=== PATIENT | male | born 1960 | race Caucasian/White ===

== ENCOUNTER → 2020-06-11 09:20 | Outpatient (CLI) | payer OTHER, SELFPAY ==
--- NOTE | ~2020-06-11 | XR_ITS ---
XR lumbar spine 2-3V DATE: 06/11/2020 09:38 INDICATION: Low back pain TECHNIQUE: AP, lateral, coned lateral lumbosacral views COMPARISON: None FINDINGS: There is approximately 50% posterior displacement of the second coccygeal segment compared to the first. There is normal alignment of the lumbar spine. No fracture or bone destruction is evident. The includ ed lower thoracic and lumbar pedicles are intact. There is mild to moderate degenerative disc disease and degenerative spurring of the lumbar vertebrae . There is extensive calcification of the abdominal aorta and common iliac arteries, without evidence o f aneurysm. IMPRESSION: Moderate degenerative changes of the lumbar spine Reviewed, dictated and finalized at location B.
== END ==
PROVIDERS: PCP Family Medicine; Visit Provider Physician Assistant Medical
DX: M54.5 Low back pain (principal)
CPT/HCPCS: 72100

== ENCOUNTER → 2021-01-22 16:52 | Outpatient (CLI) | payer OTHER, SELFPAY ==
--- NOTE | ~2021-01-22 | MR_ITS ---
EXAMINATION: MR lumbar spine wo con DATE: 01/22/2021 17:47 INDICATION: Lumbosacral radiculopathy. TECHNIQUE: Magnetic resonance imaging (MRI) of the lumbar spine was performed without intravenous con trast. Sequences included sagittal T2-weighted FSE, sagittal T2-weighted FS FSE, sagittal T1-weighted FSE, and axial T2-weighted FSE. COMPARISON: Lumbar spine radiographs 06/11/2020 FINDINGS: There is 3 mm retrolisthesis of L5 on S1. There are Schmorl's nodes at all levels. There is mild chronic anterior wedging of T12 and L1 vertebral bodies. There is mildly decreased disc height at T12-L1, L1-L2, L2-L3, and L5-S1. The distal spinal cord signal intensity is normal. The conus medu llaris is at T12-L1. Epidural lipomatosis is noted. The following disc levels are specifically discus sed: L1-L2: There is a right central protrusion with annular fissure. There is mild bilateral facet joint osteoarthritis. There is mild left neural foraminal stenosis. There is mild central canal stenosis. L2-L3: The disc is bulging. There is moderate right and severe left facet joint osteoarthritis. There is mild bilateral neural foraminal stenosis. There is mild central canal stenosis. L3-L4: The disc is bulging. There is moderate right and severe left facet joint osteoarthritis. There is mild bilateral neural foraminal stenosis. There is mild central canal stenosis. L4-L5: The disc is bulging. There is severe bilateral facet joint osteoarthritis. There is mild bilat eral neural foraminal stenosis. There is mild central canal stenosis. L5-S1: There is a broad-based protrusion from the left central zone to the right extraforaminal zone. The disc abuts the bilateral S1 nerve roots There is mild bilateral facet joint osteoarthritis. Ther e is moderate right and mild left neural foraminal stenosis. There is moderate central canal stenosis . IMPRESSION: 1. Moderate lumbar spondylosis. Reviewed, dictated and finalized at location B.
== END ==
PROVIDERS: PCP Family Medicine; Visit Provider Nurse Practitioner Family
DX: M47.27 Other spondylosis with radiculopathy, lumbosacral region (principal)
CPT/HCPCS: 72148

== ENCOUNTER → 2021-05-26 16:47 | Outpatient (CLI) | payer OTHER, SELFPAY ==
--- NOTE | ~2021-05-26 | XR_ITS ---
XR lumbar spine 2-3V DATE: 05/26/2021 19:09 INDICATION: Low back pain TECHNIQUE: Standing AP, lateral and coned lateral lumbosacral views COMPARISON: 01/22/2021 MRI lumbar spine 06/11/2020 lumbar spine FINDINGS: Status post posterior and interbody spinal fusion at L5-S1 since 06/11/2020. Degenerative spurring of the included lower thoracic and lumbar spine. There is multilevel moderate d egenerative disc disease of the lumbar spine. No fracture or bone destruction is detected; included lower thoracic and lumbar pedicles are intact. There is extensive calcification of the abdominal aorta and iliac arteries. IMPRESSION: Interval posterior and interbody spinal fusion at L5-S1 Reviewed, dictated and finalized at location A.
== END ==
PROVIDERS: PCP Family Medicine; Visit Provider Neurological Surgery
DX: M43.27 Fusion of spine, lumbosacral region (principal)
CPT/HCPCS: 72100

== ENCOUNTER → 2021-06-25 14:17 | Outpatient (CLI) | payer OTHER, SELFPAY ==
--- NOTE | ~2021-06-25 | XR_ITS ---
XR lumbar spine 2-3V DATE: 06/25/2021 14:31 INDICATION: Low back pain TECHNIQUE: AP, lateral, coned lateral lumbosacral views COMPARISON: 05/26/2021 lumbar spine FINDINGS: Status post posterior and interbody spinal fusion at L5-S1. The hardware appears intact wit hout interval fracture or displacement. Moderate degenerative disc disease and mild retrolisthesis at L1-2 and L2-3. Mild degenerative disc d isease at L3-4 and L4-5. No fracture or bone destruction is evident. The included lower thoracic and lumbar pedicles are intac t. The sacroiliac joints appear normal. There is extensive calcification of the abdominal aorta, without evidence of aneurysm. Calcification of the common iliac arteries. IMPRESSION: Status post posterior and interbody spinal fusion at L5-S1 Mild to moderate degenerative disc disease of the lumbar spine Reviewed, dictated and finalized at location B.
== END ==
PROVIDERS: Visit Provider Neurological Surgery
DX: M54.50 Low back pain, unspecified (principal); Z98.1 Arthrodesis status; M51.36 Other intervertebral disc degeneration, lumbar region
CPT/HCPCS: 72100

== ENCOUNTER → 2021-08-12 09:13 | Outpatient (CLI) | payer OTHER, SELFPAY ==
--- NOTE | ~2021-08-12 | XR_ITS ---
EXAMINATION: XR lumbar spine 2-3V EXAM DATE: 08/12/2021 10:15 INDICATION: Low back pain, unspecified, Arthrodesis status . Right-sided low back pain rating down ri ght leg. TECHNIQUE: Lumber spine frontal, lateral, lateral L5-S1 projections for interpretation. Comparison is made to prior examination from 06/25/2021. FINDINGS: Posterior and interbody fusion at L5-S1. Hardware is in expected position, unchanged. Mild to moderate diffuse lumbar disc disease. Moderate facet arthropathy. Moderate abdominal aortic arter iosclerosis. There are no acute fractures identified. Sacrum, sacroiliac joints, sacral arcuate lines are intact. IMPRESSION: 1. Intact L5-S1 fusion. 2. Moderate arthropathy, mild to moderate disc disease. 3. No interval change. Reviewed, dictated and finalized at location A. 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
== END ==
PROVIDERS: Visit Provider Neurological Surgery
DX: M54.50 Low back pain, unspecified (principal); Z98.1 Arthrodesis status
CPT/HCPCS: 72100

== ENCOUNTER → 2021-09-23 13:44 | Outpatient (CLI) | payer OTHER, SELFPAY ==
--- NOTE | ~2021-09-23 | XR_ITS ---
EXAMINATION: XR lumbar spine 2-3V DATE: 09/23/2021 14:14 INDICATION: Low back pain TECHNIQUE: Anteroposterior and lateral views of the lumbar spine, and cone-down lateral view of the l umbosacral junction were obtained. COMPARISON: 08/12/2021 FINDINGS: Again noted are changes of posterior and interbody fusion at L5-S1. There is no evidence of hardware failure or loosening. The vertebral body heights and alignment are normal. There is no frac ture. Small degenerative osteophytes project from the anterior endplates of multiple vertebral bodies . There is mild loss of intervertebral disc space height at L1-2. Calcified atherosclerosis is noted. Moderate facet osteoarthritis is noted. IMPRESSION: 1. Mild lumbar spondylosis without acute findings or significant interval change. 2. Stable changes of posterior and interbody fusion at L5-S1. 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 Mild lumbar spondylosis without acute findings or significant interval vargas e. 2. Stable changes of posterior and interbody fusion at L5-S1.
== END ==
PROVIDERS: Visit Provider Neurological Surgery
DX: M47.896 Other spondylosis, lumbar region (principal); Z98.1 Arthrodesis status
CPT/HCPCS: 72100

== ENCOUNTER → 2021-11-05 08:25 | Outpatient (CLI) | payer OTHER, SELFPAY ==
--- NOTE | ~2021-11-05 | MR_ITS ---
EXAMINATION: MR lumbar spine wo/w con EXAM DATE: 11/05/2021 09:18 INDICATION: Bilateral low back pain, postlaminectomy syndrome . TECHNIQUE: Multi-sequential, multiplanar MR images of the lumbar spine were obtained without contrast . Sagittal T1, T2, T2 fat saturation images. Axial T2 weighted images. Axial T1 weighted sequence. Patient was then injected with 20 mL Multihance intravenous contrast and reimaged. Postcontrast axi al and sagittal T1-weighted fat saturation sequences were obtained. Comparison is made to prior exa mination from 01/22/2021. FINDINGS: Interbody and posterior fusion L5-S1. L5 laminectomies, probable L4 laminotomies. Mild to m oderate disc disease from T11-L3, mild at L3-4 and L4-L5. The vertebral bodies are aligned in the AP dimension. There are no suspicious marrow signal abnormalities. Paraspinal soft tissue is unremarkabl e. Level by level evaluation: T12-L1: Disc does not extend beyond the endplate margin. Facet arthropathy: Mild. Neural foraminal stenosis: No stenosis. Central canal stenosis: No stenosis. L1-L2: There is a mild diffuse disc bulge. Facet arthropathy: Mild. Neural foraminal stenosis: No stenosis. Central canal stenosis: No stenosis. L2-L3: There is a mild to moderate diffuse disc bulge. Facet arthropathy: Moderate. Neural foraminal stenosis: Mild bilateral. Central canal stenosis: Mild. L3-L4: There is a mild to moderate diffuse disc bulge. Facet arthropathy: Moderate. Neural foraminal stenosis: Mild to moderate left, mild right. Central canal stenosis: Mild. L4-L5: There is a mild diffuse disc bulge. Facet arthropathy: Moderate. Neural foraminal stenosis: Moderate left, mild to moderate right. Central canal stenosis: Mild to moderate. L5-S1: This level is fused. Facet arthropathy: Mild to moderate. Neural foraminal stenosis: Mild to moderate bilateral. Central canal stenosis: Posterior decompression. IMPRESSION: 1. Interval surgical changes. 2. Mild to moderate lumbar spondylosis. Reviewed, dictated and finalized at location G. UIT RECORDER
[2021-11-05 08:50] LABS: Estimated Glomerular Filt Rate > 60
== END ==
PROVIDERS: Visit Provider Anesthesiology Pain Medicine
DX: M96.1 Postlaminectomy syndrome, not elsewhere classified (principal); M47.896 Other spondylosis, lumbar region
CPT/HCPCS: 72158; A9577

== ENCOUNTER 2021-12-30 15:19 | Outpatient (CLI) | payer OTHER, SELFPAY ==
--- NOTE | ~2021-12-30 | US_ITS ---
EXAMINATION: US art doppler w press LE BI DATE: 12/30/2021 16:59 INDICATION: Disorder of pigmentation. TECHNIQUE: Segmental pressures and plethysmographic and Doppler waveforms of the brachial and lower e xtremity arteries were obtained. COMPARISON: None. FINDINGS: Right and left brachial artery pressures of 126 mm Hg and 141 mm Hg, respectively, are concordant (no rmal difference <= 30 mmHg). The right and left high-thigh pressure indices are unable to be obtained due to inability to occlude the vessels at either thigh (normal > 1.2). The right ankle-brachial index (ANGELA) is 0.55 (normal >= 0.9-1). The right great toe-brachial index (T BI) is 0.06 (normal >= 0.6-0.8). The right lower extremity segmental pressure gradients are increased at each of the arteries from the right [id number] popliteal artery through the arteries at the a nkle relative to the arteries at the same level of the contralateral left lower limb (normal gradient s <= 20-30 mmHg between adjacent levels on the same leg or the same levels on the two legs). Arterial waveforms are biphasic with brisk systolic upstrokes at the right common femoral, superficial femora l artery, borderline upstrokes at the right popliteal artery and with mildly delayed upstrokes at the right posterior tibial artery. Waveform tracings the right dorsalis pedis artery are too attenuated for diagnostic assessment . The left ANGELA is 1.29. The left TBI is 0.42. The left lower extremity segmental pressure gradients are normal. Arterial waveforms are biphasic with brisk systolic upstrokes throughout the left lower limb . IMPRESSION: 1. Arterial occlusive disease to the bilateral lower limbs, more severely on the right with moderatel y decreased right ANGELA and severely decreased right TBI and to lesser degree in the left with normal l eft ANGELA but mildly decreased left TBI. Reviewed, dictated and finalized at location A. IMPRESSION: 1. Arterial occlusive disease to the bilateral lower limbs, more severely on th e right with moderately decreased right ANGELA and severely decreased right TBI an d to lesser degree in the left with normal left ANGELA but mildly decreased left T BI.
== END 2021-12-30 15:20 | disposition home or self-care (01) ==
LOC: ANHIMG 15:20
PROVIDERS: PCP Family Medicine; Visit Provider Nurse Practitioner Family
DX: L81.9 Disorder of pigmentation, unspecified (principal); M79.674 Pain in right toe(s); I73.9 Peripheral vascular disease, unspecified
CPT/HCPCS: 93923

== ENCOUNTER → 2022-11-27 10:48 | Outpatient (CLI) | payer OTHER, SELFPAY ==
--- NOTE | ~2022-11-27 | XR_ITS ---
Clinical Indication: Shortness of breath PA and lateral views of the chest: Comparison: 09/04/2013 Findings: There is probable mild bibasilar pulmonary edema. Minimal right pleural effusion noted. Ca rdiomediastinal silhouette is within normal limits. Bones and soft tissues are unremarkable. Impression: Mild bibasilar pulmonary edema with minimal right pleural effusion. Reviewed, dictated and finalized at location . Impression: Mild bibasilar pulmonary edema with minimal right pleural effusion.
== END ==
PROVIDERS: PCP Family Medicine; Visit Provider Nurse Practitioner Family
DX: R06.02 Shortness of breath (principal); R05.9 Cough, unspecified; I10 Essential (primary) hypertension; E11.9 Type 2 diabetes mellitus without complications
CPT/HCPCS: 71046

== ENCOUNTER 2023-01-25 19:38 | Inpatient (IN) | payer OTHER, SELFPAY ==
--- NOTE | ~2023-01-25 | XR_ITS ---
EXAMINATION: XR chest 2V DATE: 01/25/2023 20:10 INDICATION: Chest pain and shortness of breath TECHNIQUE: PA and lateral views of the chest were obtained. COMPARISON: Chest radiograph date FINDINGS: Diffuse mild increased interstitial pattern at the dependent lung bases suggesting minimal pulmonary edema. Small right pleural effusion. No pneumothorax or left-sided pleural effusion. Heart size is no rmal. Mild to moderate thoracic spondylosis. IMPRESSION: 1. Minimal pulmonary edema versus less likely pneumonia at the dependent lung bases. 2. Small right pleural effusion. Reviewed, dictated and finalized at location A. IMPRESSION: 1. Minimal pulmonary edema versus less likely pneumonia at the dependent lung b ases. 2. Small right pleural effusion.
--- NOTE | ~2023-01-25 | XR_ITS ---
EXAMINATION: XR chest 1V portable DATE: 01/27/2023 17:18 INDICATION: Shortness of breath postcardiac catheterization TECHNIQUE: frontal view of the chest was obtained. COMPARISON: Chest radiograph dated 01/25/2023 FINDINGS: Slight increase in perihilar and lower lung increased interstitial pattern consistent with worsening still mild pulmonary edema. No pleural effusion or pneumothorax. Heart size is normal. IMPRESSION: 1. Interval worsening in still mild perihilar edema. Reviewed, dictated and finalized at location A.
--- NOTE | 2023-01-25 19:43 | ECG_ITS ---
Measurements Intervals [place] Rate: 98 P: 51 SD: 164 QRS: 89 QRSD: 118 T: 20 QT: 364 QTc: 467 Interpretive Statements SINUS RHYTHM VENTRICULAR COUPLETS AND VENTRICULAR PREMATURE COMPLEX INTRAVENTRICULAR CONDUCTION DELAY DELAYED PRECORDIAL R/S TRANSITION NONSPECIFIC ST & T-WAVE ABNORMALITY- INF/LAT LEADS ABNORMAL ECG NO PREVIOUS ECG AVAILABLE FOR COMPARISON Electronically Signed On 01-25-2023 20:32:32 CDT by Cordell Rojas D.O.
[2023-01-25 19:49] VITALS: BP 119/65; PULSE 99; RESP 22; TEMP 37.1; O2SAT 97
[2023-01-25 20:06] LABS: Basophils Absolute Auto 0.1 K/mm3 (0.0-0.1); Eosinophils Absolute Auto 0.2 K/mm3 (0-0.3); Eosinophils Percent Auto 2.8 % (0-4.4); Hematocrit 29.5 % (42.0-52.0); Hemoglobin 8.3 g/dL (14.0-18.0); Immature Granulocyte Absolute 0.08 K/mm3 (0.00-0.031); Immature Granulocyte Percent A 0.9 % (0-0.5); Lymphocytes Absolute Auto 2.15 K/mm3 (0.9-3.2); Lymphocytes Percent Auto 24.9 % (18.3-44.2); Mean Corpuscular HGB Conc 28.1 g/dl (32-36); Mean Corpuscular Volume 70.9 fl (80-100); Mean Platelet Volume 9.2 fl (7.4-10.4); Monocytes Absolute Auto 0.7 K/mm3 (0.1-0.6); Monocytes Percent Auto 8.2 % (2.6-8.5); Neutrophils Absolute Auto 5.4 K/mm3 (1.3-6.7); Neutrophils Percent Auto 62.2 % (45.5-73.1); Platelet Count Result 273 k/mm3 (150-375); Red Blood Count 4.16 M/mm3 (4.6-6.20); Red Cell Distribution Width 18.1 % (11.5-14.5); White Blood Count 8.7 K/mm3 (4.5-10.0)
[2023-01-25 20:15] LABS: Alanine Aminotransferase 20 U/L (6-50); Albumin Level 4.4 g/dL (3.5-5.1); Alkaline Phosphatase 71 U/L (38-126); Anion Gap 13 mmol/L (8-16); Aspartate Amino Transferase 27 U/L (17-59); Bilirubin,Total 0.6 mg/dL (0.2-1.3); Blood Urea Nitrogen 11 mg/dL (9-20); Carbon Dioxide 20 mmol/L (22-30); Chloride 98 mmol/L (98-107); Estimated CRCL calculation 91 ml/min; Estimated Glomerular Filt Rate > 60; Glucose 164 mg/dL (65-110); Lipase 163 U/L (23-300); Potassium 3.5 mmol/L (3.4-5.0); Sodium 131 mmol/L (137-145)
[2023-01-25 20:16] LABS: INR 1.1; Prothrombin Time 14.6 Seconds (11.1-14.7)
[2023-01-25 20:17] LABS: Partial Thromboplastin Time 34.9 SECONDS (22.3-36.8)
[2023-01-25 20:30] LABS: Troponin I 0.242 ng/mL (0.000-0.034)
[2023-01-25 20:36] LABS: Platelet Estimate Adequate (Adequate); Schistocytes None Seen (NORMAL)
[2023-01-25 20:37] LABS: Anisocytosis 3+ (NORMAL); Hypochromasia 1+ (NORMAL)
[2023-01-25 20:45] VITALS: PULSE 100
[2023-01-25 20:48] VITALS: BP 126/99; PULSE 100; RESP 19; O2SAT 96
[2023-01-25 22:31] VITALS: PULSE 99; RESP 15; O2SAT 98
[2023-01-25 23:05] VITALS: BP 130/53; PULSE 98; RESP 17; O2SAT 97
[2023-01-25 23:32] LABS: Troponin I 0.247 ng/mL (0.000-0.034)
--- NOTE | 2023-01-25 23:41 | ED.GENADULT ---
HPI - General Adult General Chief complaint: Chest Pain Stated complaint: CP/SOB Time Seen by Provider: 01/25/23 19:47 History of Present Illness HPI narrative: This a 62-year-old male presenting ED with a chief complaint of chest pain. Patient says that he started have left-sided chest pain no around 5:00 today. is nonradiating, 8/10 10 intensity and constant. he has had pain like this in the past. It improved with nitro. There are no exacerbating factors. Was associated with diaphoresis and exertion. No nausea vomiting fever chills or productive cough. Patient was recently diagnosed with CHF an outside hospital and started on Lasix. 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 Barrera Related Data Home Medications Medication Instructions Recorded Confirmed spironolactone 25 mg tablet 25 mg PO DAILY 12/25/22 01/18/23 Allergies Allergy/AdvReac Type Severity Reaction Status Date / Time No Known Allergies Allergy Verified 01/25/23 19:59 [facility] Past Medical History Medical History Abnormal MRI, lumbar spine Blood clot associated with vein wall inflammation BMI 36.0-36.9,adult BMI 37.0-37.9, adult Peripheral artery disease Family History Family History Grandparent Diabetes mellitus Father Acute myocardial infarction Mother No problems noted. Sibling Diabetes mellitus Other Family history of cardiovascular disease Hypertension Social History Social History Smoking packs per day: 1 Smoking cigarettes per day: 20.0 Years smoked: 50 Smoking pack-years: 50.00 Smoking status: Current some day smoker Tobacco type: cigarettes Second hand tobacco smoke exposure: No Alcohol intake: current Substance use: never Substance use type: does not use Lack of Transportation: No Lack of Food: Never True Current Housing: I Have Housing Concerned About Future Housing: No Difficulty Paying Gas/Electric Bills: No Difficulty Paying for Meds: No Currently Unemployed: No Education: High School Diploma/GED Difficulty w/ Childcare or Family Care: No Living arrangements: alone Occupation/Education: retired 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 Gender identity (if verbalized by the patient): Male Exam Narrative: APPEARANCE: patient appears uncomfortable Head: atraumatic. EYES: EOMI, NOSE: Atraumatic NECK: Trachea midline RESPIRATORY: No increased rate of breathing, clear to auscultation CARDIOVASCULAR: RRR, no peripheral edema ABDOMINAL: distended but soft no guarding or rebound MUSCULOSKELETAl: No obvious deformities NEURO: Alert. Moving 4/4 extremities SKIN:: Warm, dry. Normal color PSYCHIATRIC: Normal affect Course Vital Signs Vital signs: Vital Signs Temperature 98.8 F 01/25/23 19:49 Pulse Rate 99 01/25/23 19:49 Respiratory Rate 22 H 01/25/23 19:49 Blood Pressure 119/65 01/25/23 19:49 Pulse Oximetry 97 01/25/23 19:49 Oxygen Delivery Room Air 01/25/23 19:49 Temperature 98.8 F 01/25/23 19:49 Pulse Rate 96 01/26/23 00:09 Respiratory Rate 21 H 01/26/23 00:09 Blood Pressure 120/68 01/26/23 00:09 Pulse Oximetry 95 01/26/23 00:09 Oxygen Delivery Room Air 01/25/23 19:49 Medical Decision Making [facility] Narrative Medical decision making narrative: -Presentation: 62-year-old male presenting with chest pain and difficulty breathing. 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
[2023-01-25] MEDS: FUROSEMIDE INJ 40 MG/4 ML VIAL IV PUSH (23:55)
[2023-01-26] VITALS (16 sets, daily range): BP systolic 102–130; BP diastolic 49–72; PULSE 80–116; RESP 16–25; TEMP 36.1–36.6; O2SAT 92–100; BMI 37.2; BMI 35.0
[2023-01-26 02:21] LABS: Troponin I 0.257 ng/mL (0.000-0.034)
--- NOTE | 2023-01-26 03:30 | ADMGEN ---
This patient, Bravo Perez, was admitted to IMU Room 212-01 at 0325. Patient/family oriented to hospital policies and general routines including ID bracelet, bed and alarms, visiting hours, pain management, procedures, bathroom and other care routines, personal items, smoking policy, room service/diet, and visiting hours. Information on how to activate the Rapid Response Team has been discussed. Patient/Family are encouraged to report perceived risks to care and to ask questions if they do not understand what they are told or what they should do.
[2023-01-26] MEDS: FUROSEMIDE INJ 40 MG/4 ML VIAL IV PUSH (09:35)
[2023-01-26] MEDS: CHOLECALCIFEROL 1,000 UNITS TABLET 5000 UNITS PO (14:06)
[2023-01-26] MEDS: PANTOPRAZOLE 40 MG TABLET PO (14:07)
[2023-01-26] MEDS: buPROPion HCL XL (24 HR) 150 MG TABCR PO (14:07)
[2023-01-26] MEDS: LOSARTAN POTASSIUM 50 MG TABLET PO (14:08)
[2023-01-26] MEDS: SPIRONOLACTONE 25 MG TABLET PO (14:08)
[2023-01-26] MEDS: ATORVASTATIN 40 MG TABLET 80 MG PO (14:08)
[2023-01-26] MEDS: amLODIPine BESYLATE 5 MG TABLET 10 MG PO (14:08)
--- NOTE | 2023-01-26 16:13 | PM.CNCAR ---
Assessment and Plan Assessment and plan (1) Elevated troponin: Code(s): R77.8 - Other specified abnormalities of plasma proteins Status: Acute (2) Shortness of Breath: Code(s): R06.02 - Shortness of breath Status: Acute Plan Patient scheduled for outpatient LHC/RHC on 02/01, however, since patient is admitted will perform 01/27, however, will be in the afternoon. Patient to be NPO starting at 8AM on 01/27 and can eat a light breakfast before 8AM. Will start ASA. Hold Xarelto (last dose was Thursday 01/25 around 9AM). History of Present Illness History of Present Illness Consult date/time: 01/26/23 16:13 Requesting physician: Stephen Garrison MD Consult reason: Other (CAD/CHF) Reason For Visit: Chest Pain/CHF Narrative: We are consulted for shortness of breath, chest pain, elevated troponins. This is a 62-year-old male with peripheral arterial disease s/p right common femoral, profunda femoris, and proximal superficial femoral endarterectomy in July 2022. Patient follows with Dr. Barrera in the clinic. Last saw him 5 days ago. Patient also has a history of diabetes and tobacco use. He was admitted to [facility] about a month ago per the patient and was treated with Lasix and started on low-dose Xarelto. He had an echocardiogram done in the end of November 2022 in [place] which reported significant LV enlargement with LV end-diastolic diameter of 6.9cm. His EF was 50%. He was also found to have aortic stenosis with peak gradient of 35mmHg and calculated valve area of 1.1cm2. Was also placed on Aldactone. At his clinic visit with Dr. Barrera, he had reported exertional shortness of breath at that time. Patient states he has had exertional shortness of breath and occasional exertional chest tightness that has been ongoing for a month or so now. Dr. Barrera recommended LHC and RHC at clinic visit, which patient was agreeable to, and was scheduled for outpatient LHC/RHC with Dr. Barrera on 02/01/2023. Patient states he came to [facility] because he felt like his symptoms felt a little worse starting on Wednesday. His troponins were mildly elevated on admission at 0.242 --> 0.247 --> 0.257. EKG with sinus rhythm, PVCs, IVCD, nonspecific STTW abnormality. Review of Systems Review of Systems: All systems reviewed & are unremarkable except as noted in HPI and below (HPI) [facility] Past Medical History Medical History Abnormal MRI, lumbar spine Blood clot associated with vein wall inflammation BMI 36.0-36.9,adult BMI 37.0-37.9, adult Peripheral artery disease Family History Family History Grandparent Diabetes mellitus Father Acute myocardial infarction Mother No problems noted. Sibling Diabetes mellitus Other Family history of cardiovascular disease Hypertension Social History Social History Smoking packs per day: 1 Smoking cigarettes per day: 20.0 Years smoked: 45 Smoking pack-years: 45.00 Smoking status: Current every day smoker Tobacco type: cigarettes Second hand tobacco smoke exposure: No Alcohol intake: current Drinks per week: 18 Substance use: never Substance use type: other Other substance usage details: nyquil Lack of Transportation: No Lack of Food: Never True Current Housing: I Have Housing Concerned About Future Housing: No Difficulty Paying Gas/Electric Bills: No Difficulty Paying for Meds: No Currently Unemployed: No Education: High School Diploma/GED Difficulty w/ Childcare or Family Care: No Living arrangements: alone Occupation/Education: retired 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 Gender identity (if verbalized by the patient): Male Spiritual care concerns: No Meds Home Medications and Allergies Home Medications Med
--- NOTE | 2023-01-26 16:45 | PM.IMHP ---
H&P: HPI History of Present Illness Date/Time: 01/26/23 16:45 Chief Complaint: chest pain and sob Narrative: 62 year old male admitted with chest pain pt sees DR Barrera in [facility]. Pt had echo pt due to have elective heart cath. Pt admitted here with chest pain and elevated troponin will have heart cath on 01/27/2023 Pt has history of DM, tobacco abuse and PAD, systolic CHF. Recent echo shows - November 2022 in [place] which reported significant LV enlargement with LV end-diastolic diameter of 6.9cm. His EF was 50%. He was also found to have aortic stenosis with peak gradient of 35mmHg and calculated valve area of 1.1cm2. Was also placed on Aldactone Review of Systems Review of Systems: chest pain / sob All systems reviewed & are unremarkable except as noted in HPI and below Constitutional: Constitutional: Denies excessive sweating, Denies fatigue, Denies frequent falls and Denies headache(s) ENT: Denies headache(s) Cardiovascular: Cardiovascular: Reports chest pain, Denies irregular heart rhythm, Reports dyspnea and Reports dyspnea on exertion Respiratory: Respiratory: Denies cough, Denies hemoptysis, Denies dyspnea, Denies dyspnea on exertion and Denies wheezing Gastrointestinal: Gastrointestinal: Denies abdominal pain and Denies change in bowel habits Musculoskeletal: Musculoskeletal: Denies no additional musculoskeletal complaints, Denies limited range of motion and Denies numbness Neurologic: Denies frequent falls, Denies headache(s), Denies numbness and Denies convulsions Psychiatric: Psychiatric: Denies hallucinations and Denies tactile hallucinations Endocrine: Endocrine: Denies excessive sweating, Denies fatigue and Denies flushing Allergic/Immunologic: Allergic/Immunologic: Denies wheezing PMFSH Past Medical History Medical History Abnormal MRI, lumbar spine Blood clot associated with vein wall inflammation BMI 36.0-36.9,adult BMI 37.0-37.9, adult Peripheral artery disease Family History Family History Grandparent Diabetes mellitus Father Acute myocardial infarction Mother No problems noted. Sibling Diabetes mellitus Other Family history of cardiovascular disease Hypertension Social History Social History Smoking packs per day: 1 Smoking cigarettes per day: 20.0 Years smoked: 45 Smoking pack-years: 45.00 Smoking status: Current every day smoker Tobacco type: cigarettes Second hand tobacco smoke exposure: No Alcohol intake: current Drinks per week: 18 Substance use: never Substance use type: other Other substance usage details: nyquil Lack of Transportation: No Lack of Food: Never True Current Housing: I Have Housing Concerned About Future Housing: No Difficulty Paying Gas/Electric Bills: No Difficulty Paying for Meds: No Currently Unemployed: No Education: High School Diploma/GED Difficulty w/ Childcare or Family Care: No Living arrangements: alone Occupation/Education: retired 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 Gender identity (if verbalized by the patient): Male Spiritual care concerns: No Meds Home Medications and Allergies Home Medications Medication Instructions Recorded Confirmed Type dulaglutide 4.5 mg/0.5 mL 4.5 mg (0.5 mL) subcut WEEKLY #2 mL 12/25/22 01/26/23 Rx subcutaneous pen injector (Trulicity) spironolactone 25 mg tablet 25 mg PO DAILY 12/25/22 01/26/23 History albuterol sulfate 90 mcg/actuation 1 inh inhalation Q4H PRN shortness 01/12/23 01/26/23 Rx aerosol inhaler of breath or wheezing #8.5 grams gabapentin 100 mg capsule 100 mg PO QHS #90 caps 01/12/23 01/26/23 Rx amlodipine 10 mg tablet 10 mg PO DAILY 01/26/23 01/26/23 History atorvastatin 80 mg tablet 80 mg P
[2023-01-26 16:57] LABS: Glucose Point of Care 192 mg/dl (65-105)
[2023-01-26] MEDS: GABAPENTIN 100 MG CAPSULE PO (20:36)
[2023-01-26 20:54] LABS: Hemoglobin A1C 6.3 % (<5.7)
[2023-01-26 20:56] LABS: Glucose Point of Care 139 mg/dl (65-105)
[2023-01-26] MEDS: diphenhydrAMINE HCl CAP 25 MG CAPSULE PO (22:26)
[2023-01-27] VITALS (30 sets, daily range): BP systolic 97–143; BP diastolic 55–82; PULSE 78–600; RESP 13–29; TEMP 36.1–36.7; O2SAT 90–100
--- NOTE | 2023-01-27 | ECHO_ITS ---
Patient Info Name: Bravo Perez Age: 62 years : 1960 Gender: Male Ht: 72 in Wt: 273 lbs BSA: 2.55 m2 HR: 90 bpm BP: 123 / 58 mmHg Heart Rhythm: Sinus Rhythm Technical Quality: Fair Exam Date: 01/27/2023 4:00 PM Exam Location: [facility] Patient Status: Inpatient Admit Date: 01/26/2023 Staff Ordering Physician: Eduardo Moran MD (silvana/caren) Supervisor [employer] Room: Tatiana Heath RDCS Attending Provider: Rosangela Huerta DO Referring Physician: Dean OLIVA; Exam Type: CA echo dop color flow w con Study Info Indications - eval LVEF, , Complete two-dimensional, color flow and Doppler transthoracic echocardiogram is performed with contrast to opacify the left ventricle and to improve the deliniation of the left ventricle endocardial borders. Contrast/Agitated Saline Contrast/Ag. Saline: Definity Amount: 3.00 ml Administered By: Tatiana Heath RDCS Existing IV Access: Yes IV Access Condition: patent with no signs of infiltration Summary 1. Left ventricular chamber dimension is mildly enlarged. 2. Left ventricular systolic function is moderately reduced, estimated at 35-40%. 3. There is mildly increased left ventricular wall thickness. 4. The left ventricular diastolic function is grade II diastolic dysfunction. 5. Left atrial chamber dimension is mildly enlarged. 6. The aortic valve is probable trileaflet. 7. There is moderate aortic valve stenosis with a peak velocity of 283.41 cm/s, mean gradient of 19 mmHg, and aortic valve area of 1.28 cm2. 8. There is trace aortic valve regurgitation. 9. There is severe aortic valve calcification. 10. The mitral valve has thickened leaflets and calcified annulus. 11. There is mild mitral valve stenosis. 12. There is mild to moderate mitral valve regurgitation. 13. There is mild tricuspid valve regurgitation. Left Ventricle Left ventricular chamber dimension is mildly enlarged. Left ventricular systolic function is moderately reduced, estimated at 35-40%. There is mildly increased left ventricular wall thickness. The left ventricular diastolic function is grade II diastolic dysfunction. Right Ventricle Right ventricular chamber dimension is normal. Right ventricular systolic function is normal. Left Atria Left atrial chamber dimension is mildly enlarged. Right Atria Right atrial chamber dimension is normal. Atrial Septum Intact interatrial septum visualized by color flow imaging. Aortic Valve The aortic valve is probable trileaflet. There is moderate aortic valve stenosis with a peak velocity of 283.41 cm/s, mean gradient of 19 mmHg, and aortic valve area of 1.28 cm2. There is trace aortic valve regurgitation. There is severe aortic valve calcification. Pulmonic Valve The pulmonic valve is not well visualized. There is no pulmonic valve stenosis. There is trace pulmonic regurgitation. Mitral Valve The mitral valve has thickened leaflets and calcified annulus. There is mild mitral valve stenosis. There is mild to moderate mitral valve regurgitation. Tricuspid Valve The tricuspid valve leaflets are normal. There is no significant tricuspid valve stenosis. There is mild tricuspid valve regurgitation. No pulmonary hypertension, estimated pulmonary arterial systolic pressure is 28 mmHg. Pericardium/Pleural The pericardium appears normal. There is no pericardial effusion. Inferior Vena Cava Normal inferior vena cava with >50% collapse upon inspiration consistent with normal right atrial pressure, 10 mmHg. Aorta
[2023-01-27 04:54] LABS: Hematocrit 28.8 % (42.0-52.0); Hemoglobin 7.8 g/dL (14.0-18.0); Mean Corpuscular HGB Conc 27.1 g/dl (32-36); Mean Corpuscular Hemoglobin 19.4 pg (26-34); Mean Corpuscular Volume 71.5 fl (80-100); Mean Platelet Volume 9.3 fl (7.4-10.4); Platelet Count Result 241 k/mm3 (150-375); Red Blood Count 4.03 M/mm3 (4.6-6.20); White Blood Count 7.3 K/mm3 (4.5-10.0)
[2023-01-27 05:04] LABS: Anion Gap 10 mmol/L (8-16); Blood Urea Nitrogen 14 mg/dL (9-20); Calcium 8.4 mg/dL (8.4-10.2); Carbon Dioxide 22 mmol/L (22-30); Chloride 97 mmol/L (98-107); Estimated CRCL calculation 91 ml/min; Estimated Glomerular Filt Rate > 60; Glucose 121 mg/dL (65-110); Potassium 3.8 mmol/L (3.4-5.0); Sodium 129 mmol/L (137-145)
[2023-01-27 07:42] LABS: Glucose Point of Care 151 mg/dl (65-105)
[2023-01-27 11:58] LABS: Glucose Point of Care 129 mg/dl (65-105)
[2023-01-27] MEDS: ATORVASTATIN 40 MG TABLET 80 MG PO (12:16)
[2023-01-27] MEDS: PANTOPRAZOLE 40 MG TABLET PO (12:16)
[2023-01-27] MEDS: ASPIRIN 81 MG ENTERIC TABLET PO (12:16)
[2023-01-27] MEDS: buPROPion HCL XL (24 HR) 150 MG TABCR PO (12:17)
--- NOTE | 2023-01-27 13:23 | PCCCNOTE ---
On 01/27/23, the student, [Jeanette Garnett], provided care and completed [facility] documentation on this patient. I have reviewed the student's documentation and agree with the findings.
--- NOTE | 2023-01-27 13:28 | PM.PNCARD ---
Progress Note: A&P Assessment and Plan (1) Shortness of Breath: Code(s): R06.02 - Shortness of breath Status: Acute (2) Elevated troponin: Code(s): R77.8 - Other specified abnormalities of plasma proteins Status: Acute Plan Proceed with LHC, RHC today. Subjective Date/time seen: 01/27/23 13:28 Interval history: Reason for visit: Shortness of breath, chest pain, elevated troponin HPI: This is a 62-year-old male with peripheral arterial disease s/p right common femoral, profunda femoris, and proximal superficial femoral endarterectomy in July 2022. Patient follows with Dr. Barrera in the clinic. Last saw him 5 days ago. Patient also has a history of diabetes and tobacco use. He was admitted to [facility] about a month ago per the patient and was treated with Lasix and started on low-dose Xarelto. He had an echocardiogram done in the end of November 2022 in [place] which reported significant LV enlargement with LV end-diastolic diameter of 6.9cm. His EF was 50%. He was also found to have aortic stenosis with peak gradient of 35mmHg and calculated valve area of 1.1cm2. Was also placed on Aldactone. At his clinic visit with Dr. Barrera, he had reported exertional shortness of breath at that time. Patient states he has had exertional shortness of breath and occasional exertional chest tightness that has been ongoing for a month or so now. Dr. Barrera recommended LHC and RHC at clinic visit, which patient was agreeable to, and was scheduled for outpatient LHC/RHC with Dr. Barrera on 02/01/2023. Patient states he came to [facility] because he felt like his symptoms felt a little worse starting on Wednesday. His troponins were mildly elevated on admission at 0.242 --> 0.247 --> 0.257. EKG with sinus rhythm, PVCs, IVCD, nonspecific STTW abnormality. Date of service 01/27: No acute events overnight. Cardiac cath planned for today. Review of Systems Review of Systems: All systems reviewed & are unremarkable except as noted in HPI and below (HPI) Exam Const: General: comfortable and no acute distress Other: Obese male HENMT: Mouth: Yes moist mucous membranes Eyes: General: appearance normal, both eyes and all related structures Sclera: sclerae normal Neck: Neck: supple Resp: Effort & Inspection: normal respiratory effort Auscultation: diminished lung sounds Cardio: Rate: regular rate Rhythm: regular rhythm Heart sounds: Murmur heart sound present systolic Skin: General skin exam: normal color Neuro: Speech: normal speech Psych: Mental Status: mental status grossly normal Affect: normal affect Objective Data Vital Signs Vital Signs: Vital Signs - 24 hr 01/26/23 16:00 01/26/23 14:00 01/26/23 16:00 Temperature 36.3 C L Pulse Rate 90 94 96 Respiratory Rate 20 Blood Pressure 106/49 L Pulse Oximetry 100 Oxygen Delivery Fraction of Inspired Oxygen 01/26/23 18:00 01/26/23 16:00 01/26/23 20:00 Temperature 36.1 C L Pulse Rate 108 H 92 Respiratory Rate 22 H Blood Pressure 112/53 L Pulse Oximetry 98 Oxygen Delivery Room Air Fraction of Inspired Oxygen 01/26/23 20:00 01/26/23 20:00 01/26/23 22:00 Temperature Pulse Rate 90 90 80 Respiratory Rate 22 H Blood Pressure Pulse Oximetry 98 Oxygen Delivery Room Air Fraction of Inspired Oxygen 01/26/23 23:44 01/27/23 00:00 01/27/23 00:00 Temperature 36.6 C Pulse Rate 90 98 98 Respiratory Rate 20 20 Blood Pressure 102/71 Pulse Oximetry 100 100 Oxygen Delivery Room Air Fraction of Inspired Oxygen 01/27/23 02:00 01/26/23 21:27 01/26/23 21:27 Temperature Pulse Rate 78 96 Respiratory Rate 25 H Blood Pressure Pulse Oximetry 100 100 Oxygen Delivery CPAP CPAP Fraction of Inspired Oxygen 21 01/27/23 04:00 01/27/23 01:54 01/27/23 04:00 Temperature 36.7 C Pulse Rate 86 81 78 Respiratory Rate 20 20 Blood Pressure 100/79 Pulse Oximetr
--- NOTE | 2023-01-27 13:30 | WPDMODSED ---
Moderate Sedation Note-Pt Data Patient Data Diagnosis: Shortness of breath, chest pain, elevated troponins Present Complaint: Shortness of breath, chest pain, elevated troponins Procedure to be performed/Plan: Coronary angiography, left heart cath, right heart cath, +/- PCI Allergies Allergy/AdvReac Type Severity Reaction Status Date / Time No Known Allergies Allergy Verified 01/25/23 19:59 Home Medications Medication Instructions Recorded Confirmed Type dulaglutide 4.5 mg/0.5 mL 4.5 mg (0.5 mL) subcut WEEKLY #2 mL 12/25/22 01/26/23 Rx subcutaneous pen injector (Trulicity) spironolactone 25 mg tablet 25 mg PO DAILY 12/25/22 01/26/23 History albuterol sulfate 90 mcg/actuation 1 inh inhalation Q4H PRN shortness 01/12/23 01/26/23 Rx aerosol inhaler of breath or wheezing #8.5 grams gabapentin 100 mg capsule 100 mg PO QHS #90 caps 01/12/23 01/26/23 Rx amlodipine 10 mg tablet 10 mg PO DAILY 01/26/23 01/26/23 History atorvastatin 80 mg tablet 80 mg PO DAILY 01/26/23 01/26/23 History bupropion HCl 150 mg 24 hr tablet, 150 mg PO DAILY 01/26/23 01/26/23 History extended release cholecalciferol (vitamin D3) 125 125 mcg PO DAILY 01/26/23 01/26/23 History mcg (5,000 unit) capsule empagliflozin 12.5 mg-metformin 1 tablet PO BID 01/26/23 01/26/23 History 1,000 mg tablet (Synjardy) furosemide 20 mg tablet (Lasix) 20 mg PO DAILY 01/26/23 01/26/23 History losartan 50 mg tablet 50 mg PO DAILY 01/26/23 01/26/23 History omeprazole 40 mg capsule,delayed 40 mg PO DAILY 01/26/23 01/26/23 History release rivaroxaban 2.5 mg tablet (Xarelto) 2.5 mg PO BID 01/26/23 01/26/23 History Current Medications: Active Medications Albuterol (Albuterol Sulfate (*Sp) Aerosol 1 Puff) 1 puff INHALATION Q4H PRN PRN Reason: shortness of breath or wheezing Amlodipine Besylate (Amlodipine Besylate 5 Mg Tablet) 10 mg PO DAILY [facility] Last Admin: 01/27/23 11:01 Dose: Not Given Aspirin (Aspirin 81 Mg Enteric Tablet) 81 mg PO QAM [facility] Last Admin: 01/27/23 12:16 Dose: 81 mg Atorvastatin Calcium (Atorvastatin 40 Mg Tablet) 80 mg PO DAILY [facility] Last Admin: 01/27/23 12:16 Dose: 80 mg Bupropion HCl (Bupropion Hcl Xl (24 Hr) 150 Mg Tabcr) 150 mg PO DAILY [facility] Last Admin: 01/27/23 12:17 Dose: 150 mg Dextrose (Dextrose 50% 25 Gm/50 Ml Syringe) 12.5 gm IV PUSH PRN PRN; Protocol PRN Reason: Hypoglycemia Diphenhydramine HCl (Diphenhydramine Hcl Cap 25 Mg Capsule) 25 mg PO QHS PRN PRN Reason: Sleep Last Admin: 01/26/23 22:26 Dose: 25 mg Furosemide (Furosemide 20 Mg Tablet) 20 mg PO DAILY [facility] Last Admin: 01/27/23 12:07 Dose: Not Given Gabapentin (Gabapentin 100 Mg Capsule) 100 mg PO QHS [facility] Last Admin: 01/26/23 20:36 Dose: 100 mg Glucagon (Glucagon For Inj 1 Mg Vial) 1 mg IM PRN PRN; Protocol PRN Reason: Hypoglycemia Glucose (Glucose Oral Gel 15 Gm Of Glucse In 37.5 Gm Tube) 15 gm PO PRN PRN; Protocol PRN Reason: Hypoglycemia Dextrose (Dextrose 5% 1,000 Ml) 1,000 mls @ 100 mls/hr IVPB PRN PRN; Protocol PRN Reason: Hypoglycemia Losartan Potassium (Losartan Potassium 50 Mg Tablet) 50 mg PO DAILY [facility] Last Admin: 01/27/23 11:01 Dose: Not Given Pantoprazole Sodium (Pantoprazole 40 Mg Tablet) 40 mg PO DAILY [facility] Stop: 02/26/23 08:59 Last Admin: 01/27/23 12:16 Dose: 40 mg Spironolactone (Spironolactone 25 Mg Tablet) 25 mg PO DAILY [facility] Last Admin: 01/27/23 12:07 Dose: Not Given Vitamin D (Cholecalciferol 1,000 Units Tablet) 5,000 units PO DAILY [facility] Last Admin: 01/27/23 12:07 Dose: Not Given Sedation/Anesthesia: No previous sedation/anesthesia problems (including family history). [facility] Past Medical History Medical History Abnormal MRI, lumbar spine Blood clot associated with vein wall inflammation BMI 36.0-36.9,adult BMI 37.0-37.9, adult Peripheral artery disease Family History Family History (Reviewed 01/27/23 @ 13:30 by Eduardo Moran,
--- NOTE | 2023-01-27 13:31 | WPDCARDPROC ---
Cardiac Cath Procedure Note Date of procedure:: 01/27/23 Performing physician:: CATHETERIZATION LABORATORY REPORT Procedure Date: 01/27/2023 Caustic Strength Inspector: Eduardo Moran M.D., [facility]? Referring Physician: Eduardo Moran M.D. ? Anesthesia: Versed and Fentanyl were ordered and given in my presence at 14:07, procedure ended at 15:07. Supervision of nurse monitored moderate sedation with Versed and Fentanyl was provided for 60 minutes. Total of Versed 1mg and Fentanyl 25mcg were administered by the Qual Field Manager RN Jennifer Byrnes. Pre-op Diagnosis: Coronary artery disease, congestive heart failure Post-op Diagnosis: 1. One vessel coronary artery disease with significant distal RCA disease 2. Elevated right heart filling pressures 3. Elevated left heart filling pressures with LVEDP of 39mmHg 4. 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 Carmen cardiac output of 5.9 6. Carmen cardiac index of 2.4 Procedure(s): 1. Moderate sedation 2. Ultrasound-guided access of right femoral vein and right radial artery 3. Right heart cath 4. Coronary angiography 5. Left heart cath Access Site: Right femoral vein Right radial artery Brief History and Clinical Indications: Patient is a 62-year-old male who is referred for C/RHC for shortness of breath, chest pain, elevated troponin All risks, benefits and alternatives to left heart catheterization with or without percutaneous coronary intervention and right heart cath was discussed at length with the patient. Risk of complications including but not limited to bleeding, infection, arrhythmia, stroke, worsening kidney function, blood loss, groin hematoma, limb loss, emergency coronary artery bypass grafting, and even were discussed with the patient and all questions were answered. The patient understood and wished to proceed. Time out called, patient name, date of , medical record number, allergies, procedure performed, identify Caustic Strength Inspector, patient and staff member concurred with accurate data, procedure carried on. Findings: LEFT HEART CATHETERIZATION FINDINGS: 1. Left main: Large caliber vessel. The left main coronary artery is widely patent without any significant obstructive disease. 2. Left anterior descending: Large caliber vessel. Calcific. The LAD has mild diffuse disease without any significant obstructive angiographic disease. The first diagonal branch is a small caliber vessel with diffuse disease. The remainder of the diagonal branches are very small caliber and diffusely diseased. 3. Left circumflex: Large caliber vessel. Calcific. The left circumflex artery and the main marginal branches have mild diffuse disease without any significant obstructive angiographic disease. 4. Right coronary artery: The RCA is the dominant vessel and is a large caliber vessel. The RCA has diffuse heavy calcifications. The proximal and mid portion has mild diffuse disease. The distal portion of the RCA has a very hazy, calcific stenosis of 80%. The RPLV is a small caliber vessel with an ostial stenosis of 70%. The RDPA is a small caliber vessel with ostial 70% stenosis. 5. Left ventricle: A. End-diastolic pressure 39mmHg. B. LV gram deferred. C. Gradient across aortic valve on catheter pullback: 20mmHg RIGHT HEART CATHETERIZATION FINDINGS: Pressures (mmHg): RA: 13 mmHg RV: 58/17 mmHg PA: 57/22 mmHg with mean of 39 mmHg PCWP: 33 mmHg Saturations (%): PA: 45.4% (multiple PA saturations were obtained and were within similar value) Arterial: 94.1% CO/CI: Carmen CO: 5.9 Carmen CI: 2.4 PVR (DAN): 1 SVR (DAN): 13.1 SVR (Dynes): 1047.7 Description of Procedure: Informed consent signed and placed in the chart. Patient transferred to veterinary laboratory diagnostician room. Prepped and draped in usual sterile fashion. 2% lidocaine injected subcutaneously in right groin area. Right femoral vein was accessed using micropuncture technique. Unable to advance the micropuncture cannula in right
[2023-01-27 14:50] LABS: Alveolar/Arterial O2 Gradient 81.1 mmHg; Fractional Inspired Oxygen 21 %; HCO3 ABG 24.1 mEq/l (22.0-26.0); Oxygen Content ABG 4.6 %vol (16.0-22.0); PCO2 ABG 37.1 mmHg (35.0-45.0); PO2 FiO2 Ratio Arterial Blood 1.15 %; Total Hemoglobin 8.8 g/dL (12.0-18.0); pH ABG 7.431 (7.350-7.450)
[2023-01-27 14:52] LABS: Oxygen Saturation ABG 45.4 % (95.0-100.0); PO2 ABG < 27.0 mmHg (80.0-100.0)
[2023-01-27 14:53] LABS: Oxyhemoglobin 37.1 % THb (90.0-100.0)
[2023-01-27 14:54] LABS: Device ROOM AIR
--- NOTE | 2023-01-27 15:08 | PM.IMPN ---
Progress Note: A&P Assessment and Plan (1) CHF (congestive heart failure): Code(s): I50.9 - Heart failure, unspecified Status: Acute Assessment and Plan: Recent Echo shows EF of 50% Chest x-ray with pulmonary edema. Acute on chronic systolic heart failure continue home medications On IV diuresis (2) Elevated troponin: Code(s): R77.8 - Other specified abnormalities of plasma proteins Status: Acute Assessment and Plan: Mildly elevated troponin 0.245 Pt seen by cardiology Plan for heart catheterization today (3) Benign essential HTN: Code(s): I10 - Essential (primary) hypertension Status: Acute Assessment and Plan: Continue BP medications in hospital (4) Diabetes: Code(s): E11.9 - Type 2 diabetes mellitus without complications Status: Acute Assessment and Plan: ACcuchecks SSI A1c is 6.3 (5) Peripheral artery disease: Code(s): I73.9 - Peripheral vascular disease, unspecified Status: Acute Assessment and Plan: History of PAD status post right common femoral, profundus femoris and proximal superficial femoral endarterectomy July 2022 Plan Hyponatremia continue to watch sodium levels Anemia watch hb if hb drops below 7 transfuse with blood. Unclear etiology no overt signs of bleeding. It globin 8 on admission. Continue to monitor. Hemoglobin July was 12.6. Will order anemia workup Hypertriglycemic on atorvastatin Aortic stenosis with peak gradient of 35 mm Hg aortic valve area 1.1 cm but. DVT prop: scd hold xarelto. On anticoagulation ? for peripheral artery disease potentially Subjective Date/time seen: 01/27/23 15:08 Interval history: Patient presented with chest pain and elevated troponin. Underlying history of diabetes tobacco abuse and peripheral artery disease and systolic heart failure. Review of Systems Review of Systems: All systems reviewed & are unremarkable except as noted in HPI and below Exam Narrative: ?APPEARANCE: patient comfortable not in acute distress Head: atraumatic. Normocephalic EYES:? EOMI, NECK: Trachea midline RESPIRATORY: No increased rate of breathing, clear to auscultation CARDIOVASCULAR: RRR, no peripheral edema ABDOMINAL:? distended but soft no guarding or rebound MUSCULOSKELETAl: No obvious deformities NEURO: Alert. Moving 4/4 extremities SKIN:: Warm, dry. Normal color PSYCHIATRIC: Normal affect Objective Data Vital Signs Vital Signs: Vital Signs - 24 hr 01/26/23 16:00 01/26/23 16:00 01/26/23 18:00 Temperature 97.4 F L Pulse Rate 90 96 108 H Respiratory Rate 20 Blood Pressure 106/49 L Pulse Oximetry 100 Oxygen Delivery Fraction of Inspired Oxygen 01/26/23 16:00 01/26/23 20:00 01/26/23 20:00 Temperature 97.0 F L Pulse Rate 92 90 Respiratory Rate 22 H Blood Pressure 112/53 L Pulse Oximetry 98 Oxygen Delivery Room Air Fraction of Inspired Oxygen 01/26/23 20:00 01/26/23 22:00 01/26/23 23:44 Temperature 97.9 F Pulse Rate 90 80 90 Respiratory Rate 22 H 20 Blood Pressure 102/71 Pulse Oximetry 98 100 Oxygen Delivery Room Air Fraction of Inspired Oxygen 01/27/23 00:00 01/27/23 00:00 01/27/23 02:00 Temperature Pulse Rate 98 98 78 Respiratory Rate 20 Blood Pressure Pulse Oximetry 100 Oxygen Delivery Room Air Fraction of Inspired Oxygen 01/26/23 21:27 01/26/23 21:27 01/27/23 04:00 Temperature 98.1 F Pulse Rate 96 86 Respiratory Rate 25 H 20 Blood Pressure 100/79 Pulse Oximetry 100 100 98 Oxygen Delivery CPAP CPAP Fraction of Inspired Oxygen 21 01/27/23 01:54 01/27/23 04:00 01/27/23 04:00 Temperature Pulse Rate 81 78 78 Respiratory Rate 20 20 Blood Pressure Pulse Oximetry 100 98 Oxygen Delivery CPAP CPAP Fraction of Inspired Oxygen 21 01/27/23 06:00 01/27/23 07:44 01/27/23 08:28 Temperature 97 F L Pulse Rate 80 87 Respirator
[2023-01-27 15:35] LABS: Alveolar/Arterial O2 Gradient 30.4 mmHg; Base Excess ABG -2.4 mEq/l (+/-2.0); Fractional Inspired Oxygen 21 %; HCO3 ABG 20.9 mEq/l (22.0-26.0); Oxygen Content ABG 9.1 %vol (16.0-22.0); Oxyhemoglobin 94.5 % THb (90.0-100.0); PCO2 ABG 29.5 mmHg (35.0-45.0); pH ABG 7.469 (7.350-7.450)
[2023-01-27 15:38] LABS: Device ROOM AIR; Total Hemoglobin 6.7 g/dL (12.0-18.0)
[2023-01-27 16:05] LABS: Immature Reticulocyte Fraction 35.5 % (3.0-15.9); Reticulocyte Hemoglobin Conten 20.4 pg (28.2-35.7); Reticulocyte Percent 3.32 % (0.7-4.3); Reticulocytes Absolute 0.13 M/mm3 (0.02-0.1)
[2023-01-27 16:14] LABS: Iron 20 ug/dL (49-181)
[2023-01-27 16:23] LABS: Percent Iron Saturation 4 % (20-50)
[2023-01-27] MEDS: PERFLUTREN LIPID MICROSPHERES 1.5 ML VIAL DILUTED TO 10 ML TOTAL VOLUME IV PUSH (16:45)
[2023-01-27] MEDS: FUROSEMIDE INJ 40 MG/4 ML VIAL IV PUSH (17:13)
[2023-01-27 17:14] LABS: Folic Acid 10.9 ng/mL (2.76->20)
[2023-01-27 17:56] LABS: Glucose Point of Care 134 mg/dl (65-105)
[2023-01-27 19:59] LABS: Glucose Point of Care 177 mg/dl (65-105)
[2023-01-27] MEDS: GABAPENTIN 100 MG CAPSULE PO (20:22)
--- NOTE | 2023-01-27 21:27 | ECG_ITS ---
Measurements Intervals [place] Rate: 160 P: DE: 0 QRS: 105 QRSD: 126 T: -74 QT: 299 QTc: 488 Interpretive Statements ATRIAL FLUTTER/TACHYCARDIA WITH RAPID VENTRICULAR RESPONSE VENTRICULAR PREMATURE COMPLEXES RIGHT AXIS DEVIATION INTRAVENTRICULAR CONDUCTION DELAY ST-T WAVE ABNORMALITY IN INFERIOR LEADS- CONSIDER ISCHEMIA ABNORMAL ECG COMPARED TO ECG 01/25/2023 19:47:53 A[address] NOW PRESENT ST-T WAVE ABNORMALITY NOW PRESENT Electronically Signed On 01-28-2023 7:43:13 CDT by Cordell Rojas D.O.
[2023-01-27] MEDS: AMIODARONE 150 MG/D5W 100 ML 150 MG/100 ML BAG 600 MG IV CONT (22:23)
[2023-01-27] MEDS: AMIODARONE 360 MG/D5W 200 ML 360 MG/200 ML BAG 33.33 MG IV CONT (22:30)
[2023-01-27 22:46] LABS: Troponin I 0.248 ng/mL (0.000-0.034)
[2023-01-28] VITALS (17 sets, daily range): BP systolic 101–128; BP diastolic 47–76; PULSE 77–148; RESP 16–22; TEMP 36.2–36.8; O2SAT 92–100
[2023-01-28] MEDS: diphenhydrAMINE HCl CAP 25 MG CAPSULE PO ×2 (00:21→23:52)
[2023-01-28] MEDS: AMIODARONE 360 MG/D5W 200 ML 360 MG/200 ML BAG 16.67 MG IV CONT ×2 (04:38→16:49)
[2023-01-28 05:01] LABS: Basophils Absolute Auto 0.1 K/mm3 (0.0-0.1); Basophils Percent Auto 1.1 % (0.2-1.2); Eosinophils Absolute Auto 0.2 K/mm3 (0-0.3); Eosinophils Percent Auto 2.8 % (0-4.4); Hematocrit 29.8 % (42.0-52.0); Hemoglobin 8.4 g/dL (14.0-18.0); Immature Granulocyte Absolute 0.05 K/mm3 (0.00-0.031); Immature Granulocyte Percent A 0.7 % (0-0.5); Lymphocytes Absolute Auto 2.11 K/mm3 (0.9-3.2); Lymphocytes Percent Auto 29.6 % (18.3-44.2); Mean Corpuscular HGB Conc 28.2 g/dl (32-36); Mean Corpuscular Hemoglobin 19.7 pg (26-34); Monocytes Absolute Auto 0.6 K/mm3 (0.1-0.6); Monocytes Percent Auto 8.8 % (2.6-8.5); Neutrophils Absolute Auto 4.1 K/mm3 (1.3-6.7); Platelet Count Result 265 k/mm3 (150-375); Red Blood Count 4.26 M/mm3 (4.6-6.20); Red Cell Distribution Width 18.6 % (11.5-14.5); White Blood Count 7.1 K/mm3 (4.5-10.0)
[2023-01-28 05:26] LABS: Alanine Aminotransferase 22 U/L (6-50); Albumin Level 4.6 g/dL (3.5-5.1); Alkaline Phosphatase 63 U/L (38-126); Anion Gap 14 mmol/L (8-16); Aspartate Amino Transferase 28 U/L (17-59); Bilirubin,Total 0.9 mg/dL (0.2-1.3); Blood Urea Nitrogen 15 mg/dL (9-20); Calcium 8.5 mg/dL (8.4-10.2); Carbon Dioxide 23 mmol/L (22-30); Chloride 94 mmol/L (98-107); Estimated CRCL calculation 81 ml/min; Estimated Glomerular Filt Rate > 60; Glucose 132 mg/dL (65-110); Potassium 3.6 mmol/L (3.4-5.0); Sodium 131 mmol/L (137-145)
[2023-01-28 07:32] LABS: Hypochromasia 1+ (NORMAL); Platelet Estimate Adequate (Adequate)
[2023-01-28 07:33] LABS: Anisocytosis 2+ (NORMAL)
[2023-01-28 07:34] LABS: Schistocytes None Seen (NORMAL)
[2023-01-28 07:54] LABS: Glucose Point of Care 163 mg/dl (65-105)
--- NOTE | 2023-01-28 10:06 | PM.PNCARD ---
Progress Note: A&P Assessment and Plan (1) Acute decompensated heart failure: Code(s): I50.9 - Heart failure, unspecified Status: Acute Assessment and Plan: Cardiac Cath 01/27 showed: 1. One vessel coronary artery disease with significant distal RCA disease 2. Elevated right heart filling pressures 3. Elevated left heart filling pressures with LVEDP of 39mmHg 4. 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 Carmen cardiac output of 5.9 6. [place] cardiac index of 2.4 Needs diuresis. Continue with intermittent IV Lasix for now. Please monitor strict I/Os and renal function closely. Will give a one time dose of Metolazone today. Echo ordered and pending. (2) Atrial flutter with rapid ventricular response: Code(s): I48.92 - Unspecified atrial flutter Status: Acute Assessment and Plan: Went into atrial flutter with RVR 01/27. Started on Amiodarone drip. Telemetry shows intermittent sinus rhythm with paroxysmal episodes of atrial flutter with RVR. Will continue Amiodarone drip for now as patient is currently in RVR. [id number] is 2 for congestive heart failure and vascular disease. Was on peripheral dose of Xarelto at home. Will increase Xarelto dose to the stroke prophylaxis dose. Will check TSH level. (3) Aortic stenosis: Code(s): I35.0 - Nonrheumatic aortic (valve) stenosis Status: Acute Assessment and Plan: [facility] workup showed moderate . Aortic valve gradient on cardiac cath was 20mmHg. Echo ordered and pending. (4) Coronary artery disease: Code(s): I25.10 - Atherosclerotic heart disease of [place] coronary artery without angina pectoris Status: Acute Assessment and Plan: Cardiac Cath 01/27 showed: 1. One vessel coronary artery disease with significant distal RCA disease Does not have anginal symptoms at this time. His symptoms are from decompensated heart failure. Will do medical management for his CAD for now while we optimize his heart failure. Can consider outpatient PCI if he develops anginal symptoms in the future. Continue ASA 81mg QD and high intensity statin. Subjective Date/time seen: 01/28/23 10:06 Interval history: Reason for visit: Shortness of breath, chest pain, elevated troponin HPI: This is a 62-year-old male with peripheral arterial disease s/p right common femoral, profunda femoris, and proximal superficial femoral endarterectomy in July 2022. Patient follows with Dr. Barrera in the clinic. Last saw him 5 days ago. Patient also has a history of diabetes and tobacco use. He was admitted to [facility] about a month ago per the patient and was treated with Lasix and started on low-dose Xarelto. He had an echocardiogram done in the end of November 2022 in [place] which reported significant LV enlargement with LV end-diastolic diameter of 6.9cm. His EF was 50%. He was also found to have aortic stenosis with peak gradient of 35mmHg and calculated valve area of 1.1cm2. Was also placed on Aldactone. At his clinic visit with Dr. Barrera, he had reported exertional shortness of breath at that time. Patient states he has had exertional shortness of breath and occasional exertional chest tightness that has been ongoing for a month or so now. Dr. Barrera recommended LHC and RHC at clinic visit, which patient was agreeable to, and was scheduled for outpatient LHC/RHC with Dr. Barrera on 02/01/2023. Patient states he came to [facility] because he felt like his symptoms felt a little worse starting on Wednesday. His troponins were mildly elevated on admission at 0.242 --> 0.247 --> 0.257. EKG with sinus rhythm, PVCs, IVCD, nonspecific STTW abnormality. Date of service 01/27: No acute events overnight. Cardiac cath planned for today. Date of service 01/28: Patient went into atrial flutter with RVR last night. Started on Amiodarone drip. Telemetry shows paroxysmal atrial flutter with RVR with intermittent sinus rhythm.
[2023-01-28] MEDS: amLODIPine BESYLATE 5 MG TABLET 10 MG PO (10:18)
[2023-01-28] MEDS: ASPIRIN 81 MG ENTERIC TABLET PO (10:18)
[2023-01-28] MEDS: ATORVASTATIN 40 MG TABLET 80 MG PO (10:19)
[2023-01-28] MEDS: CHOLECALCIFEROL 1,000 UNITS TABLET 5000 UNITS PO (10:19)
[2023-01-28] MEDS: buPROPion HCL XL (24 HR) 150 MG TABCR PO (10:19)
[2023-01-28] MEDS: FUROSEMIDE INJ 40 MG/4 ML VIAL IV PUSH ×3 (10:20→16:44)
[2023-01-28] MEDS: SPIRONOLACTONE 25 MG TABLET PO (10:21)
[2023-01-28] MEDS: PANTOPRAZOLE 40 MG TABLET PO (10:21)
[2023-01-28] MEDS: LOSARTAN POTASSIUM 50 MG TABLET PO (10:21)
[2023-01-28] MEDS: metOLazone 5 MG TABLET PO (10:25)
[2023-01-28 12:03] LABS: Glucose Point of Care 182 mg/dl (65-105)
--- NOTE | 2023-01-28 15:46 | PM.IMPN ---
Progress Note: A&P Assessment and Plan (1) CHF (congestive heart failure): Code(s): I50.9 - Heart failure, unspecified Status: Acute Assessment and Plan: Recent Echo shows EF of 50% Chest x-ray with pulmonary edema. Acute on chronic systolic heart failure continue home medications On IV diuresis (2) Elevated troponin: Code(s): R77.8 - Other specified abnormalities of plasma proteins Status: Acute Assessment and Plan: Mildly elevated troponin 0.245 Pt seen by cardiology status post left heart catheterization showing one-vessel coronary artery disease with significant distal RCA disease. on aspirin and atorvastatin also on rivaroxaban (3) Benign essential HTN: Code(s): I10 - Essential (primary) hypertension Status: Acute Assessment and Plan: Continue BP medications in hospital (4) Diabetes: Code(s): E11.9 - Type 2 diabetes mellitus without complications Status: Acute Assessment and Plan: ACcuchecks SSI A1c is 6.3 (5) Peripheral artery disease: Code(s): I73.9 - Peripheral vascular disease, unspecified Status: Acute Assessment and Plan: History of PAD status post right common femoral, profundus femoris and proximal superficial femoral endarterectomy July 2022 on rivaroxaban Plan Hyponatremia continue to watch sodium levels Anemia watch hb if hb drops below 7 transfuse with blood. Unclear etiology no overt signs of bleeding. hemoglobin 8 on admission. Continue to monitor. Hemoglobin July was 12.6. anemia workup with TIBC high and low ferritinn suggestive of iron deficiency. Occult blood pending. No overt signs of bleeding Hypertriglycemic on atorvastatin Aortic stenosis with peak gradient of 35 mm Hg aortic valve area 1.1 cm2 AFib with RVR last night. On amiodarone drip per Cardiology. On Xarelto due to has been increased DVT prop: scd hold xarelto. On anticoagulation ? for peripheral artery disease potentially Subjective Date/time seen: 01/28/23 15:46 Interval history: patient went into AFib with RVR last night and was started on amiodarone drip. Remains on amiodarone intermittently going AFib with RVR. Shortness of breath is slightly better today. Denies any chest pain. Review of Systems Review of Systems: All systems reviewed & are unremarkable except as noted in HPI and below Exam Narrative: ?APPEARANCE: patient comfortable not in acute distress Head: atraumatic. Normocephalic EYES:? EOMI, NECK: Trachea midline RESPIRATORY: No increased rate of breathing, clear to auscultation CARDIOVASCULAR: AFib with RVR on telemetry, no peripheral edema ABDOMINAL:? distended but soft no guarding or rebound MUSCULOSKELETAl: No obvious deformities NEURO: Alert. Moving 4/4 extremities SKIN:: Warm, dry. Normal color PSYCHIATRIC: Normal affect Objective Data Vital Signs Vital Signs: Vital Signs - 24 hr 01/27/23 16:35 01/27/23 16:40 01/27/23 17:30 Temperature Pulse Rate 95 96 103 H Respiratory Rate 23 H 25 H 24 H Blood Pressure 115/70 97/79 L 143/69 H Pulse Oximetry 90 90 97 Oxygen Delivery Nasal Cannula Nasal Cannula Nasal Cannula Oxygen Flow Rate 6 6 6 Fraction of Inspired Oxygen 01/27/23 16:00 01/27/23 16:15 01/27/23 16:30 Temperature Pulse Rate 94 94 95 Respiratory Rate 25 H 29 H 23 H Blood Pressure 126/66 140/74 117/68 Pulse Oximetry 93 92 90 Oxygen Delivery Nasal Cannula Nasal Cannula Nasal Cannula Oxygen Flow Rate 6 6 6 Fraction of Inspired Oxygen 01/27/23 16:45 01/27/23 17:00 01/27/23 17:15 Temperature Pulse Rate 105 H 103 H 102 H Respiratory Rate 25 H 24 H 25 H Blood Pressure 117/73 136/77 141/67 H Pulse Oximetry 90 95 91 Oxygen Delivery Nasal Cannula Nasal Cannula Nasal Cannula Oxygen Flow Rate 6 6 6 Fraction of Inspired Oxygen 01/27/23 18:00 01/27/23 18:00 01/27/23 18:00 Temperature 97.7 F Pulse Rate 101 H 99 Respiratory Rate
[2023-01-28] MEDS: RIVAROXABAN 20 MG TABLET PO (16:44)
[2023-01-28 16:53] LABS: Glucose Point of Care 172 mg/dl (65-105)
[2023-01-28] MEDS: GABAPENTIN 100 MG CAPSULE PO (20:24)
[2023-01-28 20:54] LABS: Glucose Point of Care 165 mg/dl (65-105)
[2023-01-28 21:25] LABS: Anion Gap 13 mmol/L (8-16); Blood Urea Nitrogen 21 mg/dL (9-20); Calcium 8.6 mg/dL (8.4-10.2); Carbon Dioxide 24 mmol/L (22-30); Chloride 93 mmol/L (98-107); Estimated CRCL calculation 48 ml/min; Estimated Glomerular Filt Rate 36; Glucose 141 mg/dL (65-110); Potassium 3.8 mmol/L (3.4-5.0); Sodium 130 mmol/L (137-145)
[2023-01-29] VITALS (17 sets, daily range): BP systolic 93–113; BP diastolic 47–64; PULSE 72–97; RESP 16–24; TEMP 35.7–36.7; O2SAT 92–100
[2023-01-29] MEDS: AMIODARONE 360 MG/D5W 200 ML 360 MG/200 ML BAG 16.67 MG IV CONT (03:48)
[2023-01-29 04:02] LABS: Basophils Absolute Auto 0.1 K/mm3 (0.0-0.1); Basophils Percent Auto 0.8 % (0.2-1.2); Eosinophils Absolute Auto 0.2 K/mm3 (0-0.3); Eosinophils Percent Auto 2.6 % (0-4.4); Hematocrit 26.9 % (42.0-52.0); Hemoglobin 7.6 g/dL (14.0-18.0); Immature Granulocyte Absolute 0.07 K/mm3 (0.00-0.031); Immature Granulocyte Percent A 0.9 % (0-0.5); Lymphocytes Absolute Auto 2.09 K/mm3 (0.9-3.2); Lymphocytes Percent Auto 27.6 % (18.3-44.2); Mean Corpuscular HGB Conc 28.3 g/dl (32-36); Mean Corpuscular Hemoglobin 19.5 pg (26-34); Monocytes Absolute Auto 0.9 K/mm3 (0.1-0.6); Monocytes Percent Auto 11.7 % (2.6-8.5); Neutrophils Absolute Auto 4.3 K/mm3 (1.3-6.7); Neutrophils Percent Auto 56.4 % (45.5-73.1); Platelet Count Result 237 k/mm3 (150-375); Red Cell Distribution Width 18.5 % (11.5-14.5); White Blood Count 7.6 K/mm3 (4.5-10.0)
[2023-01-29 04:14] LABS: Alanine Aminotransferase 18 U/L (6-50); Albumin Level 4.2 g/dL (3.5-5.1); Alkaline Phosphatase 55 U/L (38-126); Anion Gap 11 mmol/L (8-16); Aspartate Amino Transferase 23 U/L (17-59); Bilirubin,Total 0.8 mg/dL (0.2-1.3); Blood Urea Nitrogen 21 mg/dL (9-20); Calcium 8.4 mg/dL (8.4-10.2); Carbon Dioxide 25 mmol/L (22-30); Chloride 92 mmol/L (98-107); Estimated CRCL calculation 54 ml/min; Estimated Glomerular Filt Rate 41; Glucose 138 mg/dL (65-110); Magnesium 1.9 mg/dL (1.6-2.3); Potassium 3.7 mmol/L (3.4-5.0); Sodium 128 mmol/L (137-145)
[2023-01-29 04:33] LABS: Anisocytosis 1+ (NORMAL); Platelet Estimate Adequate (Adequate)
[2023-01-29 04:35] LABS: Schistocytes None Seen (NORMAL)
[2023-01-29 04:37] LABS: Ovalocytes 1+ (NORMAL)
[2023-01-29] MEDS: ATORVASTATIN 40 MG TABLET 80 MG PO (08:32)
[2023-01-29] MEDS: CHOLECALCIFEROL 1,000 UNITS TABLET 5000 UNITS PO (08:32)
[2023-01-29] MEDS: buPROPion HCL XL (24 HR) 150 MG TABCR PO (08:32)
[2023-01-29] MEDS: ASPIRIN 81 MG ENTERIC TABLET PO (08:33)
[2023-01-29] MEDS: SPIRONOLACTONE 25 MG TABLET PO (08:33)
[2023-01-29] MEDS: FUROSEMIDE INJ 40 MG/4 ML VIAL IV PUSH (08:33)
[2023-01-29] MEDS: PANTOPRAZOLE 40 MG TABLET PO (08:33)
[2023-01-29] MEDS: METOPROLOL SUCCINATE EXT REL 25 MG TABCR PO (08:34)
[2023-01-29] MEDS: SACUBITRIL/VALSARTAN 24-26 MG TABLET 1 TAB PO ×2 (08:34→20:15)
--- NOTE | 2023-01-29 11:52 | PM.PNCARD ---
Progress Note: A&P Assessment and Plan (1) Coronary artery disease: Code(s): I25.10 - Atherosclerotic heart disease of [place] coronary artery without angina pectoris Status: Acute (2) Aortic stenosis: Code(s): I35.0 - Nonrheumatic aortic (valve) stenosis Status: Acute (3) Atrial flutter with rapid ventricular response: Code(s): I48.92 - Unspecified atrial flutter Status: Acute (4) CHF (congestive heart failure): Code(s): I50.9 - Heart failure, unspecified Status: Acute Plan 62-year-old man with principal complaint of exertional shortness of breath. Cardiac issues are coronary artery disease with distal RCA stenosis, LV dysfunction, [id number] aortic valve stenosis and CHF. He is now on guideline directed medical therapy for this and appears to be euvolemic by exam. I will transition him today to oral amiodarone and oral furosemide. It is obvious as well that his anemia is significant and undoubtedly contributing to his symptoms of dyspnea. He appears to have significant iron deficiency anemia and describes having had upper endoscopy elsewhere recently he does probably merit colonoscopy and I would recommend arranging for this either in the hospital or shortly after discharge. The patient will not become asymptomatic of his chief complaint of dyspnea while he is significantly anemic like this as well as with underlying coronary and valvular heart disease as described above and detailed in the cardiac catheterization note earlier this week. Bravo Barrera MD [facility] Subjective Date/time seen: Date of service: 01/29/23 11:52 Interval history: Follow-up visit in this 62-year-old man with: Coronary artery disease, moderate aortic valve stenosis and congestive heart failure with elevated LV filling pressures. Patient has a significant distal RCA lesion but is not reporting anginal type chest pain. Receiving medical therapy for CHF and also now receiving amiodarone for atrial flutter with RVR that occurred yesterday. Also of significant concern is significant iron deficiency microcytic anemia with current hemoglobin of 7.6. Long discussion with the patient in the room today about his cardiac issues as well as his anemia which does require further evaluation in my opinion Exam Const: General: comfortable and no acute distress Other: Well-developed well-nourished white male reporting shortness of breath with modest activity appears to be comfortable at rest HENMT: Mouth: Yes moist mucous membranes Eyes: Sclera: sclerae normal Neck: Neck: supple and no JVD Resp: Effort & Inspection: normal respiratory effort Auscultation: clear to auscultation bilaterally Other: Currently no audible rales or wheezing Cardio: Rate: regular rate Rhythm: regular rhythm Other: Grade 2/6 crescendo decrescendo murmur audible at the base no diastolic murmur. GI: GI Palp: Yes Soft to palpation Auscultation: normal bowel sounds Skin: General skin exam: normal color Neuro: Other: Alert and oriented x3 Extrem: Other: Minimal edema Objective Data Vital Signs Vital Signs: Vital Signs - 24 hr 01/28/23 12:00 01/28/23 12:00 01/28/23 16:38 Temperature 36.7 C Pulse Rate 144 H 91 Respiratory Rate 20 Blood Pressure 108/65 Pulse Oximetry 97 97 Oxygen Delivery Nasal Cannula Oxygen Flow Rate 3 Fraction of Inspired Oxygen 01/28/23 16:49 01/28/23 16:00 01/28/23 16:00 Temperature 36.5 C Pulse Rate 93 89 Respiratory Rate 16 Blood Pressure 110/56 L Pulse Oximetry 92 97 Oxygen Delivery Nasal Cannula Oxygen Flow Rate 3 Fraction of Inspired Oxygen 01/28/23 12:00 01/28/23 14:00 01/28/23 16:00 Temperature Pulse Rate 148 H 91 97 Respiratory Rate Blood Pressure Pulse Oximetry Oxygen Delivery Oxygen Flow Rate Fraction of Inspired Oxygen 01/28/23 18:00 01/28/23 20:00 01/28/23 22:29 Te
--- NOTE | 2023-01-29 11:55 | PM.IMPN ---
Progress Note: A&P Assessment and Plan (1) CHF (congestive heart failure): Code(s): I50.9 - Heart failure, unspecified Status: Acute Assessment and Plan: Recent Echo shows EF of 50% Chest x-ray with pulmonary edema. Acute on chronic systolic heart failure continue home medications On IV diuresis (2) Elevated troponin: Code(s): R77.8 - Other specified abnormalities of plasma proteins Status: Acute Assessment and Plan: Mildly elevated troponin 0.245 Pt seen by cardiology status post left heart catheterization showing one-vessel coronary artery disease with significant distal RCA disease. on aspirin and atorvastatin also on rivaroxaban (3) Benign essential HTN: Code(s): I10 - Essential (primary) hypertension Status: Acute Assessment and Plan: Continue BP medications in hospital (4) Diabetes: Code(s): E11.9 - Type 2 diabetes mellitus without complications Status: Acute Assessment and Plan: ACcuchecks SSI A1c is 6.3 (5) Peripheral artery disease: Code(s): I73.9 - Peripheral vascular disease, unspecified Status: Acute Assessment and Plan: History of PAD status post right common femoral, profundus femoris and proximal superficial femoral endarterectomy July 2022 on rivaroxaban (6) Atrial flutter with rapid ventricular response: Code(s): I48.92 - Unspecified atrial flutter Status: Acute Assessment and Plan: heart rate better controlled on amiodarone drip. Appreciate Cardiology input. (7) Hyponatremia: Code(s): E87.1 - Hypo-osmolality and hyponatremia Status: Acute Assessment and Plan: asymptomatic. Monitor sodium. (8) Anemia: Code(s): D64.9 - Anemia, unspecified Status: Acute Assessment and Plan: Transfuse if less than 7. Subjective Date/time seen: 01/29/23 11:55 Interval history: no complaints Exam Narrative: ?APPEARANCE: patient comfortable not in acute distress Head: atraumatic. Normocephalic EYES:? EOMI, NECK: Trachea midline RESPIRATORY: No increased rate of breathing, clear to auscultation CARDIOVASCULAR: AFib with RVR on telemetry, no peripheral edema ABDOMINAL:? distended but soft no guarding or rebound MUSCULOSKELETAl: No obvious deformities NEURO: Alert. Moving 4/4 extremities SKIN:: Warm, dry. Normal color PSYCHIATRIC: Normal affect Objective Data Vital Signs Vital Signs: Vital Signs - 24 hr 01/28/23 12:00 01/28/23 12:00 01/28/23 16:38 Temperature 98.1 F Pulse Rate 144 H 91 Respiratory Rate 20 Blood Pressure 108/65 Pulse Oximetry 97 97 Oxygen Delivery Nasal Cannula Oxygen Flow Rate 3 Fraction of Inspired Oxygen 01/28/23 16:49 01/28/23 16:00 01/28/23 16:00 Temperature 97.7 F Pulse Rate 93 89 Respiratory Rate 16 Blood Pressure 110/56 L Pulse Oximetry 92 97 Oxygen Delivery Nasal Cannula Oxygen Flow Rate 3 Fraction of Inspired Oxygen 01/28/23 12:00 01/28/23 14:00 01/28/23 16:00 Temperature Pulse Rate 148 H 91 97 Respiratory Rate Blood Pressure Pulse Oximetry Oxygen Delivery Oxygen Flow Rate Fraction of Inspired Oxygen 01/28/23 18:00 01/28/23 20:00 01/28/23 22:29 Temperature 97.7 F Pulse Rate 77 93 Respiratory Rate 20 18 Blood Pressure 104/47 L Pulse Oximetry 100 93 Oxygen Delivery CPAP Oxygen Flow Rate Fraction of Inspired Oxygen 01/28/23 22:29 01/28/23 20:00 01/28/23 20:00 Temperature Pulse Rate 93 93 Respiratory Rate 18 Blood Pressure Pulse Oximetry 93 93 Oxygen Delivery CPAP Room Air Oxygen Flow Rate Fraction of Inspired Oxygen 21 21 01/28/23 22:00 01/29/23 00:00 01/29/23 00:00 Temperature 97.1 F L Pulse Rate 94 83 79 Respiratory Rate 18 Blood Pressure 98/53 L Pulse Oximetry 99 Oxygen Delivery Oxygen Flow Rate Fraction of Inspired Oxygen 01/29/23 00:00
[2023-01-29 11:58] LABS: Glucose Point of Care 141 mg/dl (65-105)
[2023-01-29 13:40] LABS: IFOB Positive Control Positive; Immunochemical Fecal Occult Bl Negative (N)
[2023-01-29] MEDS: polyethylene glycoL 3350 17 GM POWD.PACK PO (14:49)
[2023-01-29 16:49] LABS: Glucose Point of Care 158 mg/dl (65-105)
[2023-01-29] MEDS: GABAPENTIN 100 MG CAPSULE PO (20:15)
[2023-01-29] MEDS: SENNA/DOCUSATE SODIUM TABLET 1 TAB PO (20:15)
[2023-01-29 21:05] LABS: Glucose Point of Care 156 mg/dl (65-105)
[2023-01-29] MEDS: diphenhydrAMINE HCl CAP 25 MG CAPSULE PO (23:01)
[2023-01-30] VITALS (10 sets, daily range): BP systolic 95–124; BP diastolic 47–66; PULSE 70–87; RESP 16–24; TEMP 36.3–36.9; O2SAT 92–100
[2023-01-30 04:25] LABS: Basophils Absolute Auto 0.1 K/mm3 (0.0-0.1); Eosinophils Absolute Auto 0.2 K/mm3 (0-0.3); Hematocrit 26.6 % (42.0-52.0); Hemoglobin 7.6 g/dL (14.0-18.0); Immature Granulocyte Absolute 0.03 K/mm3 (0.00-0.031); Immature Granulocyte Percent A 0.4 % (0-0.5); Lymphocytes Absolute Auto 2.18 K/mm3 (0.9-3.2); Lymphocytes Percent Auto 29.8 % (18.3-44.2); Mean Corpuscular HGB Conc 28.6 g/dl (32-36); Mean Corpuscular Hemoglobin 19.5 pg (26-34); Mean Corpuscular Volume 68.4 fl (80-100); Mean Platelet Volume 9.8 fl (7.4-10.4); Monocytes Absolute Auto 0.8 K/mm3 (0.1-0.6); Monocytes Percent Auto 10.4 % (2.6-8.5); Neutrophils Absolute Auto 4.1 K/mm3 (1.3-6.7); Neutrophils Percent Auto 55.4 % (45.5-73.1); Platelet Count Result 255 k/mm3 (150-375); Red Blood Count 3.89 M/mm3 (4.6-6.20); Red Cell Distribution Width 18.2 % (11.5-14.5); White Blood Count 7.3 K/mm3 (4.5-10.0)
[2023-01-30 04:38] LABS: Anion Gap 11 mmol/L (8-16); Blood Urea Nitrogen 26 mg/dL (9-20); Calcium 8.5 mg/dL (8.4-10.2); Carbon Dioxide 24 mmol/L (22-30); Chloride 89 mmol/L (98-107); Estimated CRCL calculation 57 ml/min; Estimated Glomerular Filt Rate 44; Glucose 116 mg/dL (65-110); Potassium 3.8 mmol/L (3.4-5.0); Sodium 124 mmol/L (137-145)
[2023-01-30 04:51] LABS: Iron 36 ug/dL (49-181)
[2023-01-30 04:52] LABS: Anisocytosis 2+ (NORMAL); Platelet Estimate Adequate (Adequate)
[2023-01-30 04:53] LABS: Poikilocytosis 1+ (NORMAL); Schistocytes None Seen (NORMAL)
[2023-01-30 05:16] LABS: Percent Iron Saturation 7 % (20-50)
[2023-01-30 06:20] LABS: Folic Acid 9.2 ng/mL (2.76->20)
[2023-01-30] MEDS: CHOLECALCIFEROL 1,000 UNITS TABLET 5000 UNITS PO (08:58)
[2023-01-30] MEDS: polyethylene glycoL 3350 17 GM POWD.PACK PO (08:58)
[2023-01-30] MEDS: POLYSACCHARIDE IRON COMPLEX 150 MG CAPSULE PO (08:59)
[2023-01-30] MEDS: METOPROLOL SUCCINATE EXT REL 25 MG TABCR PO (08:59)
[2023-01-30] MEDS: ASPIRIN 81 MG ENTERIC TABLET PO (08:59)
[2023-01-30] MEDS: PANTOPRAZOLE 40 MG TABLET PO (08:59)
[2023-01-30] MEDS: buPROPion HCL XL (24 HR) 150 MG TABCR PO (08:59)
[2023-01-30] MEDS: ATORVASTATIN 40 MG TABLET 80 MG PO (08:59)
[2023-01-30] MEDS: FUROSEMIDE 40 MG TABLET PO (08:59)
[2023-01-30] MEDS: SACUBITRIL/VALSARTAN 24-26 MG TABLET 1 TAB PO ×2 (08:59→20:19)
[2023-01-30] MEDS: AMIODARONE HCL 200 MG TABLET 400 MG PO (08:59)
[2023-01-30] MEDS: SPIRONOLACTONE 25 MG TABLET PO (08:59)
--- NOTE | 2023-01-30 09:29 | PM.PNCARD ---
Progress Note: A&P Assessment and Plan (1) Coronary artery disease: Code(s): I25.10 - Atherosclerotic heart disease of [place] coronary artery without angina pectoris Status: Acute Assessment and Plan: Continue aspirin, atorvastatin, metoprolol (2) Aortic stenosis: Code(s): I35.0 - Nonrheumatic aortic (valve) stenosis Status: Acute Assessment and Plan: Moderate (3) Atrial flutter with rapid ventricular response: Code(s): I48.92 - Unspecified atrial flutter Status: Acute Assessment and Plan: On amiodarone and back in sinus rhythm. Rivaroxaban on hold because of significant anemia (4) CHF (congestive heart failure): Code(s): I50.9 - Heart failure, unspecified Status: Acute Assessment and Plan: Still short of breath. Will give an additional dose of furosemide 40 mg IV x1. Plan He needs an anemia workup also Subjective Date/time seen: 01/30/23 09:29 Interval history: Follow-up visit in this 62-year-old man with: Coronary artery disease, moderate aortic valve stenosis and congestive heart failure with elevated LV filling pressures. Patient has a significant distal RCA lesion but is not reporting anginal type chest pain. Date of service 01/30/2023: Reverted back to sinus rhythm. Still short of breath. No chest pain Review of Systems Review of Systems: All systems reviewed & are unremarkable except as noted in HPI and below (HPI) Cardiovascular: Comments: No chest pain Respiratory: Comments: Positive short of breath Exam Const: General: comfortable and no acute distress Other: Well-developed well-nourished white male reporting shortness of breath with modest activity appears to be comfortable at rest HENMT: Mouth: Yes moist mucous membranes Eyes: General: appearance normal, both eyes and all related structures Sclera: sclerae normal Neck: Neck: supple and no JVD Resp: Effort & Inspection: normal respiratory effort Auscultation: clear to auscultation bilaterally and diminished lung sounds Other: Currently no audible rales or wheezing Cardio: Rate: regular rate and tachycardic Rhythm: regular rhythm Heart sounds: Murmur heart sound present systolic Other: Grade 2/6 crescendo decrescendo murmur audible at the base no diastolic murmur. GI: Auscultation: normal bowel sounds Skin: General skin exam: normal color Neuro: Speech: normal speech Other: Alert and oriented x3 Extrem: Other: Minimal edema Psych: Mental Status: mental status grossly normal Affect: normal affect Objective Data Vital Signs Vital Signs: Vital Signs - 24 hr 01/29/23 10:00 01/29/23 12:00 01/29/23 12:00 Temperature 35.7 C L Pulse Rate 92 88 90 Respiratory Rate 16 Blood Pressure 93/50 L Pulse Oximetry 97 Oxygen Delivery Fraction of Inspired Oxygen 01/29/23 14:00 01/29/23 12:00 01/29/23 16:00 Temperature Pulse Rate 79 Respiratory Rate Blood Pressure Pulse Oximetry Oxygen Delivery Room Air Room Air Fraction of Inspired Oxygen 01/29/23 16:00 01/29/23 16:00 01/29/23 18:00 Temperature 36.7 C Pulse Rate 79 78 81 Respiratory Rate 20 Blood Pressure 93/53 L Pulse Oximetry 98 Oxygen Delivery Fraction of Inspired Oxygen 01/29/23 20:00 01/29/23 20:00 01/29/23 20:00 Temperature 36.1 C L Pulse Rate 82 82 84 Respiratory Rate 20 20 Blood Pressure 101/57 L Pulse Oximetry 98 100 Oxygen Delivery Room Air Fraction of Inspired Oxygen 21 01/29/23 21:07 01/29/23 22:00 01/29/23 23:15 Temperature Pulse Rate 72 82 Respiratory Rate 22 H Blood Pressure Pulse Oximetry 92 Oxygen Delivery CPAP Fraction of Inspired Oxygen 01/29/23 23:15 01/29/23 23:20 01/30/23 02:00 Temperature 36.5 C Pulse Rate 72 80 70 Respiratory Rate 22 H 20 Blood Pressure 113/64 Pulse Oximetry 92 99 Oxygen Delivery CPAP Fraction
[2023-01-30] MEDS: FUROSEMIDE INJ 40 MG/4 ML VIAL IV PUSH (10:03)
[2023-01-30] MEDS: ALBUTEROL SULFATE (*SP) AEROSOL 1 PUFF INHALATION ×2 (10:08→20:35)
--- NOTE | 2023-01-30 10:36 | PM.IMPN ---
Progress Note: A&P Assessment and Plan (1) CHF (congestive heart failure): Code(s): I50.9 - Heart failure, unspecified Status: Acute Assessment and Plan: Recent Echo shows EF of 50% Chest x-ray with pulmonary edema. Acute on chronic systolic heart failure continue home medications On IV diuresis (2) Elevated troponin: Code(s): R77.8 - Other specified abnormalities of plasma proteins Status: Acute Assessment and Plan: Mildly elevated troponin 0.245 Pt seen by cardiology status post left heart catheterization showing one-vessel coronary artery disease with significant distal RCA disease. on aspirin and atorvastatin also on rivaroxaban (3) Benign essential HTN: Code(s): I10 - Essential (primary) hypertension Status: Acute Assessment and Plan: Continue BP medications in hospital (4) Diabetes: Code(s): E11.9 - Type 2 diabetes mellitus without complications Status: Acute Assessment and Plan: ACcuchecks SSI A1c is 6.3 (5) Peripheral artery disease: Code(s): I73.9 - Peripheral vascular disease, unspecified Status: Acute Assessment and Plan: History of PAD status post right common femoral, profundus femoris and proximal superficial femoral endarterectomy July 2022 on rivaroxaban (6) Atrial flutter with rapid ventricular response: Code(s): I48.92 - Unspecified atrial flutter Status: Acute Assessment and Plan: heart rate better controlled on amiodarone drip. Appreciate Cardiology input. (7) Hyponatremia: Code(s): E87.1 - Hypo-osmolality and hyponatremia Status: Acute Assessment and Plan: asymptomatic. Monitor sodium. (8) Anemia: Code(s): D64.9 - Anemia, unspecified Status: Acute Assessment and Plan: Transfuse if less than 7. replace iron Subjective Date/time seen: 01/30/23 10:36 Interval history: no complaints Exam Narrative: ?APPEARANCE: patient comfortable not in acute distress Head: atraumatic. Normocephalic EYES:? EOMI, NECK: Trachea midline RESPIRATORY: No increased rate of breathing, clear to auscultation CARDIOVASCULAR: AFib with RVR on telemetry, no peripheral edema ABDOMINAL:? distended but soft no guarding or rebound MUSCULOSKELETAl: No obvious deformities NEURO: Alert. Moving 4/4 extremities SKIN:: Warm, dry. Normal color PSYCHIATRIC: Normal affect Objective Data Vital Signs Vital Signs: Vital Signs - 24 hr 01/29/23 12:00 01/29/23 12:00 01/29/23 14:00 Temperature 96.2 F L Pulse Rate 88 90 79 Respiratory Rate 16 Blood Pressure 93/50 L Pulse Oximetry 97 Oxygen Delivery Fraction of Inspired Oxygen 01/29/23 12:00 01/29/23 16:00 01/29/23 16:00 Temperature Pulse Rate 79 Respiratory Rate Blood Pressure Pulse Oximetry Oxygen Delivery Room Air Room Air Fraction of Inspired Oxygen 01/29/23 16:00 01/29/23 18:00 01/29/23 20:00 Temperature 98.1 F Pulse Rate 78 81 82 Respiratory Rate 20 Blood Pressure 93/53 L Pulse Oximetry 98 Oxygen Delivery Fraction of Inspired Oxygen 01/29/23 20:00 01/29/23 20:00 01/29/23 21:07 Temperature 97 F L Pulse Rate 82 84 Respiratory Rate 20 20 22 H Blood Pressure 101/57 L Pulse Oximetry 98 100 92 Oxygen Delivery Room Air CPAP Fraction of Inspired Oxygen 21 01/29/23 22:00 01/29/23 23:15 01/29/23 23:15 Temperature Pulse Rate 72 82 72 Respiratory Rate 22 H Blood Pressure Pulse Oximetry 92 Oxygen Delivery CPAP Fraction of Inspired Oxygen 21 01/29/23 23:20 01/30/23 02:00 01/30/23 04:00 Temperature 97.7 F 97.7 F Pulse Rate 80 70 74 Respiratory Rate 20 20 Blood Pressure 113/64 124/58 L Pulse Oximetry 99 100 Oxygen Delivery Fraction of Inspired Oxygen 01/30/23 04:00 01/30/23 04:00 01/30/23 06:00 Temperature Pulse Rate 83 83 79 Respiratory Rate 20 Blood Pressure
[2023-01-30 10:41] LABS: Glucose Point of Care 135 mg/dl (65-105)
[2023-01-30 13:13] LABS: Glucose Point of Care 141 mg/dl (65-105)
[2023-01-30 17:15] LABS: Glucose Point of Care 156 mg/dl (65-105)
[2023-01-30] MEDS: SENNA/DOCUSATE SODIUM TABLET 1 TAB PO (20:19)
[2023-01-30] MEDS: GABAPENTIN 100 MG CAPSULE PO (20:19)
[2023-01-30] MEDS: diphenhydrAMINE HCl CAP 25 MG CAPSULE PO (20:27)
[2023-01-30 20:43] LABS: Glucose Point of Care 128 mg/dl (65-105)
[2023-01-30] MEDS: guaiFENesin/DEXTROMETHORPHAN 10 ML UDC PO (22:31)
[2023-01-31] VITALS (9 sets, daily range): BP systolic 84–116; BP diastolic 44–62; PULSE 66–83; RESP 16–22; TEMP 35.7–36.6; O2SAT 93–100
[2023-01-31 07:48] LABS: Glucose Point of Care 122 mg/dl (65-105)
[2023-01-31] MEDS: CHOLECALCIFEROL 1,000 UNITS TABLET 5000 UNITS PO (09:46)
[2023-01-31] MEDS: PANTOPRAZOLE 40 MG TABLET PO (09:47)
[2023-01-31] MEDS: ATORVASTATIN 40 MG TABLET 80 MG PO (09:47)
[2023-01-31] MEDS: METOPROLOL SUCCINATE EXT REL 25 MG TABCR PO (09:47)
[2023-01-31] MEDS: POLYSACCHARIDE IRON COMPLEX 150 MG CAPSULE PO (09:47)
[2023-01-31] MEDS: ASPIRIN 81 MG ENTERIC TABLET PO (09:47)
[2023-01-31] MEDS: SACUBITRIL/VALSARTAN 24-26 MG TABLET 1 TAB PO ×2 (09:47→20:25)
[2023-01-31] MEDS: AMIODARONE HCL 200 MG TABLET 400 MG PO (09:47)
[2023-01-31] MEDS: polyethylene glycoL 3350 17 GM POWD.PACK PO (09:47)
[2023-01-31] MEDS: FUROSEMIDE 40 MG TABLET PO (09:47)
[2023-01-31] MEDS: SPIRONOLACTONE 25 MG TABLET PO (09:48)
[2023-01-31] MEDS: buPROPion HCL XL (24 HR) 150 MG TABCR PO (09:48)
--- NOTE | 2023-01-31 11:00 | PM.PNCARD ---
Progress Note: A&P Assessment and Plan (1) Coronary artery disease: Code(s): I25.10 - Atherosclerotic heart disease of [place] coronary artery without angina pectoris Status: Acute Assessment and Plan: Continue aspirin, atorvastatin, metoprolol (2) Aortic stenosis: Code(s): I35.0 - Nonrheumatic aortic (valve) stenosis Status: Acute Assessment and Plan: Moderate (3) Atrial flutter with rapid ventricular response: Code(s): I48.92 - Unspecified atrial flutter Status: Acute Assessment and Plan: On amiodarone and back in sinus rhythm. Rivaroxaban on hold because of significant anemia. Plan for colonoscopy tomorrow and if no contraindication to restarting anticoagulation, would recommend resuming Xarelto 20 mg daily (4) CHF (congestive heart failure): Code(s): I50.9 - Heart failure, unspecified Status: Acute Assessment and Plan: Much improved. Continue current regimen Plan He needs an anemia workup also Subjective Date/time seen: 01/31/23 11:00 Interval history: Follow-up visit in this 62-year-old man with: Coronary artery disease, moderate aortic valve stenosis and congestive heart failure with elevated LV filling pressures. Patient has a significant distal RCA lesion but is not reporting anginal type chest pain. Date of service 01/30/2023: Reverted back to sinus rhythm. Still short of breath. No chest pain Date of service 01/31/2023: Feels better today. Less short of breath. No chest pain. Looks significantly improved from yesterday Review of Systems Review of Systems: All systems reviewed & are unremarkable except as noted in HPI and below (HPI) Exam Const: General: comfortable and no acute distress Other: Well-developed well-nourished white male reporting shortness of breath with modest activity appears to be comfortable at rest HENMT: Mouth: Yes moist mucous membranes Eyes: General: appearance normal, both eyes and all related structures Sclera: sclerae normal Neck: Neck: supple and no JVD Resp: Effort & Inspection: normal respiratory effort Auscultation: clear to auscultation bilaterally Other: Currently no audible rales or wheezing Cardio: Rate: regular rate Rhythm: regular rhythm Heart sounds: Murmur heart sound present systolic Other: Grade 2/6 crescendo decrescendo murmur audible at the base no diastolic murmur. GI: Auscultation: normal bowel sounds Skin: General skin exam: normal color Neuro: Speech: normal speech Other: Alert and oriented x3 Extrem: Other: Minimal edema Psych: Mental Status: mental status grossly normal Affect: normal affect Objective Data Vital Signs Vital Signs: Vital Signs - 24 hr 01/30/23 12:00 01/30/23 12:00 01/30/23 16:00 Temperature 36.7 C Pulse Rate 80 81 74 Respiratory Rate 24 H Blood Pressure 97/53 L Pulse Oximetry 99 Oxygen Delivery 01/30/23 16:00 01/30/23 20:00 01/30/23 20:00 Temperature 36.6 C 36.9 C Pulse Rate 77 81 75 Respiratory Rate 20 22 H Blood Pressure 99/53 L 98/47 L Pulse Oximetry 92 97 Oxygen Delivery 01/30/23 20:00 01/30/23 23:31 01/31/23 00:00 Temperature 36.3 C L Pulse Rate 77 68 Respiratory Rate 22 H Blood Pressure 98/52 L Pulse Oximetry 97 100 Oxygen Delivery Room Air 01/31/23 04:00 01/31/23 04:00 01/31/23 06:59 Temperature 36.6 C 36.2 C L Pulse Rate 77 70 71 Respiratory Rate 22 H 20 Blood Pressure 102/56 L 116/62 Pulse Oximetry 99 99 Oxygen Delivery 01/31/23 08:00 01/31/23 09:47 01/31/23 09:47 Temperature Pulse Rate 73 73 73 Respiratory Rate Blood Pressure Pulse Oximetry Oxygen Delivery Intake/Output Intake/Output: Intake & Output 01/28/23 01/29/23 01/30/23 01/31/23 23:59 23:59 23:59 23:59 Intake Total 1520 2870 1675 60 Output Total 1000 2550 1200 Balance 520 320 475 60 Meds/Results Medications: Active Med
--- NOTE | 2023-01-31 11:29 | PM.IMPN ---
Progress Note: A&P Assessment and Plan (1) CHF (congestive heart failure): Code(s): I50.9 - Heart failure, unspecified Status: Acute Assessment and Plan: Recent Echo shows EF of 50% Chest x-ray with pulmonary edema. Acute on chronic systolic heart failure continue home medications On IV diuresis (2) Elevated troponin: Code(s): R77.8 - Other specified abnormalities of plasma proteins Status: Acute Assessment and Plan: Mildly elevated troponin 0.245 Pt seen by cardiology status post left heart catheterization showing one-vessel coronary artery disease with significant distal RCA disease. on aspirin and atorvastatin also on rivaroxaban (3) Benign essential HTN: Code(s): I10 - Essential (primary) hypertension Status: Acute Assessment and Plan: Continue BP medications in hospital (4) Diabetes: Code(s): E11.9 - Type 2 diabetes mellitus without complications Status: Acute Assessment and Plan: ACcuchecks SSI A1c is 6.3 (5) Peripheral artery disease: Code(s): I73.9 - Peripheral vascular disease, unspecified Status: Acute Assessment and Plan: History of PAD status post right common femoral, profundus femoris and proximal superficial femoral endarterectomy July 2022 on rivaroxaban (6) Atrial flutter with rapid ventricular response: Code(s): I48.92 - Unspecified atrial flutter Status: Acute Assessment and Plan: heart rate better controlled on amiodarone drip. Appreciate Cardiology input. (7) Hyponatremia: Code(s): E87.1 - Hypo-osmolality and hyponatremia Status: Acute Assessment and Plan: asymptomatic. Monitor sodium. (8) Anemia: Code(s): D64.9 - Anemia, unspecified Status: Acute Assessment and Plan: Transfuse if less than 7. replace iron GI consult Subjective Date/time seen: 01/31/23 11:29 Interval history: Little bit of blood per rectum yesterday. This has resolved. Exam Narrative: ?APPEARANCE: patient comfortable not in acute distress Head: atraumatic. Normocephalic EYES:? EOMI, NECK: Trachea midline RESPIRATORY: No increased rate of breathing, clear to auscultation CARDIOVASCULAR: AFib with RVR on telemetry, no peripheral edema ABDOMINAL:? distended but soft no guarding or rebound MUSCULOSKELETAl: No obvious deformities NEURO: Alert. Moving 4/4 extremities SKIN:: Warm, dry. Normal color PSYCHIATRIC: Normal affect Objective Data Vital Signs Vital Signs: Vital Signs - 24 hr 01/30/23 12:00 01/30/23 12:00 01/30/23 16:00 Temperature 98.0 F Pulse Rate 80 81 74 Respiratory Rate 24 H Blood Pressure 97/53 L Pulse Oximetry 99 Oxygen Delivery 01/30/23 16:00 01/30/23 20:00 01/30/23 20:00 Temperature 97.9 F 98.5 F Pulse Rate 77 81 75 Respiratory Rate 20 22 H Blood Pressure 99/53 L 98/47 L Pulse Oximetry 92 97 Oxygen Delivery 01/30/23 20:00 01/30/23 23:31 01/31/23 00:00 Temperature 97.3 F L Pulse Rate 77 68 Respiratory Rate 22 H Blood Pressure 98/52 L Pulse Oximetry 97 100 Oxygen Delivery Room Air 01/31/23 04:00 01/31/23 04:00 01/31/23 06:59 Temperature 97.9 F 97.2 F L Pulse Rate 77 70 71 Respiratory Rate 22 H 20 Blood Pressure 102/56 L 116/62 Pulse Oximetry 99 99 Oxygen Delivery 01/31/23 08:00 01/31/23 09:47 01/31/23 09:47 Temperature Pulse Rate 73 73 73 Respiratory Rate Blood Pressure Pulse Oximetry Oxygen Delivery Intake/Output Intake/Output: Intake & Output 01/28/23 01/29/23 01/30/23 01/31/23 23:59 23:59 23:59 23:59 Intake Total 1520 2870 1675 60 Output Total 1000 2550 1200 Balance 520 320 475 60 Meds/Results Medications: Active Medications Generic Name Dose Route Start Last Admin Trade Name Freq PRN Reason Stop Dose Admin Albuterol 1 puff 01/26/23 10:26 01/30/23 20:35 Albuterol Sulfate (*Sp) Aerosol 1
[2023-01-31 12:11] LABS: Hematocrit 27.5 % (42.0-52.0); Hemoglobin 7.8 g/dL (14.0-18.0); Mean Corpuscular HGB Conc 28.4 g/dl (32-36); Mean Corpuscular Hemoglobin 19.5 pg (26-34); Mean Corpuscular Volume 68.9 fl (80-100); Mean Platelet Volume 9.4 fl (7.4-10.4); Platelet Count Result 258 k/mm3 (150-375); Red Blood Count 3.99 M/mm3 (4.6-6.20); Red Cell Distribution Width 18.6 % (11.5-14.5); White Blood Count 7.9 K/mm3 (4.5-10.0)
[2023-01-31 12:22] LABS: Anion Gap 11 mmol/L (8-16); Blood Urea Nitrogen 26 mg/dL (9-20); Calcium 8.8 mg/dL (8.4-10.2); Carbon Dioxide 27 mmol/L (22-30); Chloride 89 mmol/L (98-107); Estimated CRCL calculation 60 ml/min; Estimated Glomerular Filt Rate 47; Glucose 79 mg/dL (65-110); Potassium 3.9 mmol/L (3.4-5.0); Sodium 127 mmol/L (137-145)
[2023-01-31] MEDS: ALBUTEROL SULFATE (*SP) AEROSOL 1 PUFF INHALATION (13:25)
[2023-01-31] MEDS: GABAPENTIN 100 MG CAPSULE PO (20:25)
[2023-01-31] MEDS: SENNA/DOCUSATE SODIUM TABLET 1 TAB PO (20:25)
[2023-01-31 21:22] LABS: Glucose Point of Care 188 mg/dl (65-105)
[2023-01-31] MEDS: diphenhydrAMINE HCl CAP 25 MG CAPSULE PO (21:54)
[2023-02-01] VITALS (12 sets, daily range): BP systolic 83–116; BP diastolic 46–72; PULSE 67–90; RESP 14–18; TEMP 35.8–36.5; O2SAT 94–100
[2023-02-01 06:06] LABS: Hematocrit 26.3 % (42.0-52.0); Hemoglobin 7.5 g/dL (14.0-18.0); Mean Corpuscular HGB Conc 28.5 g/dl (32-36); Mean Corpuscular Hemoglobin 19.9 pg (26-34); Mean Corpuscular Volume 69.9 fl (80-100); Mean Platelet Volume 9.4 fl (7.4-10.4); Platelet Count Result 240 k/mm3 (150-375); Red Blood Count 3.76 M/mm3 (4.6-6.20); Red Cell Distribution Width 19.1 % (11.5-14.5); White Blood Count 8.6 K/mm3 (4.5-10.0)
[2023-02-01 06:20] LABS: Anion Gap 10 mmol/L (8-16); Blood Urea Nitrogen 25 mg/dL (9-20); Calcium 8.4 mg/dL (8.4-10.2); Carbon Dioxide 25 mmol/L (22-30); Chloride 92 mmol/L (98-107); Estimated CRCL calculation 60 ml/min; Estimated Glomerular Filt Rate 47; Glucose 105 mg/dL (65-110); Potassium 3.9 mmol/L (3.4-5.0); Sodium 127 mmol/L (137-145)
[2023-02-01 07:55] LABS: Glucose Point of Care 119 mg/dl (65-105)
[2023-02-01] MEDS: AMIODARONE HCL 200 MG TABLET 400 MG PO (09:31)
[2023-02-01] MEDS: SACUBITRIL/VALSARTAN 24-26 MG TABLET 1 TAB PO ×2 (09:31→21:25)
[2023-02-01] MEDS: POLYSACCHARIDE IRON COMPLEX 150 MG CAPSULE PO (09:31)
[2023-02-01] MEDS: buPROPion HCL XL (24 HR) 150 MG TABCR PO (09:31)
[2023-02-01] MEDS: ATORVASTATIN 40 MG TABLET 80 MG PO (09:31)
[2023-02-01] MEDS: ASPIRIN 81 MG ENTERIC TABLET PO (09:31)
[2023-02-01] MEDS: SPIRONOLACTONE 25 MG TABLET PO (09:31)
[2023-02-01] MEDS: METOPROLOL SUCCINATE EXT REL 25 MG TABCR PO (09:32)
[2023-02-01] MEDS: PANTOPRAZOLE 40 MG TABLET PO (09:32)
[2023-02-01] MEDS: CHOLECALCIFEROL 1,000 UNITS TABLET 5000 UNITS PO (09:32)
[2023-02-01] MEDS: FUROSEMIDE 40 MG TABLET PO (09:32)
[2023-02-01] MEDS: polyethylene glycoL 3350 17 GM POWD.PACK PO (09:33)
--- NOTE | 2023-02-01 10:50 | PM.IMPN ---
Progress Note: A&P Assessment and Plan (1) CHF (congestive heart failure): Code(s): I50.9 - Heart failure, unspecified Status: Acute Assessment and Plan: Recent Echo shows EF of 50% Chest x-ray with pulmonary edema. Acute on chronic systolic heart failure continue home medications appears euvolemic. (2) Elevated troponin: Code(s): R77.8 - Other specified abnormalities of plasma proteins Status: Acute Assessment and Plan: Mildly elevated troponin 0.245 Pt seen by cardiology status post left heart catheterization showing one-vessel coronary artery disease with significant distal RCA disease. on aspirin and atorvastatin also on rivaroxaban (3) Benign essential HTN: Code(s): I10 - Essential (primary) hypertension Status: Acute Assessment and Plan: Continue BP medications in hospital (4) Diabetes: Code(s): E11.9 - Type 2 diabetes mellitus without complications Status: Acute Assessment and Plan: ACcuchecks SSI A1c is 6.3 (5) Peripheral artery disease: Code(s): I73.9 - Peripheral vascular disease, unspecified Status: Acute Assessment and Plan: History of PAD status post right common femoral, profundus femoris and proximal superficial femoral endarterectomy July 2022 on rivaroxaban (6) Atrial flutter with rapid ventricular response: Code(s): I48.92 - Unspecified atrial flutter Status: Acute Assessment and Plan: heart rate better controlled on amiodarone drip. Appreciate Cardiology input. (7) Hyponatremia: Code(s): E87.1 - Hypo-osmolality and hyponatremia Status: Acute Assessment and Plan: asymptomatic. Monitor sodium. (8) Anemia: Code(s): D64.9 - Anemia, unspecified Status: Acute Assessment and Plan: Transfuse if less than 7. replace iron GI consult - Await plan from GI Subjective Date/time seen: 02/01/23 10:50 Interval history: no complaints Exam Narrative: ?APPEARANCE: patient comfortable not in acute distress Head: atraumatic. Normocephalic EYES:? EOMI, NECK: Trachea midline RESPIRATORY: No increased rate of breathing, clear to auscultation CARDIOVASCULAR: AFib with RVR on telemetry, no peripheral edema ABDOMINAL:? distended but soft no guarding or rebound MUSCULOSKELETAl: No obvious deformities NEURO: Alert. Moving 4/4 extremities SKIN:: Warm, dry. Normal color PSYCHIATRIC: Normal affect Objective Data Vital Signs Vital Signs: Vital Signs - 24 hr 01/31/23 12:00 01/31/23 15:51 01/31/23 11:30 Temperature 97.6 F 97.5 F L Pulse Rate 66 75 Respiratory Rate 20 20 Blood Pressure 88/48 L 84/45 L Pulse Oximetry 93 97 Oxygen Delivery Room Air 01/31/23 12:00 01/31/23 16:00 01/31/23 20:00 Temperature 96.3 F L Pulse Rate 69 69 78 Respiratory Rate 16 Blood Pressure 112/44 L Pulse Oximetry 100 Oxygen Delivery 01/31/23 20:00 02/01/23 00:00 02/01/23 00:00 Temperature 96.5 F L Pulse Rate 83 69 70 Respiratory Rate 16 Blood Pressure 88/46 L Pulse Oximetry 97 Oxygen Delivery 02/01/23 01:00 02/01/23 04:00 02/01/23 04:00 Temperature 96.8 F L Pulse Rate 72 67 Respiratory Rate 18 18 Blood Pressure 83/50 L Pulse Oximetry 96 Oxygen Delivery CPAP 02/01/23 08:00 02/01/23 09:31 02/01/23 09:32 Temperature 97.2 F L Pulse Rate 69 90 90 Respiratory Rate 16 Blood Pressure 91/62 L Pulse Oximetry 97 Oxygen Delivery Intake/Output Intake/Output: Intake & Output 01/29/23 01/30/23 01/31/23 02/01/23 23:59 23:59 23:59 23:59 Intake Total 2870 1675 1428 910 Output Total 2550 1200 Balance 492 402 9324 910 Meds/Results Medications: Active Medications Generic Name Dose Route Start Last Admin Trade Name Freq PRN Reason Stop Dose Admin Albuterol 1 puff 01/31/23 15:41 Albuterol Sulfate (*Sp) Aerosol 1 Puff INHALATION Q4HRT PRN
[2023-02-01 11:35] LABS: Glucose Point of Care 147 mg/dl (65-105)
--- NOTE | 2023-02-01 15:26 | WPDGICN ---
Assessment and Plan Assessment and plan (1) ALISHA (iron deficiency anemia): Code(s): D50.9 - Iron deficiency anemia, unspecified Status: Acute Assessment and Plan: Patient with microcytic anemia iron deficient indices. Plan for colonoscopy an EGD to evaluate this tomorrow. Anemia likely contributes to his congestive heart failure. Endoscopy anticipated prior to restarting anticoagulation. (2) Rectal bleeding: Code(s): K62.5 - Hemorrhage of anus and rectum Status: Acute Assessment and Plan: Patient reports bright red blood per rectum with wiping after heart stool suggestive of hemorrhoids. Colonoscopy will evaluate this as well as his iron deficiency. (3) Coronary artery disease: Code(s): I25.10 - Atherosclerotic heart disease of [place] coronary artery without angina pectoris Status: Acute (4) CHF (congestive heart failure): Code(s): I50.9 - Heart failure, unspecified Status: Acute Assessment and Plan: Patient admitted with congestive heart failure. He appears to be stabilized. Cardiology according to notes given permission to proceed with colonoscopy and endoscopy at this time. (5) Aortic stenosis: Code(s): I35.0 - Nonrheumatic aortic (valve) stenosis Status: Acute (6) Atrial flutter with rapid ventricular response: Code(s): I48.92 - Unspecified atrial flutter Status: Acute Assessment and Plan: Anticoagulation expected to resume after he is cleared from cardiology's perspective. Colonoscopy requested prior to this. GI Consult Note Consult date/time: 02/01/23 15:26 Reason for consult: Bright red blood per rectum and iron deficiency anemia. HPI: Bravo Perez is a 62 year old male I am asked to see at the request of the hospitalist service today because patient has iron deficiency anemia. Patient notes occasional bright red blood per rectum typically with wiping after hard stool. He states this happens very infrequently. Patient admitted to the hospital on 01/25/2023 with shortness of breath. He was found to have decompensated congestive heart failure. Heart catheterization revealed single-vessel heart disease. Patient currently has anticoagulation on hold in anticipation or restarting this. His congestive heart failure is improved and he has been cleared for GI endoscopy by the oven worker. Patient is anticipated to resume anticoagulation. Currently the patient is feeling much better but is somewhat weak having had anemia. Indices have shown him to be iron deficient. Patient's past medical history in addition to this congestive heart failure includes atrial flutter and atherosclerotic heart disease. He is somewhat overweight and has sleep apnea. Family history is noncontributory. Patient reports he underwent an EGD at hospital in [place] several months ago that revealed upper GI bleeding source at that time. Review of Systems Review of Systems: Review of systems noncontributory. [facility] Past Medical History Medical History Abnormal MRI, lumbar spine Blood clot associated with vein wall inflammation BMI 36.0-36.9,adult BMI 37.0-37.9, adult Peripheral artery disease Family History Family History Grandparent Diabetes mellitus Father Acute myocardial infarction Mother No problems noted. Sibling Diabetes mellitus Other Family history of cardiovascular disease Hypertension Social History Social History Smoking packs per day: 1 Smoking cigarettes per day: 20.0 Years smoked: 45 Smoking pack-years: 45.00 Smoking status: Current every day smoker Tobacco type: cigarettes Second hand tobacco smoke exposure: No Alcohol intake: current Drinks per week: 18 Substance use: never Substance use type:
--- NOTE | 2023-02-01 15:57 | PM.PNCARD ---
Progress Note: A&P Assessment and Plan (1) Coronary artery disease: Code(s): I25.10 - Atherosclerotic heart disease of [place] coronary artery without angina pectoris Status: Acute (2) Aortic stenosis: Code(s): I35.0 - Nonrheumatic aortic (valve) stenosis Status: Acute (3) ALISHA (iron deficiency anemia): Code(s): D50.9 - Iron deficiency anemia, unspecified Status: Acute Plan 62-year-old man with: Single-vessel coronary disease with significant distal RCA lesion, mild aortic valve stenosis and CHF doing relatively well and appears to be in good medical therapy and is relatively well compensated. He is still short of breath in part because of significant iron deficiency anemia. Very good that colonoscopy is happening tomorrow. Decision to resume Xarelto or not will be pending those results. Given his significant microcytic anemia anticoagulation is significantly higher risk. Bravo Barrera MD [facility] Subjective Date/time seen: Date of service: 02/01/23 15:57 Interval history: Follow-up visit in this 62-year-old man with: Coronary artery disease, moderate aortic valve stenosis and congestive heart failure with elevated LV filling pressures. Patient has a significant distal RCA lesion but is not reporting anginal type chest pain. Date of service 01/30/2023: Reverted back to sinus rhythm. Still short of breath. No chest pain Date of service 01/31/2023: Feels better today. Less short of breath. No chest pain. Looks significantly improved from yesterday Date of service 02/01/2023: Patient still reports his shortness of breath with mi a mild to moderate activity but otherwise no new complaints. Anticipating colonoscopy tomorrow morning Exam Const: General: comfortable and no acute distress Other: Well-developed well-nourished white male reporting shortness of breath with modest activity appears to be comfortable at rest HENMT: Mouth: Yes moist mucous membranes Eyes: General: appearance normal, both eyes and all related structures Sclera: sclerae normal Neck: Neck: supple and no JVD Resp: Effort & Inspection: normal respiratory effort Auscultation: clear to auscultation bilaterally and diminished lung sounds Other: Currently no audible rales or wheezing Cardio: Rate: regular rate and tachycardic Rhythm: regular rhythm Heart sounds: Murmur heart sound present systolic Other: Grade 2/6 crescendo decrescendo murmur audible at the base no diastolic murmur. GI: Auscultation: normal bowel sounds Skin: General skin exam: normal color Neuro: Speech: normal speech Other: Alert and oriented x3 Extrem: Other: Minimal edema Psych: Mental Status: mental status grossly normal Affect: normal affect Objective Data Vital Signs Vital Signs: Vital Signs - 24 hr 01/31/23 16:00 01/31/23 20:00 01/31/23 20:00 Temperature 35.7 C L Pulse Rate 69 78 83 Respiratory Rate 16 Blood Pressure 112/44 L Pulse Oximetry 100 Oxygen Delivery 02/01/23 00:00 02/01/23 00:00 02/01/23 01:00 Temperature 35.8 C L Pulse Rate 69 70 Respiratory Rate 16 18 Blood Pressure 88/46 L Pulse Oximetry 97 Oxygen Delivery CPAP 02/01/23 04:00 02/01/23 04:00 02/01/23 08:00 Temperature 36.0 C L 36.2 C L Pulse Rate 72 67 69 Respiratory Rate 18 16 Blood Pressure 83/50 L 91/62 L Pulse Oximetry 96 97 Oxygen Delivery 02/01/23 09:31 02/01/23 09:32 02/01/23 08:00 Temperature Pulse Rate 90 90 90 Respiratory Rate 16 Blood Pressure Pulse Oximetry 97 Oxygen Delivery Room Air 02/01/23 11:36 Temperature 36.3 C L Pulse Rate 72 Respiratory Rate 14 Blood Pressure 90/59 L Pulse Oximetry 94 Oxygen Delivery Intake/Output Intake/Output: Intake & Output 01/29/23 01/30/23 01/31/23 02/01/23 23:59 23:59 23:59 23:59 Intake Total 2870 1675 1428 1510 Output Total 2550 1200 Balance 074 536 8304 1510 Meds/Resu
[2023-02-01 16:36] LABS: Glucose Point of Care 105 mg/dl (65-105)
[2023-02-01] MEDS: PEG (High)/E-LYTE SOLN 4,000 ML BTL 4000 ML PO (17:39)
[2023-02-01] MEDS: SENNA/DOCUSATE SODIUM TABLET 1 TAB PO (20:40)
[2023-02-01] MEDS: GABAPENTIN 100 MG CAPSULE PO (20:40)
[2023-02-01 22:13] LABS: Glucose Point of Care 138 mg/dl (65-105)
[2023-02-02] VITALS (9 sets, daily range): BP systolic 92–119; BP diastolic 42–56; PULSE 65–74; RESP 14–22; TEMP 36.1–36.2; O2SAT 92–100
[2023-02-02 06:30] LABS: Hematocrit 26.5 % (42.0-52.0); Hemoglobin 7.6 g/dL (14.0-18.0); Mean Corpuscular HGB Conc 28.7 g/dl (32-36); Mean Corpuscular Volume 69.7 fl (80-100); Mean Platelet Volume 9.7 fl (7.4-10.4); Platelet Count Result 249 k/mm3 (150-375); Red Cell Distribution Width 19.4 % (11.5-14.5); White Blood Count 6.2 K/mm3 (4.5-10.0)
[2023-02-02 06:41] LABS: Anion Gap 7 mmol/L (8-16); Blood Urea Nitrogen 22 mg/dL (9-20); Calcium 8.5 mg/dL (8.4-10.2); Carbon Dioxide 29 mmol/L (22-30); Chloride 91 mmol/L (98-107); Estimated CRCL calculation 61 ml/min; Estimated Glomerular Filt Rate 47; Glucose 98 mg/dL (65-110); Potassium 3.7 mmol/L (3.4-5.0); Sodium 127 mmol/L (137-145)
[2023-02-02 07:36] LABS: Glucose Point of Care 110 mg/dl (65-105)
[2023-02-02] MEDS: FUROSEMIDE 40 MG TABLET PO (09:30)
[2023-02-02] MEDS: AMIODARONE HCL 200 MG TABLET 400 MG PO (09:30)
[2023-02-02] MEDS: SACUBITRIL/VALSARTAN 24-26 MG TABLET 1 TAB PO (09:30)
[2023-02-02] MEDS: PANTOPRAZOLE 40 MG TABLET PO (09:30)
[2023-02-02] MEDS: CHOLECALCIFEROL 1,000 UNITS TABLET 5000 UNITS PO (09:30)
[2023-02-02] MEDS: SPIRONOLACTONE 25 MG TABLET PO (09:30)
[2023-02-02] MEDS: buPROPion HCL XL (24 HR) 150 MG TABCR PO (09:30)
[2023-02-02] MEDS: ASPIRIN 81 MG ENTERIC TABLET PO (09:31)
[2023-02-02] MEDS: ATORVASTATIN 40 MG TABLET 80 MG PO (09:31)
[2023-02-02] MEDS: METOPROLOL SUCCINATE EXT REL 25 MG TABCR PO (09:31)
[2023-02-02] MEDS: POLYSACCHARIDE IRON COMPLEX 150 MG CAPSULE PO (09:31)
--- NOTE | 2023-02-02 09:36 | PCNWS ---
Weekly nutritional screen. Patient was tolerating a regular diet with adequate intake 75-100%. NPO today for a colonoscopy. Diet to resume following. No weight loss reported. No nutritional needs at this time.
[2023-02-02 11:29] LABS: Glucose Point of Care 109 mg/dl (65-105)
--- NOTE | 2023-02-02 12:46 | PC.NURSE ---
To GI Lab per cesiaer @[id number], IV saline locked. Report given to Betsy JACOB by Christy JACOB.
[2023-02-02] MEDS: LACTATED RINGERS 1,000 ML 150 ML IV CONT (13:06)
[2023-02-02 13:20] LABS: Glucose Point of Care 103 mg/dl (65-105)
--- NOTE | 2023-02-02 13:34 | WPDANESEPPF ---
Anes - Initial Pre Proc Eval Procedure: Operation Date: 01/27/23 13:00 Proposed Procedures p Heart Cath, Right and Left - Eduardo Moran MD Operation Date: 02/02/23 14:00 Proposed Procedures p Esophagogastroduodenoscopy & Colonoscopy - Avinash Gutierrez MD Date/Time: 02/02/23 13:34 Surgeon: Rosangela Huerta DO Pre Op Diagnosis: Chest Pain/CHF Patient Data Age: 62 Gender: M Height: 1.83 m Weight: 122 kg Last Vital Signs Temp 97.2 F L 02/02/23 13:09 Pulse 72 02/02/23 13:09 Resp 16 02/02/23 13:09 BP 109/48 L 02/02/23 13:09 Pulse Ox 97 02/02/23 13:09 O2 Del Method Room Air 02/02/23 13:09 O2 Flow Rate 3 01/28/23 16:00 FiO2 21 01/30/23 04:00 Allergies Allergy/AdvReac Type Severity Reaction Status Date / Time No Known Allergies Allergy Verified 01/25/23 19:59 Home Medications Medication Instructions Recorded Confirmed Type dulaglutide 4.5 mg/0.5 mL 4.5 mg (0.5 mL) subcut WEEKLY #2 mL 12/25/22 01/26/23 Rx subcutaneous pen injector (Trulicity) spironolactone 25 mg tablet 25 mg PO DAILY 12/25/22 01/26/23 History albuterol sulfate 90 mcg/actuation 1 inh inhalation Q4H PRN shortness 01/12/23 01/26/23 Rx aerosol inhaler of breath or wheezing #8.5 grams gabapentin 100 mg capsule 100 mg PO QHS #90 caps 01/12/23 01/26/23 Rx amlodipine 10 mg tablet 10 mg PO DAILY 01/26/23 01/26/23 History atorvastatin 80 mg tablet 80 mg PO DAILY 01/26/23 01/26/23 History bupropion HCl 150 mg 24 hr tablet, 150 mg PO DAILY 01/26/23 01/26/23 History extended release cholecalciferol (vitamin D3) 125 125 mcg PO DAILY 01/26/23 01/26/23 History mcg (5,000 unit) capsule empagliflozin 12.5 mg-metformin 1 tablet PO BID 01/26/23 01/26/23 History 1,000 mg tablet (Synjardy) furosemide 20 mg tablet (Lasix) 20 mg PO DAILY 01/26/23 01/26/23 History losartan 50 mg tablet 50 mg PO DAILY 01/26/23 01/26/23 History omeprazole 40 mg capsule,delayed 40 mg PO DAILY 01/26/23 01/26/23 History release rivaroxaban 2.5 mg tablet (Xarelto) 2.5 mg PO BID 01/26/23 01/26/23 History Laboratory Tests 02/01/23 02/01/23 02/02/23 16:28 20:06 06:03 WBC 6.2 K/mm3 (4.5-10.0) RBC 3.80 L M/mm3 (4.6-6.20) Hgb 7.6 L g/dL (14.0-18.0) Hct 26.5 L % (42.0-52.0) MCV 69.7 L fl (80-100) MCH 20.0 L pg (26-34) MCHC 28.7 L g/dl (32-36) RDW 19.4 H % (11.5-14.5) Plt Count 249 k/mm3 (150-375) MPV 9.7 fl (7.4-10.4) Sodium 127 L mmol/L (137-145) Potassium 3.7 mmol/L (3.4-5.0) Chloride 91 L mmol/L (98-107) Carbon Dioxide 29 mmol/L (22-30) Anion Gap 7 L mmol/L (8-16) BUN 22 H mg/dL (9-20) Creatinine 1.50 H mg/dL (0.7-1.3) Estim Creat Clear Calc 61 ml/min Estimated GFR 47 L (59 - ) Glucose 98 mg/dL (65-110) POC Capillary Glucose 105 mg/dl 138 H mg/dl (65-105) (65-105) Calcium 8.5 mg/dL (8.4-10.2) 02/02/23 02/02/23 02/02/23 07:30 11:23 13:18 WBC RBC Hgb Hct MCV MCH MCHC RDW Plt Count MPV Sodium Potassium Chloride Carbon Dioxide Anion Gap BUN Creatinine Estim Creat Clear Calc Estimated GFR Glucose POC Capillary Glucose 110 H mg/dl 109 H mg/dl 103 mg/dl (65-105) (65-105) (65-105) Calcium Patient hx anesthesia problems: none Family hx anesthesia problems: none Results Review: All pre-operative results and documents have been reviewed as part of the pre-operative evaluation. [facility] Past Medical History Medical History Abnormal MRI, lumbar spin
[2023-02-02] MEDS: SIMETHICONE ORAL SUSPENSION 20 MG/0.3 ML 30 ML BOTTLE 0.6 ML PO (14:15)
--- NOTE | 2023-02-02 14:36 | SUR.OPER ---
EGD START: 1413; END: 1415. COLONOSCOPY START: 1421; END: 1435.
--- NOTE | 2023-02-02 15:31 | PM.DS ---
DS: Admitting Diagnosis Discharge Date 02/02/23 Admitting Diagnosis chf, afib, anemia DS: Discharge Diagnosis Discharge Diagnosis (1) CHF (congestive heart failure): Code(s): I50.9 - Heart failure, unspecified Status: Acute Assessment and Plan: Recent Echo shows EF of 50% Chest x-ray with pulmonary edema. Acute on chronic systolic heart failure continue home medications appears euvolemic. (2) Elevated troponin: Code(s): R77.8 - Other specified abnormalities of plasma proteins Status: Acute Assessment and Plan: Mildly elevated troponin 0.245 Pt seen by cardiology status post left heart catheterization showing one-vessel coronary artery disease with significant distal RCA disease. on aspirin and atorvastatin also on rivaroxaban (3) Benign essential HTN: Code(s): I10 - Essential (primary) hypertension Status: Acute Assessment and Plan: Continue BP medications in hospital (4) Diabetes: Code(s): E11.9 - Type 2 diabetes mellitus without complications Status: Acute Assessment and Plan: ACcuchecks SSI A1c is 6.3 (5) Peripheral artery disease: Code(s): I73.9 - Peripheral vascular disease, unspecified Status: Acute Assessment and Plan: History of PAD status post right common femoral, profundus femoris and proximal superficial femoral endarterectomy July 2022 on rivaroxaban (6) Atrial flutter with rapid ventricular response: Code(s): I48.92 - Unspecified atrial flutter Status: Acute Assessment and Plan: heart rate better controlled on amiodarone drip. Appreciate Cardiology input. (7) Hyponatremia: Code(s): E87.1 - Hypo-osmolality and hyponatremia Status: Acute Assessment and Plan: asymptomatic. Monitor sodium. (8) Anemia: Code(s): D64.9 - Anemia, unspecified Status: Acute Assessment and Plan: Transfuse if less than 7. replace iron GI consult - Await plan from GI DS: Summary Hospital Course Hospital Course: admitted for anemia, chf exacerbation will be started in iron for dc egd and colonoscopy only showed internal hemorrhoids follow up with gi found to have chf and afib rates controlled, meds adjusted follow up with cardiology Time Spent with Patient Time attestation: Total time spent providing and/or coordinating discharge services: Exam Narrative: ?APPEARANCE: patient comfortable not in acute distress Head: atraumatic. Normocephalic EYES:? EOMI, NECK: Trachea midline RESPIRATORY: No increased rate of breathing, clear to auscultation CARDIOVASCULAR: AFib with RVR on telemetry, no peripheral edema ABDOMINAL:? distended but soft no guarding or rebound MUSCULOSKELETAl: No obvious deformities NEURO: Alert. Moving 4/4 extremities SKIN:: Warm, dry. Normal color PSYCHIATRIC: Normal affect DS: Data Data Completed and Pending Pending studies at discharge: Pending at discharge 02/02/23 14:37 Surgical [PTH] Routine Labs on day of discharge: Labs from last 24 hours 02/02/23 02/02/23 02/02/23 13:18 11:23 07:30 WBC RBC Hgb Hct MCV MCH MCHC RDW Plt Count MPV Sodium Potassium Chloride Carbon Dioxide Anion Gap BUN Creatinine Estim Creat Clear Calc Estimated GFR Glucose POC Capillary Glucose 103 109 H 110 H Calcium 02/02/23 02/01/23 02/01/23 06:03 20:06 16:28 WBC 6.2 RBC 3.80 L Hgb 7.6 L Hct 26.5 L MCV 69.7 L MCH 20.0 L MCHC 28.7 L RDW 19.4 H Plt Count 249 MPV 9.7 Sodium 127 L Potassium 3.7 Chloride 91 L Carbon Dioxide 29 Anion Gap 7 L BUN 22 H Creatinine 1.50 H Estim Creat Clear Calc 61 Estimated GFR 47 L Glucose 98 POC Capillary Glucose 138 H 105 Calcium 8.5 Discharge Plan Discharge Attending physician on discharge: Bravo Rivera
[2023-02-02 16:18] LABS: Glucose Point of Care 102 mg/dl (65-105)
== END 2023-02-02 17:45 | disposition home or self-care (01) | DRG 286 ==
LOC: ANHED 01-26 00:01 → ANHIMU 01-26 02:50 → ANH3MEDSUR 01-31 11:35
PROVIDERS: Family Medicine; Internal Medicine; Internal Medicine Cardiovascular Disease; Internal Medicine Gastroenterology; Admitting Provider Internal Medicine; Emergency Provider Emergency Medicine; PCP Family Medicine; Visit Provider Chiropractor
PROC: 4A023N8 Measurement of Cardiac Sampling and Pressure, Bilateral, Percutaneous Approach (ICD-10-PCS; CPT 93453; principal; 2023-01-27 13:00)
PROC: 0DJ08ZZ Inspection of Upper Intestinal Tract, Via Natural or Artificial Opening Endoscopic (ICD-10-PCS; CPT 43235; principal; 2023-02-02 14:00)
DX: I11.0 Hypertensive heart disease with heart failure (principal); I50.23 Acute on chronic systolic (congestive) heart failure; I48.92 Unspecified atrial flutter; E87.1 Hypo-osmolality and hyponatremia; K62.5 Hemorrhage of anus and rectum; D50.9 Iron deficiency anemia, unspecified; D12.5 Benign neoplasm of sigmoid colon; E11.51 Type 2 diabetes mellitus with diabetic peripheral angiopathy without gangrene; F17.210 Nicotine dependence, cigarettes, uncomplicated; G47.33 Obstructive sleep apnea (adult) (pediatric); I48.91 Unspecified atrial fibrillation; I25.10 Atherosclerotic heart disease of native coronary artery without angina pectoris; I35.0 Nonrheumatic aortic (valve) stenosis; K64.8 Other hemorrhoids; Z79.01 Long term (current) use of anticoagulants; Z86.718 Personal history of other venous thrombosis and embolism; Z79.84 Long term (current) use of oral hypoglycemic drugs
CPT/HCPCS: 36415; 36600; 71045; 71046; 80048; 80053; 82274; 82607; 82728; 82746; 82805; 82948; 83036; 83540; 83550; 83690; 83735; 84443; 84484; 85025; 85027; 85046; 85610; 85730; 88305; 93005; 93460; 94640; 94660; 96374; 99285; A9270; C1769; C1887; C1894; C8929; J0282; J1644; J1756; J1940; J2250; J2704; J3010; J7040; J7120; Q9957

== ENCOUNTER 2024-02-24 04:19 | Day surgery (SDC) | payer MEDICARE, OTHER, SELFPAY ==
[2024-02-15 10:05] VITALS: BMI 36.6
--- NOTE | 2024-02-15 10:52 | PC.NURSE ---
Spoke with _PATIENT_ regarding medication _XARELTO__. Pt. verbalizes understanding that the last dose of _XARELTO__ is to be taken on _02/21/2024_ and the Endoscopist will instruct them when to restart after the procedure.
[2024-02-24 13:32] VITALS: BP 142/57; PULSE 63; RESP 18; TEMP 36.2; O2SAT 97
[2024-02-24] MEDS: LACTATED RINGERS 1,000 ML 150 ML IV CONT (13:46)
[2024-02-24 13:49] LABS: Glucose Point of Care 144 mg/dl (65-105)
--- NOTE | 2024-02-24 14:40 | PM.HPGS ---
History of Present Illness History of Present Illness Consent: Risks, benefits, and alternatives have been discussed and questions answered. Patient agrees to proceed with procedure. Chief complaint: Hemorrhage of anus and rectum, anemia unspecified Narrative: Bravo Perez is a 63 year old male here for blood in stool, last colonoscopy about 1.5 year ago. Review of Systems Review of Systems: All systems reviewed & are unremarkable except as noted in HPI and below PMFSH Past Medical History Medical History (Updated 02/08/24 @ 14:18 by Calderon Nick MD) Abnormal MRI, lumbar spine Blood clot associated with vein wall inflammation H/O blood clots Lumbar spondylosis Peripheral artery disease Screening for malignant neoplasm of prostate Screening for thyroid disorder Surgical History Surgical History H/O cardiac catheterization Family History Family History Grandparent Diabetes mellitus Father Acute myocardial infarction Heart disease Mother No problems noted. Sibling Diabetes mellitus Other Family history of cardiovascular disease Hypertension Social History Social History Smoking packs per day: 1 Smoking cigarettes per day: 20.0 Years smoked: 49 Smoking pack-years: 49.00 Smoking status: Current every day smoker Tobacco type: cigarettes Second hand tobacco smoke exposure: No Alcohol intake: current Drinks per week: 10 Alcohol use details: BEERS Substance use: never Substance use type: does not use Other substance usage details: nyquil Lack of Transportation: No Lack of Food: Never True Current Housing: I Have Housing Concerned About Future Housing: No Difficulty Paying Gas/Electric Bills: No Difficulty Paying for Meds: No Currently Unemployed: No Education: High School Diploma/GED Difficulty w/ Childcare or Family Care: No Living arrangements: with family Occupation/Education: retired 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 Gender identity (if verbalized by the patient): Male Spiritual care concerns: No Meds Home Medications and Allergies Home Medications Medication Instructions Recorded Confirmed Type spironolactone 25 mg tablet 25 mg PO DAILY 12/25/22 02/15/24 History albuterol sulfate 90 mcg/actuation 1 inh inhalation Q4H PRN shortness 01/12/23 02/15/24 Rx aerosol inhaler of breath or wheezing #8.5 grams amiodarone 200 mg tablet (Pacerone) 400 mg PO DAILY@0800 30 days #30 02/02/23 02/15/24 Rx tabs aspirin 81 mg tablet,delayed 81 mg PO QAM #30 tabs 02/02/23 02/15/24 Rx release furosemide 40 mg tablet 40 mg PO DAILY 30 days #30 tabs 02/02/23 02/15/24 Rx sacubitril 24 mg-valsartan 26 mg 1 tablet PO Q12HR #60 tabs 02/02/23 02/15/24 Rx tablet (Entresto) rivaroxaban 20 mg tablet (Xarelto) 20 mg PO DAILY #30 tabs 04/01/23 02/15/24 Rx cholecalciferol (vitamin D3) 125 125 mcg PO DAILY #90 caps 05/17/23 02/15/24 Rx mcg (5,000 unit) capsule atorvastatin 80 mg tablet 80 mg PO DAILY #90 tabs 11/28/23 02/15/24 Rx empagliflozin 12.5 mg-metformin See Rx Instructions .Route 12/28/23 02/15/24 Rx 1,000 mg tablet (Synjardy) .COMPLEX #60 tabs metoprolol succinate 25 mg 25 mg PO DAILY 01/26/24 02/15/24 History tablet,extended release 24 hr docusate sodium 100 mg capsule 100 mg PO DAILY 02/15/24 02/15/24 History (Dulcolax Stool Softener (docusate)) ferrous sulfate 325 mg (65 mg 325 mg PO BID 02/15/24 02/15/24 History iron) tablet gabapentin 300 mg capsule 300 mg PO TID 02/15/24 02/15/24 History mecobalamin (vitamin B12) 1,000 1,000 mcg PO DAILY 02/15/24 02/15/24 History mcg lozenges Allergies Allergy/AdvReac Type Severity Reaction Status Date / Time No Known Aller
[2024-02-24 15:04] VITALS: BP 103/55; PULSE 58; RESP 20; O2SAT 95
[2024-02-24 15:14] VITALS: BP 113/53; PULSE 58; RESP 21; O2SAT 98
[2024-02-24 15:24] VITALS: BP 122/55; PULSE 57; RESP 18; O2SAT 99
--- NOTE | 2024-03-28 13:59 | WPDANESEPPF ---
Anes - Initial Pre Proc Eval Procedure: Operation Date: 02/24/24 14:00 Proposed Procedures p Colonoscopy - Tyler Guzman MD Date/Time: 03/28/24 13:59 Surgeon: Tyler Guzman MD Pre Op Diagnosis: Hemorrhage of anus and rectum, anemia unspecified Patient Data Age: 63 Gender: M Height: 1.83 m Weight: 119.8 kg Last Vital Signs Temp 36.2 C L 02/24/24 13:32 Pulse 57 L 02/24/24 15:24 Resp 18 02/24/24 15:24 BP 122/55 L 02/24/24 15:24 Pulse Ox 99 02/24/24 15:24 O2 Del Method Room Air 02/24/24 15:24 Allergies Allergy/AdvReac Type Severity Reaction Status Date / Time No Known Allergies Allergy Verified 02/24/24 13:21 Home Medications Medication Instructions Recorded Confirmed Type spironolactone 25 mg tablet 25 mg PO DAILY 12/25/22 02/15/24 History amiodarone 200 mg tablet (Pacerone) 400 mg PO DAILY@0800 30 days #30 02/02/23 02/15/24 Rx tabs aspirin 81 mg tablet,delayed 81 mg PO QAM #30 tabs 02/02/23 02/15/24 Rx release furosemide 40 mg tablet 40 mg PO DAILY 30 days #30 tabs 02/02/23 02/15/24 Rx sacubitril 24 mg-valsartan 26 mg 1 tablet PO Q12HR #60 tabs 02/02/23 02/15/24 Rx tablet (Entresto) rivaroxaban 20 mg tablet (Xarelto) 20 mg PO DAILY #30 tabs 04/01/23 02/15/24 Rx cholecalciferol (vitamin D3) 125 125 mcg PO DAILY #90 caps 05/17/23 02/15/24 Rx mcg (5,000 unit) capsule atorvastatin 80 mg tablet 80 mg PO DAILY #90 tabs 11/28/23 02/15/24 Rx empagliflozin 12.5 mg-metformin See Rx Instructions .Route 12/28/23 02/15/24 Rx 1,000 mg tablet (Synjardy) .COMPLEX #60 tabs metoprolol succinate 25 mg 25 mg PO DAILY 01/26/24 02/15/24 History tablet,extended release 24 hr docusate sodium 100 mg capsule 100 mg PO DAILY 02/15/24 02/15/24 History (Dulcolax Stool Softener (docusate)) ferrous sulfate 325 mg (65 mg 325 mg PO BID 02/15/24 02/15/24 History iron) tablet gabapentin 300 mg capsule 300 mg PO TID 02/15/24 02/15/24 History mecobalamin (vitamin B12) 1,000 1,000 mcg PO DAILY 02/15/24 02/15/24 History mcg lozenges albuterol sulfate 90 mcg/actuation See Rx Instructions .Route 03/24/24 Rx aerosol inhaler .COMPLEX #8.5 ea Patient hx anesthesia problems: none Family hx anesthesia problems: none Results Review: All pre-operative results and documents have been reviewed as part of the pre-operative evaluation. [facility] Past Medical History Medical History Abnormal MRI, lumbar spine Blood clot associated with vein wall inflammation H/O blood clots Lumbar spondylosis Peripheral artery disease Screening for malignant neoplasm of prostate Screening for thyroid disorder Surgical History Surgical History H/O cardiac catheterization Family History Family History Grandparent Diabetes mellitus Father Acute myocardial infarction Heart disease Mother No problems noted. Sibling Diabetes mellitus Other Family history of cardiovascular disease Hypertension Social History Social History Smoking packs per day: 1 Smoking cigarettes per day: 20.0 Years smoked: 49 Smoking pack-years: 49.00 Smoking status: Current every day smoker Tobacco type: cigarettes Second hand tobacco smoke exposure: No Alcohol intake: current Drinks per week: 10 Alcohol use details: BEERS Substance use: never Substance use type: does not use Other substance usage details: nyquil Lack of Transportation: No Lack of Food: Never True Current Housing: I Have Housing Concerned About Future Housing: No Difficulty Paying Gas/Electric Bills: No Difficulty Paying for Meds: No Currently Unemployed: No Education: High School Diploma/GED Difficulty w/ Childcare or Family Care: No [facility]
== END 2024-02-24 15:28 | disposition home or self-care (01) ==
PROVIDERS: PCP Family Medicine; Referring Provider Nurse Practitioner Family; Visit Provider Internal Medicine Gastroenterology
PROC: 0DJD8ZZ Inspection of Lower Intestinal Tract, Via Natural or Artificial Opening Endoscopic (ICD-10-PCS; CPT 45378; principal; 2024-02-24 14:00)
DX: K62.5 Hemorrhage of anus and rectum (principal); D64.9 Anemia, unspecified; D12.0 Benign neoplasm of cecum; K52.9 Noninfective gastroenteritis and colitis, unspecified; K57.30 Diverticulosis of large intestine without perforation or abscess without bleeding; K63.3 Ulcer of intestine; K64.8 Other hemorrhoids; F17.210 Nicotine dependence, cigarettes, uncomplicated; Z79.82 Long term (current) use of aspirin
CPT/HCPCS: 45385; 45380; 82948; 88305; J2001; J2704; J7120

== ENCOUNTER 2025-02-26 11:41 | Emergency (ER) | payer MEDICARE, OTHER, SELFPAY ==
[2025-02-26] VITALS (7 sets, daily range): BP systolic 104–139; BP diastolic 52–67; PULSE 66–72; RESP 15–21; O2SAT 99–100
--- NOTE | ~2025-02-26 | XR_ITS ---
XR chest 2V Ordering provider: Polo Tyler MD History: 64 years Male with . dizzy . Comparison: January 27, 2023 FINDINGS: MEDIASTINUM: The cardiac silhouette is not enlarged. LUNGS: No infiltrates, effusions or pneumothorax. OTHER: No free air under the diaphragm. Degenerative changes of the spine. IMPRESSION: No acute cardiopulmonary pathology. Reviewed, dictated and finalized at location A.
--- NOTE | ~2025-02-26 | CT_ITS ---
Non-contrast Head CT History: Dizziness Technique: Axial non-contrast imaging of the brain was performed. Dose reduction technique was used on this scan by utilizing automated exposure control and iterative reconstruction technique. The dose -length product (DLP) was 681.00 mGy-cm. Findings: There is no evidence of intracranial hemorrhage, mass lesion, or acute infarct. Chronic la cunar infarct noted in the right periventricular white matter. No other parenchymal abnormality seen. . The ventricles and subarachnoid spaces are normal in size. The calvarium appears normal. The vis ualized paranasal sinuses and mastoid air cells are clear. Impression: No acute abnormality seen. Chronic right periventricular lacunar infarct. Reviewed, dictated and finalized at location . Impression: No acute abnormality seen. Chronic right periventricular lacunar infarct.
--- NOTE | 2025-02-26 11:55 | ECG_ITS ---
Test Date: 2025-02-26 11:59:55 Measurements Intervals [place] Rate: 67 P: 58 WA: 242 QRS: 90 QRSD: 133 T: 70 QT: 472 QTc: 500 Interpretive Statements SINUS RHYTHM WITH FIRST DEGREE AV BLOCK INTRAVENTRICULAR CONDUCTION DELAY DELAYED PRECORDIAL R/S TRANSITION BORDERLINE T WAVE ABNORMALITY- HIGH LATERAL LEADS BORDERLINE ECG No previous ECG available for comparison Electronically Signed On 02-26-2025 13:03:19 CDT by Cordell Rojas D.O.
[2025-02-26 12:08] LABS: Basophils Absolute Auto 0.1 K/mm3 (0.0-0.1); Basophils Percent Auto 0.7 % (0.2-1.2); Eosinophils Absolute Auto 0.3 K/mm3 (0-0.3); Eosinophils Percent Auto 2.4 % (0-4.4); Hematocrit 25.7 % (42.0-52.0); Hemoglobin 7.7 g/dL (14.0-18.0); Immature Granulocyte Absolute 0.12 K/mm3 (0.00-0.031); Immature Granulocyte Percent A 1.2 % (0-0.5); Lymphocytes Absolute Auto 2.18 K/mm3 (0.9-3.2); Lymphocytes Percent Auto 21.1 % (18.3-44.2); Mean Corpuscular Hemoglobin 28.2 pg (26-34); Mean Corpuscular Volume 94.1 fl (80-100); Mean Platelet Volume 9.8 fl (7.4-10.4); Monocytes Absolute Auto 0.8 K/mm3 (0.1-0.6); Neutrophils Absolute Auto 6.9 K/mm3 (1.3-6.7); Neutrophils Percent Auto 66.6 % (45.5-73.1); Platelet Count Result 260 k/mm3 (150-375); Red Blood Count 2.73 M/mm3 (4.6-6.20); Red Cell Distribution Width 16.5 % (11.5-14.5); White Blood Count 10.3 K/mm3 (4.5-10.0)
[2025-02-26 12:19] LABS: Alanine Aminotransferase 20 U/L (6-50); Albumin Level 4.1 g/dL (3.5-5.1); Alkaline Phosphatase 47 U/L (38-126); Anion Gap 8 mmol/L (4-12); Aspartate Amino Transferase 24 U/L (17-59); Bilirubin,Total 0.2 mg/dL (0.2-1.3); Blood Urea Nitrogen 16 mg/dL (9-20); Calcium 8.7 mg/dL (8.4-10.2); Carbon Dioxide 18 mmol/L (22-30); Chloride 111 mmol/L (98-107); Estimated CRCL calculation 71 ml/min; Estimated Glomerular Filt Rate > 60; Glucose 114 mg/dL (65-110); Potassium 4.3 mmol/L (3.4-5.0); Sodium 137 mmol/L (137-145); Total Protein 6.8 g/dL (6.3-8.2)
--- OUTSIDE RECORDS SUMMARY | 2025-02-26 12:55 | XMS_ITS | Clinical Summary ---
Author Organization [facility] [place] [address] Address [address] [place] [address] Care Team Providers Care Classification Clerk Name Role Phone Calderon Nick MD Primary Care Provider [phone] Allergies No known active allergies Medications empagliflozin- metformin 12.5-1,000 mg tablet Take 1 tablet by mouth 2 (two) times a day Active atorvastatin (LIPITOR) 80 mg tablet Take 1 tablet (80 mg total) by mouth daily 90 tablet 08/24/20 19 Active cholecalcifero l (VITAMIN D-3) 5,000 unit capsule 07/13/20 21 Active omeprazole (PriLOSEC) 40 mg capsule 08/10/20 21 Active Trulicity 0.75 mg/0.5 mL pen injector 09/29/19 22 Active gabapentin (NEURONTIN) 100 mg capsule TAKE 1 CAPSULE BY MOUTH AT BEDTIME. CAN INCREASE TO 3 CAPS AFTER 3-5 DAYS IF NEEDED 12/03/19 23 Active albuterol HFA (PROVENTIL HFA,VENTOLIN HFA,PROAIR HFA) 90 mcg/actuation inhaler INHALE 1 PUFF BY MOUTH EVERY 4 HOURS NEEDED FOR SHORTNESS OF BREATH OR WHEEZING 12/04/19 23 Active ferrous sulfate 325 mg (65 mg of elemental iron) tablet Take 1 tablet (325 mg total) by mouth 02/03/20 23 Active aspirin 81 mg enteric coated tablet TAKE 1 TABLET BY MOUTH EVERY DAY IN THE MORNING 30 tablet 11 03/05/20 23 Active spironolactone (ALDACTONE) 25 mg tablet TAKE 1 TABLET (25 MG TOTAL) BY MOUTH DAILY. 30 tablet 11 11/25/19 25 026 Active Xarelto 20 mg tablet TAKE 1 TABLET BY MOUTH EVERY DAY WITH BREAKFAST 30 tablet 3 12/16/19 25 Active metoprolol XL (TOPROL-XL) 25 mg extended release tablet TAKE 1 TABLET BY MOUTH EVERY DAY IN THE MORNING FOR 30 DAYS 90 tablet 1 01/18/20 25 Active amiodarone (PACERONE) 200 mg tablet TAKE 2 TABLETS BY MOUTH EVERY DAY AT 8AM 180 tablet 1 02/02/20 25 Active furosemide (LASIX) 40 mg tablet TAKE 1 TABLET BY MOUTH EVERY DAY 90 tablet 4 02/02/20 25 Active Entresto 24-26 mg tablet TAKE 1 TABLET BY MOUTH EVERY 12 HOURS 60 tablet 11 02/22/20 25 Active furosemide (LASIX) 40 mg tablet TAKE 1 TABLET BY MOUTH EVERY DAY 30 tablet 11 02/07/20 24 025 Discontinued Entresto 24-26 mg tablet TAKE 1 TABLET BY MOUTH EVERY 12 HOURS 60 tablet 11 03/09/20 24 025 Discontinued amiodarone (PACERONE) 200 mg tablet TAKE 2 TABLETS BY MOUTH EVERY DAY AT 8AM 60 tablet 1 01/09/20 25 025 Discontinued Active Problems Problem Noted Date Diagnosed Date Coronary artery disease invo lving [place] coronary artery of [place] heart without angina pectoris 09/28/2024 Left ventricular dysfunction with reduced left ventricular function 01/21/2023 Nonrheumatic aortic valve stenosis 01/21/2023 Shortness of breath 12/22/2022 Pre-operative clearance 02/26/2022 Spondylosis of lumbar region without myelopathy or radiculopathy 12/23/2021 Spinal stenosis of lumbar re gion with neurogenic claudication 10/08/2021 Radiculopathy, lumbosacral region 10/08/2021 Postlaminectomy syndrome, lumbar 10/08/2021 Bilateral low back pain 10/07/2021 Pain of left lower extremity 10/07/2021 Immunizations Immunization Administration Dates Next Due Pfizer SARS-CoV-2 Monovalent Vaccination (12+ Yrs) PURPLE 12/22/2020,11/28/2020 Surgical History Surgery Date Site/Laterality Comments BACK SURGERY 04/13/2021 - 05/13/2021 Fusion L5-S1 Medical History Medical History Date Comments Diabetes mellitus (HCC) Diabetes mellitus; Comments: [facility] 02/18/2015 - Hypertension Hypertension Hx Other Medical hyperlipidemia; Comments: [facility] 02/18/2015 - Hx Other Medical tobacco use; Co mments: [facility] 02/18/2015 - Hx Other Medical deviated septum repair; Comments: [facility] 02/18/2015 - Hx Other Medical right carpal tu nnel release; Comments: [facility] 02/18/2015 - Sleep apnea Low back pain Family History Medical History Relation Name Comments Diabetes Brother Heart attack Father Myocardial infa rction; Cause of : Myocardial infarction Hypertension Father Heart disease Mother's Brother Cardiovasc ular disease; Relation Name Status Comments Brother Alive Father (Age 50) Mother Alive Mother's Brother Sister Alive Social History Tobacco Use Types Packs/Day Years Used Date Smoking Tobacco: Heavy Smoker Cigarettes 1.5 40 Smokeless Tobacco: Never Tobacco Cessation:Ready to Q uit: Not Asked; Counseling Given: Not Answered Comments:Smoking History Packs/day: 1 Cigarettes Alcohol Use Standard Drinks/Week Comments Yes 48 (1 standard drink = 0.6 oz pu re alcohol) AUDIT-C Answer Date Recorded Q1: How often do you have a drink containing alc ohol? 2-4 times a month 10/07/2021 Average Number of Drinks Not on file 022 Q3: How often do you have si x or more drinks on one occasion? 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 Not on file Not on file Obstetrics History Last Filed Vital Signs Vital Sign Reading Time Taken Comments Blood Pressure 116/58 09/28/2024 1:55 PM REHABILITATION CLERK Pulse 67 09/28/2024 1:55 PM REHABILITATION CLERK Temperature 36.5 C (97.7 F) 11/10/2021 11:39 AM REHABILITATION CLERK Respiratory Rate 18 11/10/2021 12:27 PM REHABILITATION CLERK Oxygen Saturation 98% 09/28/2024 1:55 PM REHABILITATION CLERK Inhaled Oxygen Concentration - - Weight 108.6 kg (239 lb 8 oz) 09/28/2024 1:55 PM REHABILITATION CLERK Height 182.9 cm (6') 09/28/2024 1:55 PM REHABILITATION CLERK Body Mass Index 32.48 09/28/2024 1:55 PM REHABILITATION CLERK Plan of Treatment Health Maintenance Due Date Last Done Comments Colon Cancer Screening-Colonoscopy 1959 Depression Screening 1959 Hepatitis C Screening 1959 Prostate Cancer Screening-PSA 1959 DTaP/Tdap/Td Vaccine (1 - Tdap) 1970 Hepatitis B Screening 1977 Pneumococcal vaccine 65+ (1 of 2 - PCV) 1978 Lung Cancer Screening 2009 Zoster Vaccine (1 of 2) 2009 Fall Risk Assessment 12/02/2022 12/02/2021 Covid-19 Vaccine ( - season) 05/14/202407/2021, 11/28/2020 Abdominal Aortic Aneurysm (AAA) Screen 2024 Well Visit 65+ 2024 Influenza Vaccine (Season Ended) 2025 Insurance MEDICARE [facility] [place] Care Teams Classification Clerk Relationship Specialty Start Date End Date Calderon Nick MD PCP - General 02/18/15
--- OUTSIDE RECORDS SUMMARY | 2025-02-26 12:55 | XMS_ITS | CONTINUITY OF CARE DOCUMENT ---
Author Name [email or web address] Address Unknown Organization [facility] Address [address] [place] [address] Phone [phone] Care Team Providers Care Systems Accountant Name Role Phone Anabell Benjamin MD Unavailable KEVIN JOHNSON MD Unavailable [phone] KEVIN JOHNSON MD Unavailable [phone] INSURANCE PROVIDERS Payer name Policy type / Coverage type [place] red democrat ID [facility] [id number] Other [id number]
--- OUTSIDE RECORDS SUMMARY | 2025-02-26 12:55 | XMS_ITS | Referral Summary ---
Author Organization [facility] [place] [address] Address [address] [place] [address] Care Team Providers Care Inpatient Services Rn Name Role Phone Calderon Nick MD Primary Care Provider [phone] Allergies No known active allergies Medications empagliflozin- [...] Diagnosed Date Coronary artery disease invo lving [place] coronary artery of [place] heart without angina pectoris 09/28/2024 Left ventricular [...] SARS-CoV-2 Monovalent Vaccination (12+ Yrs) PURPLE 12/22/2020,11/28/2020 Social History Tobacco Use Types Packs/Day Years [...] on file Legal Sex Male 3:38 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6 kg (239 lb 8 oz) 09/28/2024 1:55 PM CODE INSPECTOR Height 182.9 cm (6') 09/28/2024 1:55 PM CODE INSPECTOR Body Mass Index 32.48 09/28/2024 1:55 PM CODE INSPECTOR Plan of Treatment [place] [address] MEDICARE [facility] [place] Care Teams Inpatient Services Rn Relationship Specialty Start Date End Date Calderon Nick MD PCP - General 02/18/15
--- OUTSIDE RECORDS SUMMARY | 2025-02-26 12:55 | XMS_ITS | Encounter Summary ---
Author Organization [facility] Address [address] [place] [address] Care Team Providers Care Pay Per Click Strategist Name Role Phone Calderon Nick MD Primary Care Provider [phone] Encounter Details Date Type Department Care Team (Late st Contact Info) Description 10/10/2021 Telephone [facility] [address] [place], [place] [id number] [place] [id number] [place] [address] [address] [place], [place] [id number] Social History Tobacco Use Types Packs/Day Years Used Date Smoking Tobacco: Heavy Smoker Cigarettes 1.5 40 Smokeless Tobacco: Never Comments:Smoking History Pac ks/day: 1 Cigarettes Alcohol Use Standard Drinks/Week Comments [...] on file Legal Sex 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
--- NOTE | 2025-02-26 13:08 | ED.DIZZY ---
HPI - Dizziness General Chief Complaint: Dizziness Stated Complaint: dizziness Time Seen by Provider: 02/26/25 12:03 History of Present Illness HPI Narrative: 64-year-old female with a history of anemia and congestive heart failure, a flutter. Patient presents to the emergency department with vague complaints of feeling ?dizzy ?patient states that is been going on for a long time and even referencing back 3-4 years ago when he was previously diagnosed with CHF. He states that has been worsening over last month. Had a regular primary care provider appointment last week where he did not bring this to their attention. He did not want to go the hospital at that time so he kept quiet. Patient states that he came into the hospital today to get this evaluated. Denies any new injuries, hospital visits, infectious type symptoms such as cough, fever, shortness of breath. No chest pain difficulty breathing, no headache or vision changes. She states that he feels off-balance all the time and has to hold onto things to walk. Going on for years based on report per patient. No history of strokes or TIA. States he has chronic neuropathy in both his legs from previously uncontrolled diabetes with recent A1c significant improved. He has been taking multiple medications for his heart failure without any changes to his regimen her diet recently. States that his symptoms get worse whenever he changes positions rapidly or gets up suddenly and he has to stop moving for several moments before regaining composure an equilibrium. Related Data Home Medications ?Medication ?Instructions ?Recorded ?Confirmed ?Last Taken ?Type spironolactone 25 mg tablet 25 mg PO DAILY 12/25/22 02/21/25 Unknown History metoprolol succinate 25 mg 25 mg PO DAILY 01/26/24 02/21/25 Unknown History tablet,extended release 24 hr docusate sodium 100 mg capsule 100 mg PO DAILY 02/15/24 02/21/25 Unknown History (Dulcolax Stool Softener (docusate)) mecobalamin (vitamin B12) 1,000 1,000 mcg PO .every other day 05/19/24 02/21/25 Unknown History mcg lozenges topiramate 50 mg tablet (Topamax) 50 mg PO BID 11/15/24 02/21/25 Unknown History Allergies Allergy/AdvReac Type Severity Reaction Status Date / Time No Known Allergies Allergy Verified 02/21/25 14:00 Review of Systems Review of Systems: As reviewed above in HPI PMFSH Past Medical History Medical History Current smoker Constipation Diabetic foot Uncontrolled diabetes mellitus Microalbuminuria Vitamin B12 deficiency Lumbar spondylosis Screening for malignant neoplasm of prostate Screening for thyroid disorder H/O blood clots Blood clot associated with vein wall inflammation Peripheral artery disease Abnormal MRI, lumbar spine Surgical History Surgical History H/O cardiac catheterization Family History Family History Grandparent Diabetes mellitus Father Acute myocardial infarction Heart disease Mother No problems noted. Sibling Diabetes mellitus Other Family history of cardiovascular disease Hypertension Social History Social History Smoking packs per day: 1 Smoking cigarettes per day: 20.0 Years smoked: 49 Smoking pack-years: 49.00 Smoking status: Current every day smoker Tobacco type: cigarettes Second hand tobacco smoke exposure: No Alcohol intake: current Drinks per week: 10 Alcohol use details: BEERS Substance use: never Substance use type: does not use Other substance usage details: nyquil Lack of Transportation: No Lack of Food: Never True Current Housing: I Have Housing Concerned About Future Housing: No Difficulty Paying Gas/Electric Bills: No Difficulty Paying for Meds: No Currently Unemployed: No Education: High School Diploma/GED Difficulty w/ Childcare or Family Care: No Living arrangements: with family Occupation/Education: retired 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 Gender identity (if verbalized by the patient): Male Spiritual care concerns: No Exam Narrative: GENERAL: [Well-appearing, well-nourished, and in no acute distress.] HEAD: [Normocephalic, atraumatic.] EYES: [PERRLA and EOMI.] ENT: Nares clear, no rhinorrhea or epistaxis. Mucous membranes moist. NECK: Supple. CHEST: [Clear to auscultation. No respiratory distress.] HEART: [Regular rate and rhythm]. No murmur heard. [Normal peripheral pulses.] ABDOMEN: [Soft, nondistended], [nontender], [No rigidity or guarding] EXTREMITIES: Normal range of motion. [No edema.] SKIN: Warm, dry, no rash. NEURO: [No focal deficits]. Alert and oriented [x3.] No ataxia in the arms or legs, no strength deficits, no facial asymmetry, aphasia, dysarthria. NIH 0 PSYCH: [Normal mood and affect.] Course Vital Signs Vital signs: Vital Signs Pulse Rate 72 02/26/25 11:48 Respiratory Rate 17 02/26/25 11:48 Blood Pressure 139/54 L 02/26/25 11:48 Pulse Oximetry 100 02/26/25 11:48 Oxygen Delivery Room Air 02/26/25 11:48 Pulse Rate 66 02/26/25 15:19 Respiratory Rate 19 02/26/25 15:19 Blood Pressure 108/67 02/26/25 15:19 Pulse Oximetry 100 02/26/25 15:19 Oxygen Delivery Room Air 02/26/25 11:48 MDM - Dizziness MDM Narrative Medical decision making narrative: 64-year-old male presenting with chronic signing vertiginous symptoms and unsteadiness on his feet. He has a history of anemia, CHF, hypertension, a flutter, chronic peripheral neuropathy from previous and control diabetes. Patient presents with complaints that have been satting likely go on for 3-4 years based on his report and states for last mother has worsened but he has not talked to his primary doctor about this during his visit last week as he did not want to go the hospital. Patient is not any acute distress, normal vital signs without any significant hypertension, hypotension, tachycardia, fever, hypoxia. He has an NIH stroke scale 0 with no ataxia in the arms or legs, no strength deficits no sensation deficits that are new. No facial asymmetry. Given his longstanding complaint of dizziness and vertiginous symptoms very low suspicion for acute emergent or urgent concern but will evaluate him and rule out emergency such as intracranial pathology such as stroke/bleed, mass, dehydration, liver/kidney failure, heart failure exacerbation, electrolyte abnormalities from diuretics or other medications. Most likely pathology is benign positional vertigo specially with his description of changing positions and sitting up making his symptoms worse and regaining his equilibrium after stopping moving. CT of the head was obtained, chest x-ray, EKG, CT of the brain, CBC, CMP, orthostatic vitals were obtained he was given fluids and meclizine to assess for improvement. Patient's workup shows a hemoglobin of 7.7 which she has been at that range most recently in 2022 but had improvement in the last year. MCV is normal so this is likely anemia of chronic disease or a combination of factors potentially even iron deficiency. Patient denies any melanotic or dark stools or any signs of bleeding. Reassuring exam. His chemistry panel shows largely unremarkable electrolytes, normal renal function, normal glucose and LFTs. Head CT shows a chronic right periventricular lacunar infarcts likely contributing to his chronic vertiginous and dizziness symptoms but no acute abnormalities are seen. No acute cardiopulmonary process on chest x-ray. EKG shows sinus rhythm with a first-degree AV block but no ST segment elevations, depressions or inversions. Patient re-evaluated in doing well after the meclizine, ambulatory with a steady gait through the emergency department. I discussed the findings of his workup and CT with him and given his longstanding dizziness symptoms does not need hospitalization for interventions at this time. He will have to follow up with his primary care provider about his anemia for further workup and even potentially get a colonoscopy for ruling out iron deficiency or bleeding. We discussed his CT findings as the likely contributing source to his vertiginous symptoms and he left follow-up with his primary care provider. No signs of new neurological insult. Laboratory studies are stable, patient ambulatory without difficulty. Given a prescription for meclizine for symptomatic control and discharged home. Medical Records Attestation: I reviewed the patient's medical records. Lab Data Attestation: I reviewed the patient's lab results. 02/26/25 12:01 02/26/25 12:01 Labs: Lab Results 02/26/25 Range/Units 12:01 WBC 10.3 H (4.5-10.0) K/mm3 RBC 2.73 L (4.6-6.20) M/mm3 Hgb 7.7 L (14.0-18.0) g/dL Hct 25.7 L (42.0-52.0) % MCV 94.1 (80-100) fl MCH 28.2 (26-34) pg MCHC 30.0 L (32-36) g/dl RDW 16.5 H (11.5-14.5) % Plt Count 260 (150-375) k/mm3 MPV 9.8 (7.4-10.4) fl Immature Gran % (Auto) 1.2 H (0-0.5) % Neut % (Auto) 66.6 (45.5-73.1) % Lymph % (Auto) 21.1 (18.3-44.2) % [place] % (Auto) 8.0 (2.6-8.5) % Eos % (Auto) 2.4 (0-4.4) % Baso % (Auto) 0.7 (0.2-1.2) % Lymph # (Auto) 2.18 (0.9-3.2) K/mm3 [place] # (Auto) 0.8 H (0.1-0.6) K/mm3 Eos # (Auto) 0.3 (0-0.3) K/mm3 Baso # (Auto) 0.1 (0.0-0.1) K/mm3 Abs Immat Gran (auto) 0.12 H (0.00-0.031) K/mm3 Absolute Neuts (auto) 6.9 H (1.3-6.7) K/mm3 Absolute Nucleated RBC 0.000 (0.0-0.012) K/mm3 Nucleated RBC % 0.0 (0.0-0.2) % Sodium 137 (137-145) mmol/L Potassium 4.3 (3.4-5.0) mmol/L Chloride 111 H (98-107) mmol/L Carbon Dioxide 18 L (22-30) mmol/L Anion Gap 8 (4-12) mmol/L BUN 16 (9-20) mg/dL Creatinine 1.16 (0.7-1.3) mg/dL Estim Creat Clear Calc 71 ml/min Estimated GFR > 60 (59 - ) Glucose 114 H (65-110) mg/dL Calcium 8.7 (8.4-10.2) mg/dL Total Bilirubin 0.2 (0.2-1.3) mg/dL AST 24 (17-59) U/L ALT 20 (6-50) U/L Alkaline Phosphatase 47 (38-126) U/L Total Protein 6.8 (6.3-8.2) g/dL Albumin 4.1 (3.5-5.1) g/dL Imaging Data Attestation: I personally reviewed and interpreted this imaging study as follows: My impression: Impressions Head CT 02/26/25 12:29 Impression: No acute abnormality seen. Chronic right periventricular lacunar infarct. Chest X-Ray 02/26/25 12:36 IMPRESSION: No acute cardiopulmonary pathology. Discharge Plan Discharge Clinical Impression: Chronic vertigo, Anemia, Sequela of lacunar infarction, First degree atrioventricular block Patient Disposition: Home Condition: Stable Instructions: Antibiotic Form, Self Care Measures After a Stroke (ED), Dizziness (ED), Anemia (ED) Additional Instructions: We have phone multiple potential causes tear chronic vertigo and dizziness symptoms. Most concerning is your CT scan shows a old stroke which is an area that can cause your symptoms. No new stroke or any new neurological findings on the image and there are no interventions needed at this juncture but you do need follow-up with regular doctor about this. Your hemoglobin level is also low at 7.7 which is where your previous anemia levels were when you are having symptoms as well. No signs of active bleeding but you do need to talk to her primary doctor about further evaluation for this and even get a colonoscopy for other evaluation of potential blood loss. Your EKG also shows a 1st degree block which is usually asymptomatic and not concerning but combined with your other symptoms might be contributing. None of your workup or findings are emergent or urgent and need interventions or hospitalizations but they do need close follow-up with your doctor. If you have any worsening symptoms, new concerns or other emergencies please return to the department otherwise call your doctor 1st thing in the morning for close follow-up visit to discuss these. We will send you home with meclizine which is a medication that can help vertiginous and dizzy symptoms in the meantime.. Patient Language: Turkmen Prescriptions: New meclizine 25 mg tablet 25 mg PO TID PRN (Reason: dizziness) 10 Days Qty: 30 0RF No Action spironolactone 25 mg tablet 25 mg PO DAILY metoprolol succinate 25 mg tablet extended release 24 hr 25 mg PO DAILY topiramate [Topamax] 50 mg tablet 50 mg PO BID gabapentin 300 mg capsule 600 mg PO TID Qty: 180 6RF amiodarone [Pacerone] 200 mg Tablet 400 mg PO DAILY@0800 30 Days Qty: 30 0RF aspirin 81 mg Tablet,Delayed Release (Dr/Ec) 81 mg PO QAM Qty: 30 0RF furosemide 40 mg Tablet 40 mg PO DAILY 30 Days Qty: 30 0RF Entresto 24-26 mg Tablet 1 tablet PO Q12HR Qty: 60 0RF docusate sodium [Dulcolax Stool Softener (dss)] 100 mg Capsule 100 mg PO DAILY Xarelto 20 mg tablet 20 mg PO DAILY Qty: 30 0RF Rx Instructions: must administer with evening meal albuterol sulfate 90 mcg/actuation HFA aerosol inhaler See Rx Instructions .ROUTE .COMPLEX Qty: 8.5 0RF Dose Instruction: INHALE 1 PUFF EVERY 4 HOURS NEEDED FOR SHORTNESS OF BREATH OR WHEEZING Rx Instructions: INHALE 1 PUFF EVERY 4 HOURS NEEDED FOR SHORTNESS OF BREATH OR WHEEZING cholecalciferol (vitamin D3) 125 mcg (5,000 unit) capsule 125 mcg PO DAILY Qty: 90 3RF mecobalamin (vitamin B12) 1,000 mcg lozenge 1,000 mcg PO .every other day Rx Instructions: allow to dissolve in mouth OR may chew lightly before swallowing atorvastatin 80 mg tablet 80 mg PO DAILY Qty: 90 1RF ezetimibe 10 mg tablet See Rx Instructions .ROUTE .COMPLEX Qty: 30 2RF Dose Instruction: TAKE 1 TABLET BY MOUTH ONCE DAILY Rx Instructions: TAKE 1 TABLET BY MOUTH ONCE DAILY dapagliflozin propanediol 10 mg tablet 10 mg PO DAILY Qty: 30 2RF dulaglutide 1.5 mg/0.5 mL pen injector 1.5 mg .ROUTE .COMPLEX Qty: 2 2RF Rx Instructions: 1.5 mg; Follow-up/Referrals: Calderon Nick MD [Primary Care Provider] - 1 Day (ER follow up)
--- OUTSIDE RECORDS SUMMARY | 2025-02-26 13:12 | XMS_ITS | CONTINUITY OF CARE DOCUMENT ---
Author Name kirstykamillebe Address Unknown Organization [facility] Address [address] [place] [address] Phone [phone] Care Team Providers Care Loading Manager Name Role Phone Anabell Benjamin MD Unavailable KEVIN JOHNSON MD Unavailable KEVIN JOHNSON MD Unavailable [phone] INSURANCE PROVIDERS Payer name Policy type / Coverage type [place] red democrat ID [facility] [id number] Other [id number]
[2025-02-26] MEDS: LACTATED RINGERS 1,000 ML 999 ML IV CONT (13:39)
[2025-02-26] MEDS: MECLIZINE HCL 25 MG TABLET PO (13:41)
== END 2025-02-26 15:20 | disposition home or self-care (01) ==
PROVIDERS: Emergency Medicine; Emergency Provider Student in an Organized Health Care Education/Training Program; PCP Family Medicine
DX: R42 Dizziness and giddiness (principal); D64.9 Anemia, unspecified; I44.0 Atrioventricular block, first degree; I69.30 Unspecified sequelae of cerebral infarction; F17.210 Nicotine dependence, cigarettes, uncomplicated; E11.40 Type 2 diabetes mellitus with diabetic neuropathy, unspecified; I50.9 Heart failure, unspecified
CPT/HCPCS: 36415; 70450; 71046; 80053; 85025; 93005; 96360; 99284; A9270; J7120

== ENCOUNTER 2025-02-28 13:51 | Outpatient (CLI) | payer MEDICARE, OTHER, SELFPAY ==
--- NOTE | ~2025-02-28 | CT_ITS ---
EXAMINATION: CT abdomen pelvis w con DATE: 02/28/2025 15:15 INDICATION: Iron deficiency anemia TECHNIQUE: Computed tomography (CT) of the abdomen and pelvis was performed with 100 mL Omnipaque-350 intravenous contrast. Automated exposure control and iterative reconstruction technique were employe d. The dose-length product was 1258.32 mGy-cm. COMPARISON: None FINDINGS: Mild dependent atelectasis in the bilateral lower lobes. Heart size is normal. Atherosclerotic barker ry artery calcifications. Aortic valve and mitral annular calcifications. No pericardial or pleural e ffusion. Calcified right hilar lymph nodes along with multiple hepatic and splenic calcifications con sistent with old granulomatous disease. Gallbladder and pancreas are normal. There are small bilatera l adrenal nodules the larger the left measuring 1.3 cm with low density of 10 HU consistent with an a denoma. 5.0 x 3.3 cm enhancing mass at the lower pole the right kidney consistent with renal cell car cinoma. There are few bilateral subcentimeter low-attenuation renal cysts. Small fat-containing umbil ical hernia. Bowels including the appendix are normal. Bladder is normal. No free intraperitoneal gas or fluid. No pathologically enlarged abdominal or pelvic lymphadenopathy. There are some postoperati ve scarring at the right inguinal region. L5 laminectomy with combined instrumented L5-S1 anterior an d posterior spinal fusion. IMPRESSION: 1. 5.0 cm enhancing right renal mass consistent with renal cell carcinoma. Recommend urologic consult ation. 2. No acute intra-abdominal/pelvic process. Reviewed, dictated and finalized at location B. IMPRESSION: 1. 5.0 cm enhancing right renal mass consistent with renal cell carcinoma. Harrison mmend urologic consultation. 2. No acute intra-abdominal/pelvic process.
[2025-02-28 14:09] LABS: Basophils Absolute Auto 0.1 K/mm3 (0.0-0.1); Eosinophils Absolute Auto 0.4 K/mm3 (0-0.3); Eosinophils Percent Auto 3.2 % (0-4.4); Hematocrit 24.4 % (42.0-52.0); Hemoglobin 7.4 g/dL (14.0-18.0); Immature Granulocyte Absolute 0.19 K/mm3 (0.00-0.031); Immature Granulocyte Percent A 1.5 % (0-0.5); Lymphocytes Absolute Auto 2.99 K/mm3 (0.9-3.2); Lymphocytes Percent Auto 23.9 % (18.3-44.2); Mean Corpuscular HGB Conc 30.3 g/dl (32-36); Mean Corpuscular Hemoglobin 29.4 pg (26-34); Mean Corpuscular Volume 96.8 fl (80-100); Mean Platelet Volume 9.4 fl (7.4-10.4); Neutrophils Absolute Auto 7.8 K/mm3 (1.3-6.7); Neutrophils Percent Auto 62.4 % (45.5-73.1); Nucleated Red Blood Cells Perc 0.2 % (0.0-0.2); Platelet Count Result 285 k/mm3 (150-375); Red Blood Count 2.52 M/mm3 (4.6-6.20); Red Cell Distribution Width 17.3 % (11.5-14.5); White Blood Count 12.5 K/mm3 (4.5-10.0)
[2025-02-28 14:37] LABS: Alanine Aminotransferase 19 U/L (6-50); Albumin Level 4.2 g/dL (3.5-5.1); Alkaline Phosphatase 51 U/L (38-126); Anion Gap 11 mmol/L (4-12); Aspartate Amino Transferase 24 U/L (17-59); Bilirubin,Total 0.2 mg/dL (0.2-1.3); Blood Urea Nitrogen 20 mg/dL (9-20); Calcium 8.6 mg/dL (8.4-10.2); Carbon Dioxide 21 mmol/L (22-30); Chloride 108 mmol/L (98-107); Estimated Glomerular Filt Rate 43; Glucose 107 mg/dL (65-110); Potassium 3.9 mmol/L (3.4-5.0); Sodium 140 mmol/L (137-145); Total Protein 6.8 g/dL (6.3-8.2)
--- OUTSIDE RECORDS SUMMARY | 2025-02-28 15:38 | XMS_ITS | Clinical Summary ---
Author Organization [facility] [address] Address [address] [place] [address] Care Team Providers Care Prepared Foods Supervisor Name Role Phone Calderon Nick MD Primary Care Provider [phone] Allergies No known active allergies Medications empagliflozin- [...] Diagnosed Date Coronary artery disease invo lving [place] coronary artery of [place] heart without angina pectoris 09/28/2024 Left ventricular [...] Comments Diabetes mellitus (HCC) Diabetes mellitus; Comments: [facility] 02/18/2015 - Hypertension Hypertension Hx Other Medical hyperlipidemia; Comments: [facility] 02/18/2015 - Hx Other Medical tobacco use; Co mments: [facility] 02/18/2015 - Hx Other Medical deviated septum repair; Comments: [facility] 02/18/2015 - Hx Other Medical right carpal tu nnel release; Comments: [facility] 02/18/2015 - Sleep apnea Low back pain [...] on file Legal Sex Male 3:38 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 LIFE 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 Gender Identity Not on file Sexual Orientation Not on file 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 Not on file Not on file Obstetrics History Last Filed Vital Signs Vital Sign Reading Time Taken Comments Blood Pressure 116/58 09/28/2024 1:55 PM DIRECTOR LIFE SALES Pulse 67 09/28/2024 1:55 PM DIRECTOR LIFE SALES Temperature 36.5 C (97.7 F) 11/10/2021 11:39 AM DIRECTOR LIFE SALES Respiratory Rate 18 11/10/2021 12:27 PM DIRECTOR [employer] SAL[employer] Oxygen Saturation 98% 09/28/2024 1:55 PM DIRECTOR [employer] SAL[employer] Inhaled Oxygen Concentration - - Weight 108.6 kg (239 lb 8 oz) 09/28/2024 1:55 PM DIRECTOR LIFE SALES Height 182.9 cm (6') 09/28/2024 1:55 PM DIRECTOR [employer] SAL[employer] Body Mass Index 32.48 09/28/2024 1:55 PM DIRECTOR LIFE SALES Plan of Treatment Health Maintenance Due Date [...] Influenza Vaccine (Season Ended) 2025 [place] [id number] [facility] [place] Care Teams Prepared Foods Supervisor Relationship Specialty Start Date End Date Calderon Nick MD PCP - General 02/18/15
--- OUTSIDE RECORDS SUMMARY | 2025-02-28 15:38 | XMS_ITS | Encounter Summary ---
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
--- OUTSIDE RECORDS SUMMARY | 2025-02-28 15:38 | XMS_ITS | CONTINUITY OF CARE DOCUMENT ---
Author Name canernestobe Address Unknown Organization [facility] Address [address] [place] [address] Phone [phone] Care Team Providers Care Actimize Architect Name Role Phone Anbaell Benjamin MD Unavailable [phone] KEVIN JOHNSON MD Unavailable KEVIN JOHNSON MD Unavailable [phone] INSURANCE PROVIDERS Payer name Policy type / Coverage type [place] red libertarian ID [facility] [id number] Other [id number]
--- OUTSIDE RECORDS SUMMARY | 2025-02-28 15:38 | XMS_ITS | Referral Summary ---
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 on 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 on 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 on file Not on file Last Filed Vital Signs Vital Sign Reading Time Taken Comments Blood Pressure 116/58 09/28/2024 1:55 PM LEAD MINER BLASTING Pulse 67 09/28/2024 1:55 PM LEAD MINER BLASTING Temperature 36.5 C (97.7 F) 11/10/2021 11:39 AM LEAD MINER BLASTING Respiratory Rate 18 11/10/2021 12:27 PM LEAD MINER BLASTING Oxygen Saturation 98% 09/28/2024 1:55 PM LEAD MINER BLASTING Inhaled Oxygen Concentration - - Weight 108.6 kg (239 lb 8 oz) 09/28/2024 1:55 PM LEAD MINER BLASTING Height 182.9 cm (6') 09/28/2024 1:55 PM LEAD MINER BLASTING Body Mass Index 32.48 09/28/2024 1:55 PM LEAD MINER BLASTING Plan of Treatment [place] [address] MEDICARE [facility] [place] Care Teams Injection Machine Operator Relationship Specialty Start Date End Date Calderon Nick MD PCP - General 02/18/15
[2025-02-28 16:14] LABS: Iron 162 ug/dL (49-181)
[2025-02-28 16:24] LABS: Percent Iron Saturation 37 % (20-50)
== END 2025-02-28 13:52 | disposition home or self-care (01) ==
PROVIDERS: PCP Family Medicine; Visit Provider Nurse Practitioner Adult Health
DX: D50.8 Other iron deficiency anemias (principal); R06.02 Shortness of breath; I95.9 Hypotension, unspecified; K62.5 Hemorrhage of anus and rectum
CPT/HCPCS: 36415; 74177; 80053; 83540; 83550; 85025; Q9967

== ENCOUNTER 2025-03-08 15:10 | Outpatient (CLI) | payer MEDICARE, OTHER, SELFPAY ==
[2025-03-08 15:32] LABS: Basophils Absolute Auto 0.1 K/mm3 (0.0-0.1); Basophils Percent Auto 0.5 % (0.2-1.2); Eosinophils Absolute Auto 1.4 K/mm3 (0-0.3); Eosinophils Percent Auto 12.8 % (0-4.4); Hemoglobin 8.5 g/dL (14.0-18.0); Immature Granulocyte Absolute 0.14 K/mm3 (0.00-0.031); Immature Granulocyte Percent A 1.3 % (0-0.5); Lymphocytes Absolute Auto 3.09 K/mm3 (0.9-3.2); Lymphocytes Percent Auto 28.1 % (18.3-44.2); Mean Corpuscular HGB Conc 29.3 g/dl (32-36); Mean Corpuscular Hemoglobin 30.2 pg (26-34); Mean Corpuscular Volume 103.2 fl (80-100); Monocytes Absolute Auto 0.9 K/mm3 (0.1-0.6); Monocytes Percent Auto 7.8 % (2.6-8.5); Neutrophils Absolute Auto 5.4 K/mm3 (1.3-6.7); Neutrophils Percent Auto 49.5 % (45.5-73.1); Platelet Count Result 218 k/mm3 (150-375); Red Blood Count 2.81 M/mm3 (4.6-6.20); Red Cell Distribution Width 19.7 % (11.5-14.5)
[2025-03-08 16:28] LABS: Iron 75 ug/dL (49-181)
[2025-03-08 16:38] LABS: Percent Iron Saturation 18 % (20-50)
[2025-03-08 16:49] LABS: Alanine Aminotransferase 12 U/L (6-50); Albumin Level 4.1 g/dL (3.5-5.1); Alkaline Phosphatase 48 U/L (38-126); Anion Gap 10 mmol/L (4-12); Aspartate Amino Transferase 35 U/L (17-59); Bilirubin,Total 0.2 mg/dL (0.2-1.3); Blood Urea Nitrogen 12 mg/dL (9-20); Calcium 8.9 mg/dL (8.4-10.2); Carbon Dioxide 23 mmol/L (22-30); Chloride 108 mmol/L (98-107); Estimated Glomerular Filt Rate 45; Glucose 100 mg/dL (65-110); Potassium 3.7 mmol/L (3.4-5.0); Sodium 141 mmol/L (137-145)
[2025-03-08 17:55] LABS: Folic Acid 15.7 ng/mL (2.76->20)
[2025-03-11 19:28] LABS: Methylmalonic Acid. 87 nmol/L (69-390)
== END 2025-03-08 15:11 | disposition home or self-care (01) ==
LOC: ANHLAB 15:11
PROVIDERS: PCP Family Medicine; Visit Provider Internal Medicine Hematology & Oncology
DX: D64.9 Anemia, unspecified (principal)
CPT/HCPCS: 36415; 80053; 82607; 82728; 82746; 83540; 83550; 83921; 84238; 85025

== ENCOUNTER 2025-03-13 07:57 | Outpatient (CLI) | payer MEDICARE, OTHER, SELFPAY ==
--- OUTSIDE RECORDS SUMMARY | 2025-03-13 08:00 | XMS_ITS | Encounter Summary ---
Author Organization [facility] Healthcare Address [address] [place] [address] Care Team Providers Care Mechanical Maintenance Technician Name Role Phone Calderon Nick MD Primary Care Provider [phone] Encounter Details Date Type Department Care Team (Late st Contact Info) Description 10/10/2021 Telephone [facility] [address] [place], [place] [phone] Tayo Willard [place] [id number] [place] [address] [address] [place], [place] [id number] Social History Tobacco Use Types Packs/Day Years [...] on file Legal Sex Male 3:38 AM CERTIFIED [employer] IN [employer] Gender Identity Not on file Sexual Orientation Not on file 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
--- OUTSIDE RECORDS SUMMARY | 2025-03-13 08:00 | XMS_ITS | Encounter Summary ---
Author Organization [facility] Address [address] [place] [address] Care Team Providers Care Yarn Rewinder Name Role Phone Calderon Nick MD Primary Care Provider [phone] Bravo Barrera MD Unavailable [phone] Reason for Referral * Surgical (Routine) - Closed Specialty Diagnoses / Procedures Referred By Contac t Referred To Contact Diagnoses PVD (peripheral vascular disease) Procedures Case request operating room: ENDARTERECTOMY COMMON FEMORAL ARTERY SUPERFICIAL FEMORAL ARTERY, BYPASS GRAFT FEMORAL POPLITEAL Goldy Thurman MD [facility]. [facility] [address] [place] [address] Phone: tel: fax: [facility] [place] [address] Phone: tel: Referral ID Status Reason Start Date Expiration Date Visits Re quested Visits Authorized [id number] Closed 07/24/2022 05/29/2023 1 1 Encounter Details Date Type Department Care Team (Late st Contact Info) Description 05/29/2022 Prep for Procedure [facility], [address] [place], [place] [id number] Goldy Thurman MD [facility]. [address] [place] [address] Social History Tobacco Use Types Packs/Day Years Used Date Smoking Tobacco: Never Assessed Sex and Gender Information Value Date Recorded Sex Assigned at Male 10/18/2024 12:55 PM REACTOR OPERATOR Legal Sex Male 8:02 PM CDT Gender Identity Not on file Sexual Orientation Not on file COVID-19 Exposure Response Date Recorded In the last 10 days, have yo u been in contact with someone who was confirmed or suspected to have Coronavirus/COVID-19? No / Unsure 05/28/2022 1:18 PM CDT documented as of this encounter Plan of Treatment Upcoming Encounters Date Type Department Care Team (Late st Contact Info) Description 10/16/2025 10:00 AM REACTOR OPERATOR Appointment [facility] [place] [address] Goldy Thurman MD Three [facility]. [facility] [address] [place], [place] [address] Scheduled Orders Name Type Priority Associated Diagnoses Order Schedule Case request operating room: ENDARTERECTOMY COMMON FEMORAL ARTERY SUPERFICIAL FEMORAL ARTERY, BYPASS GRAFT FEMORAL POPLITEAL Case Request Routine Once for 1 Occurrences starting 05/29/2022 until 05/29/2022 documented as of this encounter Results * MRSA SCREENING (07/17/2022 12:01 PM CDT) SPEC DESCRIPTION NASAL 07/17/2022 12:02 PM CDT [facility] SPECIAL REQUESTS NO SPECIAL REQUEST 07/17/2022 12:02 PM CDT [facility] CULTURE RESULT NO METHICILLIN RESISTANT STAPHYLOCOCCUS AUREUS ISOLATED 07/18/2022 12:35 PM CDT [facility] SPECIMEN FROM INTERNAL NOSE / Unknown 07/17/2022 12:01 PM CDT 07/17/2022 12:18 PM CDT us Goldy Thurman MD MICROBIOLOGY - GENERAL ORDERABLE S Final Result [facility] [address] [place] [address], [place] [phone] * (ABNORMAL) COMPREHENSIVE METABOLIC PANEL (07/17/2022 12:01 PM CDT) [facility] GLUCOSE 262(H) 70 - 99 MG/DL 07/17/2022 12:50 PM CDT [facility] BUN 7 7 - 18 MG/DL 07/17/2022 12:50 PM CDT [facility] CREATININE S/P/B 1.01 0.7 - 1.3 MG/DL 07/17/2022 12:50 PM CDT [facility] SODIUM S/P/B 132(L) 136 - 145 MMOL/L 07/17/2022 12:50 PM CDT [facility] POTASSIUM S/P/B 3.8 3.5 - 5.1 MMOL/L 07/17/2022 12:50 PM CDT [facility] CHLORIDE S/P/B 100 100 - 108 MMOL/L 07/17/2022 12:50 PM CDT [facility] CO2 23.2 21 - 32 MMOL/L 07/17/2022 12:50 PM CDT [facility] CALCIUM S/P/B 8.9 8.5 - 10.1 MG/DL 07/17/2022 12:50 PM CDT [facility] BILIRUBIN TOTAL S/P/B 0.3 0.2 - 1.2 MG/DL 07/17/2022 12:50 PM CDT [facility] Comment: THIS ASSAY IS NOT RECOMMENDED FOR PATIENTS UNDERGOING TREATMENT WITH ELTROMBOPAG DUE TO THE POTENTIAL FOR FALSELY ELEVATED RESULTS. TOTAL PROTEIN S/P/B 7.5 6.4 - 8.2 G/DL 07/17/2022 12:50 PM CDT [facility] ALBUMIN S/P/B 3.5 3.4 - 5.0 G/DL 07/17/2022 12:50 PM CDT [facility] AST 36 15 - 37 U/L 07/17/2022 12:50 PM CDT [facility] ALT 54 16 - 60 U/L 07/17/2022 12:50 PM CDT [facility] ALKALINE PHOSPHATASE S/P/B 102 50 - 136 U/L 07/17/2022 12:50 PM CDT [facility] ANION GAP 8.8 5 - 15 MMOL/L 07/17/2022 12:50 PM CDT [facility] BUN CREATININE RATIO 6.9 6 - 26 07/17/2022 12:50 PM CDT [facility] A/G RATIO 0.9(L) 1.0 - 2.0 RATIO 07/17/2022 12:50 PM CDT [facility] GFR ESTIMATE 84(L) >90 ML/MIN/1.7 3 M2 07/17/2022 12:50 PM CDT [facility] Comment: NOTE: eGFR is not calculated for patients <18 years of age. This is an estimated GFR calculation using the new CKD EPI creatinine equation without race and so does not require a correction factor for race. This estimated GFR should not be used for calculating drug doses. 07/17/2022 12:0 1 PM CDT us Goldy Thurman MD LABORATORY Final Result [facility] [address] [place] [address], [place] [phone] * (ABNORMAL) CBC W/DIFF AUTOMATED (07/17/2022 12:01 PM CDT) WBC 6.2 4.5 - 11.0 x10'3/uL 07/17/2022 12:23 PM CDT [facility] RBC 4.80 4.70 - 6.10 x10'6/uL 07/17/2022 12:23 PM CDT [facility] HGB 12.6(L) 14.0 - 18.0 G/DL 07/17/2022 12:23 PM CDT [facility] HCT 38.8(L) 43.0 - 54.0 % 07/17/2022 12:23 PM CDT [facility] MCV 80.8 80.0 - 94.0 FL 07/17/2022 12:23 PM CDT [facility] MCH 26.3(L) 27.0 - 31.0 PG 07/17/2022 12:23 PM CDT [facility] MCHC 32.5 32.0 - 36.0 G/DL 07/17/2022 12:23 PM CDT [facility] RDW 15.6(H) 11.5 - 14.5 % 07/17/2022 12:23 PM CDT [facility] PLT 242 130 - 400 x10'3/uL 07/17/2022 12:23 PM CDT [facility] MPV 9.2(L) 9.3 - 12.2 FL 07/17/2022 12:23 PM CDT [facility] DIFFERENTIAL TYPE AUTOMATED DIFFERENTIAL 07/17/2022 12:23 PM CDT [facility] NEUTROPHILS % 53.2 % 07/17/2022 12:23 PM CDT [facility] LYMPHOCYTES % 32.4 % 07/17/2022 12:23 PM CDT [facility] MONOCYTES % 8.9 % 07/17/2022 12:23 PM CDT [facility] EOSINOPHILS 3.7 % 07/17/2022 12:23 PM CDT [facility] BASOPHILS 1.3 % 07/17/2022 12:23 PM CDT [facility] IMMATURE GRANS % 0.5 % 07/17/20 12:23 PM CDT [facility] ABS. NEUTROPHILS TOTAL 3.30 1.80 - 7.70 x10'3/uL 07/17/2022 12:23 PM CDT [facility] ABS. LYMPHOCYTES 2.01 1.00 - 4.80 x10'3/uL 07/17/2022 12:23 PM CDT [facility] ABS. MONOCYTES 0.55 0.30 - 0.82 x10'3/uL 07/17/2022 12:23 PM CDT [facility] ABS. EOSINOPHILS 0.23 0.04 - 0.54 x10'3/uL 07/17/2022 12:23 PM CDT [facility] ABS. BASOPHILS 0.08 0.01 - 0.08 x10'3/uL 07/17/2022 12:23 PM CDT [facility] ABS. IMMATURE GRANULOCYTES 0.03 0.00 - 0.49 x10'3/uL 07/17/2022 12:23 PM CDT [facility] 07/17/2022 12:0 1 PM CDT Goldy Thurman MD LABORATORY Final Result [facility] [address] [place] [address], documented in this encounter Visit Diagnoses Diagnosis PVD (peripheral vascular disease)- Primary Peripheral vascular disease, unspecified documented in this encounter Care Teams Yarn Rewinder Relationship Specialty Start Date End Date Calderon Nick MD [address] [place] [address] PCP - General FAMILY PRACTICE 02/06/22 Bravo Barrera MD [address] [facility] [address], [place] [address] CARDIOVASCULAR DISEASE 07/17/22 documented as of this encounter
--- OUTSIDE RECORDS SUMMARY | 2025-03-13 08:00 | XMS_ITS | Clinical Summary ---
Author Organization [facility] Address [address] [place] [address] Care Team Providers Care Routing Machine Operator Name Role Phone Unavailable Primary Care Provider Unavailabl e Allergies No known active allergies Medications topiramate (TOPAMAX) 50 mg tablet Take 50 mg by mouth 2 times daily. 5 Active spironolactone (ALDACTONE) 25 mg tablet take 1 tablet (25 mg total) by mouth daily. Active Entresto 24-26 mg Tablet Take 1 Tablet by mouth every 12 hours. 5 Active Xarelto 20 mg Tablet take 1 tablet by mouth every day with breakfast Active metoprolol succinate (TOPROL XL) 25 mg Extended Release 24 hour tablet take 1 tablet by mouth every day in the morning for 30 days Active meclizine (ANTIVERT) 25 mg tablet 5 Active gabapentin (NEURONTIN) 300 mg capsule Take 300 mg by mouth. 5 Active furosemide (LASIX) 40 mg tablet Take 40 mg by mouth daily. 5 Active ferrous sulfate 325 mg (65 mg iron) tablet Take 1 Tablet by mouth. 3 Active ezetimibe (ZETIA) 10 mg tablet Take 10 mg by mouth daily. Active Trulicity 1.5 mg/0.5 mL injection INJECT 1.5 MG SUBCUTANEOUSLY ONCE WEEKLY Active Farxiga 10 mg Tablet Take 10 mg by mouth daily. Active cholecalcifero l, Vitamin D3, 125 mcg (5,000 unit) Capsule Take 1 Capsule by mouth daily. 5 Active atorvastatin (LIPITOR) 80 mg tablet Take 80 mg by mouth daily. Active aspirin (ECOTRIN EC) 81 mg Tablet, Delayed Release (E.C.) Take 81 mg by mouth daily in the morning. 3 Active amiodarone (CORDARONE) 200 mg tablet TAKE 2 TABLETS BY MOUTH EVERY DAY AT 8AM 5 Active albuterol sulfate HFA 90 mcg/actuation aerosol inhaler INHALE 1 PUFF BY MOUTH EVERY 4 HOURS NEEDED FOR SHORTNESS OF BREATH OR WHEEZING 3 Active Active Problems No known active problems Encounters Date Type Department Care Team Description 03/09/2025 Orders Only [facility] [place] [address] [place] [phone] Obi Herbert MD 03/08/2025 3:30 PM CDT Office Visit [facility] [address] [place] [phone] Obi Herbert MD Renal cell carcinoma of right kidney (CMS/HCC) (Primary Dx); Chronic anemia from Last 3 Months Family History Medical History Relation Name Comments Diabetes Brother Heart Disease Father Lung Cancer Mother No Known Problems Sister Relation Name Status Comments Brother Alive Father Mother Sister Alive Social History Tobacco Use Types Packs/Day Years Used Date Smoking Tobacco: Every Day Cigarettes 1 55.5 Started: [birth year]/1969 Smokeless Tobacco: Never Tobacco Cessation:Ready to Q uit: Not Asked; Counseling Given: Not Answered Alcohol Use Standard Drinks/Week Comments Yes 0 (1 standard drink = 0.6 oz pur e alcohol) occasional Sex and Gender Information Value Date Recorded Sex Assigned at Not on file Legal Sex Male 2:13 PM CDT Gender Identity Not on file Sexual Orientation Not on file Last Filed Vital Signs Vital Sign Reading Time Taken Comments Blood Pressure 101/46 03/08/2025 2:25 PM CDT Pulse 62 03/08/2025 2:25 PM CDT Temperature 36.7 C (98 F) 03/08/2025 2:25 PM CDT Respiratory Rate 15 03/08/2025 2:25 PM CDT Oxygen Saturation 97% 03/08/2025 2:25 PM CDT Inhaled Oxygen Concentration - - Weight 104 kg (229 lb 3.2 oz) 03/08/2025 2:25 PM CDT Height 182.9 cm (6') 03/08/2025 2:25 PM CDT Body Mass Index 31.09 03/08/2025 2:25 PM CDT Plan of Treatment Upcoming Encounters Date Type Department Care Team (Late st Contact Info) Description 03/22/2025 4:30 PM CDT Telephone Check Up [facility] [place] [address] [facility] [address] [place] [address] Obi Herbert MD [address] [facility] [address] [place] [address] Health Maintenance Due Date Last Done Comments DIABETES ANNUAL FOOT EXAM 1977 DIABETES ANNUAL RETINAL EXAM 1977 DIABETES HBA1C Q 6 MONTHS 1977 DIABETES MICROALBUMIN ANNUAL SCREEN 1977 LDL CHOLESTEROL ANNUAL 1977 DTAP/TDAP/TD VACCINES (1 - Tdap) 1978 PNEUMOCOCCAL VACCINE 50+ YEA RS (1 of 2 - PCV) 1978 Traditional Medicare (ACO) A nnual Wellness Visit 1978 COLORECTAL SCREENING 2004 Colorectal Cancer Screening 2004 FIT-DNA Q 3 years 2004 FIT/FOBT Q 1 year 2004 Flex Sig/CT Colonography Q 5 years 2004 Lung Cancer Screening 2009 ZOSTER VACCINE (1 of 2) 2009 RSV VACCINE (60+ or ) (1 - Risk 60-74 years 1-dose series) 2019 INFLUENZA VACCINE (#1) 2024 COVID-19 Vaccine ( season) 05/14/202407/2021, 11/28/2020 Abdominal Aortic Aneurysm (AAA) Screening 2024 Procedures Procedure Name Priority Date/Time Associated Diagnosis Comments COMPREHENSIVE METABOLIC PANEL Routine 03/08/2025 8:55 AM CDT from Last 3 Months Results * COMPREHENSIVE METABOLIC PANEL (03/08/2025 8:55 AM CDT) Blood us Obi Herbert MD CHEMISTRY ORDERABLES Final Resu lt from Last 3 Months Insurance MEDICARE PART A AND [facility]
--- OUTSIDE RECORDS SUMMARY | 2025-03-13 08:00 | XMS_ITS | Clinical Summary ---
Author Organization [facility] Address [address] [place] [address] Care Team Providers Care Rn Birthing Name Role Phone Calderon Nick MD Primary Care Provider [phone] Bravo Barrera MD Unavailable [phone] Allergies No known active allergies Medications atorvastatin (LIPITOR) 80 MG tablet Take 1 tablet (80 mg total) by mouth daily. Active vitamin D3, cholecalcifero l, 5000 UNITS capsule 1 Active omeprazole (PRILOSEC) 40 MG capsule 1 Active aspirin 81 MG chewable tablet Chew 1 tablet (81 mg total) by mouth daily. 30 tablet 5 2 Active amiodarone (PACERONE) 200 MG tablet TAKE 2 TABLETS BY MOUTH EVERY DAY AT 8AM Active furosemide (LASIX) 40 MG tablet Take 1 tablet (40 mg total) by mouth daily. Active ENTRESTO 24-26 MG tablet Take 1 tablet by mouth every 12 (twelve) hours. Active ferrous sulfate, 65 mg elemental, 325 (65 FE) MG tablet Take 1 tablet (325 mg total) by mouth 2 (two) times daily with meals. Active Blood Glucose Monitoring Suppl (ACCU-CHEK GUIDE ME) w/Device Kit see administration instructions. 4 Active FARXIGA 10 MG tablet Take 1 tablet (10 mg total) by mouth daily. 5 Active TRULICITY 1.5 MG/0.5ML injection INJECT 1.5 MG UNDER THE SKIN ONCE WEEKLY 5 Active ezetimibe (ZETIA) 10 MG tablet Take 1 tablet (10 mg total) by mouth daily. 4 Active gabapentin (NEURONTIN) 300 MG capsule Take 1 capsule (300 mg total) by mouth 3 (three) times daily. 5 Active ACCU-CHEK GUIDE TEST test strip USE ONE TEST STRIP BEFORE EACH MEAL THREE TIMES DAILY 5 Active LANTUS SOLOSTAR 100 UNIT/ML injection (PEN) INJECT 10 UNITS UNDER THE SKIN EVERY EVENING 4 Active BD ULTRA-FINE PEN NEEDLES 29G X 12.7MM Misc TO BE USED WITH LANTUS PEN ONCE DAILY 4 Active SOFTCLIX LANCETS Misc USE TO TEST 3 TIMES DAILY BEFORE MEALS 4 Active metoprolol succinate ER (TOPROL-XL) 25 MG 24 hr tablet take 1 tablet by mouth every day in the morning for 30 days 5 Active XARELTO 20 MG Tab tablet Take 1 tablet (20 mg total) by mouth daily with breakfast. Active topiramate (TOPAMAX) 50 MG TabIndications :Essential tremor TAKE 1 TABLET BY MOUTH TWICE A DAY 180 tablet 5 Active Active Problems Problem Noted Date Diagnosed Date Coronary artery disease invo lving [place] coronary artery of [place] heart without angina pectoris 09/28/2024 Left ventricular dysfunction with reduced left ventricular function 01/21/2023 Shortness of breath 12/22/2022 Peripheral vascular disease 05/28/2022 Abnormal MRI, lumbar spine 05/19/2022 Aortic stenosis, mild 05/19/2022 BMI 37.0-37.9, adult 05/19/2022 Depression 05/19/2022 Discoloration of skin of toe 05/19/2022 Essential hypertension 05/19/2022 Fatty liver 05/19/2022 GERD without esophagitis 05/19/2022 Mixed hyperlipidemia 05/19/2022 USMAN on CPAP 05/19/2022 Arterial occlusive disease 05/19/2022 Testicular hypofunction 05/19/2022 Tobacco abuse 05/19/2022 Toe pain, right 05/19/2022 Type 2 diabetes mellitus wit hout complications ([facility]) 05/19/2022 Vitamin D deficiency 05/19/2022 Spinal stenosis of lumbar re gion with neurogenic claudication 10/08/2021 Chronic lower back pain 10/07/2021 Pain of left lower extremity 10/07/2021 Family History Medical History Relation Comments Diabetes Brother Heart Disease Father Hypertension Sister thinks his siste r has HTN Relation Status Comments Brother Alive Says brother is close to having diabetes Father (Age 50) of heart attack Mother Alive Sister Alive Social History Tobacco Use Types Packs/Day Years Used Date Smoking Tobacco: Every Day Cigarettes 1.5 48 Smokeless Tobacco: Never Tobacco Cessation:Ready to Q uit: No; Counseling Given: Yes Alcohol Use Standard Drinks/Week Comments Yes 20 (1 standard drink = 0.6 oz pu re alcohol) PHQ-2 Answer Date Recorded Patient Health Questionnaire-2 Score 0 11/17/2023 Sex and Gender Information Value Date Recorded Sex Assigned at Male 10/18/2024 12:55 PM PLUGGER MAN Legal Sex Male 8:02 PM CDT Gender Identity Not on file Sexual Orientation Not on file Last Filed Vital Signs Vital Sign Reading Time Taken Comments Blood Pressure 130/72 10/26/2024 11:53 AM PLUGGER MAN Pulse 71 10/26/2024 11:53 AM PLUGGER MAN Temperature 36.1 C (97 F) 03/15/2024 1:38 PM CDT Respiratory Rate 18 07/25/2022 8:13 AM PLUGGER MAN Oxygen Saturation 98% 09/07/2024 1:47 PM PLUGGER MAN Inhaled Oxygen Concentration - - Weight 109.9 kg (242 lb 3.2 oz) 025 11:53 AM PLUGGER MAN Height 182.9 cm (6') 10/26/2024 11:53 AM PLUGGER MAN Body Mass Index 32.85 10/26/2024 11:53 AM PLUGGER MAN Plan of Treatment Upcoming Encounters Date Type Department Care Team (Late st Contact Info) Description 10/16/2025 10:00 AM PLUGGER MAN Appointment [facility] [place], [place] [id number] Goldy Thurman MD Three [facility]. [address] [place], [place] [id number] Health Maintenance Due Date Last Done Comments ASCVD LDL 1959 ASCVD Statin 1959 Colorectal Cancer Screening Colonoscopy (10 Years) 1959 Kidney Health Evaluation 1959 Hemoglobin A1C 1959 Diabetes: Retinopathy Eye Exam 1977 Hepatitis C 1977 DTaP, Tdap and Td Vaccines ( 1 - Tdap) 1978 Pneumococcal Vaccine: 50+ Years (1 of 2 - PCV) 1978 Lung Cancer Screening 2009 Zoster Vaccines (1 of 2) 2009 RSV Immunization or 60+ Years (1 - Risk 60-74 years 1-dose series) 2019 COVID-19 Vaccine (3 - 2023-2 5 season) 2024 12/22/2020, 11/28/2020 AAA SCREENING 2024 PHQ-2 (Physician [place]) 09/13/2024 11/17/2023 Lipid Panel 12/22/2024 12/23/2023, 02/26/2022 Meningococcal B Vaccine Aged Out No l onger eligible based on patient's age to complete this topic Meningococcal Vaccine Aged Out No john steven eligible based on patient's age to complete this topic RSV Immunizations Under 20 Months Aged Out No longer eligible b ased on patient's age to complete this topic Medical Devices Implanted Type Area [employer] Tr[employer] Worker Device Identifier Shelf Expiration Date Model / Serial / Lot Patch Desiree. Vasc. Vascu-Guard 0.8cm X 8cm - [id number] Implanted:Qty : 1 on 07/24/2022 by Goldy Thurman MD at [facility] Mesh Right: Groin [employer] [id number] 03/04/2027 [id number] / / [id number] Description:RIGHT FEMORAL AR [place] Insurance MEDICARE [employer] Advance Directives * Full Code (Latest Code Status on File) Date Activated Date Inactivated Comments 02/06/2022 12:53 PM 02/06/2022 11:04 PM Care Teams Rn Birthing Relationship Specialty Start Date End Date Calderon Nick MD [address] [address] PCP - General FAMILY PRACTICE 02/06/22 Bravo Barrera MD [address] [facility] [address] [address] CARDIOVASCULAR DISEASE 07/17/22
--- OUTSIDE RECORDS SUMMARY | 2025-03-13 08:00 | XMS_ITS | Encounter Summary ---
Author Organization [facility] Address [address] [place] [address] Care Team Providers Care Stave Cutter Name Role Phone Unavailable Primary Care Provider Unavailabl e Encounter Details Date Type Department Care Team (Late Contact Info) Description 03/09/2025 Orders Only [facility] Oncology and Hematology - [place] [address] [place] [address] Obi Herbert MD [email or web address] [address] [place] [address] Social History Tobacco Use Types Packs/Day Years Used Date Smoking Tobacco: Every Day Cigarettes 1 55.5 Started: 09/13/1969 Smokeless Tobacco: Never Alcohol Use Standard Drinks/Week Comments Yes 0 (1 standard drink = 0.6 oz pur e alcohol) occasional Sex and Gender Information Value Date Recorded Sex Assigned at Not on file Legal Sex Male 2:13 PM CDT Gender Identity Not on file Sexual Orientation Not on file documented as of this encounter Plan of Treatment Upcoming Encounters Date Type Department Care Team (Late st Contact Info) Description 03/22/2025 4:30 PM CDT Telephone Check Up [facility] Oncology and Hematology - [place] [address] [place] [address] Obi Herbert MD [address] [employer] [address] [place] [address] documented as of this encounter Procedures Procedure Name Priority Date/Time Associated Diagnosis Comments COMPREHENSIVE METABOLIC PANEL Routine 03/08/2025 8:55 AM CDT documented in this encounter Results * COMPREHENSIVE METABOLIC PANEL (03/08/2025 8:55 AM CDT) Blood Obi Herbert MD CHEMISTRY ORDERABLES Final Resu lt documented in this encounter Visit Diagnoses Not on filedocumented in this encounter
--- OUTSIDE RECORDS SUMMARY | 2025-03-13 08:01 | XMS_ITS | Referral Summary ---
Author Organization [facility] [address] Address [address] [place] [address] Care Team Providers Care Public Transportation Inspector Name Role Phone Calderon Nick MD Primary Care Provider [phone] Encounters Date Type Department Care Team Description 02/28/2025 Telephone [facility] Cardiology [address] [place] [address] Bravo Barrera MD from Last 3 Months Allergies No known active allergies Medications empagliflozin- [...] MG TOTAL) BY MOUTH DAILY. 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 Not on file Not on file Last Filed Vital Signs Vital Sign Reading Time Taken Comments Blood Pressure 116/58 09/28/2024 1:55 PM PROPULSION MOTOR AND GENERATOR REPAIRER Pulse 67 09/28/2024 1:55 PM PROPULSION MOTOR AND GENERATOR REPAIRER Temperature 36.5 C (97.7 F) 11/10/2021 11:39 AM PROPULSION MOTOR AND GENERATOR REPAIRER Respiratory Rate 18 11/10/2021 12:27 PM PROPULSION MOTOR AND GENERATOR REPAIRER Oxygen Saturation 98% 09/28/2024 1:55 PM PROPULSION MOTOR AND GENERATOR REPAIRER Inhaled Oxygen Concentration - - Weight 108.6 kg (239 lb 8 oz) 09/28/2024 1:55 PM PROPULSION MOTOR AND GENERATOR REPAIRER Height 182.9 cm (6') 09/28/2024 1:55 PM PROPULSION MOTOR AND GENERATOR REPAIRER Body Mass Index 32.48 09/28/2024 1:55 PM PROPULSION MOTOR AND GENERATOR REPAIRER Plan of Treatment Not on file Insurance MEDICARE PHYSICIANS [facility] [place] Care Teams Public Transportation Inspector Relationship Specialty Start Date End Date Calderon Nick MD PCP - General 02/18/15
--- OUTSIDE RECORDS SUMMARY | 2025-03-13 08:01 | XMS_ITS | Clinical Summary ---
Author Organization [facility] [address] Address [address] [place] [address] Care Team Providers Care Flow Trader Name Role Phone Calderon Nick MD Primary Care Provider [phone] Allergies No known active allergies Medications empagliflozin- [...] 60 tablet 11 03/09/20 24 025 Discontinued Active Problems Problem Noted Date Diagnosed Date Coronary artery disease invo lving [place] coronary artery of [place] heart without angina pectoris 09/28/2024 Left ventricular [...] 10/07/2021 Pain of left lower extremity 10/07/2021 Encounters Date Type Department Care Team Description 02/28/2025 Telephone [facility] Cardiology [address] [place] [address] Bravo Barrera MD from Last 3 Months Immunizations Immunization Administration Dates Next Due Pfizer SARS-CoV-2 Monovalent Vaccination (12+ Yrs) PURPLE 12/22/2020,11/28/2020 Surgical History Surgery Date Site/Laterality Comments BACK SURGERY 04/13/2021 - 05/13/2021 Fusion L5-S1 Medical History Medical History Date Comments Diabetes mellitus (HCC) Diabetes mellitus; Comments: [facility] 02/18/2015 - Hypertension Hypertension Hx Other Medical hyperlipidemia; Comments: [facility] 02/18/2015 - Hx Other Medical tobacco use; Co mments: [facility] 02/18/2015 - Hx Other Medical deviated septum repair; Comments: [facility] 02/18/2015 - Hx Other Medical right carpal tu nnel release; Comments: [facility] 02/18/2015 - Sleep apnea Low back pain [...] on file Legal Sex Male 3:38 AM 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 Gender Identity Not on file Sexual Orientation Not on file 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 on file Not on file 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 Not on file Not on file Obstetrics History Last Filed Vital Signs Vital Sign Reading Time Taken Comments Blood Pressure 116/58 09/28/2024 1:55 PM 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 Pulse 67 09/28/2024 1:55 PM 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 Temperature 36.5 C (97.7 F) 11/10/2021 11:39 AM 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 Respiratory Rate 18 11/10/2021 12:27 PM 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 Oxygen Saturation 98% 09/28/2024 1:55 PM 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 Inhaled Oxygen Concentration - - Weight 108.6 kg (239 lb 8 oz) 09/28/2024 1:55 PM 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 Height 182.9 cm (6') 09/28/2024 1:55 PM 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 Body Mass Index 32.48 09/28/2024 1:55 PM 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 Plan of Treatment Health Maintenance Due Date [...] Influenza Vaccine (Season Ended) 2025 Insurance [employer]ICARE [facility] [place] Care Teams Flow Trader Relationship Specialty Start Date End Date Calderon Nick MD PCP - General 02/18/15
--- NOTE | 2025-03-13 11:00 | NEURO_ITS ---
Impression: ? 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 NO RESPONSE 14 cm NR 14 cm Ant Lat Mall 16.0 Right Sup Fibular Anti Sensory (Ant Lat Mall)??? NO RESPONSE 14 cm NR 14 cm Ant Lat Mall 16.0 Left Sural Anti Sensory (Lat Mall)??? NO RESPONSE Calf NR Calf Lat Mall 16.0 Right Sural Anti Sensory (Lat Mall)??? NO RESPONSE Calf NR Calf Lat Mall 16.0 ?Stim Site NR Onset (ms) O-P Amp (mV) Site1 Site2 Delta-0 (ms) Dist (cm) Mike (m/s) Left Peroneal Motor (Vastus Med) Ankle ? 5.2 0.7 Popit Ankle 13.5 44.0 33 Popit ? 18.7 0.4 Right Peroneal Motor (Vastus Med) Ankle ? 4.8 0.5 Popit Ankle 14.6 43.0 29 Popit ? 19.4 0.4 Left Tibial Motor (Abd Lee Brev) Ankle ? 5.9 0.2 Knee Ankle 13.8 44.0 32 Knee ? 19.7 0.3 Right Tibial Motor (Abd Lee Brev)??? NO RESPONSE Ankle NR Knee NR Electromyography ?Side Muscle Nerve Root Ins Act Fibs Amp Dur Recrt Comment Right AntTibialis Dp Br Fibular L4-5 Nml Nml Decr >12ms +1 Right Gastroc Tibial S1-2 Nml Nml Decr >12ms +1 Right Fibularis Long Sup Br Fibular L5-S1 Nml Nml Decr >12ms +1 Right Flex Dig Long Tibial L5-S2 Nml Nml Decr >12ms +1 Right Ext Dig Brev Dp Br Fibular L5, S1 Nml Nml Decr >12ms +2 Right QuadratusFem QuadFemoris L4-5, S1 Nml Nml Decr >12ms +1 Left AntTibialis Dp Br Fibular L4-5 Nml Nml Decr >12ms +1 Left Gastroc Tibial S1-2 Nml Nml Decr >12ms +1 Left Fibularis Long Sup Br Fibular L5-S1 Nml Nml Decr >12ms +1 Left Flex Dig Long Tibial L5-S2 Nml Nml Decr >12ms +1 Left Ext Dig Brev Dp Br Fibular L5, S1 Nml Nml Decr >12ms +2 Left QuadratusFem QuadFemoris L4-5, S1 Nml Nml Decr >12ms +1
== END 2025-03-13 07:58 | disposition home or self-care (01) ==
LOC: ANHNEURO 07:58
PROVIDERS: PCP Family Medicine; Visit Provider Nurse Practitioner Adult Health
DX: G62.9 Polyneuropathy, unspecified (principal); M54.17 Radiculopathy, lumbosacral region
CPT/HCPCS: 95886; 95910

== ENCOUNTER 2025-04-10 08:14 | Outpatient (CLI) | payer MEDICARE, OTHER, SELFPAY ==
--- NOTE | ~2025-04-10 | CT_ITS ---
Clinical Indication: Renal cell carcinoma CT Scan of the Chest with Contrast: Technique: Contiguous sections were acquired throughout the chest after intravenous administration of 75 cc of Omnipaque 350. Dose reduction technique was used on this scan by utilizing automated exposu re control and iterative reconstruction technique. The dose-length product (DLP) was 466.54 mGy-cm. Findings: There is no evidence of any significant mediastinal, hilar or axillary lymphadenopathy. There is no f illing defect in the pulmonary arterial tree to suggest pulmonary embolus. There is no evidence of ao rtic dissection or aneurysm. There is no evidence of pleural or pericardial effusion. The lungs are clear. No pulmonary nodules or infiltrates are noted. Images through the upper abdomen reveal no abnormalities. Impression: No evidence of metastatic disease in the chest. Reviewed, dictated and finalized at [facility]. Impression: No evidence of metastatic disease in the chest.
--- OUTSIDE RECORDS SUMMARY | 2025-04-10 08:19 | XMS_ITS | Clinical Summary ---
Author Organization [facility] Address [address] [place] [address] Care Team Providers Care Vice President Quality Name Role Phone Calderon Nick MD Primary Care Provider [phone] Bravo Barrera MD Unavailable [phone] Allergies No known active allergies Medications atorvastatin (LIPITOR) 80 MG tablet Take 1 tablet (80 mg total) by mouth daily. Active vitamin D3, cholecalcifer ol, 5000 UNITS capsule 07/13/20 21 Active omeprazole (PRILOSEC) 40 MG capsule 08/10/20 21 Active aspirin 81 MG chewable tablet Chew 1 tablet (81 mg total) by mouth daily. 30 tablet 5 07/25/20 22 Active amiodarone (PACERONE) 200 MG tablet TAKE [...] GUIDE ME) w/Device Kit see administration instructions. 08/04/20 24 Active FARXIGA 10 MG tablet Take 1 tablet (10 mg total) by mouth daily. 10/02/19 25 Active TRULICITY 1.5 MG/0.5ML injection INJECT 1.5 MG UNDER THE SKIN ONCE WEEKLY 10/03/19 25 Active ezetimibe (ZETIA) 10 MG tablet Take 1 tablet (10 mg total) by mouth daily. 05/19/20 24 Active ACCU-CHEK GUIDE TEST test strip USE ONE TEST STRIP BEFORE EACH MEAL THREE TIMES DAILY 09/26/19 25 Active LANTUS SOLOSTAR 100 UNIT/ML injection (PEN) INJECT 10 UNITS UNDER THE SKIN EVERY EVENING 08/02/20 24 Active BD ULTRA-FINE PEN NEEDLES 29G X 12.7MM Misc TO BE USED WITH LANTUS PEN ONCE DAILY 08/04/20 24 Active SOFTCLIX LANCETS Misc USE TO TEST 3 TIMES DAILY BEFORE MEALS 08/08/20 24 Active metoprolol succinate ER (TOPROL-XL) 25 MG 24 hr tablet take 1 tablet by mouth every day in the morning for 30 days 10/16/19 25 Active XARELTO 20 MG Tab tablet Take 1 tablet (20 mg total) by mouth daily with breakfast. Active topiramate (TOPAMAX) 50 MG TabIndication s:Essential tremor TAKE 1 TABLET BY MOUTH TWICE A DAY 180 tablet 03/19/20 25 Active gabapentin (NEURONTIN) 300 MG capsuleIndica tions:Essenti al tremor TAKE 1 CAPSULE BY MOUTH THREE TIMES A DAY 270 capsule 3 03/20/20 25 Active gabapentin (NEURONTIN) 300 MG capsule Take 1 capsule (300 mg total) by mouth 3 (three) times daily. 10/03/19 25 2024 Discontinued topiramate (TOPAMAX) 50 MG TabIndication s:Essential tremor TAKE 1 TABLET BY MOUTH TWICE A DAY 180 tablet 12/05/19 25 2024 Discontinued Active Problems Problem Noted Date Diagnosed Date Coronary artery disease invo lving [place] coronary artery of [place] heart without angina pectoris 09/28/2024 Left ventricular [...] Type 2 diabetes mellitus wit hout complications ([facility]) 05/19/2022 Vitamin D deficiency 05/19/2022 Spinal stenosis of lumbar re gion with neurogenic claudication 10/08/2021 Chronic lower back pain 10/07/2021 Pain of left lower extremity 10/07/2021 Encounters Date Type Department Care Team Description 03/27/2025 1:17 PM CDT - 03/27/2025 11:59 PM CDT Hospital Encounter [facility] MRI [address] [place] [address] Layne Barger MD Discharge Disposition: Home or Self Care (Routine Discharge) 03/27/2025 Travel from Last 3 Months Family History Medical History Relation Comments Diabetes [...] Sex Assigned at Male 10/18/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 Legal Sex Male 8:02 PM CDT Gender Identity Not on file Sexual Orientation Not on file Last Filed Vital Signs Vital Sign Reading Time Taken Comments Blood Pressure 130/72 10/26/2024 11:53 AM ELECTROPLATING WORKER Pulse 71 10/26/2024 11:53 AM ELECTROPLATING WORKER Temperature 36.1 C (97 F) 03/15/2024 1:38 PM CDT Respiratory Rate 18 07/25/2022 8:13 AM ELECTROPLATING WORKER Oxygen Saturation 98% 09/07/2024 1:47 PM ELECTROPLATING WORKER Inhaled Oxygen Concentration - - Weight 109.9 kg (242 lb 3.2 oz) 025 11:53 AM ELECTROPLATING WORKER Height 182.9 cm (6') 10/26/2024 11:53 AM ELECTROPLATING WORKER Body Mass Index 32.85 10/26/2024 11:53 AM ELECTROPLATING WORKER Plan of Treatment Upcoming Encounters Date Type Department Care Team (Late st Contact Info) Description 10/16/2025 10:00 AM ELECTROPLATING WORKER Appointment [facility] Vascular Lab [address] [place], [place] [id number] Goldy Thurman MD [address] [facility]. [address] [place], [place] [id number] Health Maintenance Due Date Last Done Comments [...] 12/22/2020, 11/28/2020 AAA SCREENING 2024 PHQ-2 (Physician Eyak) 09/13/2024 11/17/2023 Lipid Panel 12/22/2024 12/23/2023, 02/26/2022 [...] this topic Medical Devices Implanted Type Area Corset Fitter Device Identifier Shelf Expiration Date Model / Serial / Lot Patch Desiree. Vasc. Vascu-Guard 0.8cm X 8cm - [id number] Implanted:Qty : 1 on 07/24/2022 by Goldy Thurman MD at [facility] Mesh Right: Groin [employer] [id number] 03/04/2027 [id number] / / [id number] Description:RIGHT FEMORAL AR ALONA Procedures Procedure Name Priority Date/Time Associated Diagnosis Comments MRI ABD WWO CON Routine 03/27/2025 3:14 PM CDT Renal mass, right from Last 3 Months Results * MRI ABD WWO CON (03/27/2025 3:14 PM CDT) Anatomical Region Laterality Modality Abdomen Magnetic Resonan ce 04/02/2025 9:47 AM CDT Impressions 04/02/2025 10:55 AM CDT IMPRESSION: 1. Complex right lower pole renal mass that is suspicious for malignancy. Signal characteristics would be most consistent with a papillary renal cell carcinoma. The attending radiologist has reviewed the image(s) and agrees with the content of this report. Ordered By: LAYNE BARGER Interpreted By: Kiko Schaffer MD, 04/02/2025 9:47 AM Narrative 04/02/2025 10:55 AM CDT [address] [address] EXAMINATION: MRI ABD WWO CON EXAM TIME: 03/27/2025 2:33 PM HISTORY: Right renal mass. COMPARISON: CT abdomen pelvis 02/28/2025. TECHNIQUE: Multiplanar, multisequence magnetic resonance images of the abdomen were obtained before and after administration of 20 mL of Dotarem. FINDINGS: LOWER CHEST: The visualized portions of the lung bases and mediastinum are unremarkable. LIVER: Normal morphology. Normal signal intensity of the hepatic parenchyma. No focal intrahepatic lesions. GALLBLADDER AND BILIARY TREE: Normal gallbladder distention and wall thickness. The common bile duct is normal in caliber. No intraluminal filling defects. PANCREAS: Normal pancreatic signal intensity. No focal pancreatic lesions. No pancreatic ductal dilatation. SPLEEN: The spleen is normal in size and signal intensity. ADRENAL GLANDS: A 1.6 cm well-circumscribed T2 hyperintense left adrenal cyst is identified. No internal enhancement or nodular is seen. The right adrenal gland appears normal. KIDNEYS: There is a complex right lower pole renal mass measuring 4.8 x 4.5 x 3.4 cm. This consists of multiple components with septations and is T1 and T2 hypointense. There is no significant contrast-enhancement. There are a few additional subcentimeter bilateral renal lesions that are likely simple cysts. GASTROINTESTINAL: The visualized bowel loops are unremarkable. LYMPH NODES: No suspicious lymphadenopathy. VASCULATURE: The abdominal aorta is normal in caliber. BONES: No suspicious osseous lesions. Procedure Note Jhonny Francisco MD - 04/02/[address] [address] EXAMINATION: MRI ABD WWO CON EXAM TIME: 03/27/2025 2:33 PM HISTORY: Right renal mass. COMPARISON: CT abdomen pelvis 02/28/2025. TECHNIQUE: Multiplanar, multisequence magnetic resonance images of theabdomen were obtained before and after administration of 20 mL ofDotarem. FINDINGS: LOWER CHEST: The visualized portions of the lung bases and mediastinum areunremarkable. LIVER: Normal morphology. Normal signal intensity of the hepaticparenchyma. No focal intrahepatic lesions. GALLBLADDER AND BILIARY TREE: Normal gallbladder distention and wallthickness. The common bile duct is normal in caliber. No intraluminalfilling defects. PANCREAS: Normal pancreatic signal intensity. No focal pancreatic lesions.No pancreatic ductal dilatation. SPLEEN: The spleen is normal in size and signal intensity. ADRENAL GLANDS: A 1.6 cm well-circumscribed T2 hyperintense left adrenalcyst is identified. No internal enhancement or nodular is seen. The rightadrenal gland appears normal. KIDNEYS: There is a complex right lower pole renal mass measuring 4.8 x4.5 x 3.4 cm. This consists of multiple components with septations and isT1 and T2 hypointense. There is no significant contrast-enhancement. Thereare a few additional subcentimeter bilateral renal lesions that are likelysimple cysts. GASTROINTESTINAL: The visualized bowel loops are unremarkable. LYMPH NODES: No suspicious lymphadenopathy. VASCULATURE: The abdominal aorta is normal in caliber. BONES: No suspicious osseous lesions. IMPRESSION: 1. Complex right lower pole renal mass that is suspicious for malignancy.Signal characteristics would be most consistent with a papillary renalcell carcinoma. The attending radiologist has reviewed the image(s) and agrees with thecontent of this report. Ordered By: LAYNE BARGER Interpreted By: Kiko Schaffer MD, 04/02/2025 9:47 AM us Layne Barger MD MRI Final Result from Last 3 Months Insurance MEDICARE [employer] Advance Directives * Full Code (Latest Code Status on File) Date Activated Date Inactivated Comments 02/06/2022 12:53 PM 02/06/2022 11:04 PM Care Teams Vice President Quality Relationship Specialty Start Date End Date Calderon Nick MD [address] [address] PCP - General FAMILY PRACTICE 02/06/22 Bravo Barrera MD [address] [facility] [address] [facility] [place] [address] CARDIOVASCULAR DISEASE 07/17/22
--- OUTSIDE RECORDS SUMMARY | 2025-04-10 08:19 | XMS_ITS | Clinical Summary ---
Author Organization [facility] [place] [address] Address [address] [place] [address] Care Team Providers Care Blueprint Maker Name Role Phone Calderon Nick MD Primary Care Provider [phone] Allergies No known active allergies Medications empagliflozin-m etformin 12.5-1,000 mg tablet Take 1 tablet by mouth 2 (two) times a day Active atorvastatin (LIPITOR) 80 mg tablet Take 1 tablet (80 mg total) by mouth daily 90 tablet 9 Active cholecalciferol (VITAMIN D-3) 5,000 unit capsule 1 Active omeprazole (PriLOSEC) 40 mg capsule 1 Active Trulicity 0.75 mg/0.5 mL pen injector 2 Active gabapentin (NEURONTIN) 100 mg capsule TAKE 1 CAPSULE BY MOUTH AT BEDTIME. CAN INCREASE TO 3 CAPS AFTER 3-5 DAYS IF NEEDED 3 Active albuterol HFA (PROVENTIL HFA,VENTOLIN HFA,PROAIR HFA) 90 mcg/actuation inhaler INHALE 1 PUFF BY MOUTH EVERY 4 HOURS NEEDED FOR SHORTNESS OF BREATH OR WHEEZING 3 Active ferrous sulfate 325 mg (65 mg of elemental iron) tablet Take 1 tablet (325 mg total) by mouth 3 Active aspirin 81 mg enteric coated tablet TAKE 1 TABLET BY MOUTH EVERY DAY IN THE MORNING 30 tablet 11 3 Active spironolactone (ALDACTONE) 25 mg tablet TAKE 1 TABLET (25 MG TOTAL) BY MOUTH DAILY. 30 tablet 11 5 11/25/19 Active Xarelto 20 mg tablet TAKE 1 TABLET BY MOUTH EVERY DAY WITH BREAKFAST 30 tablet 3 Active metoprolol XL (TOPROL-XL) 25 mg extended release tablet TAKE 1 TABLET BY MOUTH EVERY DAY IN THE MORNING FOR 30 DAYS 90 tablet 1 5 Active amiodarone (PACERONE) 200 mg tablet TAKE 2 TABLETS BY MOUTH EVERY DAY AT 8AM 180 tablet 1 5 Active furosemide (LASIX) 40 mg tablet TAKE 1 TABLET BY MOUTH EVERY DAY 90 tablet 4 5 Active Entresto 24-26 mg tablet TAKE 1 TABLET BY MOUTH EVERY 12 HOURS 60 tablet 11 5 Active Active Problems Problem Noted Date Diagnosed Date Renal mass 04/03/2025 Coronary artery disease invo lving nulato coronary artery of nulato heart without angina pectoris 09/28/2024 Left ventricular [...] Encounters Date Type Department Care Team Description 04/05/2025 1:00 PM CDT Ancillary Procedure [facility] [address] [place] [phone] Chronic combined systolic and diastolic congestive heart failure (HCC); Coronary artery disease involving nulato coronary artery of nulato heart without angina pectoris; Nonrheumatic aortic valve stenosis; Encounter for pre-operative cardiovascular clearance 04/05/2025 11:30 AM CDT Office Visit [facility] [address] [facility] [address] [place] [phone] Cassie Castaneda NP Encounter for pre-operative cardiovascular clearance (Primary Dx); Chronic combined systolic and diastolic congestive heart failure (HCC); Coronary artery disease involving nulato coronary artery of nulato heart without angina pectoris; Nonrheumatic aortic valve stenosis; Atrial flutter, unspecified type (HCC); PVD (peripheral vascular disease); Renal mass 02/28/2025 Telephone [facility] [address] [place] [address] Bravo Barrera MD from Last 3 Months Immunizations Immunization Administration Dates Next Due Pfizer SARS-CoV-2 Monovalent Vaccination (12+ Yrs) PURPLE 12/22/2020,11/28/2020 Surgical History Surgery Date Site/Laterality Comments BACK SURGERY 04/13/2021 - 05/13/2021 Fusion L5-S1 Medical History Medical History Date Comments Diabetes mellitus ([facility]) Diabetes mellitus; Comments: [facility] 02/18/2015 - Hypertension Hypertension Hx Other Medical hyperlipidemia; Comments: [facility] 02/18/2015 - Hx Other Medical tobacco use; Co mments: [facility] 02/18/2015 - Hx Other Medical deviated septum repair; Comments: [facility] 02/18/2015 - Hx Other Medical right carpal tu nnel release; Comments: [facility] 02/18/2015 - Sleep apnea Low [...] on file 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 Gender Identity Not on file Sexual Orientation Not on file 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 on file Not on file 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 Not on file Not on file Not on file Obstetrics History Last Filed Vital Signs Vital Sign Reading Time Taken Comments Blood Pressure 130/54 04/05/2025 11:06 AM CDT Pulse 70 04/05/2025 11:06 AM CDT Temperature 36.5 C (97.7 F) 11/10/2021 11:39 AM TOMATO PULPER OPERATOR Respiratory Rate 18 04/05/2025 11:06 AM CDT Oxygen Saturation 99% 04/05/2025 11:06 AM CDT Inhaled Oxygen Concentration - - Weight 104.3 kg (230 lb) 04/05/2025 11:06 AM CDT Height 182.9 cm (6') 04/05/2025 11:06 AM CDT Body Mass Index 31.19 04/05/2025 11:06 AM CDT Plan of Treatment Upcoming Encounters Date Type Department Care Team (Latest Contact Info) Description 04/23/2025 12:00 PM CDT Hospital Encounter [facility] Operating Room [address] [place] [phone] [place] [address] [place] [address] 04/23/2025 12:00 PM CDT - 04/23/2025 5:00 PM CDT Surgery [facility] Operating Room [address] [place] [phone] [place] [address] [place] [id number] Robotic Assisted Right Partial Nephrectomy, possible Radical Nephrectomy Scheduled Procedures Name Priority Associated Diagnoses Date/Ti me XI PARTIAL NEPHRECTOMY - LAPAROSCOPIC ROBOTIC ASSISTED Renal mass 04/23/2025 12:00 PM CDT CYSTOSCOPY RETROGRADE PYELOG MARI - INSERTION URETERAL STENT Renal mass 04/23/2025 12:00 PM CDT Health Maintenance Due Date Last Done Comments Colon Cancer Screening-Colonoscopy 1960 Depression Screening 1960 Hepatitis C Screening 1960 Prostate Cancer Screening-PSA 1959 DTaP/Tdap/Td Vaccine (1 - Tdap) 1970 Hepatitis B Screening 1977 Pneumococcal vaccine 65+ (1 of 2 - PCV) 1978 Lung Cancer Screening 2009 Zoster Vaccine (1 of 2) 2009 Fall Risk Assessment 12/02/2022 12/02/2021 Covid-19 Vaccine (3 - season) 05/14/202407/2021, 11/28/2020 Abdominal Aortic Aneurysm (AAA) Screen 2024 Well Visit 65+ 2024 Influenza Vaccine (#1) 2025 Procedures Procedure Name Priority Date/Time Associated Diagnosis Comments TRANSTHORACIC ECHO (TTE) COMPLETE W DOPPLER/CF WO CONTRAST Routine 04/05/2025 2:13 PM CDT Chronic combined systolic and diastolic congestive heart failure (HCC) Coronary artery disease involving nulato coronary artery of nulato heart without angina pectoris Nonrheumatic aortic valve stenosis Encounter for pre-operative cardiovascular clearance POCT LIPID PANEL Routine 04/05/2025 11:1 2 AM CDT Coronary artery disease involving nulato coronary artery of nulato heart without angina pectoris ECG 12-LEAD Routine 04/05/2025 Chronic combined systolic and diastolic congestive heart failure (HCC) from Last 3 Months Results * TRANSTHORACIC ECHO (TTE) COMPLETE W DOPPLER/CF WO CONTRAST (04/05/2025 2:13 PM CDT) Estimated EF 75 % CONS SCIMAGE EF Mod BP 81 % CONS SCIMAGE Anatomical Region Laterality Modality Ultrasound 04/05/2025 1:08 PM CDT Narrative 04/05/2025 4:41 PM CDT [facility] [address], [place] [address] [address], [place] [address] P:[phone] P:[phone] Echocardiographic Report Patient Name: BRAVO ROCHA R : 1960 Study Date: 04/05/2025 1:08:33 PM Gender: M Seasonal Package Handler: Nancy Moore)(NE), [facility] Location: [facility] Provider: CASSIE CASTANEDA Height(Cm): 183 BSA: 2.3 Weight(Kg): 104.3 Heart Rate: 62 BP: 130 / 54 Quality: Good Order Provider: CASSIE CASTANEDA PROCEDURES: Echocardiographic Report: Transthoracic echocardiogram with complete 2D, M-Mode, and color Doppler examination. With Strain Analysis. INDICATIONS: I50.42 Chronic combined systolic (congestive) and diastolic (congestive) heart failure, I25.10 Atherosclerotic heart disease of nulato coronary artery without angina pectoris, I35.0 Nonrheumatic aortic (valve) stenosis, and Z01.810 Encounter for preprocedural cardiovascular examination. MEASUREMENTS: 2D/MM Value Range Doppler Value Range EF Mod BP 81 % [ 52 - 72 ] LILLIAN Vmax 1.05 cm2 [ 2.00 - 4.00 ] Estimated EF 75 % AV Mean PG 22 mmHg LV GLS -13.01 % AV Peak Mike 3.20 m/s [ 1.00 - 1.70 ] LVIDd 2D 4.70 cm [ 4.20 - 5.80 ] AV Peak PG 41 mmHg LVIDs 2D 2.30 cm [ 2.50 - 4.00 ] AV VTI 67.54 cm LVPWd 2D 1.06 cm [ 0.60 - 1.00 ] LVOT Diam 1.99 cm [ 1.70 - 2.10 ] IVSd 2D 1.20 cm [ 0.60 - 1.00 ] LVOT Peak Mike 1.08 m/s [ 0.70 - 1.10 ] AoR Diam 2D 3.99 cm [ 3.10 - 3.70 ] LVOT VTI 25.28 cm LA Volume 47.95 ml [ 18.00 - 58.00 ] MV E Peak Mike 0.99 m/s [ 0.60 - 1.30 ] LA Volume Index 21 cc/m2 [ 16 - 28 ] MV A Peak Mike 1.22 m/s [ 1.00 - 1.20 ] RA Volume 26.43 ml MV Decel Time 536 msec [ 104 - 258 ] PV Peak Mike 1.07 m/s [ 0.40 - 0.80 ] RV S` 11.98 mmHg Septal E` 0.05 m/s [ 0.08 - 0.15 ] Tapse 2.44 cm [ 1.71 - 5.00 ] 2D/MM Value Range Doppler Value Range - FINDINGS: Interpretation Site: Exam was interpreted at [facility]. Left Ventricle: Moderate concentric left ventricular hypertrophy. Hyperdynamic left ventricular function. No focal wall motion abnormalities. Normal left ventricular diastolic function. Ejection fraction is measured at 81 %. Ejection Fraction is visually estimated to be 75 %. Global Longitudinal Strain is -13 %. Right Ventricle: Normal right ventricular size. Left Atrium: Left atrial size is within upper limits of normal. Right Atrium: The right atrium is normal in size. Atrial Septum: Normal atrial septum. Mitral Valve: Normal appearance of the mitral valve. Mild mitral annular calcification. Trivial regurgitation of the mitral valve. Aortic Valve: Moderate aortic stenosis. Mean gradient of 22.0 mmHg. Valve area of 1.2 cm2. Tricuspid Valve: Normal appearance of the tricuspid valve. Pulmonic Valve: Pulmonic valve not well visualized. Pericardium: Normal pericardium with no significant pericardial effusion. Aorta: Normal aortic root. IVC: Normal size and normal respiratory collapse consistent with normal right atrial pressure (<5 mmHg). Pulmonary Artery: Pulmonary artery not well visualized. CONCLUSIONS: Moderate concentric left ventricular hypertrophy. Hyperdynamic left ventricular function. No focal wall motion abnormalities. Normal left ventricular diastolic function. Ejection fraction is measured at 81 %. Ejection Fraction is visually estimated to be 75 %. Global Longitudinal Strain is -13 %. Left atrial size is within upper limits of normal. Moderate aortic stenosis. Mean gradient of 22.0 mmHg. Valve area of 1.2 cm2. Electronically Signed By: Bravo Barrera MD, [facility] 04/05/2025 4:41:03 PM CDT Procedure Note Bravo Barrera MD - 04/05/2025 [facility] [address], [place] [address] [facility] [address], [place] [address] P:[phone] P:[phone] Echocardiographic Report Patient Name: BRAVO ROCHA R : 1960 Study Date: 04/05/2025 1:08:33 PM Gender: M Seasonal Package Handler: Nancy Moore)(CT), [facility] Location: [facility] Provider: CASSIE CASTANEDA Height(Cm): 183 BSA: 2.3 Weight(Kg): 104.3 Heart Rate: 62 BP: 130 / 54 Quality: Good Order Provider: CASSIE CASTANEDA PROCEDURES: Echocardiographic Report: Transthoracic echocardiogram with complete 2D, M-Mode, and color Dopplerexamination. With Strain Analysis. INDICATIONS: I50.42 Chronic combined systolic (congestive) and diastolic (congestive)heart failure, I25.10 Atherosclerotic heart disease of nulato coronary artery withoutangina pectoris, I35.0 Nonrheumatic aortic (valve) stenosis, and Z01.810 Encounter forpreprocedural cardiovascular examination. MEASUREMENTS: 2D/MM Value Range Doppler ValueRange EF Mod BP 81 % [ 52 - 72 ] LILLIAN Vmax 1.05cm2 [ 2.00 - 4.00 ] Estimated EF 75 % AV Mean PG 22mmHg LV GLS -13.01 % AV Peak Mike 3.20m/s [ 1.00 - 1.70 ] LVIDd 2D 4.70 cm [ 4.20 - 5.80 ] AV Peak PG 41mmHg LVIDs 2D 2.30 cm [ 2.50 - 4.00 ] AV VTI 67.54cm LVPWd 2D 1.06 cm [ 0.60 - 1.00 ] LVOT Diam 1.99cm [ 1.70 - 2.10 ] IVSd 2D 1.20 cm [ 0.60 - 1.00 ] LVOT Peak Mike 1.08m/s [ 0.70 - 1.10 ] AoR Diam 2D 3.99 cm [ 3.10 - 3.70 ] LVOT VTI 25.28cm LA Volume 47.95 ml [ 18.00 - 58.00 ] MV E Peak Mike 0.99m/s [ 0.60 - 1.30 ] LA Volume Index 21 cc/m2 [ 16 - 28 ] MV A Peak Mike 1.22m/s [ 1.00 - 1.20 ] RA Volume 26.43 ml MV Decel Time 536msec [ 104 - 258 ] PV Peak Mike 1.07 m/s [ 0.40 - 0.80 ] RV S` 11.98 mmHg Septal E` 0.05 m/s [ 0.08 - 0.15 ] Tapse 2.44 cm [ 1.71 - 5.00 ] 2D/MM Value Range Doppler ValueRange - FINDINGS: Interpretation Site: Exam was interpreted at [facility]. Left Ventricle: Moderate concentric left ventricular hypertrophy. Hyperdynamic leftventricular function. No focal wall motion abnormalities. Normal left ventricular diastolicfunction. Ejection fraction is measured at 81 %. Ejection Fraction is visually estimated jorge 75 %. Global Longitudinal Strain is -13 %. Right Ventricle: Normal right ventricular size. Left Atrium: Left atrial size is within upper limits of normal. Right Atrium: The right atrium is normal in size. Atrial Septum: Normal atrial septum. Mitral Valve: Normal appearance of the mitral valve. Mild mitral annular calcification.Trivial regurgitation of the mitral valve. Aortic Valve: Moderate aortic stenosis. Mean gradient of 22.0 mmHg. Valve area of 1.2cm2. Tricuspid Valve: Normal appearance of the tricuspid valve. Pulmonic Valve: Pulmonic valve not well visualized. Pericardium: Normal pericardium with no significant pericardial effusion. Aorta: Normal aortic root. IVC: Normal size and normal respiratory collapse consistent with normal rightatrial pressure (<5 mmHg). Pulmonary Artery: Pulmonary artery not well visualized. CONCLUSIONS: Moderate concentric left ventricular hypertrophy. Hyperdynamic leftventricular function. No focal wall motion abnormalities. Normal left ventricular diastolicfunction. Ejection fraction is measured at 81 %. Ejection Fraction is visually estimated jorge 75 %. Global Longitudinal Strain is -13 %. Left atrial size is within upper limits of normal. Moderate aortic stenosis. Mean gradient of 22.0 mmHg. Valve area of 1.2cm2. Electronically Signed By: Bravo Barrera MD, [facility] 04/05/2025 4:41:03 PM CDT Cassie Castaneda NP CV ECHO PROCEDURES Fin al Result * (ABNORMAL) POCT lipid panel (04/05/2025 11:12 AM CDT) Cholesterol, POC 118 <200 MG/DL HDL, POC 37(A) >=40 mg/dL Triglycerides, POC 138 <=149 mg/dL LDL Cholesterol POC 53 <=129 mg/dL Chol/HDL Ratio, POC 3.2 NONE Non-HDL Cholesterol, POC 81 NONE mg/dL Cholesterol Total, POC 118 30 - 199 mg/dL Capillary blood 04/05/2025 1 1:12 AM CDT Cassie Castaneda NP POINT OF CARE TEST ORD ERABLES Final Result * ECG 12 lead (04/05/2025) 04/05/2025 Cassie Castaneda NP ECG ORDERABLES Final Result from Last 3 Months Insurance [employer] Care Teams Blueprint Maker Relationship Specialty Start Date End Date Calderon Nick MD PCP - General 02/18/15
--- OUTSIDE RECORDS SUMMARY | 2025-04-10 08:19 | XMS_ITS | Encounter Summary ---
Author Organization [facility] Address [address] [place] [address] Care Team Providers Care Housesmith Name Role Phone Calderon Nick MD Primary Care Provider [phone] Bravo Barrera MD Unavailable [phone] Reason for Referral * Surgical (Routine) - Closed Specialty Diagnoses / Procedures Referred By Contac t Referred To Contact Diagnoses PVD (peripheral vascular disease) Procedures Case request operating room: ENDARTERECTOMY COMMON FEMORAL ARTERY SUPERFICIAL FEMORAL ARTERY, BYPASS GRAFT FEMORAL POPLITEAL Goldy Thurman MD [facility]. [facility] [address] [place] [address] Phone: tel: fax: [facility] [address] Phone: tel: Referral ID Status Reason Start Date Expiration Date Visits Re quested Visits Authorized [id number] Closed 07/24/2022 05/29/2023 1 1 Encounter Details Date Type Department Care Team (Late st Contact Info) Description 05/29/2022 Prep for Procedure [facility], [address] [place], [place] [id number] Goldy Thurman MD [facility]. 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 [facility] [address] [place], [place] [phone] Scheduled Orders Name Type Priority Associated Diagnoses Order Schedule Case request operating room: ENDARTERECTOMY COMMON FEMORAL ARTERY SUPERFICIAL FEMORAL ARTERY, BYPASS GRAFT FEMORAL POPLITEAL Case Request Routine Once for 1 Occurrences starting 05/29/2022 until 05/29/2022 documented as of this encounter Results * MRSA SCREENING (07/17/2022 12:01 PM CDT) SPEC DESCRIPTION NASAL 07/17/2022 12:02 PM CDT [facility] SPECIAL REQUESTS NO SPECIAL REQUEST 07/17/2022 12:02 PM CDT [facility] CULTURE RESULT NO METHICILLIN RESISTANT STAPHYLOCOCCUS AUREUS ISOLATED 07/18/2022 12:35 PM CDT [facility] SPECIMEN FROM INTERNAL NOSE / Unknown 07/17/2022 12:01 PM CDT 07/17/2022 12:18 PM CDT us Goldy Thurman MD MICROBIOLOGY - GENERAL ORDERABLE S Final Result [facility] [address] [place] [address], [place] [phone] * (ABNORMAL) COMPREHENSIVE METABOLIC PANEL (07/17/2022 12:01 PM CDT) [facility] GLUCOSE 262(H) 70 - 99 MG/DL 07/17/2022 12:50 PM CDT [facility] BUN 7 7 - 18 MG/DL 07/17/2022 12:50 PM CDT [facility] CREATININE S/P/B 1.01 0.7 - 1.3 MG/DL 07/17/2022 12:50 PM CDT [facility] SODIUM S/P/B 132(L) 136 - 145 MMOL/L 07/17/2022 12:50 PM CDT [facility] POTASSIUM S/P/B 3.8 3.5 - 5.1 MMOL/L 07/17/2022 12:50 PM CDT [facility] CHLORIDE S/P/B 100 100 - 108 MMOL/L 07/17/2022 12:50 PM CDT [facility] CO2 23.2 21 - 32 MMOL/L 07/17/2022 12:50 PM CDT [facility] CALCIUM S/P/B 8.9 8.5 - 10.1 MG/DL 07/17/2022 12:50 PM CDT [facility] BILIRUBIN TOTAL S/P/B 0.3 0.2 - 1.2 MG/DL 07/17/2022 12:50 PM CDT [facility] Comment: THIS ASSAY IS NOT RECOMMENDED FOR PATIENTS UNDERGOING TREATMENT WITH ELTROMBOPAG DUE TO THE POTENTIAL FOR FALSELY ELEVATED RESULTS. TOTAL PROTEIN S/P/B 7.5 6.4 - 8.2 G/DL 07/17/2022 12:50 PM CDT [facility] ALBUMIN S/P/B 3.5 3.4 - 5.0 G/DL 07/17/2022 12:50 PM CDT [facility] AST 36 15 - 37 U/L 07/17/2022 12:50 PM CDT [facility] ALT 54 16 - 60 U/L 07/17/2022 12:50 PM CDT [facility] ALKALINE PHOSPHATASE S/P/B 102 50 - 136 U/L 07/17/2022 12:50 PM CDT [facility] ANION GAP 8.8 5 - 15 MMOL/L 07/17/2022 12:50 PM CDT [facility] BUN CREATININE RATIO 6.9 6 - 26 07/17/2022 12:50 PM CDT [facility] A/G RATIO 0.9(L) 1.0 - 2.0 RATIO 07/17/2022 12:50 PM CDT [facility] GFR ESTIMATE 84(L) >90 ML/MIN/1.7 3 M2 07/17/2022 12:50 PM CDT [facility] Comment: NOTE: eGFR is not calculated for patients <18 years of age. This is an estimated GFR calculation using the new CKD EPI creatinine equation without race and so does not require a correction factor for race. This estimated GFR should not be used for calculating drug doses. 07/17/2022 12:0 1 PM CDT us Goldy Thurman MD LABORATORY Final Result [facility] [address] [place] [address], [place] [phone] * (ABNORMAL) CBC W/DIFF AUTOMATED (07/17/2022 12:01 PM CDT) WBC 6.2 4.5 - 11.0 x10'3/uL 07/17/2022 12:23 PM CDT [facility] RBC 4.80 4.70 - 6.10 x10'6/uL 07/17/2022 12:23 PM CDT [facility] HGB 12.6(L) 14.0 - 18.0 G/DL 07/17/2022 12:23 PM CDT [facility] HCT 38.8(L) 43.0 - 54.0 % 07/17/2022 12:23 PM CDT [facility] MCV 80.8 80.0 - 94.0 FL 07/17/2022 12:23 PM CDT [facility] MCH 26.3(L) 27.0 - 31.0 PG 07/17/2022 12:23 PM CDT [facility] MCHC 32.5 32.0 - 36.0 G/DL 07/17/2022 12:23 PM CDT [facility] RDW 15.6(H) 11.5 - 14.5 % 07/17/2022 12:23 PM CDT [facility] PLT 242 130 - 400 x10'3/uL 07/17/2022 12:23 PM CDT [facility] MPV 9.2(L) 9.3 - 12.2 FL 07/17/2022 12:23 PM CDT [facility] DIFFERENTIAL TYPE AUTOMATED DIFFERENTIAL 07/17/2022 12:23 PM CDT [facility] NEUTROPHILS % 53.2 % 07/17/2022 12:23 PM CDT [facility] LYMPHOCYTES % 32.4 % 07/17/2022 12:23 PM CDT [facility] MONOCYTES % 8.9 % 07/17/2022 12:23 PM CDT [facility] EOSINOPHILS 3.7 % 07/17/2022 12:23 PM CDT [facility] BASOPHILS 1.3 % 07/17/2022 12:23 PM CDT [facility] IMMATURE GRANS % 0.5 % 07/17/20 12:23 PM CDT [facility] ABS. NEUTROPHILS TOTAL 3.30 1.80 - 7.70 x10'3/uL 07/17/2022 12:23 PM CDT [facility] ABS. LYMPHOCYTES 2.01 1.00 - 4.80 x10'3/uL 07/17/2022 12:23 PM CDT [facility] ABS. MONOCYTES 0.55 0.30 - 0.82 x10'3/uL 07/17/2022 12:23 PM CDT [facility] ABS. EOSINOPHILS 0.23 0.04 - 0.54 x10'3/uL 07/17/2022 12:23 PM CDT [facility] ABS. BASOPHILS 0.08 0.01 - 0.08 x10'3/uL 07/17/2022 12:23 PM CDT [facility] ABS. IMMATURE GRANULOCYTES 0.03 0.00 - 0.49 x10'3/uL 07/17/2022 12:23 PM CDT [facility] 07/17/2022 12:0 1 PM CDT Goldy Thurman MD LABORATORY Final Result [facility] [address] [place] [address], documented in this encounter Visit Diagnoses Diagnosis PVD (peripheral vascular disease)- Primary Peripheral vascular disease, unspecified documented in this encounter Care Teams Housesmith Relationship Specialty Start Date End Date Calderon Nick MD [address] [address] PCP - General FAMILY PRACTICE 02/06/22 Bravo Barrera MD [address] [facility] [address], [place] [address] CARDIOVASCULAR DISEASE 07/17/22 documented as of this encounter
--- OUTSIDE RECORDS SUMMARY | 2025-04-10 08:19 | XMS_ITS | Referral Summary ---
Author Organization [place] [address] Address [address] [facility] [address] [place] [address] Care Team Providers Care Electronics Utility Worker Name Role Phone Calderon Nick MD Primary Care Provider Encounters Date Type Department Care Team Description 04/05/2025 1:00 PM CDT Ancillary Procedure [facility] Cardiology [address] [place] [address] [address] [place] [address] Chronic combined systolic and diastolic congestive heart failure (HCC); Coronary artery disease involving [place] coronary artery of [place] heart without angina pectoris; Nonrheumatic aortic valve stenosis; Encounter for pre-operative cardiovascular clearance 04/05/2025 11:30 AM CDT Office Visit [facility] Cardiology [address] [place] [address] [place] [phone] Cassie Castaneda NP Encounter for pre-operative cardiovascular clearance (Primary Dx); Chronic combined systolic and diastolic congestive heart failure (HCC); Coronary artery disease involving [place] coronary artery of [place] heart without angina pectoris; Nonrheumatic aortic valve stenosis; Atrial flutter, unspecified type (HCC); PVD (peripheral vascular disease); Renal mass 02/28/2025 Telephone [facility] Cardiology [address] [place] [address] [address] [place] [address] Bravo Barrera MD from Last 3 Months Allergies No known active allergies Medications empagliflozin-m [...] MOUTH DAILY. 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 Not on file Not on file Last Filed Vital Signs Vital Sign Reading Time Taken Comments Blood Pressure 130/54 04/05/2025 11:06 AM CDT Pulse 70 04/05/2025 11:06 AM CDT Temperature 36.5 C (97.7 F) 11/10/2021 11:39 AM ACCESS CLINICIAN Respiratory Rate 18 04/05/2025 11:06 AM CDT [...] Description 04/23/2025 12:00 PM CDT Hospital Encounter [facility] Operating [facility] [place] [id number] [place] [address] [place] [id number] 04/23/2025 12:00 PM CDT - 04/23/2025 5:00 PM CDT Surgery [facility] Operating Room [address] [place] [phone] [place] [address] [place] [id number] Robotic Assisted Right Partial Nephrectomy, possible Radical Nephrectomy Scheduled Procedures Name Priority Associated Diagnoses Date/Ti me XI PARTIAL NEPHRECTOMY - LAPAROSCOPIC ROBOTIC ASSISTED Renal mass 04/23/2025 12:00 PM CDT CYSTOSCOPY RETROGRADE PYELOG MARI - INSERTION URETERAL STENT Renal mass 04/23/2025 12:00 PM CDT Procedures Procedure Name Priority Date/Time Associated Diagnosis Comments TRANSTHORACIC ECHO (TTE) COMPLETE W DOPPLER/CF WO CONTRAST Routine 04/05/2025 2:13 PM CDT Chronic combined systolic and diastolic congestive heart failure (HCC) Coronary artery disease involving [place] coronary artery of [place] heart without angina pectoris Nonrheumatic aortic valve stenosis Encounter for pre-operative cardiovascular clearance POCT LIPID PANEL Routine 04/05/2025 11:1 2 AM CDT Coronary artery disease involving [place] coronary artery of [place] heart without angina pectoris ECG 12-LEAD Routine 04/05/2025 Chronic combined systolic and diastolic congestive heart failure (HCC) from Last 3 Months Results * TRANSTHORACIC ECHO (TTE) COMPLETE W DOPPLER/CF WO CONTRAST (04/05/2025 2:13 PM CDT) Estimated EF 75 % CONS SCIMAGE EF Mod BP 81 % CONS SCIMAGE Anatomical Region Laterality Modality Ultrasound 04/05/2025 1:08 PM CDT Narrative 04/05/2025 4:41 PM CDT [facility] Cardiology [address], [place] [address] [address], [place] [address] P:[phone] P:[phone] Echocardiographic Report Patient Name: BRAVO ROCHA R : 1960 Study Date: 04/05/2025 1:08:33 PM Gender: M 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 Provider: CASSIE CASTANEDA Height(Cm): 183 BSA: 2.3 Weight(Kg): 104.3 Heart Rate: 62 BP: 130 / 54 Quality: Good Order Provider: CASSIE CASTANEDA PROCEDURES: Echocardiographic Report: Transthoracic echocardiogram with complete 2D, M-Mode, and color Doppler examination. With Strain Analysis. INDICATIONS: I50.42 Chronic combined systolic (congestive) and diastolic (congestive) heart failure, I25.10 Atherosclerotic heart disease of [place] coronary artery without angina pectoris, I35.0 Nonrheumatic [...] FINDINGS: Interpretation Site: Exam was interpreted at [facility]. Left Ventricle: Moderate concentric left ventricular hypertrophy. [...] cm2. Electronically Signed By: Bravo Barrera MD, [facility] 04/05/2025 4:41:03 PM CDT Procedure Note Bravo Barrera MD - 04/05/2025 [facility] Cardiology [address] [facility] [address] [id number] [address] [facility] [address] [address] P:[phone] P:[phone] Echocardiographic Report Patient Name: BRAVO ROCHA R : 1960 Study Date: 04/05/2025 1:08:33 PM Gender: M Journeyman Powerhouse Operator: Nancy Moore)(CT), [facility] Location: [facility] Provider: CASSIE CASTANEDA Height(Cm): 183 BSA: 2.3 Weight(Kg): 104.3 Heart Rate: 62 BP: 130 / 54 Quality: Good Order Provider: CASSIE CASTANEDA PROCEDURES: Echocardiographic Report: Transthoracic echocardiogram with complete 2D, M-Mode, and color Dopplerexamination. With Strain Analysis. INDICATIONS: I50.42 Chronic combined systolic (congestive) and diastolic (congestive)heart failure, I25.10 Atherosclerotic heart disease of [place] coronary artery withoutangina pectoris, I35.0 Nonrheumatic aortic [...] FINDINGS: Interpretation Site: Exam was interpreted at [facility]. Left Ventricle: Moderate concentric left ventricular hypertrophy. [...] 1.2cm2. Electronically Signed By: Bravo Barrera MD, [facility] 04/05/2025 4:41:03 PM CDT Cassie Castaneda NP CV ECHO PROCEDURES [facility] al Result * (ABNORMAL) POCT lipid panel (04/05/2025 11:12 AM CDT) [facility] Signature Cholesterol, POC 118 <200 MG/DL HDL, POC 37(A) >=40 mg/dL Triglycerides, POC 138 <=149 mg/dL LDL Cholesterol POC 53 <=129 mg/dL Chol/HDL Ratio, POC 3.2 NONE Non-HDL Cholesterol, POC 81 NONE mg/dL Cholesterol Total, POC 118 30 - 199 mg/dL Capillary blood 04/05/2025 1 1:12 AM CDT us Cassie Castaneda NP POINT OF CARE TEST ORD ERABLES Final Result * ECG 12 lead (04/05/2025) 04/05/2025 us Cassie Betina Huette CRIMINAL LAWYER ECG ORDERABLES Final Result from Last [address] [place] [address] MEDICARE [facility] [place] [address] [place] [address] Care Teams Electronics Utility Worker Relationship Specialty Start Date End Date Calderon Nick MD PCP - General 02/18/15
--- OUTSIDE RECORDS SUMMARY | 2025-04-10 08:19 | XMS_ITS | Encounter Summary ---
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 Gender Identity Not on file Sexual Orientation Not on file 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 Not on file Not on file documented as of this encounter Plan of Treatment Upcoming Encounters Date Type Department Care Team (Latest Contact Info) Description 04/23/2025 12:00 PM CDT Hospital Encounter [facility] Operating Room [facility] [place] [phone] [place] [address] [place] [address] 04/23/2025 12:00 PM CDT - 04/23/2025 5:00 PM CDT Surgery [facility] Operating Room [facility] [place] [phone] [place] [address] [place] [address] Robotic Assisted Right Partial Nephrectomy, possible Radical Nephrectomy Scheduled Procedures Name Priority Associated Diagnoses Date/Ti me XI PARTIAL NEPHRECTOMY - LAPAROSCOPIC ROBOTIC ASSISTED Renal mass 04/23/2025 12:00 PM CDT CYSTOSCOPY RETROGRADE PYELOG MARI - INSERTION URETERAL STENT Renal mass 04/23/2025 12:00 PM CDT documented as of this encounter Visit Diagnoses Not on filedocumented in this encounter Care Teams Transportation Sales Consultant Relationship Specialty Start Date End Date Calderon Nick MD PCP - General 02/18/15 documented as of this encounter
--- OUTSIDE RECORDS SUMMARY | 2025-04-10 08:19 | XMS_ITS | Clinical Summary ---
Author Organization [facility] Address [address] [place] [address] Care Team Providers Care Physiologist Name Role Phone Unavailable Primary Care Provider [...] Encounters Date Type Department Care Team Description 03/14/2025 Orders Only [facility] [address] [place] [address] Obi Herbert MD 03/13/2025 External Device Data [facility] ABSTRACTION Provider, Abstract 03/13/2025 External Device Data [facility] ABSTRACTION Provider, Abstract 03/13/2025 External Device Data [facility] ABSTRACTION Provider, Abstract 03/09/2025 Orders Only [facility] [address] [place] [address] Obi Herbert MD 03/08/2025 3:30 PM CDT Office Visit [facility] [address] [place] [address] Obi Herbert MD Renal cell carcinoma of right kidney (CMS/HCC) (Primary Dx); Chronic anemia from Last 3 Months Family History Medical History Relation Name Comments Diabetes Brother Heart Disease Father Lung Cancer Mother No Known Problems Sister Relation Name Status Comments Brother Alive Father Mother Sister Alive Social History Tobacco Use Types Packs/Day Years Used Date Smoking Tobacco: Every Day Cigarettes 1 55.6 Started: 09/13/1969 Smokeless Tobacco: Never Tobacco Cessation:Ready [...] 03/08/2025 2:25 PM CDT Plan of Treatment Health Maintenance Due Date Last Done Comments DIABETES ANNUAL FOOT EXAM 1977 DIABETES ANNUAL RETINAL EXAM 1977 DIABETES HBA1C Q 6 MONTHS 1977 DIABETES MICROALBUMIN ANNUAL SCREEN 1977 LDL CHOLESTEROL ANNUAL 1977 DTAP/TDAP/TD VACCINES (1 - Tdap) 1978 PNEUMOCOCCAL VACCINE 50+ YEA RS (1 of 2 - PCV) 1978 COLORECTAL SCREENING 2004 Colorectal Cancer Screening 2004 FIT-DNA Q 3 years 2004 FIT/FOBT Q 1 year 2004 Flex Sig/CT Colonography Q 5 years 2004 Lung Cancer Screening 2009 ZOSTER VACCINE (1 of 2) 2009 RSV VACCINE (60+ or ) (1 - Risk 60-74 years 1-dose series) 2019 COVID-19 Vaccine (3 - season) 05/14/202407/2021, 11/28/2020 Abdominal Aortic Aneurysm (AAA) Screening 2024 INFLUENZA VACCINE (#1) 2025 Procedures Procedure Name Priority Date/Time Associated Diagnosis Comments COMPREHENSIVE METABOLIC PANEL Routine 03/08/2025 8:55 AM CDT METHYLMALONIC ACID Routine 03/08/2025 7: 54 AM CDT from Last 3 Months Results * COMPREHENSIVE METABOLIC PANEL (03/08/2025 8:55 AM CDT) Blood us Obi Herbert MD CHEMISTRY ORDERABLES Final Resu lt * METHYLMALONIC ACID (03/08/2025 7:54 AM CDT) Blood Obi Herbert MD CHEMISTRY ORDERABLES Final Resu lt from Last 3 Months Insurance MEDICARE PART A AND B [employer]
[2025-04-11 10:55] LABS: Estimated Glomerular Filt Rate 51
== END 2025-04-10 08:15 | disposition home or self-care (01) ==
PROVIDERS: PCP Family Medicine; Visit Provider Internal Medicine Hematology & Oncology
DX: C64.1 Malignant neoplasm of right kidney, except renal pelvis (principal)
CPT/HCPCS: 71260; Q9967

== ENCOUNTER 2025-06-05 12:29 | Outpatient (CLI) | payer MEDICARE, OTHER, SELFPAY ==
--- NOTE | ~2025-06-05 | US_ITS ---
US thyroid INDICATION: Thyroid goiter TECHNIQUE: Real-time sonographic images of the thyroid gland were obtained. COMPARISON: No prior studies for comparison. FINDINGS: The right thyroid lobe measures 3.9 x 2.5 x 1.7 cm. The left thyroid lobe measures 4.4 x 2.4 x 1.5 cm. There is normal echotexture and echogenicity throughout the thyroid gland. No discrete nodules identified. Normal vascular flow is present. IMPRESSION: 1. Normal thyroid without discrete nodule or abnormal vascularity. Reviewed, dictated and finalized at location O.
== END 2025-06-05 12:30 | disposition home or self-care (01) ==
LOC: MICIMG 12:31
PROVIDERS: PCP Family Medicine; Visit Provider Nurse Practitioner Adult Health
DX: E04.9 Nontoxic goiter, unspecified (principal)
CPT/HCPCS: 76536

== ENCOUNTER 2025-07-05 14:14 | Outpatient (CLI) | payer MEDICARE, OTHER, SELFPAY ==
--- NOTE | ~2025-07-05 | US_ITS ---
US renal BI 07/05/2025 14:55 Procedure: Realtime transabdominal ultrasound of the kidneys and bladder. Indication: Abnormal renal labs Comparison: No prior studies for comparison. Findings: Renal echotexture is normal bilaterally without hydronephrosis, contour deforming mass or renal calculus. There are multiple right renal cysts, largest measuring 2.6 cm. The right kidney measures 10 cm and left kidney measures 10.9 cm. Bladder within normal limits. Impression: 1: Right renal cysts. Reviewed, dictated and finalized at location O. Impression: 1: Right renal cysts.
== END 2025-07-05 14:15 | disposition home or self-care (01) ==
LOC: MICIMG 14:15
PROVIDERS: PCP Family Medicine; Visit Provider Nurse Practitioner Adult Health
DX: I95.9 Hypotension, unspecified (principal); D50.8 Other iron deficiency anemias; D50.9 Iron deficiency anemia, unspecified; R53.83 Other fatigue; N17.9 Acute kidney failure, unspecified; N28.1 Cyst of kidney, acquired
CPT/HCPCS: 76770

== ENCOUNTER 2025-07-20 11:52 | Inpatient (IN) | payer MEDICARE, OTHER, SELFPAY ==
[2025-07-20] VITALS (18 sets, daily range): BP systolic 77–112; BP diastolic 31–80; PULSE 57–74; RESP 11–24; TEMP 36.4–36.8; O2SAT 97–100; BMI 31.1
--- NOTE | ~2025-07-20 | XR_ITS ---
EXAMINATION: XR chest 1V portable DATE: 07/20/2025 13:21 INDICATION: Shortness of breath, dizziness and weakness. TECHNIQUE: frontal view of the chest was obtained. COMPARISON: Chest CT dated 04/10/2025 FINDINGS: Patient is rotated slightly towards the left resulting in asymmetric increased lucency at the left lung relative to the right. Mild hyperexpansion lungs consistent with mild emphysema which is better appreciated on prior CT. No focal airspace opacities, pulmonary edema, pleural effusion or pneumothorax. Heart size is normal. IMPRESSION: 1. Mild hyperexpansion lungs consistent with mild emphysema better appreciated on prior CT. No acute cardiopulmonary disease. Reviewed, dictated and finalized at location [facility]. [facility]
--- NOTE | 2025-07-20 11:58 | ECG_ITS ---
Test Date: 2025-07-20 12:01:10 Measurements Intervals [place] Rate: 76 P: 39 [place]: 196 QRS: 89 QRSD: 141 T: 59 QT: 462 QTc: 520 Interpretive Statements SINUS RHYTHM WITH OCCASIONAL VENTRICULAR PREMATURE COMPLEXES INTRAVENTRICULAR CONDUCTION DELAY Electronically Signed On 07-20-2025 12:44:45 [employer]LLF[employer] WE[employer]HER by Art Doherty D.O
[2025-07-20 12:28] LABS: Immature Granulocyte Percent A 2.7 % (0-0.5); Lymphocytes Absolute Auto 2.08 K/mm3 (0.9-3.2); Mean Corpuscular HGB Conc 29.4 g/dl (32-36); Mean Corpuscular Hemoglobin 33.3 pg (26-34); Mean Corpuscular Volume 113.3 fl (80-100); Nucleated Red Blood Cells Absolute Auto 0.060 K/mm3 (0.0-0.012); Nucleated Red Blood Cells Perc 0.5 % (0.0-0.2); Platelet Count Result 230 k/mm3 (150-375); Red Blood Count 1.80 M/mm3 (4.6-6.20); White Blood Count 11.1 K/mm3 (4.5-10.0)
--- OUTSIDE RECORDS SUMMARY | 2025-07-20 12:34 | XMS_ITS | Encounter Summary ---
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
--- OUTSIDE RECORDS SUMMARY | 2025-07-20 12:34 | XMS_ITS | Clinical Summary ---
Author Organization [facility] [place] [address] Address [address] [place] [address] Care Team Providers Care Boss Miner Name Role Phone Calderon Nick MD Primary Care Provider + [phone] Carlos Flores MD Unavailable [phone] Allergies No known active allergies Medications empagliflozin-me tformin 12.5-1,000 mg tablet Take 1 tablet by mouth 2 (two) times a day Active cholecalciferol (VITAMIN D-3) 5,000 unit capsule Take 1 capsule (5,000 Units total) by mouth daily after lunch 1 Active Trulicity 0.75 mg/0.5 mL pen injector Inject 1 mL (1.5 mg total) under the skin once a week Takes on Wednesday Indication: DM 2 Active gabapentin (NEURONTIN) 100 mg capsule Take 3 capsules (300 mg total) by mouth 3 (three) times a day 3 Active albuterol HFA (PROVENTIL HFA,VENTOLIN HFA,PROAIR HFA) 90 mcg/actuation inhaler Inhale 2 puffs every 4 (four) hours as needed 3 Active ferrous sulfate 325 mg (65 mg of elemental iron) tablet Take 1 tablet (325 mg total) by mouth 3 (three) times a day with meals 3 Active Entresto 24-26 mg tablet TAKE 1 TABLET BY MOUTH EVERY 12 HOURS 60 tablet 11 5 Active amiodarone (PACERONE) 200 mg tablet Take 2 tablets (400 mg total) by mouth every morning Active aspirin 81 mg enteric coated tablet Take 1 tablet (81 mg total) by mouth daily after lunch Active atorvastatin (LIPITOR) 80 mg tablet Take 1 tablet (80 mg total) by mouth nightly Active ezetimibe (ZETIA) 10 mg tablet Take 1 tablet (10 mg total) by mouth nightly Active dapagliflozin propanediol (FARXIGA) 10 mg tablet Take 1 tablet (10 mg total) by mouth every morning Active bran/gum/fib/jeovanny /psyl/kelp/pec (FIBER 6 ORAL) Take 1 tablet by mouth 3 times a day Active furosemide (LASIX) 40 mg tablet Take 1 tablet (40 mg total) by mouth daily after lunch Active meclizine (ANTIVERT) 25 mg tablet Take 1 tablet (25 mg total) by mouth 3 (three) times a day as needed for dizziness Active spironolactone (ALDACTONE) 25 mg tablet Take 1 tablet (25 mg total) by mouth nightly Active topiramate (TOPAMAX) 50 mg tablet Take 1 tablet (50 mg total) by mouth 2 (two) times a day Active ascorbic acid (vitamin C) 1,000 mg tablet Take 1 tablet (1,000 mg total) by mouth daily after lunch Active acetaminophen 500 mg capsuleIndicatio ns:Pain Take 2 capsules (1,000 mg total) by mouth every 6 (six) hours 5 Active Xarelto 20 mg tablet TAKE 1 TABLET BY MOUTH EVERY DAY WITH BREAKFAST 30 tablet 3 5 Active metoprolol XL (TOPROL-XL) 25 mg extended release tablet TAKE 1 TABLET BY MOUTH EVERY DAY IN THE MORNING FOR 30 DAYS 90 tablet 3 5 Active Active Problems Problem Noted Date Diagnosed Date Renal mass 04/03/2025 Coronary artery disease invo lving [place] coronary artery of [place] heart without angina pectoris 09/28/2024 Left ventricular [...] Encounters Date Type Department Care Team Description 05/24/2025 2:15 PM CDT Office Visit [facility] Cardiology at [address] [place] [address] Alvino Barrera MD Coronary artery disease involving [place] coronary artery of [place] heart without angina pectoris (Primary Dx); Left ventricular dysfunction with reduced left ventricular function 04/23/2025 12:51 PM CDT Anesthesia Event [facility] Operating Room [address] [place] [id number] Tayo Kuhn MD Thompson, Kathryn Ann, PA 04/23/2025 12:00 PM CDT - 04/23/2025 5:00 PM CDT Surgery [facility] Operating Room [address] [place] [phone] Carlos Flores MD Robotic Assisted Right Partial Nephrectomy 04/23/2025 9:48 AM CDT - 04/26/2025 11:30 AM CDT Hospital Encounter [address] [phone] Carlos Flores MD Renal mass Discharge Disposition: Discharge to home or self care from Last 3 Months Immunizations Immunization Administration Dates Next Due Pfizer SARS-CoV-2 Monovalent Vaccination (12+ Yrs) PURPLE 12/22/2020,11/28/2020 Surgical History Surgery Date Site/Laterality Comments BACK SURGERY 04/13/2021 - 05/13/2021 Fusion L5-S1 Medical History Medical History Date Comments Diabetes mellitus Diabetes melli tus; Comments: [facility] 02/18/2015 - Hypertension Hypertension Hx Other Medical hyperlipidemia; Comments: [facility] 02/18/2015 - Hx Other Medical tobacco use; Co mments: [facility] 02/18/2015 - Hx Other Medical deviated septum repair; Comments: [facility] 02/18/2015 - Hx Other Medical right carpal tu nnel release; Comments: [facility] 02/18/2015 - Sleep apnea Low back [...] containing alc ohol? 2-4 times a month 04/12/2025 Q2: How many drinks containi ng alcohol do you have on a typical day when you are drinking? 5 or 6 04/12/2025 Q3: How often do you have si x or more drinks on one occasion? Weekly 04/12/2025 Social Connection and Isolation Panel Answer Date Recorded In a typical week, how many times do you talk on the phone with family, friends, or neighbors? More than three times a week 04/25/2025 How often do you get togethe r with friends or relatives? Three times a week 04/25/2025 How often do you attend chur ch or latter-day services? Never 04/25/2025 Do you belong to any clubs o r organizations such as temple groups, unions, fraternal or athletic groups, or school groups? Yes 04/25/2025 How often do you attend meet ings of the clubs or organizations you belong to? More than 4 times per year 04/25/2025 Are you , , di vorced, , never , or living with a partner? Never 04/25/2025 Overall Financial Resource Strain (CARDIA) Answe r Date Recorded How hard is it for you to pa y for the very basics like food, housing, medical care, and heating? Not hard at all 04/25/2025 Hunger Vital Sign Answer Date Recorded Within the past 12 months, y ou worried that your food would run out before you got the money to buy more. Never true 04/25/20 25 Within the past 12 months, t he food you bought just didn't last and you didn't have money to get more. Never true 04/25/2025 PRAPARE - Transportation Answer Date Re corded In the past 12 months, has l ack of transportation kept you from medical appointments or from getting medications? No 04/13 In the past 12 months, has l ack of transportation kept you from meetings, work, or from getting things needed for daily living? No 04/25/2025 Housing Stability Vital Sign Answer John e Recorded In the last 12 months, was t here a time when you were not able to pay the mortgage or rent on time? No 04/25/2025 In the past 12 months, how m any times have you moved where you were living? 0 04/25/2025 At any time in the past 12 m [facility], were you homeless or living in a halfway (including now)? No 04/25/2025 [facility] Utilities Answer Date Recorded In the past 12 months has th e electric, gas, oil, or water company threatened to shut off services in your home? No 04/25/2025 Personal Safety Answer Date Recorded Have you ever been in or are you currently in a harmful physical or emotional relationship or is someone making you feel afraid or unsafe? 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 Not on file Not on file Not on file Last Filed Vital Signs Vital Sign Reading Time Taken Comments Blood Pressure 122/58 05/24/2025 1:45 PM CDT Pulse 66 05/24/2025 1:45 PM CDT Temperature 36.7 C (98 F) 04/26/2025 8:10 AM CDT Respiratory Rate 16 04/26/2025 8:10 AM CDT Oxygen Saturation 99% 05/24/2025 1:45 PM CDT Inhaled Oxygen Concentration - - Weight 104.2 kg (229 lb 12.8 oz) 05/24/2025 1:45 PM CDT Height 182.9 cm (6') 05/24/2025 1:45 PM CDT Body Mass Index 31.17 05/24/2025 1:45 PM CDT Plan of Treatment Health Maintenance Due Date Last Done Comments Colon Cancer Screening-Colonoscopy 1959 Depression Screening 1959 Hepatitis C Screening 1959 Prostate Cancer Screening-PSA 1959 DTaP/Tdap/Td Vaccine (1 - Tdap) 1970 Hepatitis B Screening 1977 Pneumococcal vaccine 65+ (1 of 2 - PCV) 1978 Lung Cancer Screening 2009 Zoster Vaccine (1 of 2) 2009 Abdominal Aortic Aneurysm (AAA) Screen 2024 Well Visit 65+ 2024 Covid-19 Vaccine ( season) 05/14/202507/2021, 11/28/2020 Influenza Vaccine (#1) 2025 Fall Risk Assessment 04/26/2026 04/26/2025 Medical Devices Implanted Type Area Nick Setter Device Identifier Shelf Expiration Date Model / Serial / Lot [employer] Stent Ureteral Set Double Pigtail Tapered Tip Contour 1med68ta Hydroplus Coated [id number] - [id number] Implanted:Qty: 1 on 04/23/2025 by Carlos Flores MD at [facility] Stent Right: Ureter [employer] 01/02/2028 [id number] / / [id number] Procedures Procedure Name Priority Date/Time Associated Diagnosis Comments EGFR Routine 04/26/2025 6:39 AM CDT CBC WITHOUT DIFFERENTIAL Routine 04/26/2025 6:39 AM CDT BASIC METABOLIC PANEL Routine 04/26/2025 6:39 AM CDT POCT GLUCOSE DEVICE Routine 04/26/2025 6 :02 AM CDT POCT GLUCOSE DEVICE Routine 04/25/2025 8 :03 PM CDT POCT GLUCOSE DEVICE Routine 04/25/2025 4 :22 PM CDT POCT GLUCOSE DEVICE Routine 04/25/2025 1 1:14 AM CDT EGFR Routine 04/25/2025 7:05 AM CDT CBC WITHOUT DIFFERENTIAL Routine 04/25/2025 7:05 AM CDT BASIC METABOLIC PANEL Routine 04/25/2025 7:05 AM CDT POCT GLUCOSE DEVICE Routine 04/25/2025 5 :33 AM CDT POCT GLUCOSE DEVICE Routine 04/24/2025 8 :19 PM CDT POCT GLUCOSE DEVICE Routine 04/24/2025 4 :56 PM CDT POCT GLUCOSE DEVICE Routine 04/24/2025 1 1:29 AM CDT EGFR Routine 04/24/2025 6:08 AM CDT CBC WITHOUT DIFFERENTIAL Routine 04/24/2025 6:08 AM CDT BASIC METABOLIC PANEL Routine 04/24/2025 6:08 AM CDT POCT GLUCOSE DEVICE Routine 04/24/2025 6 :05 AM CDT POCT GLUCOSE DEVICE Routine 04/23/2025 8 :30 PM CDT EGFR STAT 04/23/2025 6:25 PM CDT HEMOGLOBIN AND HEMATOCRIT STAT 04/23/2025 6:25 PM CDT BASIC METABOLIC PANEL STAT 04/23/2025 6:25 PM CDT POCT GLUCOSE DEVICE Routine 04/23/2025 5 :56 PM CDT SURGICAL PATHOLOGY Routine 04/23/2025 3: 29 PM CDT Renal mass FL FLUOROSCOPY < 1 HOUR IP Routine 04/23/2025 1:34 PM CDT NE AN PROCEDURE PLACEHOLDER Routine 04/23/2025 1:23 PM CDT NE AN ELECTIVE ENDOTRACHEAL AIRWAY Routine 04/23/2025 1:23 PM CDT CYSTOSCOPY RETROGRADE PYELOGRAM - INSERTION URETERAL STENT 04/23/2025 12:50 PM CDT Renal mass XI PARTIAL NEPHRECTOMY - LAPAROSCOPIC ROBOTIC ASSISTED 04/23/2025 12:50 PM CDT Renal mass POCT GLUCOSE DEVICE Routine 04/23/2025 1 1:29 AM CDT B CHECK SAMPLE STAT 04/23/2025 10:30 AM CDT from Last 3 Months Results * (ABNORMAL) eGFR (04/26/2025 6:39 AM CDT) eGFR 43(L) >=60 mL/min/1. 73 m2 Comment: Interpretive Data Reference Interval Normal >/= 90 mL/min/1.73m2 Mildly decreased* 60 - 89 mL/min/1.73m2 Mildly to moderately decreased 45 - 59 mL/min/1.73m2 Moderately to severely decreased 30 - 44 mL/min/1.73m2 Severely decreased 15 - 29 mL/min/1.73m2 Kidney Failure < 15 mL/min/1.73m2 *Relative to young adult level Estimated glomerular filtration rate is determined by the 2020 CKD-EPI equation recommended by the National Kidney Foundation (A Unifying Approach to GFR Estimation: Recommendations of the NKF-ASK Task Force on Reassessing the Inclusion of Race in Diagnosing Kidney Disease, JASN 202). The CKD-EPI equation should not be used for patients with unstable renal function and has not been validated in children and those over 70. Current interpretive data was last reviewed 2021. Blood 04/26/2025 6:39 AM CDT 04/26/2025 7:06 AM CDT us Carlos Flores MD LAB BLOOD ORDERABLES Final Res ult Performing Organization Address City/[facility] de Phone Number [facility] [address] [place] [address] * (ABNORMAL) CBC without differential (04/26/2025 6:39 AM CDT) [facility] WBC 14.25(H) 3.80 - 9.90 K/cumm Hgb 11.8(L) 13.0 - 17.5 g/dL [facility] Hct 35.7(L) 38.9 - 50.3 % [facility] Plt 158 150 - 400 K/cumm [facility] MPV 10.8 9.1 - 12.3 fL [facility] RBC 3.57(L) 4.30 - 5.80 M/cumm [facility] MCV 100.0(H) 81.3 - 96.4 fL [facility] MCH 33.1 27.1 - 33.3 pg [facility] MCHC 33.1 32.3 - 35.7 g/dL [facility] RDW CV 13.3 11.1 - 14.9 % [facility] RDW SD 49.1(H) 35.7 - 48.1 fL [facility] NRBC abs 0.00 0.00 - 0.01 K/cumm [facility] Blood 04/26/2025 6:39 AM CDT 04/26/2025 7:06 AM CDT Carlos Flores MD LAB BLOOD ORDERABLES Final Res ult Performing Organization Address [facility] Co de Phone Number [facility] [address] [place] [address] * (ABNORMAL) Basic metabolic panel (04/26/2025 6:39 AM CDT) [facility] Sodium 137 135 - 145 mmol/L Potassium, pl 4.3 3.3 - 4.9 mmol/L [facility] Chloride 103 97 - 110 mmol/L [facility] CO2 21(L) 22 - 32 mmol/L [facility] Anion gap 13 2 - 15 mmol/L [facility] BUN 22 6 - 25 mg/dL [facility] Creatinine 1.74(H) 0.80 - 1.30 mg/dL [facility] Glucose 114 70 - 199 mg/dL [facility] Comment: Interpretive Data Fasting glucose >/= 126 mg/dl is diagnostic for diabetes. Fasting is defined as no caloric intake for at least 8 hours. Fasting glucose between 100 mg/dl to 125 mg/dl is diagnostic of prediabetes. In a patient with classic symptoms of hyperglycemia or hyperglycemic crisis, a random glucose >/= 200 mg/dl is diagnostic for diabetes. In the absence of unequivocal hyperglycemia, results should be confirmed by repeat testing. The classification and Diagnosis of Diabetes Diabetes Care 2021; 46: S19-S40. Current interpretive data was last revised 2022. Calcium 8.6 8.5 - 10.3 mg/dL [facility] Blood 04/26/2025 6:39 AM CDT 04/26/2025 7:06 AM CDT Carlos Flores MD LAB BLOOD ORDERABLES Final Res ult Performing Organization Address City/[facility]/ZIP Co de Phone Number [facility] [address] [place] [place] [address] * POCT glucose (04/26/2025 6:02 AM CDT) [facility] Signature Glucose, POC 122 70 - 199 mg/dL Comment: For Glucose values <35 mg/dl when Hematocrit is >60 mg/dl,the test may not accurately detect significant hypoglycemia,and testing in the Laboratory should be considered if clinically indicated. Blood 04/26/2025 6:02 AM CDT 04/26/2025 6:02 AM CDT Carlos Flores MD LAB POCT ORDERABLES - DEVICE F inal Result Performing Organization Address City/[facility]/ZIP Co de Phone Number [facility] [address] [place] [address] * POCT glucose (04/25/2025 8:03 PM CDT) Glucose, POC 163 70 - 199 mg/dL Comment: For Glucose values <35 mg/dl when Hematocrit is >60 mg/dl,the test may not accurately detect significant hypoglycemia,and testing in the Laboratory should be considered if clinically indicated. Blood 04/25/2025 8:03 PM CDT 04/25/2025 8:03 PM CDT Carlos Flores MD LAB POCT ORDERABLES - DEVICE F inal Result Performing Organization Address [facility] de Phone Number [facility] [address] [facility] [place] [address] * POCT glucose (04/25/2025 4:22 PM CDT) Glucose, POC 148 70 - 199 mg/dL Comment: For Glucose values <35 mg/dl when Hematocrit is >60 mg/dl,the test may not accurately detect significant hypoglycemia,and testing in the Laboratory should be considered if clinically indicated. Blood 04/25/2025 4:22 PM CDT 04/25/2025 4:22 PM CDT Result [facility] Carlso Flores MD LAB POCT ORDERABLES - DEVICE F inal Result Performing Organization Address [facility] de Phone Number [facility] [address] [facility] [place] [address] * POCT glucose (04/25/2025 11:14 AM CDT) Glucose, POC 153 70 - 199 mg/dL Comment: For Glucose values <35 mg/dl when Hematocrit is >60 mg/dl,the test may not accurately detect significant hypoglycemia,and testing in the Laboratory should be considered if clinically indicated. Blood 04/25/2025 11:1 4 AM CDT 04/25/2025 11:14 AM CDT Carlos Flores MD LAB POCT ORDERABLES - DEVICE F inal Result Performing Organization Address [facility] de Phone Number [facility] [address] [place] [address] * (ABNORMAL) eGFR (04/25/2025 7:05 AM CDT) eGFR 46(L) >=60 mL/min/1. 73 m2 Comment: Interpretive Data Reference Interval Normal >/= 90 mL/min/1.73m2 Mildly decreased* 60 - 89 mL/min/1.73m2 Mildly to moderately decreased 45 - 59 mL/min/1.73m2 Moderately to severely decreased 30 - 44 mL/min/1.73m2 Severely decreased 15 - 29 mL/min/1.73m2 Kidney Failure < 15 mL/min/1.73m2 *Relative to young adult level Estimated glomerular filtration rate is determined by the 2020 CKD-EPI equation recommended by the National Kidney Foundation (A Unifying Approach to GFR Estimation: Recommendations of the NKF-ASK Task Force on Reassessing the Inclusion of Race in Diagnosing Kidney Disease, JASN 2020). The CKD-EPI equation should not be used for patients with unstable renal function and has not been validated in children and those over 70. Current interpretive data was last reviewed 2021. Blood 04/25/2025 7:05 AM CDT 04/25/2025 7:26 AM CDT Carlos Flores MD LAB BLOOD ORDERABLES Final Res ult Performing Organization Address [facility] Co de Phone Number [facility] [address] [place] [address] * (ABNORMAL) CBC without differential (04/25/2025 7:05 AM CDT) Pathologist [facility] WBC 12.92(H) 3.80 - 9.90 K/cumm Hgb 12.7(L) 13.0 - 17.5 g/dL [facility] Hct 39.8 38.9 - 50.3 % [facility] Plt 180 150 - 400 K/cumm [facility] MPV 10.2 9.1 - 12.3 fL [facility] RBC 3.95(L) 4.30 - 5.80 M/cumm [facility] MCV 100.8(H) 81.3 - 96.4 fL [facility] MCH 32.2 27.1 - 33.3 pg [facility] MCHC 31.9(L) 32.3 - 35.7 g/dL [facility] RDW CV 13.4 11.1 - 14.9 % [facility] RDW SD 49.9(H) 35.7 - 48.1 fL [facility] NRBC abs 0.00 0.00 - 0.01 K/cumm [facility] Blood 04/25/2025 7:05 AM CDT 04/25/2025 7:26 AM CDT us Carlos Flores MD LAB BLOOD ORDERABLES Final Res ult [facility] [address] [place] [address] * (ABNORMAL) Basic metabolic panel (04/25/2025 7:05 AM CDT) Sodium 136 135 - 145 mmol/L Potassium, pl 4.2 3.3 - 4.9 mmol/L [facility] Chloride 103 97 - 110 mmol/L [facility] CO2 21(L) 22 - 32 mmol/L [facility] Anion gap 12 2 - 15 mmol/L [facility] BUN 18 6 - 25 mg/dL [facility] Creatinine 1.65(H) 0.80 - 1.30 mg/dL [facility] Glucose 139 70 - 199 mg/dL [facility] Comment: Interpretive Data Fasting glucose >/= 126 mg/dl is diagnostic for diabetes. Fasting is defined as no caloric intake for at least 8 hours. Fasting glucose between 100 mg/dl to 125 mg/dl is diagnostic of prediabetes. In a patient with classic symptoms of hyperglycemia or hyperglycemic crisis, a random glucose >/= 200 mg/dl is diagnostic for diabetes. In the absence of unequivocal hyperglycemia, results should be confirmed by repeat testing. The classification and Diagnosis of Diabetes Diabetes Care 2021; 46: S19-S40. Current interpretive data was last revised 2022. Calcium 8.6 8.5 - 10.3 mg/dL [facility] Blood 04/25/2025 7:05 AM CDT 04/25/2025 7:26 AM CDT Carlos Flores MD LAB BLOOD ORDERABLES Final Res ult Performing Organization Address [facility] Co de Phone Number [facility] [address] [place] [place] [address] * POCT glucose (04/25/2025 5:33 AM CDT) Glucose, POC 139 70 - 199 mg/dL Comment: For Glucose values <35 mg/dl when Hematocrit is >60 mg/dl,the test may not accurately detect significant hypoglycemia,and testing in the Laboratory should be considered if clinically indicated. Blood 04/25/2025 5:33 AM CDT 04/25/2025 5:33 AM CDT Carlos Flores MD LAB POCT ORDERABLES - DEVICE F inal Result Performing Organization Address [facility] de Phone Number [facility] [address] [place] [address] * POCT glucose (04/24/2025 8:19 PM CDT) Glucose, POC 116 70 - 199 mg/dL Comment: For Glucose values <35 mg/dl when Hematocrit is >60 mg/dl,the test may not accurately detect significant hypoglycemia,and testing in the Laboratory should be considered if clinically indicated. Blood 04/24/2025 8:19 PM CDT 04/24/2025 8:19 PM CDT Carlos Flores MD LAB POCT ORDERABLES - DEVICE F inal Result Performing Organization Address [facility] Co de Phone Number [facility] [address] [place] [address] * POCT glucose (04/24/2025 4:56 PM CDT) Glucose, POC 119 70 - 199 mg/dL Comment: For Glucose values <35 mg/dl when Hematocrit is >60 mg/dl,the test may not accurately detect significant hypoglycemia,and testing in the Laboratory should be considered if clinically indicated. Blood 04/24/2025 4:56 PM CDT 04/24/2025 4:56 PM CDT Carlos Flores MD LAB POCT ORDERABLES - DEVICE F inal Result Performing Organization Address [facility] Co de Phone Number [facility] [address] [place] [address] * POCT glucose (04/24/2025 11:29 AM CDT) Glucose, POC 118 70 - 199 mg/dL Comment: For Glucose values <35 mg/dl when Hematocrit is >60 mg/dl,the test may not accurately detect significant hypoglycemia,and testing in the Laboratory should be considered if clinically indicated. Blood 04/24/2025 11:2 9 AM CDT 04/24/2025 11:29 AM CDT Carlos Flores MD LAB POCT ORDERABLES - DEVICE F inal Result Performing Organization Address [facility] Co de Phone Number [facility] [address] [place] [place] [address] * (ABNORMAL) eGFR (04/24/2025 6:08 AM CDT) eGFR 52(L) >=60 mL/min/1. 73 m2 Comment: Interpretive Data Reference Interval Normal >/= 90 mL/min/1.73m2 Mildly decreased* 60 - 89 mL/min/1.73m2 Mildly to moderately decreased 45 - 59 mL/min/1.73m2 Moderately to severely decreased 30 - 44 mL/min/1.73m2 Severely decreased 15 - 29 mL/min/1.73m2 Kidney Failure < 15 mL/min/1.73m2 *Relative to young adult level Estimated glomerular filtration rate is determined by the 2020 CKD-EPI equation recommended by the National Kidney Foundation (A Unifying Approach to GFR Estimation: Recommendations of the NKF-ASK Task Force on Reassessing the Inclusion of Race in Diagnosing Kidney Disease, JASN 2020). The CKD-EPI equation should not be used for patients with unstable renal function and has not been validated in children and those over 70. Current interpretive data was last reviewed 2021. Blood 04/24/2025 6:08 AM CDT 04/24/2025 6:21 AM CDT us Carlos Flores MD LAB BLOOD ORDERABLES Final Res ult [facility] [address] [place] [address] * (ABNORMAL) CBC without differential (04/24/2025 6:08 AM CDT) WBC 14.17(H) 3.80 - 9.90 K/cumm Hgb 14.1 13.0 - 17.5 g/dL [facility] Hct 45.1 38.9 - 50.3 % [facility] Plt 206 150 - 400 K/cumm [facility] MPV 9.7 9.1 - 12.3 fL [facility] RBC 4.45 4.30 - 5.80 M/cumm [facility] MCV 101.3(H) 81.3 - 96.4 fL [facility] MCH 31.7 27.1 - 33.3 pg [facility] MCHC 31.3(L) 32.3 - 35.7 g/dL [facility] RDW CV 13.2 11.1 - 14.9 % [facility] RDW SD 49.1(H) 35.7 - 48.1 fL [facility] NRBC abs 0.00 0.00 - 0.01 K/cumm [facility] Blood 04/24/2025 6:08 AM CDT 04/24/2025 6:21 AM CDT Carlos Flores MD LAB BLOOD ORDERABLES Final Res ult Performing Organization Address [facility] Co de Phone Number [facility] [address] [place] [address] * (ABNORMAL) Basic metabolic panel (04/24/2025 6:08 AM CDT) Sodium 139 135 - 145 mmol/L Potassium, pl 5.3(H) 3.3 - 4.9 mmol/L [facility] Chloride 107 97 - 110 mmol/L [facility] CO2 21(L) 22 - 32 mmol/L [facility] Anion gap 11 2 - 15 mmol/L [facility] BUN 14 6 - 25 mg/dL [facility] Creatinine 1.48(H) 0.80 - 1.30 mg/dL [facility] Glucose 132 70 - 199 mg/dL [facility] Comment: Interpretive Data Fasting glucose >/= 126 mg/dl is diagnostic for diabetes. Fasting is defined as no caloric intake for at least 8 hours. Fasting glucose between 100 mg/dl to 125 mg/dl is diagnostic of prediabetes. In a patient with classic symptoms of hyperglycemia or hyperglycemic crisis, a random glucose >/= 200 mg/dl is diagnostic for diabetes. In the absence of unequivocal hyperglycemia, results should be confirmed by repeat testing. The classification and Diagnosis of Diabetes Diabetes Care 2021; 46: S19-S40. Current interpretive data was last revised 2022. Calcium 8.6 8.5 - 10.3 mg/dL [facility] Blood 04/24/2025 6:08 AM CDT 04/24/2025 6:21 AM CDT Carlos Flores MD LAB BLOOD ORDERABLES Final Res ult Performing Organization Address [facility] Co de Phone Number [facility] [address] [place] [address] * POCT glucose (04/24/2025 6:05 AM CDT) Glucose, POC 125 70 - 199 mg/dL Comment: For Glucose values <35 mg/dl when Hematocrit is >60 mg/dl,the test may not accurately detect significant hypoglycemia,and testing in the Laboratory should be considered if clinically indicated. Blood 04/24/2025 6:05 AM CDT 04/24/2025 6:05 AM CDT Carlos Flores MD LAB POCT ORDERABLES - DEVICE F inal Result Performing Organization Address [facility] Co de Phone Number [facility] [address] [place] [address] * POCT glucose (04/23/2025 8:30 PM CDT) Glucose, POC 155 70 - 199 mg/dL Comment: For Glucose values <35 mg/dl when Hematocrit is >60 mg/dl,the test may not accurately detect significant hypoglycemia,and testing in the Laboratory should be considered if clinically indicated. Blood 04/23/2025 8:30 PM CDT 04/23/2025 8:30 PM CDT Carlos Flores MD LAB POCT ORDERABLES - DEVICE F inal Result Performing Organization Address [facility] Co de Phone Number [facility] [address] [place] [address] * eGFR (04/23/2025 6:25 PM CDT) eGFR 62 >=60 mL/min/1. 73 m2 Comment: Interpretive Data Reference Interval Normal >/= 90 mL/min/1.73m2 Mildly decreased* 60 - 89 mL/min/1.73m2 Mildly to moderately decreased 45 - 59 mL/min/1.73m2 Moderately to severely decreased 30 - 44 mL/min/1.73m2 Severely decreased 15 - 29 mL/min/1.73m2 Kidney Failure < 15 mL/min/1.73m2 *Relative to young adult level Estimated glomerular filtration rate is determined by the 2020 CKD-EPI equation recommended by the National Kidney Foundation (A Unifying Approach to GFR Estimation: Recommendations of the NKF-ASK Task Force on Reassessing the Inclusion of Race in Diagnosing Kidney Disease, JASN 2020). The CKD-EPI equation should not be used for patients with unstable renal function and has not been validated in children and those over 70. Current interpretive data was last reviewed 2021. Blood 04/23/2025 6:25 PM CDT 04/23/2025 6:28 PM CDT Carlos Flores MD LAB BLOOD ORDERABLES Final Res ult Performing Organization Address [facility] Co de Phone Number [facility] [address] Department [employer] [place], [place] [id number] * (ABNORMAL) Hemoglobin and hematocrit (04/23/2025 6:25 PM CDT) Hgb 12.8(L) 13.0 - 17.5 g/dL Hct 41.5 38.9 - 50.3 % [facility] Blood 04/23/2025 6:25 PM CDT 04/23/2025 6:28 PM CDT Carlos Flores MD LAB BLOOD ORDERABLES Final Res ult Performing Organization Address [facility]/ZIP Co de Phone Number [facility] [address] Department of [employer] [place], [place] [id number] * (ABNORMAL) Basic metabolic panel (04/23/2025 6:25 PM CDT) Sodium 138 135 - 145 mmol/L Potassium, pl 5.3(H) 3.3 - 4.9 mmol/L [facility] Chloride 109 97 - 110 mmol/L [facility] CO2 18(L) 22 - 32 mmol/L [facility] Anion gap 11 2 - 15 mmol/L [facility] BUN 10 6 - 25 mg/dL [facility] Creatinine 1.28 0.80 - 1.30 mg/dL [facility] Glucose 211(H) 70 - 199 mg/dL [facility] Comment: Interpretive Data Fasting glucose >/= 126 mg/dl is diagnostic for diabetes. Fasting is defined as no caloric intake for at least 8 hours. Fasting glucose between 100 mg/dl to 125 mg/dl is diagnostic of prediabetes. In a patient with classic symptoms of hyperglycemia or hyperglycemic crisis, a random glucose >/= 200 mg/dl is diagnostic for diabetes. In the absence of unequivocal hyperglycemia, results should be confirmed by repeat testing. The classification and Diagnosis of Diabetes Diabetes Care 2021; 46: S19-S40. Current interpretive data was last revised 2022. Calcium 7.7(L) 8.5 - 10.3 mg/dL [facility] Blood 04/23/2025 6:25 PM CDT 04/23/2025 6:28 PM CDT Carlos Flores MD LAB BLOOD ORDERABLES Final Res ult Performing Organization Address City/[facility]/ZIP Co de Phone Number [facility] [address] [place] [address] * POCT glucose (04/23/2025 5:56 PM CDT) Glucose, POC 143 70 - 199 mg/dL Comment: For Glucose values <35 mg/dl when Hematocrit is >60 mg/dl,the test may not accurately detect significant hypoglycemia,and testing in the Laboratory should be considered if clinically indicated. Blood 04/23/2025 5:56 PM CDT 04/23/2025 5:56 PM CDT Carlos Flores MD LAB POCT ORDERABLES - DEVICE F inal Result Performing Organization Address City/[facility]/ZIP Co de Phone Number [facility] [address] [place] [address] * Surgical pathology (04/23/2025 3:29 PM CDT) Tissue (Fat Pad) 04/23/2025 3:29 PM CDT Comment:Placed in formalin i n lab following procedure Tissue specimen (specimen) (Kidney, partial nephrectomy) 04/23/2025 4:59 PM CDT Comment:Placed in formalin i n lab following procedure Narrative PATHOLOGY [facility] - 04/26/2025 12:01 PM CDT [address] [address] Tele: Isabelle Lauren MD - High School Music Director Note to Patients: This report may contain a detailed description of human tissue sent by a health care provider to the laboratory for pathologic evaluation. The content of this report is essential for diagnosis and may provide important critical findings. This information may be unfamiliar to patients to review without a medical professional present. It is advised that the patient review this report in the presence of a health care provider who can answer questions and explain the details. SURGICAL PATHOLOGY REPORT Patient Name: ALVINO ROCHA Address: [address] [place] [address] Gender: M : 1960 (Age: 64) Service: Surgery Location: [place] [address], Hospital #: [id number] Patient Type: [facility] [place] INPATIENT Taken: 04/23/2025 Received 04/24/2025 Reported: 04/26/2025 Physician(s): Howie Kaminski M.D. 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 Report Reviewed and Electronically Signed By Toña Guallpa M.D. SPECIMEN TYPE: A: FAT OVER MASS B: RIGHT RENAL MASS CLINICAL IMPRESSION AND HISTORY: Renal mass GROSS DESCRIPTION: A. Received in formalin labeled ALVINO ROCHA and fat over mass is a 0.8 x 0.5 x 0.2 cm fragment of lobulated soft tissue. The specimen is marked with silver nitrate. The specimen is sectioned to show unremarkable yellow-el lobulated cut surface. The specimen is entirely submitted in A1. B. Received in formalin labeled ALVINO ORCHA and right renal mass is a 38 g, 5 x 5 x 4 cm partial nephrectomy specimen. The specimen is marked with silver nitrate. The resection margin is marked with blue ink. The specimen is sectioned to show a 4.3 x 3.7 x 3.5 cm red-el to yellow-el well-circumscribed cystic and solid mass. The mass is less than 0.1 cm from the blue inked margin and 0.1 cm from the kidney capsule. The mass does not appear to extend into the perinephric fat. Resource Room Special Education Teacher sections are submittedas follows: B1-B2 - Perpendicular sections of one end with mass B3-B4 - Contiguous section with mass B5-B6 - Contiguous section with mass B7-B10 - Contiguous section with mass B11 - Opposing end perpendicular sections with mass jxi/04/24/2025 09:34 LKB,JXI MICROSCOPIC DESCRIPTION: Microscopic examination supports the above captioned diagnosis. Tumor is focally within 0.1 cm of the margin, but the margin is negative for malignancy. KIDNEY: Nephrectomy SPECIMEN Procedure: Partial nephrectomy Specimen Laterality: Right TUMOR Tumor Focality: Unifocal Tumor Size: Greatest Dimension (Centimeters) - 4.3 cm Histologic Type: Clear cell renal cell carcinoma Histologic Grade (WHO / ISUP): G2, nucleoli conspicuous and visible at 400x magnification, not prominent at 100x magnification Tumor Extent: Limited to kidney Histologic Features: Sarcomatoid or rhabdoid features not identified Tumor Necrosis: Not identified Lymphatic and / or Vascular Invasion: Not identified MARGINS Margin Status: All margins negative for invasive carcinoma REGIONAL LYMPH NODES Regional Lymph Node Status: Not applicable (no regional lymph nodes submitted or found) DISTANT METASTASIS Distant Site(s) Involved: Cannot be determined pTNM CLASSIFICATION (AJCC 8th Edition) Reporting of pT, pN, and (when applicable) pM categories is based on information available to the pathologist at the time the report is issued. As per the AJCC (Chapter 1, 8th Ed.) it is the managing physician's responsibility to establish the final pathologic stage based upon all pertinent information, including but potentially not limited to this pathology report. pT Category: pT1b pN Category: pN not assigned (no nodes submitted or found) ADDITIONAL FINDINGS Additional Findings in Kidney: No significant pathologic change identified CAP VERSION: Kidney 4.2.0.0 Clerical Data Follows A; 79808 B; 67042 REPORT IMAGES AND/OR SCANNED DOCUMENTS ONLY VIEWABLE IN PDF FORMAT The immunohistochemical test(s) cited in this report, if any, was developed and its performance characteristics determined by [facility] Pathology Department. It has not been cleared or approved by the U.S. Food and Drug Administration. The FDA has determined that such clearance or approval is not necessary. This test is used for clinical purposes. It should not be regarded as investigational or for research. [facility] is certified under the Clinical Laboratory Improvement Amendments of 1988 (CLIA) as qualified to perform high complexity testing. Immunostains were performed on formalin-fixed paraffin embedded tissue using a polymer diaminobenzidine chromogen detection system. Antibodies used may include clone SP1 (rabbit monoclonal, estrogen receptor), clone 1E2 (rabbit monoclonal progesterone receptor), Ki-67 (rabbit monoclonal, 30-9), CD117 (rabbit polyclonal, c-kit), and anti-Her-2/trish (4B5) (rabbit monoclonal primary antibody). In the event that immunohistochemistry or special stains have been performed, attending physician has confirmed appropriateness of controls. Frozen section, operating room consultation, gross examination and dissection, and case sign out may have been performed in part or completely in the following laboratories: [facility], [address] [place] [address], [address] [place] [id number]. us Carlos Flores MD LAB PATHOLOGY ORDERABLES Final Result PATHOLOGY [facility] Laboratory Receiving [address] [place] [address] * [place] Fluoroscopy < 1 Hour (04/23/2025 1:34 PM CDT) Narrative RAD_PACS_[facility] - 04/23/2025 1:34 PM CDT The images from this study are not interpreted by Radiology. Please refer to the physician's procedure / OR operative note. Result [facility] Carlos Flores MD IMG FLUOROSCOPY PROCEDURES Fin al Result Performing Organization Address [facility]/ZIP Co de Phone Number RAD_PACS_[facility] * NE AN ELECTIVE ENDOTRACHEAL AIRWAY, NE AN PROCEDURE PLACEHOLDER (04/23/2025 1:23 PM CDT) Narrative Linsey Salas CRNA - 04/23/2025 1:23 PM CDT Linsey Salas CRNA 04/23/2025 1:23 PM Airway Patient location: OR Urgency: elective Indications for airway management: anesthesia Difficult airway: no Airway prep: Preoxygenated: yes Patient position: sniffing Mask difficulty assessment: 1 - vent by mask Sedation level during airway: GA Final airway details: Final airway type: endotracheal airway Tube type: ETT ETT size: 8.0 mm Cuffed: yes Technique used for successful ETT placement: video laryngoscopy Insertion site: oral Video blade type: Last Blade size: 4 Cormack-Lehane (video): grade I - full view of glottis Cuff volume: 10 mL Cuff inflated with: air Placement verified by: auscultation and CO2 detection Airway secured with: silk tape Number of attempts: 1 Result [facility] Tayo Kuhn MD ANESTHESIA ORDERAB LES Final Result * POCT glucose (04/23/2025 11:29 AM CDT) [facility] Signature Glucose, POC 111 70 - 199 mg/dL Comment: For Glucose values <35 mg/dl when Hematocrit is >60 mg/dl,the test may not accurately detect significant hypoglycemia,and testing in the Laboratory should be considered if clinically indicated. Blood 04/23/2025 11:2 9 AM CDT 04/23/2025 11:29 AM CDT Result [facility] Carlos Flores MD LAB POCT ORDERABLES - DEVICE F inal Result Performing Organization Address [facility] Co de Phone Number [facility] [address] Department of Laboratories [place], [place] [id number] [phone] * Check Sample (04/23/2025 10:30 AM CDT) ABO Rh O Positive MBC HCLL OTHER 04/23/2025 10:3 0 AM CDT 04/23/2025 11:11 AM CDT us Carlos Flores MD LAB BLOOD ORDERABLES Final Res ult [facility] [address] [place] [address] MBC from Last 3 Months Insurance MEDICARE [facility] Advance Directives For more information, please contact: [phone] * Full Code (Latest Code Status on File) Date Activated Date Inactivated Comments 04/23/2025 6:08 PM 04/26/2025 3:30 PM Care Teams Boss Miner Relationship Specialty Start Date End Date Calderon Nick MD PCP - General 02/18/15 [place] [address] [place] [id number] Consulting Physician Urology 04/24/25
--- OUTSIDE RECORDS SUMMARY | 2025-07-20 12:34 | XMS_ITS | Clinical Summary ---
Author Organization [facility] Caesar Carreon Address [address] [place] [address] Care Team Providers Care Diagnostic Radiologist Name Role Phone Unavailable Primary Care Provider [...] Encounters Date Type Department Care Team Description 05/29/2025 External Device Data [facility] ABSTRACTION Provider, Abstract 05/22/2025 External Device Data [facility] ABSTRACTION Provider, Abstract from Last 3 Months Family History Medical History Relation Name Comments Diabetes Brother Heart Disease Father Lung Cancer Mother No Known Problems Sister Relation Name Status Comments Brother Alive Father Mother Sister Alive Social History Tobacco Use Types Packs/Day Years Used Date Smoking Tobacco: Every Day Cigarettes 1 55.8 Started: 09/13/1969 Smokeless Tobacco: Never Tobacco Cessation:Ready [...] 5 years 2004 Lung Cancer Screening 2009 RSV VACCINE (60+ or ) (1 - Risk 50-74 years 1-dose series) 2009 ZOSTER VACCINE (1 of 2) 2009 Abdominal Aortic Aneurysm (AAA) Screening 2024 INFLUENZA VACCINE (#1) 2025 COVID-19 Vaccine ( season) 05/14/202507/2021, 11/28/2020 Insurance MEDICARE PART A AND B PH[facility]ICI[employer] [facility]
[2025-07-20 12:39] LABS: Alanine Aminotransferase 16 U/L (6-50); Albumin Level 3.8 g/dL (3.5-5.1); Alkaline Phosphatase 44 U/L (38-126); Anion Gap 11 mmol/L (4-12); Aspartate Amino Transferase 21 U/L (17-59); Bilirubin,Total 0.3 mg/dL (0.2-1.3); Blood Urea Nitrogen 24 mg/dL (9-20); Calcium 8.5 mg/dL (8.4-10.2); Carbon Dioxide 20 mmol/L (22-30); Chloride 107 mmol/L (98-107); Estimated CRCL calculation 39 ml/min; Estimated Glomerular Filt Rate 36; Glucose 149 mg/dL (65-110); Potassium 3.8 mmol/L (3.4-5.0); Sodium 138 mmol/L (137-145); Total Protein 6.2 g/dL (6.3-8.2)
[2025-07-20 12:49] LABS: Hematocrit 20.4 % (42.0-52.0); Hemoglobin 6.0 g/dL (14.0-18.0)
[2025-07-20 12:53] LABS: Anisocytosis 2+; Macrocytosis 2+ (NORMAL); Schistocytes None Seen
--- NOTE | 2025-07-20 13:52 | ED.GENADULT ---
HPI - General Adult General Chief complaint: Weakness Stated complaint: weak/dizzy - worsening x 1 wk Time Seen by Provider: 07/20/25 12:08 Source: patient Mode of arrival: ambulatory Limitations: no limitations History of Present Illness HPI narrative: 65-year-old with a history of hypertension, diabetes, diabetic neuropathy, anemia here with a complains of feeling dizzy for past 1 week. Patient states that he feels better when he lays down. He denies any headache or chest pain or shortness of breath. Denies any nausea, vomiting or abdominal pain may have blood in the stool once in a while. Patient states that he was here 4 weeks ago for this same issue. He also states that he had colonoscopy recently by Dr. Mckeon for rectal bleeding which was unremarkable Onset (ago): week(s) (1) Severity: moderate Relieving factors: none Exacerbating factors: none Associated symptoms: denies other symptoms Treatments prior to arrival: none Related Data Home Medications ?Medication ?Instructions ?Recorded ?Confirmed ?Last Taken ?Type spironolactone 25 mg tablet 25 mg PO DAILY 12/25/22 06/19/25 Unknown History metoprolol succinate 25 mg 25 mg PO DAILY 01/26/24 06/19/25 Unknown History tablet,extended release 24 hr docusate sodium 100 mg capsule 100 mg PO DAILY 02/15/24 06/19/25 Unknown History (Dulcolax Stool Softener (docusate)) mecobalamin (vitamin B12) 1,000 1,000 mcg PO .every other day 05/19/24 06/19/25 Unknown History mcg lozenges topiramate 50 mg tablet (Topamax) 50 mg PO BID 11/15/24 06/19/25 Unknown History Allergies Allergy/AdvReac Type Severity Reaction Status Date / Time No Known Allergies Allergy Verified 07/20/25 11:58 Review of Systems Review of Systems: All systems reviewed & are unremarkable except as noted in HPI and below Constitutional: Constitutional: Reports no additional constitutional complaints Eyes: Eyes: Reports no additional eye complaints ENT: Reports system reviewed and no additional complaints, except as documented Cardiovascular: Cardiovascular: Reports no additional cardiovascular complaints Respiratory: Respiratory: Reports no additional respiratory complaints Gastrointestinal: Gastrointestinal: Reports no additional gastrointestinal complaints Musculoskeletal: Musculoskeletal: Reports no additional musculoskeletal complaints Integumentary/Breasts: Skin/Breast: Reports system reviewed and no additional complaints, except as docu [facility] Past Medical History Medical History Cerumen impaction JUANA (acute kidney injury) CKD (chronic kidney disease) stage 3, GFR 30-59 ml/min Elevated serum creatinine Elevated WBC count Screening for malignant neoplasm of prostate Enlarged thyroid Preoperative clearance Abnormal EKG Renal mass, right Hypotension Current smoker Constipation Diabetic foot Uncontrolled diabetes mellitus Microalbuminuria Vitamin B12 deficiency Lumbar spondylosis Screening for thyroid disorder H/O blood clots Blood clot associated with vein wall inflammation Peripheral artery disease Abnormal MRI, lumbar spine Surgical History Surgical History History of partial nephrectomy H/O cardiac catheterization Family History Family History Grandparent Diabetes mellitus Father Acute myocardial infarction Heart disease Mother No problems noted. Sibling Diabetes mellitus Other Family history of cardiovascular disease Hypertension Social History Social History Smoking packs per day: 1 Smoking cigarettes per day: 20.0 Years smoked: 49 Smoking pack-years: 49.00 Tobacco type: cigarettes Second hand tobacco smoke exposure: No Alcohol intake: current Drinks per week: 10 Alcohol use details: BEERS Substance use: never Substance use type: does not use Other substance usage details: nyquil Lack of Transportation: No Lack of Food: Never True Current Housing: I Have Housing Concerned About Future Housing: No Difficulty Paying Gas/Electric Bills: No Difficulty Paying for Meds: No Currently Unemployed: No Education: High School Diploma/GED Difficulty w/ Childcare or Family Care: No Living arrangements: with family Occupation/Education: retired 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 Gender identity (if verbalized by the patient): Male Spiritual care concerns: No Exam Narrative: GENERAL: Well-appearing, well-nourished, and in no acute distress. HEAD: Normocephalic, atraumatic. EYES: PERRLA and EOMI. ENT: Nares clear, no rhinorrhea or epistaxis. Mucous membranes moist. NECK: Supple. CHEST: Clear to auscultation. No respiratory distress. HEART: Regular rate and rhythm. No murmur heard. Normal peripheral pulses. ABDOMEN: Soft, nontender, nondistended, normal active bowel sounds. EXTREMITIES: Normal range of motion. No edema. SKIN: Warm, dry, no rash. NEURO: No focal deficits. Alert and oriented x3. PSYCH: Normal mood and affect. Course Course Emergency Course: Notified patient about his lab work agreeable with admission. Will transfuse 1 unit of PRBC. I did review his colonoscopy report. Discussed with the hospitalist accepted the patient Vital Signs Vital signs: Vital Signs Temperature 36.4 C 07/20/25 11:53 Pulse Rate 74 07/20/25 11:53 Respiratory Rate 18 07/20/25 11:53 Blood Pressure 112/40 L 07/20/25 11:53 Pulse Oximetry 97 07/20/25 11:53 Oxygen Delivery Room Air 07/20/25 11:53 Temperature 36.4 C 07/20/25 11:53 Pulse Rate 67 07/20/25 12:34 Respiratory Rate 18 07/20/25 11:53 Blood Pressure 112/40 L 07/20/25 11:53 Pulse Oximetry 100 07/20/25 12:35 Oxygen Delivery Room Air 07/20/25 12:35 Medical Decision Making MDM Narrative Medical decision making narrative: 65-year-old with a history of hypertension diabetes, anemia, possible GI bleed here with the lightheadedness for past 1 week his exam is unremarkable had a recent workup in the hospital few weeks ago for the same. We will do CBC chemistry and transfuse if the hemoglobin is low. Differential Diagnosis Differential Diagnosis: Dehydration, anemia, GI bleed Vital Signs Vital Signs: Vital Signs Temperature 36.4 C 07/20/25 11:53 Pulse Rate 74 07/20/25 11:53 Respiratory Rate 18 07/20/25 11:53 Blood Pressure 112/40 L 07/20/25 11:53 Pulse Oximetry 97 07/20/25 11:53 Oxygen Delivery Room Air 07/20/25 11:53 Temperature 36.4 C 07/20/25 11:53 Pulse Rate 67 07/20/25 12:34 Respiratory Rate 18 07/20/25 11:53 Blood Pressure 112/40 L 07/20/25 11:53 Pulse Oximetry 100 07/20/25 12:35 Oxygen Delivery Room Air 07/20/25 12:35 Lab Data Lab results reviewed: Yes I reviewed the patient's lab results. 07/20/25 12:18 07/20/25 12:18 Labs: Lab Results 07/20/25 Range/Units 12:18 WBC 11.1 H (4.5-10.0) K/mm3 RBC 1.80 L (4.6-6.20) M/mm3 Hgb 6.0 L* (14.0-18.0) g/dL Hct 20.4 L* (42.0-52.0) % MCV 113.3 H (80-100) fl MCH 33.3 (26-34) pg MCHC 29.4 L (32-36) g/dl RDW 19.1 H (11.5-14.5) % Plt Count 230 (150-375) k/mm3 MPV 11.2 H (7.4-10.4) fl Immature Gran % (Auto) 2.7 H (0-0.5) % Neut % (Auto) 67.9 (45.5-73.1) % Lymph % (Auto) 18.8 (18.3-44.2) % [place] % (Auto) 7.8 (2.6-8.5) % Eos % (Auto) 2.1 (0-4.4) % Baso % (Auto) 0.7 (0.2-1.2) % Lymph # (Auto) 2.08 (0.9-3.2) K/mm3 [place] # (Auto) 0.9 H (0.1-0.6) K/mm3 Eos # (Auto) 0.2 (0-0.3) K/mm3 Baso # (Auto) 0.1 (0.0-0.1) K/mm3 Abs Immat Gran (auto) 0.30 H (0.00-0.031) K/mm3 Absolute Neuts (auto) 7.5 H (1.3-6.7) K/mm3 Absolute Nucleated RBC 0.060 H (0.0-0.012) K/mm3 Band Neutrophils % Not Reportable Nucleated RBC % 0.5 H (0.0-0.2) % Platelet Estimate Adequate (Adequate) Anisocytosis 2+ Macrocytosis 2+ (NORMAL) Schistocytes None seen Sodium 138 (137-145) mmol/L Potassium 3.8 (3.4-5.0) mmol/L Chloride 107 (98-107) mmol/L Carbon Dioxide 20 L (22-30) mmol/L Anion Gap 11 (4-12) mmol/L BUN 24 H D (9-20) mg/dL Creatinine 1.90 H (0.7-1.3) mg/dL Estim Creat Clear Calc 39 ml/min Estimated GFR 36 L (59 - ) Glucose 149 H (65-110) mg/dL Calcium 8.5 (8.4-10.2) mg/dL Total Bilirubin 0.3 (0.2-1.3) mg/dL AST 21 (17-59) U/L ALT 16 (6-50) U/L Alkaline Phosphatase 44 (38-126) U/L Total Protein 6.2 L (6.3-8.2) g/dL Albumin 3.8 (3.5-5.1) g/dL Blood Type O Positive Antibody Screen Negative Crossmatch See Detail ECG Data EKG #1: ECG completion date: 07/20/25 ECG completion time: 12:01 EKG Interpretation: normal rate (76), sinus rhythm, no ectopy, no ST changes, normal QRS and normal QT Critical Care Time Critical Care Time Total Critical Care Time: 45 (Severe anemia transfusion of blood products) Discharge Plan Discharge Clinical Impression: Anemia Patient Disposition: Still a Patient Condition: Stable Patient Language: Khmer Prescriptions: No Action spironolactone 25 mg tablet 25 mg PO DAILY metoprolol succinate 25 mg tablet extended release 24 hr 25 mg PO DAILY topiramate [Topamax] 50 mg tablet 50 mg PO BID gabapentin 300 mg capsule 600 mg PO TID Qty: 180 6RF Debrox 6.5 % drops 5 drp EACH EAR Q12H 4 Days Qty: 15 1RF amiodarone [Pacerone] 200 mg Tablet 400 mg PO DAILY@0800 30 Days Qty: 30 0RF aspirin 81 mg Tablet,Delayed Release (Dr/Ec) 81 mg PO QAM Qty: 30 0RF furosemide 40 mg Tablet 40 mg PO DAILY 30 Days Qty: 30 0RF Entresto 24-26 mg Tablet 1 tablet PO Q12HR Qty: 60 0RF docusate sodium [Dulcolax Stool Softener (dss)] 100 mg Capsule 100 mg PO DAILY Xarelto 20 mg tablet 20 mg PO DAILY Qty: 30 0RF Rx Instructions: must administer with evening meal albuterol sulfate 90 mcg/actuation HFA aerosol inhaler See Rx Instructions .ROUTE .COMPLEX Qty: 8.5 0RF Dose Instruction: INHALE 1 PUFF EVERY 4 HOURS NEEDED FOR SHORTNESS OF BREATH OR WHEEZING Rx Instructions: INHALE 1 PUFF EVERY 4 HOURS NEEDED FOR SHORTNESS OF BREATH OR WHEEZING mecobalamin (vitamin B12) 1,000 mcg lozenge 1,000 mcg PO .every other day Rx Instructions: allow to dissolve in mouth OR may chew lightly before swallowing cholecalciferol (vitamin D3) 125 mcg (5,000 unit) capsule 125 mcg PO DAILY Qty: 90 3RF ezetimibe 10 mg tablet See Rx Instructions .ROUTE .COMPLEX Qty: 90 2RF Dose Instruction: TAKE 1 TABLET BY MOUTH ONCE DAILY Rx Instructions: TAKE 1 TABLET BY MOUTH ONCE DAILY dulaglutide 1.5 mg/0.5 mL pen injector 1.5 mg .ROUTE .COMPLEX Qty: 2 2RF Rx Instructions: 1.5 mg; atorvastatin 80 mg tablet 80 mg PO DAILY Qty: 90 1RF meclizine 25 mg tablet 25 mg PO TID PRN (Reason: dizziness) 10 Days Qty: 30 0RF Follow-up/Referrals: Calderon Nick MD [Primary Care Provider, Family Practice] Time of Disposition: 14:03
[2025-07-20] MEDS: SODIUM CHLORIDE 0.9% IV 250 ML 30 ML IV CONT (14:18)
[2025-07-20] MEDS: TUBING, BLOOD PLUM PUMP TUBING 1 EACH XX (14:18)
--- NOTE | 2025-07-20 15:16 | P.HP_ITS ---
H&P: HPI History of Present Illness Date/Time: 07/20/25 15:16 Chief Complaint: dizzy and weakness Narrative: 65-year-old male past medical history of hypertension, diabetes, neuropathy, GI bleeds who presents the hospital with dizziness and weakness. Patient was seen by GI on 02/24/2024 and had the colonoscopy. Patient is a poor historian. He states that today he was dizzy, lightheaded and short of breath 30 presented to the hospital he cannot give any other details. He denies bloody stools but he says it is dark. He states he is unsure if it is a normal dark color or not. Patient denies nausea vomiting fever chills. Lab work in the ED shows leukocytosis 11.1, hemoglobin of 6.0 with hemoglobin last month being 10.5, BUN of 24, creatinine of 1.9 previous creatinine being 1.44, glucose 149, chest x-ray just shows mild emphysema. EKG shows sinus rhythm QTC 520. Patient was given 1 unit RBCs in the ED. Entresto on hold Review of Systems Review of Systems: 12 systems were reviewed and are negativ e except for as per HPI. [facility] Past Medical History Medical History Cerumen impaction JUANA (acute kidney injury) CKD (chronic kidney disease) stage 3, GFR 30-59 ml/min Elevated serum creatinine Elevated WBC count Screening for malignant neoplasm of prostate Enlarged thyroid Preoperative clearance Abnormal EKG Renal mass, right Hypotension Current smoker Constipation Diabetic foot Uncontrolled diabetes mellitus Microalbuminuria Vitamin B12 deficiency Lumbar spondylosis Screening for thyroid disorder H/O blood clots Blood clot associated with vein wall inflammation Peripheral artery disease Abnormal MRI, lumbar spine Surgical History Surgical History History of partial nephrectomy H/O cardiac catheterization Family History Family History Grandparent Diabetes mellitus Father Acute myocardial infarction Heart disease Mother No problems noted. Sibling Diabetes mellitus Other Family history of cardiovascular disease Hypertension Social History Social History Smoking packs per day: 1 Smoking cigarettes per day: 20.0 Years smoked: 49 Smoking pack-years: 49.00 Smoking status: Current every day smoker Tobacco type: cigarettes Second hand tobacco smoke exposure: No Alcohol intake: current Drinks per week: 0 Alcohol use details: BEERS Substance use: never Substance use type: does not use Other substance usage details: nyquil Lack of Transportation: No Lack of Food: Never True Current Housing: I Have Housing Concerned About Future Housing: No Difficulty Paying Gas/Electric Bills: No Difficulty Paying for Meds: No Currently Unemployed: No Education: High School Diploma/GED Difficulty w/ Childcare or Family Care: No Living arrangements: with family Occupation/Education: retired 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 Gender identity (if verbalized by the patient): Male Spiritual care concerns: No Meds Home Medications and Allergies Home Medications ?Medication ?Instructions ?Recorded ?Confirmed ?Type spironolactone 25 mg tablet 25 mg PO DAILY 12/25/22 History amiodarone 200 mg tablet (Pacerone) 400 mg (2 x 200 mg ) PO DAILY@0800 02/02/23 07/20/25 Rx 30 days #30 tabs aspirin 81 mg tablet,delayed 81 mg PO QAM #30 tabs 07/20/25 Rx release furosemide 40 mg tablet 40 mg PO DAILY 30 days #30 t abs 02/02/23 07/20/25 Rx sacubitril 24 mg-valsartan 26 mg 1 tablet PO Q12HR #60 tabs 02/02/23 07/20/25 Rx tablet (Entresto) rivaroxaban 20 mg tablet (Xarelto) 20 mg PO DAILY #30 tabs 04/01/23 07/20/25 Rx metoprolol succinate 25 mg 25 mg PO DAILY 01/26/2404/06 History tablet,extended release 24 hr gabapentin 300 mg capsule 600 mg (2 x 300 mg) PO TID # 180 11/15/24 07/20/25 Rx caps topiramate 50 mg tablet (Topamax) 50 mg PO BID 5 07/20/25 History cholecalciferol (vitamin D3) 125 125 mcg PO DAILY #90 caps 05/07/25 07/20/25 Rx mcg (5,000 unit) capsule ezetimibe 10 mg tablet See Rx Instructions .Route 0 05/07/25 07/20/25 Rx .COMPLEX #90 tabs atorvastatin 80 mg tablet 80 mg PO DAILY #90 tabs 05/1507/20/25 Rx meclizine 25 mg tablet 25 mg PO TID PRN dizziness 1 0 days 07/13/25 07/20/25 Rx #30 tabs dulaglutide 1.5 mg/0.5 mL 1.5 mg subcut WEEKLY 5 07/20/25 History subcutaneous pen injector ferrous sulfate 325 mg (65 mg 325 mg PO TID 07/20/25 1 09/19/24 History iron) tablet (iron) Allergies Allergy/AdvReac Type Severity Reaction Status Date / Time No Known Allergies Allergy Verified 07/20/25 17:19 Vital Signs Vital Signs - 24 hr 07/20/25 11:53 07/20/25 12:34 07/20/25 12:35 Temperature 97.6 F Pulse Rate 74 67 Respiratory Rate 18 Blood Pressure 112/40 L Pulse Oximetry 97 100 Oxygen Delivery Room Air Room Air 07/20/25 13:03 07/20/25 13:06 07/20/25 13:08 Temperature Pulse Rate 68 66 69 Respiratory Rate 24 H 17 15 Blood Pressure 77/31 L 79/34 L 109/55 L Pulse Oximetry 100 100 100 Oxygen Delivery 07/20/25 13:16 07/20/25 13:31 07/20/25 13:56 Temperature 98 F Pulse Rate 67 67 64 Respiratory Rate 21 H 11 L 13 Blood Pressure 111/44 L 100/51 L 107/49 L Pulse Oximetry 100 100 100 Oxygen Delivery 07/20/25 13:59 07/20/25 14:17 07/20/25 14:19 Temperature 98.1 F Pulse Rate 63 59 L 60 Respiratory Rate 11 L 13 13 Blood Pressure 107/49 L 90/45 L 97/42 L Pulse Oximetry 98 100 100 Oxygen Delivery 07/20/25 14:20 07/20/25 14:31 Temperature Pulse Rate 60 62 Respiratory Rate 20 16 Blood Pressure 97/42 L 108/49 L Pulse Oximetry 100 100 Oxygen Delivery Exam Narrative: General: well appearing, appears stated age. HEENT: normocephalic, atraumatic. Mucous membranes moist. EOMI, PERRLA, bilateral sclera anicteric, no conjunctival injection. Neck supple without JVD, lymphadenopathy, or bruit. Respiratory: clear bilaterally. No rales/rhonic/wheezes. Cardiovascular: Regular rate and rhythm, normal S1-S2. No murmurs, rubs, or clicks. PMI is nondisplaced, capillary refill less than 3 second. Abdomen: Soft, round, no pulsatile masses, nondistended and nontender. No rebound, no guarding. Bowel sounds present to all four quadrants. No high pitch or tinkling sounds, resonant to percussion. Extremities: No cyanosis, clubbing, or edema present. Pulses are palpable 2/2. Active ROM to all four extremities. Neuro: Alert and orientated x 4. PERRLA. Cranial nerves 2-12 intact without focal deficit. Skin: Warm, dry, and intact, without rash, erythema, or lesion. Psych: pleasant, cooperative, normal speech, normal affect, no hallucinations, no dysarthia H&P: Results Labs Labs: Short CBC 07/20/25 Range/Units 12:18 WBC 11.1 H (4.5-10.0) K/mm3 Hgb 6.0 L* (14.0-18.0) g/dL Hct 20.4 L* (42.0-52.0) % Plt Count 230 (150-375) k/mm3 BMP 07/20/25 12:18 Sodium 138 Potassium 3.8 Chloride 107 Carbon Dioxide 20 L BUN 24 H D Creatinine 1.90 H Glucose 149 H Calcium 8.5 Liver Function 07/20/25 Range/Units 12:18 Total Bilirubin 0.3 (0.2-1.3) mg/dL AST 21 (17-59) U/L ALT 16 (6-50) U/L Alkaline Phosphatase 44 (38-126) U/L Albumin 3.8 (3.5-5.1) g/dL Assessment and Plan Assessment and plan (1) Anemia: Qualifiers: Anemia type: iron deficiency Iron deficiency anemia type: other iron deficiency Qualified Code(s): D50.8 - Other iron deficiency anemias Code(s): D64.9 - Anemia, unspecified Status: Acute Assessment and Plan: History of GI bleeds 1 unit RBCs transfused in ED H&H q.6 Transfuse for hemoglobin below 7 or symptomatic Full liquid diet now NPO midnight for possible procedure GI consulted for possible GI bleed IV Protonix (2) Essential hypertension: Code(s): I10 - Essential (primary) hypertension Status: Acute Assessment and Plan: Hold antihypertensives due to anemia (3) CHF (congestive heart failure): Qualifiers: Heart failure chronicity: chronic Heart failure type: unspecified Qualified Code(s): I50.9 - Heart failure, unspecified Code(s): I50.9 - Heart failure, unspecified Status: Acute Assessment and Plan: Continue diuretics (4) Coronary artery disease: Code(s): I25.10 - Atherosclerotic heart disease of [place] coronary artery without angina pectoris Status: Acute Assessment and Plan: Continue statin, Entresto and metoprolol Holding Eliquis for a possible GI bleed (5) Type 2 diabetes mellitus without complications: Code(s): E11.9 - Type 2 diabetes mellitus without complications Status: Acute Assessment and Plan: Carmen-Matias kwong HS SSI L Quality VTE Prophylaxis VTE prophylaxis: mechanical ordered Hospitalist MIPS Advance Care Plan I have confirmed that the patient's Advanced Care Plan is present, code status is documented, or surrogate decision maker is listed in patient medical record.: Yes Medication Reconciliation I have utilized all available resources to obtain, update and review the patients current medications (includes all prescriptions, OTC, herbals, cannabis, and nutritional supplements).: Yes
[2025-07-20 16:54] LABS: Hematocrit 21.9 % (42.0-52.0); Hemoglobin 7.0 g/dL (14.0-18.0)
[2025-07-20] MEDS: SODIUM CHLORIDE 0.9% IV 1,000 ML 75 ML IV CONT (18:00)
[2025-07-20 21:27] LABS: Hematocrit 23.6 % (42.0-52.0); Hemoglobin 7.3 g/dL (14.0-18.0)
[2025-07-20] MEDS: PANTOPRAZOLE SODIUM IV 40 MG VIAL 80 MG IV PUSH (22:31)
[2025-07-21] VITALS (16 sets, daily range): BP systolic 90–129; BP diastolic 34–80; PULSE 54–71; RESP 14–20; TEMP 36–36.7; O2SAT 98–100
[2025-07-21] MEDS: GABAPENTIN 300 MG CAPSULE 600 MG PO ×3 (05:19→21:24)
[2025-07-21 07:14] LABS: Hematocrit 22.6 % (42.0-52.0); Immature Granulocyte Percent A 1.4 % (0-0.5); Lymphocytes Absolute Auto 1.85 K/mm3 (0.9-3.2); Mean Corpuscular HGB Conc 30.1 g/dl (32-36); Mean Corpuscular Hemoglobin 32.2 pg (26-34); Mean Corpuscular Volume 107.1 fl (80-100); Nucleated Red Blood Cells Absolute Auto 0.020 K/mm3 (0.0-0.012); Nucleated Red Blood Cells Perc 0.2 % (0.0-0.2); Platelet Count Result 194 k/mm3 (150-375); Red Blood Count 2.11 M/mm3 (4.6-6.20); White Blood Count 8.4 K/mm3 (4.5-10.0)
[2025-07-21 07:33] LABS: Anion Gap 5 mmol/L (4-12); Blood Urea Nitrogen 18 mg/dL (9-20); Calcium 8.1 mg/dL (8.4-10.2); Carbon Dioxide 21 mmol/L (22-30); Chloride 112 mmol/L (98-107); Estimated CRCL calculation 52 ml/min; Estimated Glomerular Filt Rate 45; Glucose 81 mg/dL (65-110); Potassium 3.4 mmol/L (3.4-5.0); Sodium 138 mmol/L (137-145)
[2025-07-21 07:48] LABS: Anisocytosis 1+; Hemoglobin 6.8 g/dL (14.0-18.0)
[2025-07-21 07:49] LABS: Hypochromasia Occasional; Macrocytosis Occasional (NORMAL); Schistocytes None Seen
[2025-07-21] MEDS: SODIUM CHLORIDE 0.9% IV 250 ML 30 ML IV CONT (08:47)
[2025-07-21] MEDS: PANTOPRAZOLE SODIUM IV 40 MG VIAL IV PUSH (09:07)
[2025-07-21] MEDS: TUBING, BLOOD PLUM PUMP TUBING 1 EACH XX (09:13)
[2025-07-21] MEDS: EZETIMIBE 10 MG TABLET BY MOUTH (09:51)
[2025-07-21] MEDS: FERROUS SULFATE 325 MG TABLET PO ×3 (09:51→17:04)
[2025-07-21] MEDS: ATORVASTATIN 40 MG TABLET 80 MG PO (09:51)
[2025-07-21] MEDS: TOPIRAMATE 25 MG TABLET 50 MG PO ×2 (09:52→21:25)
--- NOTE | 2025-07-21 12:17 | PM.IMPN ---
Progress Note: A&P Assessment and Plan (1) GI bleed: Code(s): K92.2 - Gastrointestinal hemorrhage, unspecified Status: Acute Assessment and Plan: History of GI hemorrhage in the past, patient has history of CAD and prior DVT 3 years ago on apixaban. Patient reports GI bleeds of started also starting anticoagulation. Admitted due to hemoglobin 6.0, improved to 7.3 after 1 PRBC, however repeat hemoglobin was 6.8. GI has been consulted. Patient feels okay but fatigued this morning. He has history of chronic constipation, last bowel movement was dark as in HPI. Patient wishes to be home however was counseled on necessity of being monitored for drops in hemoglobin given he has been needing 2 units of red blood cells transfused so far. He understood and acknowledged. One PRBC ordered due to 2nd drop in hemoglobin, with follow-up CBC after completing infusion GI has been contacted, they recommend medical management at this time with transfusion to maintain hemoglobin above 7, IV ppi, liquid diet as tolerated. (2) Anemia: Code(s): D64.9 - Anemia, unspecified Status: Acute (3) Essential hypertension: Code(s): I10 - Essential (primary) hypertension Status: Acute Assessment and Plan: Blood pressure currently soft due to blood loss, antihypertensives on hold (4) CHF (congestive heart failure): Qualifiers: Heart failure chronicity: chronic Heart failure type: unspecified Qualified Code(s): I50.9 - Heart failure, unspecified Code(s): I50.9 - Heart failure, unspecified Status: Acute Assessment and Plan: Diuretics on hold due to soft blood pressure (5) CKD (chronic kidney disease) stage 3, GFR 30-59 ml/min: Code(s): N18.30 - Chronic kidney disease, stage 3 unspecified Status: Acute Assessment and Plan: Creatinine 1.9 on admission, improving to 1.56 Avoid nephrotoxic agents Monitor renal function daily (6) Coronary artery disease: Code(s): I25.10 - Atherosclerotic heart disease of [place] coronary artery without angina pectoris Status: Acute Assessment and Plan: As above history of CAD currently on apixaban Apixaban on hold due to active GI bleeding (7) Type 2 diabetes mellitus without complications: Code(s): E11.9 - Type 2 diabetes mellitus without complications Status: Acute Assessment and Plan: Accu-Cheks a.c. SSI Plan Follow-up with GI regards to endoscopy/colonoscopy if they deem it indicated Monitor CBC to ensure hemoglobin remains above 7, given CAD history patient probably to benefit from keeping it above 8 Subjective Date/time seen: 07/21/25 12:17 Interval history: 65-year-old male past medical history of hypertension, diabetes, neuropathy, GI bleeds who presents the hospital with dizziness and weakness. Patient was seen by GI on 02/24/2024 and had the colonoscopy. Patient is a poor historian. He states that today he was dizzy, lightheaded and short of breath 30 presented to the hospital he cannot give any other details. He denies bloody stools but he says it is dark. He states he is unsure if it is a normal dark color or not. Patient denies nausea vomiting fever chills. Lab work in the ED shows leukocytosis 11.1, hemoglobin of 6.0 with hemoglobin last month being 10.5, BUN of 24, creatinine of 1.9 previous creatinine being 1.44, glucose 149, chest x-ray just shows mild emphysema. EKG shows sinus rhythm QTC 520. Patient was given 1 unit RBCs in the ED. Entresto on hold Review of Systems Review of Systems: 12 systems were reviewed and are negative except for as per HPI. Exam Narrative: General: well appearing, appears stated age. HEENT: normocephalic, atraumatic. Mucous membranes moist. EOMI, PERRLA, bilateral sclera anicteric, no conjunctival injection. Neck supple without JVD, lymphadenopathy, or bruit. Respiratory: clear bilaterally. No rales/rhonic/wheezes. Cardiovascular: Regular rate and rhythm, normal S1-S2. No murmurs, rubs, or clicks. PMI is nondisplaced, capillary refill less than 3 second. Abdomen: Soft, round, no pulsatile masses, nondistended and nontender. No rebound, no guarding. Bowel sounds present to all four quadrants. No high pitch or tinkling sounds, resonant to percussion. Extremities: No cyanosis, clubbing, or edema present. Pulses are palpable 2/2. Active ROM to all four extremities. Neuro: Alert and orientated x 4. PERRLA. Cranial nerves 2-12 intact without focal deficit. Skin: Warm, dry, and intact, without rash, erythema, or lesion. Pallor. Psych: pleasant, cooperative, normal speech, normal affect, no hallucinations, no dysarthia Objective Data Vital Signs Vital Signs: Vital Signs - 24 hr 07/20/25 12:34 07/20/25 12:35 07/20/25 13:03 Temperature Pulse Rate 67 68 Respiratory Rate 24 H Blood Pressure 77/31 L Pulse Oximetry 100 100 Oxygen Delivery Room Air 07/20/25 13:06 07/20/25 13:08 07/20/25 13:16 Temperature Pulse Rate 66 69 67 Respiratory Rate 17 15 21 H Blood Pressure 79/34 L 109/55 L 111/44 L Pulse Oximetry 100 100 100 Oxygen Delivery 07/20/25 13:31 07/20/25 13:56 07/20/25 13:59 Temperature 98 F Pulse Rate 67 64 63 Respiratory Rate 11 L 13 11 L Blood Pressure 100/51 L 107/49 L 107/49 L Pulse Oximetry 100 100 98 Oxygen Delivery 07/20/25 14:17 07/20/25 14:19 07/20/25 14:20 Temperature 98.1 F Pulse Rate 59 L 60 60 Respiratory Rate 13 13 20 Blood Pressure 90/45 L 97/42 L 97/42 L Pulse Oximetry 100 100 100 Oxygen Delivery 07/20/25 14:31 07/20/25 15:01 07/20/25 15:19 Temperature 98.3 F Pulse Rate 62 59 L 61 Respiratory Rate 16 12 16 Blood Pressure 108/49 L 98/80 L 104/49 L Pulse Oximetry 100 100 100 Oxygen Delivery 07/20/25 16:36 07/20/25 20:00 07/20/25 20:00 Temperature 98.0 F 97.7 F Pulse Rate 57 L 60 62 Respiratory Rate 20 20 Blood Pressure 104/45 L 106/50 L Pulse Oximetry 100 100 Oxygen Delivery 07/21/25 00:00 07/21/25 00:00 07/21/25 00:15 Temperature 97.1 F L Pulse Rate 57 L 71 Respiratory Rate 20 Blood Pressure 103/34 L 100/80 Pulse Oximetry 100 Oxygen Delivery 07/21/25 04:35 07/21/25 06:27 07/21/25 08:00 Temperature 98.0 F Pulse Rate 56 L 57 L 55 L Respiratory Rate 18 Blood Pressure 100/47 L Pulse Oximetry 100 Oxygen Delivery 07/21/25 09:17 07/21/25 09:30 07/21/25 09:33 Temperature 97.1 F L 97.2 F L Pulse Rate 58 L 54 L Respiratory Rate 16 16 Blood Pressure 90/46 L 99/35 L Pulse Oximetry 100 100 Oxygen Delivery Room Air 07/21/25 10:33 07/21/25 11:33 07/21/25 11:55 Temperature 96.8 F L 96.8 F L 97.5 F L Pulse Rate 57 L 56 L 57 L Respiratory Rate 16 14 16 Blood Pressure 117/58 L 120/43 L 100/40 L Pulse Oximetry 100 100 100 Oxygen Delivery Intake/Output Intake/Output: Intake & Output 07/18/25 07/19/25 07/20/25 07/21/25 23:59 23:59 23:59 23:59 Intake Total 1140 350 Balance 1140 350 Meds/Results Medications: Active Medications Generic Name Dose Route Start Last Admin Trade Name Freq PRN Reason Stop Dose Admin Acetaminophen 650 mg 07/20/25 14:03 Acetaminophen 325 Mg Tablet PO Q4H PRN Mild Pain (1-3) or Fever Amiodarone HCl 400 mg 07/21/25 08:00 07/21/25 09:32 Amiodarone Hcl 200 Mg Tablet PO Not Given DAILY@0800 [facility] Aspirin 81 mg 07/21/25 09:00 07/21/25 09:53 Aspirin 81 Mg Enteric Tablet PO Not Given QAM [facility] Atorvastatin Calcium 80 mg 07/21/25 09:00 07/21/25 09:51 Atorvastatin 40 Mg Tablet PO 80 mg DAILY JOE Administration Dextrose 12.5 gm 07/20/25 15:48 Dextrose 50% 25 Gm/50 Ml Syringe IV PUSH PRN PRN Hypoglycemia Protocol Ezetimibe 10 mg 07/21/25 09:00 07/21/25 09:51 Ezetimibe 10 Mg Tablet BY MOUTH 10 mg DAILY JOE Administration Ferrous Sulfate 325 mg 07/21/25 09:00 07/21/25 09:51 Ferrous Sulfate 325 Mg Tablet PO 325 mg TID JOE Administration Furosemide 40 mg 07/21/25 09:00 07/21/25 09:33 Furosemide 40 Mg Tablet PO Not Given DAILY JOE Gabapentin 600 mg 07/21/25 06:00 07/21/25 05:19 Gabapentin 300 Mg Capsule PO 600 mg Q8HR JOE Administration Glucagon 1 mg 07/20/25 15:48 Glucagon For Inj 1 Mg Vial IM PRN PRN Hypoglycemia Protocol Glucose 15 gm 07/20/25 15:48 Glucose Oral Gel 15 Gm Of Glucse In 37.5 Gm Tube PO PRN PRN Hypoglycemia Protocol Sodium Chloride 1,000 mls @ 75 mls/hr 07/20/25 14:05 07/20/25 18:00 Normal Saline Iv IV CONT 75 mls/hr .[id number] JOE Administration Dextrose 1,000 mls @ 100 mls/hr 07/20/25 15:48 Dextrose 5% 1,000 Ml IVPB PRN PRN Hypoglycemia Protocol Sodium Chloride 250 mls @ 30 mls/hr 07/21/25 08:04 07/21/25 08:47 Normal Saline Iv IV CONT 07/21/25 16:23 30 mls/hr .Q8H20M STA Administration Insulin Aspart 2 - 5 units 07/20/25 17:00 07/21/25 11:40 Insulin Aspart (*Bkc) 100 Units/Ml SUB-Q Not Given TIDWM JOE Protocol Meclizine HCl 25 mg 07/20/25 22:46 Meclizine Hcl 25 Mg Tablet PO TID PRN Dizziness Metoprolol Succinate 25 mg 07/21/25 09:00 07/21/25 09:33 Metoprolol Succinate Ext Rel 25 Mg Tabcr PO Not Given DAILY JOE Ondansetron HCl 4 mg 07/20/25 14:03 Ondansetron Inj 4 Mg/2 Ml Vial IV PUSH Q4H PRN Nausea Pantoprazole Sodium 40 mg 07/21/25 09:00 07/21/25 09:07 Pantoprazole Sodium Iv 40 Mg Vial IV PUSH 40 mg QAM JOE Administration Sacubitril/Valsartan 1 tab 07/21/25 09:00 07/21/25 09:34 Sacubitril/Valsartan 24-26 Mg Tablet PO Not Given Q12HR JOE Spironolactone 25 mg 07/21/25 09:00 07/21/25 09:34 Spironolactone 25 Mg Tablet PO Not Given DAILY JOE Topiramate 50 mg 07/21/25 09:00 07/21/25 09:52 Topiramate 25 Mg Tablet PO 50 mg Q12HR JOE Administration Radiology Results: ITS Impressions Chest X-Ray 07/20/25 13:23 IMPRESSION: 1. Mild hyperexpansion lungs consistent with mild emphysema better appreciated on prior CT. No acute cardiopulmonary disease. Labs Labs: Laboratory Results - last 24 hr 07/20/25 07/20/25 07/20/25 12:18 16:41 16:50 WBC 11.1 H RBC 1.80 L Hgb 6.0 L* 7.0 L Hct 20.4 L* 21.9 L MCV 113.3 H MCH 33.3 MCHC 29.4 L RDW 19.1 H Plt Count 230 MPV 11.2 H Immature Gran % (Auto) 2.7 H Neut % (Auto) 67.9 Lymph % (Auto) 18.8 [place] % (Auto) 7.8 Eos % (Auto) 2.1 Baso % (Auto) 0.7 Lymph # (Auto) 2.08 [place] # (Auto) 0.9 H Eos # (Auto) 0.2 Baso # (Auto) 0.1 Abs Immat Gran (auto) 0.30 H Absolute Neuts (auto) 7.5 H Absolute Nucleated RBC 0.060 H Band Neutrophils % Not Reportable Nucleated RBC % 0.5 H Platelet Estimate Adequate Hypochromasia Anisocytosis 2+ Macrocytosis 2+ Schistocytes None seen Sodium 138 Potassium 3.8 Chloride 107 Carbon Dioxide 20 L Anion Gap 11 BUN 24 H D Creatinine 1.90 H Estim Creat Clear Calc 39 Estimated GFR 36 L Glucose 149 H POC Capillary Glucose 132 H Calcium 8.5 Total Bilirubin 0.3 AST 21 ALT 16 Alkaline Phosphatase 44 Total Protein 6.2 L Albumin 3.8 Blood Type O Positive Antibody Screen Negative Crossmatch See Detail 07/20/25 07/20/25 07/21/25 20:17 21:22 06:18 WBC 8.4 RBC 2.11 L Hgb 7.3 L 6.8 L* Hct 23.6 L 22.6 L MCV 107.1 H D MCH 32.2 MCHC 30.1 L RDW 22.0 H Plt Count 194 MPV 11.3 H Immature Gran % (Auto) 1.4 H Neut % (Auto) 63.8 Lymph % (Auto) 22.0 [place] % (Auto) 9.4 H Eos % (Auto) 2.7 Baso % (Auto) 0.7 Lymph # (Auto) 1.85 [place] # (Auto) 0.8 H Eos # (Auto) 0.2 Baso # (Auto) 0.1 Abs Immat Gran (auto) 0.12 H Absolute Neuts (auto) 5.4 Absolute Nucleated RBC 0.020 H Band Neutrophils % Not Reportable Nucleated RBC % 0.2 Platelet Estimate Adequate Hypochromasia Occasional Anisocytosis 1+ Macrocytosis Occasional Schistocytes None seen Sodium 138 Potassium 3.4 Chloride 112 H Carbon Dioxide 21 L Anion Gap 5 BUN 18 Creatinine 1.56 H Estim Creat Clear Calc 52 Estimated GFR 45 L Glucose 81 POC Capillary Glucose 124 H Calcium 8.1 L Total Bilirubin AST ALT Alkaline Phosphatase Total Protein Albumin Blood Type Antibody Screen Crossmatch 07/21/25 07/21/25 07:59 11:19 WBC RBC Hgb Hct MCV MCH MCHC RDW Plt Count MPV Immature Gran % (Auto) Neut % (Auto) Lymph % (Auto) [place] % (Auto) Eos % (Auto) Baso % (Auto) Lymph # (Auto) [place] # (Auto) Eos # (Auto) Baso # (Auto) Abs Immat Gran (auto) Absolute Neuts (auto) Absolute Nucleated RBC Band Neutrophils % Nucleated RBC % Platelet Estimate Hypochromasia Anisocytosis Macrocytosis Schistocytes Sodium Potassium Chloride Carbon Dioxide Anion Gap BUN Creatinine Estim Creat Clear Calc Estimated GFR Glucose POC Capillary Glucose 88 108 H Calcium Total Bilirubin AST ALT Alkaline Phosphatase Total Protein Albumin Blood Type Antibody Screen Crossmatch Hospitalist MIPS Advance Care Plan I have confirmed that the patient's Advanced Care Plan is present, code status is documented, or surrogate decision maker is listed in patient medical record.: Yes Medication Reconciliation I have utilized all available resources to obtain, update and review the patients current medications (includes all prescriptions, OTC, herbals, cannabis, and nutritional supplements).: Yes
[2025-07-21] MEDS: SODIUM CHLORIDE 0.9% IV 1,000 ML 75 ML IV CONT (12:24)
[2025-07-21 13:21] LABS: Hematocrit 25.8 % (42.0-52.0); Hemoglobin 7.9 g/dL (14.0-18.0)
--- NOTE | 2025-07-21 14:42 | P.CONGI_ITS ---
Assessment and Plan Assessment and plan (1) Acute on chronic anemia: Code(s): D64.9 - Anemia, unspecified Status: Acute Assessment and Plan: for few years, had egd/colonoscopy 2022, then repeat colonoscopy 2023 noted macrocytosis but normal b12,folic, also normal iron but low Soluble transferrin receptor (normally is elevated in [place]) no overt gib but we can perform EGD Wednesday and if negative then will set up small bowel capsule endoscopy as outpatient, no need to repeat colonoscopy also he is on blood thinner, has ckd- this can play a role in anemia recommend office equipment technician consult (2) Uncontrolled diabetes mellitus: Status: Acute (3) Acute on chronic renal failure: Code(s): N17.9 - Acute kidney failure, unspecified; N18.9 - Chronic kidney disease, unspecified Status: Acute Assessment and Plan: near baseline (4) Macrocytic anemia: Code(s): D53.9 - Nutritional anemia, unspecified Status: Acute (5) Peripheral artery disease: Code(s): I73.9 - Peripheral vascular disease, unspecified Status: Acute (6) Blood thinned due to long-term anticoagulant use: Code(s): Z79.01 - [facility] (current) use of anticoagulants Status: Acute Assessment and Plan: xarelto on hold GI Consult Note Consult date/time: 07/21/25 14:42 Reason for consult: acute on chronic anemia HPI: Bravo Perez is a 65 year old male with history of peripheral arterial disease s/p endarterectomy on xarelto, hypertension,CKD stage 3, diabetes, neuropathy, chronic anemia for which had work up in 2022 with negative egd, colonoscopy with hemorrhoid and polyps removed, repeat colonoscopy again in 02/2024 for occult blood in stool- polyp and mild localized non bleeding colitis/ulcer. He is here with recurrent anemia after feeling more dizzy than usual and generalized weakness. Lab work in the ED shows leukocytosis 11.1, hemoglobin of 6.0 (hgb in the past as low as 7.5, BUN of 24, creatinine of 1.9 previous creatinine 1.44. Noted dark brown stool but no obvious bleeding. He received blood transfusion, he has not seen office equipment technician. Recent evaluation last month noted normal iron, b12, folate (this time noted macrocytosis), also previously had low soluble transferrin receptor and normal ferritin. Review of Systems 2 Constitutional: Constitutional: Reports fatigue and Reports weakness Eyes: Eyes: Denies blurry vision ENT: Reports Normal hearing present Cardiovascular: Cardiovascular: Reports lightheadedness Respiratory: Respiratory: Denies cough Gastrointestinal: Gastrointestinal: Denies abdominal pain and Denies nausea Genitourinary: Genitourinary: Denies hematuria Musculoskeletal: Musculoskeletal: Denies neck pain Integumentary/Breasts: Skin/Breast: Denies rash Neurologic: Denies Abnormal speech present Psychiatric: Psychiatric: Denies behavioral changes [facility] Past Medical History Medical History (Updated 07/21/25 @ 14:53 by Tyler Guzman MD) Blood thinned due to long-term anticoagulant use Macrocytic anemia Acute on chronic renal failure Acute on chronic anemia Cerumen impaction JUANA (acute kidney injury) CKD (chronic kidney disease) stage 3, GFR 30-59 ml/min Elevated serum creatinine Elevated WBC count Screening for malignant neoplasm of prostate Enlarged thyroid Preoperative clearance Abnormal EKG Renal mass, right Hypotension Current smoker Constipation Diabetic foot Uncontrolled diabetes mellitus Microalbuminuria Vitamin B12 deficiency Lumbar spondylosis Screening for thyroid disorder H/O blood clots Blood clot associated with vein wall inflammation Peripheral artery disease Abnormal MRI, lumbar spine Surgical History Surgical History History of partial nephrectomy H/O cardiac catheterization Family History Family History Grandparent Diabetes mellitus Father Acute myocardial infarction Heart disease Mother No problems noted. Sibling Diabetes mellitus Other Family history of cardiovascular disease Hypertension Social History Social History Smoking packs per day: 1 Smoking cigarettes per day: 20.0 Years smoked: 49 Smoking pack-years: 49.00 Smoking status: Current every day smoker Tobacco type: cigarettes Second hand tobacco smoke exposure: No Alcohol intake: current Drinks per week: 0 Alcohol use details: BEERS Substance use: never Substance use type: does not use Other substance usage details: nyquil Lack of Transportation: No Lack of Food: Never True Current Housing: I Have Housing Concerned About Future Housing: No Difficulty Paying Gas/Electric Bills: No Difficulty Paying for Meds: No Currently Unemployed: No Education: High School Diploma/GED Difficulty w/ Childcare or Family Care: No Living arrangements: with family Occupation/Education: retired 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 Gender identity (if verbalized by the patient): Male Spiritual care concerns: No Meds Home Medications and Allergies Home Medications ?Medication ?Instructions ?Recorded ?Confirmed ?Type spironolactone 25 mg tablet 25 mg PO DAILY 12/25/22 History amiodarone 200 mg tablet ([place]) 400 mg (2 x 200 mg ) PO DAILY@0800 02/02/23 07/20/25 Rx 30 days #30 tabs aspirin 81 mg tablet,delayed 81 mg PO QAM #30 tabs 07/20/25 Rx release furosemide 40 mg tablet 40 mg PO DAILY 30 days #30 t abs 02/02/23 07/20/25 Rx sacubitril 24 mg-valsartan 26 mg 1 tablet PO Q12HR #60 tabs 02/02/23 07/20/25 Rx tablet (Entresto) rivaroxaban 20 mg tablet (Xarelto) 20 mg PO DAILY #30 tabs 04/01/23 07/20/25 Rx metoprolol succinate 25 mg 25 mg PO DAILY 01/26/2404/06 History tablet,extended release 24 hr gabapentin 300 mg capsule 600 mg (2 x 300 mg) PO TID # 180 11/15/24 07/20/25 Rx caps topiramate 50 mg tablet (Topamax) 50 mg PO BID 5 07/20/25 History cholecalciferol (vitamin D3) 125 125 mcg PO DAILY #90 caps 05/07/25 07/20/25 Rx mcg (5,000 unit) capsule ezetimibe 10 mg tablet See Rx Instructions .Route 0 05/07/25 07/20/25 Rx .COMPLEX #90 tabs atorvastatin 80 mg tablet 80 mg PO DAILY #90 tabs 05/1507/20/25 Rx meclizine 25 mg tablet 25 mg PO TID PRN dizziness 1 0 days 07/13/25 07/20/25 Rx #30 tabs dulaglutide 1.5 mg/0.5 mL 1.5 mg subcut WEEKLY 5 07/20/25 History subcutaneous pen injector ferrous sulfate 325 mg (65 mg 325 mg PO TID 07/20/25 1 09/19/24 History iron) tablet (iron) Allergies Allergy/AdvReac Type Severity Reaction Status Date / Time No Known Allergies Allergy Verified 07/20/25 17:19 Vital Signs Vital Signs - 24 hr 07/20/25 15:01 07/20/25 15:19 07/20/25 16:36 Temperature 98.3 F 98.0 F Pulse Rate 59 L 61 57 L Respiratory Rate 12 16 20 Blood Pressure 98/80 L 104/49 L 104/45 L Pulse Oximetry 100 100 100 Oxygen Delivery 07/20/25 20:00 07/20/25 20:00 07/21/25 00:00 Temperature 97.7 F 97.1 F L Pulse Rate 60 62 57 L Respiratory Rate 20 20 Blood Pressure 106/50 L 103/34 L Pulse Oximetry 100 100 Oxygen Delivery 07/21/25 00:00 07/21/25 00:15 07/21/25 04:35 Temperature Pulse Rate 71 56 L Respiratory Rate Blood Pressure 100/80 Pulse Oximetry Oxygen Delivery 07/21/25 06:27 07/21/25 08:00 07/21/25 09:17 Temperature 98.0 F 97.1 F L Pulse Rate 57 L 55 L 58 L Respiratory Rate 18 16 Blood Pressure 100/47 L 90/46 L Pulse Oximetry 100 100 Oxygen Delivery 07/21/25 09:30 07/21/25 09:33 07/21/25 10:33 Temperature 97.2 F L 96.8 F L Pulse Rate 54 L 57 L Respiratory Rate 16 16 Blood Pressure 99/35 L 117/58 L Pulse Oximetry 100 100 Oxygen Delivery Room Air 07/21/25 11:33 07/21/25 11:55 07/21/25 12:00 Temperature 96.8 F L 97.5 F L Pulse Rate 56 L 57 L 65 Respiratory Rate 14 16 Blood Pressure 120/43 L 100/40 L Pulse Oximetry 100 100 Oxygen Delivery 07/21/25 14:20 Temperature 97.5 F L Pulse Rate 58 L Respiratory Rate 18 Blood Pressure 129/45 L Pulse Oximetry 100 Oxygen Delivery Exam 2 Const: General: comfortable and no acute distress HENMT: Face/Nose/Sinus: Normal nares present Eyes: General: appearance normal, both eyes and all related structures Neck: Neck: supple Resp: Auscultation: clear to auscultation bilaterally Cardio: Rate: regular rate Rhythm: regular rhythm GI: Inspection: non-distended GI Palp: Yes Soft to palpation and No Tenderness to palpation present (GI) Auscultation: normal bowel sounds Skin: General skin exam: normal color Neuro: Speech: normal speech Extrem: General: normal to inspection Psych: Mental Status: mental status grossly normal Results Labs 07/21/25 13:16 07/21/25 06:18 Labs: Short CBC 07/20/25 07/20/25 07/21/25 Range/Units 16:50 21:22 06:18 WBC 8.4 (4.5-10.0) K/mm3 Hgb 7.0 L 7.3 L 6.8 L* (14.0-18.0) g/dL Hct 21.9 L 23.6 L 22.6 L (42.0-52.0) % Plt Count 194 (150-375) k/mm3 07/21/25 Range/Units 13:16 WBC (4.5-10.0) K/mm3 Hgb 7.9 L (14.0-18.0) g/dL Hct 25.8 L (42.0-52.0) % Plt Count (150-375) k/mm3 BMP 07/21/25 06:18 Sodium 138 Potassium 3.4 Chloride 112 H Carbon Dioxide 21 L BUN 18 Creatinine 1.56 H Glucose 81 Calcium 8.1 L
[2025-07-21] MEDS: SACUBITRIL/VALSARTAN 24-26 MG TABLET 1 TAB PO (21:24)
[2025-07-22] VITALS (11 sets, daily range): BP systolic 102–130; BP diastolic 49–57; PULSE 54–70; RESP 16–18; TEMP 36–36.6; O2SAT 98–100
[2025-07-22] MEDS: SODIUM CHLORIDE 0.9% IV 1,000 ML 75 ML IV CONT ×2 (01:46→15:10)
[2025-07-22] MEDS: GABAPENTIN 300 MG CAPSULE 600 MG PO ×3 (06:11→21:24)
[2025-07-22 06:49] LABS: Hematocrit 26.3 % (42.0-52.0); Hemoglobin 8.1 g/dL (14.0-18.0); Immature Granulocyte Percent A 1.7 % (0-0.5); Lymphocytes Absolute Auto 1.78 K/mm3 (0.9-3.2); Mean Corpuscular HGB Conc 30.8 g/dl (32-36); Mean Corpuscular Hemoglobin 32.0 pg (26-34); Mean Corpuscular Volume 104.0 fl (80-100); Nucleated Red Blood Cells Absolute Auto 0.000 K/mm3 (0.0-0.012); Nucleated Red Blood Cells Perc 0.0 % (0.0-0.2); Platelet Count Result 185 k/mm3 (150-375); Red Blood Count 2.53 M/mm3 (4.6-6.20); White Blood Count 7.1 K/mm3 (4.5-10.0)
[2025-07-22 07:19] LABS: Alanine Aminotransferase 13 U/L (6-50); Albumin Level 3.1 g/dL (3.5-5.1); Alkaline Phosphatase 46 U/L (38-126); Anion Gap 5 mmol/L (4-12); Aspartate Amino Transferase 19 U/L (17-59); Bilirubin,Total 0.4 mg/dL (0.2-1.3); Blood Urea Nitrogen 11 mg/dL (9-20); Calcium 8.3 mg/dL (8.4-10.2); Carbon Dioxide 20 mmol/L (22-30); Chloride 115 mmol/L (98-107); Estimated CRCL calculation 61 ml/min; Estimated Glomerular Filt Rate 53; Glucose 80 mg/dL (65-110); Potassium 3.6 mmol/L (3.4-5.0); Sodium 140 mmol/L (137-145); Total Protein 5.6 g/dL (6.3-8.2)
--- NOTE | 2025-07-22 08:04 | P.PNIM_ITS ---
Progress Note: A&P Assessment and Plan (1) GI bleed: Code(s): K92.2 - Gastrointestinal hemorrhage, unspecified Status: Acute Assessment and Plan: History of GI hemorrhage in the past, patient has history of CAD and prior DVT 3 years ago on apixaban. Patient reports GI bleeds of started also starting anticoagulation. Admitted due to hemoglobin 6.0, improved to 7.3 after 1 PRBC, however repeat hemoglobin was 6.8. GI has been consulted. Patient feels okay but fatigued this morning. He has history of chronic constipation, last bowel movement was dark as in HPI. Patient wishes to be home however was counseled on necessity of being monitored for drops in hemoglobin given he has been needing 2 units of red blood cells transfused so far. He understood and acknowledged. One PRBC ordered due to 2nd drop in hemoglobin, with follow-up CBC after completing infusion GI has been contacted, they recommend medical management at this time with transfusion to maintain hemoglobin above 7, IV ppi, liquid diet as tolerated. Hgb stable 8.1 today plan for EGD tomorrow per GI CBC in am (2) Anemia: Code(s): D64.9 - Anemia, unspecified Status: Acute Assessment and Plan: continue iron supplement plan for EGD tomorrow Hematology consult pending (3) Essential hypertension: Code(s): I10 - Essential (primary) hypertension Status: Acute Assessment and Plan: Blood pressure currently soft due to blood loss, antihypertensives on hold (4) CHF (congestive heart failure): Qualifiers: Heart failure chronicity: chronic Heart failure type: unspecified Qualified Code(s): I50.9 - Heart failure, unspecified Code(s): I50.9 - Heart failure, unspecified Status: Acute Assessment and Plan: Diuretics on hold due to soft blood pressure (5) CKD (chronic kidney disease) stage 3, GFR 30-59 ml/min: Code(s): N18.30 - Chronic kidney disease, stage 3 unspecified Status: Acute Assessment and Plan: Creatinine 1.9 on admission, improving to 1.56 --> 1.34 Avoid nephrotoxic agents Monitor renal function daily (6) Coronary artery disease: Code(s): I25.10 - Atherosclerotic heart disease of [place] coronary artery without angina pectoris Status: Acute Assessment and Plan: As above history of CAD currently on apixaban Apixaban on hold due to active GI bleeding (7) Type 2 diabetes mellitus without complications: Code(s): E11.9 - Type 2 diabetes mellitus without complications Status: Acute Assessment and Plan: Accu-Matias kwong SSI Plan Monitor CBC to ensure hemoglobin remains above 7, given CAD history patient probably to benefit from keeping it above 8 Subjective Date/time seen: 07/22/25 08:04 Interval history: Patient seen for a follow up visit. Patient lying in bed, in no acute distress. Patient denies acute pain. Patients hemoglobin stable overnight. Plan for EGD tomorrow per GI. Hematology consult pending. Continue to monitor H&H. Review of Systems Review of Systems: 12 systems were reviewed and are negativ e except for as per HPI. Exam Narrative: General: well appearing, appears stated age. HEENT: normocephalic, atraumatic. Mucous membranes moist. EOMI, PERRLA, bilateral sclera anicteric, no conjunctival injection. Neck supple without JVD, lymphadenopathy, or bruit. Respiratory: clear bilaterally. No rales/rhonic/wheezes. Cardiovascular: Regular rate and rhythm, normal S1-S2. No murmurs, rubs, or clicks. PMI is nondisplaced, capillary refill less than 3 second. Abdomen: Soft, round, no pulsatile masses, nondistended and nontender. No rebound, no guarding. Bowel sounds present to all four quadrants. No high pitch or tinkling sounds, resonant to percussion. Extremities: No cyanosis, clubbing, or edema present. Pulses are palpable 2/2. Active ROM to all four extremities. Neuro: Alert and orientated x 4. PERRLA. Cranial nerves 2-12 intact without focal deficit. Skin: Warm, dry, and intact, without rash, erythema, or lesion. Pallor. Psych: pleasant, cooperative, normal speech, normal affect, no hallucinations, no dysarthia Objective Data Vital Signs Vital Signs: Vital Signs - 24 hr 07/21/25 09:17 07/21/25 09:30 07/21/25 09:33 Temperature 97.1 F L 97.2 F L Pulse Rate 58 L 54 L Respiratory Rate 16 16 Blood Pressure 90/46 L 99/35 L Pulse Oximetry 100 100 Oxygen Delivery Room Air 07/21/25 10:33 07/21/25 11:33 07/21/25 11:55 Temperature 96.8 F L 96.8 F L 97.5 F L Pulse Rate 57 L 56 L 57 L Respiratory Rate 16 14 16 Blood Pressure 117/58 L 120/43 L 100/40 L Pulse Oximetry 100 100 100 Oxygen Delivery 07/21/25 12:00 07/21/25 14:20 07/21/25 16:00 Temperature 97.5 F L Pulse Rate 65 58 L 62 Respiratory Rate 18 Blood Pressure 129/45 L Pulse Oximetry 100 Oxygen Delivery 07/21/25 18:49 07/21/25 20:00 07/21/25 20:00 Temperature 97.2 F L Pulse Rate 57 L 56 L Respiratory Rate 18 Blood Pressure 128/60 Pulse Oximetry 98 Oxygen Delivery Room Air 07/21/25 22:00 07/22/25 00:00 07/22/25 04:00 Temperature 97.7 F Pulse Rate 58 L 54 L 55 L Respiratory Rate 18 Blood Pressure 122/52 L Pulse Oximetry 100 Oxygen Delivery 07/22/25 06:00 Temperature 97.9 F Pulse Rate 61 Respiratory Rate 16 Blood Pressure 118/57 L Pulse Oximetry 98 Oxygen Delivery Intake/Output Intake/Output: Intake & Output 07/19/25 07/20/25 07/21/25 07/22/25 23:59 23:59 23:59 23:59 Intake Total 1140 2240 1300 Balance 1140 2240 1300 Meds/Results Medications: Active Medications Generic Name Dose Route Start Last Admin Trade Name Freq PRN Reason Stop Dose Admin Acetaminophen 650 mg 07/20/25 14:03 Acetaminophen 325 Mg Tablet PO Q4H PRN Mild Pain (1-3) or Fever Amiodarone HCl 400 mg 07/21/25 08:00 07/21/25 09:32 Amiodarone Hcl 200 Mg Tablet PO Not Given DAILY@0800 JOE Aspirin 81 mg 07/21/25 09:00 07/21/25 09:53 Aspirin 81 Mg Enteric Tablet PO Not Given QA JOE Atorvastatin Calcium 80 mg 07/21/25 09:00 07/21/25 09:51 Atorvastatin 40 Mg Tablet PO 80 mg DAILY JOE Administration Dextrose 12.5 gm 07/20/25 15:48 Dextrose 50% 25 Gm/50 Ml Syringe IV PUSH PRN PRN Hypoglycemia Protocol Ezetimibe 10 mg 07/21/25 09:00 07/21/25 09:51 Ezetimibe 10 Mg Tablet BY MOUTH 10 mg DAILY JOE Administration Ferrous Sulfate 325 mg 07/21/25 09:00 07/21/25 17:04 Ferrous Sulfate 325 Mg Tablet PO 325 mg TID JOE Administration Furosemide 40 mg 07/21/25 09:00 07/21/25 09:33 Furosemide 40 Mg Tablet PO Not Given DAILY JOE Gabapentin 600 mg 07/21/25 06:00 07/22/25 06:11 Gabapentin 300 Mg Capsule PO 600 mg Q8HR JOE Administration Glucagon 1 mg 07/20/25 15:48 Glucagon For Inj 1 Mg Vial IM PRN PRN Hypoglycemia Protocol Glucose 15 gm 07/20/25 15:48 Glucose Oral Gel 15 Gm Of Glucse In 37.5 Gm Tube PO PRN PRN Hypoglycemia Protocol Sodium Chloride 1,000 mls @ 75 mls/hr 07/20/25 14:05 07/22/25 01:46 Normal Saline Iv IV CONT 75 mls/hr .[id number] JOE Administration Dextrose 1,000 mls @ 100 mls/hr 07/20/25 15:48 Dextrose 5% 1,000 Ml IVPB PRN PRN Hypoglycemia Protocol Insulin Aspart 2 - 5 units 07/20/25 17:00 07/21/25 17:03 Insulin Aspart (*Bkc) 100 Units/Ml SUB-Q Not Given TIDWM [facility] Protocol Meclizine HCl 25 mg 07/20/25 22:46 Meclizine Hcl 25 Mg Tablet PO TID PRN Dizziness Metoprolol Succinate 25 mg 07/21/25 09:00 07/21/25 09:33 Metoprolol Succinate Ext Rel 25 Mg Tabcr PO Not Given DAILY [facility] Ondansetron HCl 4 mg 07/20/25 14:03 Ondansetron Inj 4 Mg/2 Ml Vial IV PUSH Q4H PRN Nausea Pantoprazole Sodium 40 mg 07/22/25 09:00 Pantoprazole 40 Mg Tablet PO QAM JOE Sacubitril/Valsartan 1 tab 07/21/25 09:00 07/21/25 21:24 Sacubitril/Valsartan 24-26 Mg Tablet PO 1 tab Q12HR JOE Administration Spironolactone 25 mg 07/21/25 09:00 07/21/25 09:34 Spironolactone 25 Mg Tablet PO Not Given DAILY JOE Topiramate 50 mg 07/21/25 09:00 07/21/25 21:25 Topiramate 25 Mg Tablet PO 50 mg Q12HR JOE Administration Radiology Results: ITS Impressions Chest X-Ray 07/20/25 13:23 IMPRESSION: 1. Mild hyperexpansion lungs consistent with mild emphysema better appreciated on prior CT. No acute cardiopulmonary disease. Labs Labs: Laboratory Results - last 24 hr 07/20/25 07/21/25 07/21/25 12:18 11:19 13:16 WBC RBC Hgb 7.9 L Hct 25.8 L MCV MCH MCHC RDW Plt Count MPV Immature Gran % (Auto) Neut % (Auto) Lymph % (Auto) [place] % (Auto) Eos % (Auto) Baso % (Auto) Lymph # (Auto) [place] # (Auto) Eos # (Auto) Baso # (Auto) Abs Immat Gran (auto) Absolute Neuts (auto) Absolute Nucleated RBC Nucleated RBC % Sodium Potassium Chloride Carbon Dioxide Anion Gap BUN Creatinine Estim Creat Clear Calc Estimated GFR Glucose POC Capillary Glucose 108 H Calcium Total Bilirubin AST ALT Alkaline Phosphatase Total Protein Albumin Blood Type O Positive Antibody Screen Negative Crossmatch See Detail 07/21/25 07/21/25 07/22/25 16:59 21:23 06:38 WBC 7.1 RBC 2.53 L Hgb 8.1 L Hct 26.3 L MCV 104.0 H MCH 32.0 MCHC 30.8 L RDW 21.2 H Plt Count 185 MPV 10.4 Immature Gran % (Auto) 1.7 H Neut % (Auto) 59.4 Lymph % (Auto) 24.9 [place] % (Auto) 9.2 H Eos % (Auto) 3.5 Baso % (Auto) 1.3 H Lymph # (Auto) 1.78 [place] # (Auto) 0.7 H Eos # (Auto) 0.3 Baso # (Auto) 0.1 Abs Immat Gran (auto) 0.12 H Absolute Neuts (auto) 4.2 Absolute Nucleated RBC 0.000 Nucleated RBC % 0.0 Sodium 140 Potassium 3.6 Chloride 115 H Carbon Dioxide 20 L Anion Gap 5 BUN 11 D Creatinine 1.34 H Estim Creat Clear Calc 61 Estimated GFR 53 L Glucose 80 POC Capillary Glucose 94 84 Calcium 8.3 L Total Bilirubin 0.4 AST 19 ALT 13 Alkaline Phosphatase 46 Total Protein 5.6 L Albumin 3.1 L Blood Type Antibody Screen Crossmatch 07/22/25 07:33 WBC RBC Hgb Hct MCV MCH MCHC RDW Plt Count MPV Immature Gran % (Auto) Neut % (Auto) Lymph % (Auto) [place] % (Auto) Eos % (Auto) Baso % (Auto) Lymph # (Auto) [place] # (Auto) Eos # (Auto) Baso # (Auto) Abs Immat Gran (auto) Absolute Neuts (auto) Absolute Nucleated RBC Nucleated RBC % Sodium Potassium Chloride Carbon Dioxide Anion Gap BUN Creatinine Estim Creat Clear Calc Estimated GFR Glucose POC Capillary Glucose 86 Calcium Total Bilirubin AST ALT Alkaline Phosphatase Total Protein Albumin Blood Type Antibody Screen Crossmatch Quality VTE Prophylaxis VTE prophylaxis: mechanical ordered Hospitalist MIPS Advance Care Plan I have confirmed that the patient's Advanced Care Plan is present, code status is documented, or surrogate decision maker is listed in patient medical record.: Yes Medication Reconciliation I have utilized all available resources to obtain, update and review the patients current medications (includes all prescriptions, OTC, herbals, cannabis, and nutritional supplements).: Yes
[2025-07-22] MEDS: SACUBITRIL/VALSARTAN 24-26 MG TABLET 1 TAB PO ×2 (08:31→21:24)
[2025-07-22] MEDS: FERROUS SULFATE 325 MG TABLET PO ×3 (08:31→16:52)
[2025-07-22] MEDS: AMIODARONE HCL 200 MG TABLET 400 MG PO (08:31)
[2025-07-22] MEDS: ASPIRIN 81 MG ENTERIC TABLET PO (08:31)
[2025-07-22] MEDS: METOPROLOL SUCCINATE EXT REL 25 MG TABCR PO (08:32)
[2025-07-22] MEDS: SPIRONOLACTONE 25 MG TABLET PO (08:32)
[2025-07-22] MEDS: EZETIMIBE 10 MG TABLET BY MOUTH (08:33)
[2025-07-22] MEDS: ATORVASTATIN 40 MG TABLET 80 MG PO (08:33)
[2025-07-22] MEDS: PANTOPRAZOLE 40 MG TABLET PO (08:33)
[2025-07-22] MEDS: TOPIRAMATE 25 MG TABLET 50 MG PO ×2 (08:33→21:24)
[2025-07-22] MEDS: FUROSEMIDE 40 MG TABLET PO (08:33)
--- NOTE | 2025-07-22 15:01 | WPDGIPROGNO ---
Progress Note: A&P Assessment and Plan (1) Macrocytic anemia: Code(s): D53.9 - Nutritional anemia, unspecified Status: Acute Assessment and Plan: no overt gib he had gi work up for anemia in 2022 then 2023 with colonoscopy will do egd tomorrow, if negative then set up outpatient capsule endoscopy also will benefit to see pipe installer at some point given chronic anemia (2) Acute on chronic renal failure: Code(s): N17.9 - Acute kidney failure, unspecified; N18.9 - Chronic kidney disease, unspecified Status: Acute Assessment and Plan: improved (3) Diabetes: Qualifiers: Diabetes mellitus complication detail: with other circulatory complications Diabetes mellitus complication status: with circulatory complication Diabetes mellitus intermediate insulin use: without long term care administrator use Diabetes mellitus type: type 2 Qualified Code(s): E11.59 - Type 2 diabetes mellitus with other circulatory complications Code(s): E11.9 - Type 2 diabetes mellitus without complications Status: Acute Assessment and Plan: on meds (4) Coronary artery disease: Code(s): I25.10 - Atherosclerotic heart disease of [place] coronary artery without angina pectoris Status: Acute Assessment and Plan: blood thinner on hold for now Subjective Date/time seen: 07/22/25 15:01 Interval history: he is comfortable, no overt gib Review of Systems Review of Systems: All systems reviewed & are unremarkable except as noted in HPI and below Exam Const: General: comfortable and no acute distress HENMT: Face/Nose/Sinus: Normal nares present Eyes: General: appearance normal, both eyes and all related structures Neck: Neck: supple Resp: Auscultation: clear to auscultation bilaterally Cardio: Rate: regular rate Rhythm: regular rhythm GI: Inspection: non-distended GI Palp: Yes Soft to palpation and No Tenderness to palpation present (GI) Auscultation: normal bowel sounds Skin: General skin exam: normal color Neuro: Speech: normal speech Extrem: General: normal to inspection Psych: Mental Status: mental status grossly normal Objective Data Vital Signs Vital Signs: Vital Signs - 24 hr 07/21/25 16:00 07/21/25 18:49 07/21/25 20:00 Temperature 97.2 F L Pulse Rate 62 57 L Respiratory Rate 18 Blood Pressure 128/60 Pulse Oximetry 98 Oxygen Delivery Room Air 07/21/25 20:00 07/21/25 22:00 07/22/25 00:00 Temperature 97.7 F Pulse Rate 56 L 58 L 54 L Respiratory Rate 18 Blood Pressure 122/52 L Pulse Oximetry 100 Oxygen Delivery 07/22/25 04:00 07/22/25 06:00 07/22/25 08:00 Temperature 97.9 F Pulse Rate 55 L 61 Respiratory Rate 16 Blood Pressure 118/57 L Pulse Oximetry 98 Oxygen Delivery Room Air 07/22/25 08:00 07/22/25 08:31 07/22/25 08:32 Temperature Pulse Rate 70 59 L 59 L Respiratory Rate Blood Pressure Pulse Oximetry Oxygen Delivery 07/22/25 12:00 07/22/25 14:00 Temperature 96.8 F L Pulse Rate 70 56 L Respiratory Rate 16 Blood Pressure 102/52 L Pulse Oximetry 100 Oxygen Delivery Intake/Output Intake/Output: Intake & Output 07/19/25 07/20/25 07/21/25 07/22/25 23:59 23:59 23:59 23:59 Intake Total 1140 2240 1640 Balance 1140 2240 1640 Meds/Results Medications: Active Medications Generic Name Dose Route Start Last Admin Trade Name Freq PRN Reason Stop Dose Admin Acetaminophen 650 mg 07/20/25 14:03 Acetaminophen 325 Mg Tablet PO Q4H PRN Mild Pain (1-3) or Fever Amiodarone HCl 400 mg 07/21/25 08:00 07/22/25 08:31 Amiodarone Hcl 200 Mg Tablet PO 400 mg DAILY@0800 JOE Administration Aspirin 81 mg 07/21/25 09:00 07/22/25 08:31 Aspirin 81 Mg Enteric Tablet PO 81 mg QAM JOE Administration Atorvastatin Calcium 80 mg 07/21/25 09:00 07/22/25 08:33 Atorvastatin 40 Mg Tablet PO 80 mg DAILY JOE Administration Dextrose 12.5 gm 07/20/25 15:48 Dextrose 50% 25 Gm/50 Ml Syringe IV PUSH PRN PRN Hypoglycemia Protocol Ezetimibe 10 mg 07/21/25 09:00 07/22/25 08:33 Ezetimibe 10 Mg Tablet BY MOUTH 10 mg DAILY JOE Administration Ferrous Sulfate 325 mg 07/21/25 09:00 07/22/25 14:05 Ferrous Sulfate 325 Mg Tablet PO 325 mg TID JOE Administration Furosemide 40 mg 07/21/25 09:00 07/22/25 08:33 Furosemide 40 Mg Tablet PO 40 mg DAILY JOE Administration Gabapentin 600 mg 07/21/25 06:00 07/22/25 14:05 Gabapentin 300 Mg Capsule PO 600 mg Q8HR JOE Administration Glucagon 1 mg 07/20/25 15:48 Glucagon For Inj 1 Mg Vial IM PRN PRN Hypoglycemia Protocol Glucose 15 gm 07/20/25 15:48 Glucose Oral Gel 15 Gm Of Glucse In 37.5 Gm Tube PO PRN PRN Hypoglycemia Protocol Sodium Chloride 1,000 mls @ 75 mls/hr 07/20/25 14:05 07/22/25 01:46 Normal Saline Iv IV CONT 75 mls/hr .[id number] JOE Administration Dextrose 1,000 mls @ 100 mls/hr 07/20/25 15:48 Dextrose 5% 1,000 Ml IVPB PRN PRN Hypoglycemia Protocol Insulin Aspart 2 - 5 units 07/20/25 17:00 07/22/25 12:01 Insulin Aspart (*Bkc) 100 Units/Ml SUB-Q Not Given TIDWM JOE Protocol Meclizine HCl 25 mg 07/20/25 22:46 Meclizine Hcl 25 Mg Tablet PO TID PRN Dizziness Metoprolol Succinate 25 mg 07/21/25 09:00 07/22/25 08:32 Metoprolol Succinate Ext Rel 25 Mg Tabcr PO 25 mg DAILY JOE Administration Ondansetron HCl 4 mg 07/20/25 14:03 Ondansetron Inj 4 Mg/2 Ml Vial IV PUSH Q4H PRN Nausea Pantoprazole Sodium 40 mg 07/22/25 09:00 07/22/25 08:33 Pantoprazole 40 Mg Tablet PO 40 mg QAM JOE Administration Sacubitril/Valsartan 1 tab 07/21/25 09:00 07/22/25 08:31 Sacubitril/Valsartan 24-26 Mg Tablet PO 1 tab Q12HR JOE Administration Spironolactone 25 mg 07/21/25 09:00 07/22/25 08:32 Spironolactone 25 Mg Tablet PO 25 mg DAILY JOE Administration Topiramate 50 mg 07/21/25 09:00 07/22/25 08:33 Topiramate 25 Mg Tablet PO 50 mg Q12HR JOE Administration Radiology Results: ITS Impressions Chest X-Ray 07/20/25 13:23 IMPRESSION: 1. Mild hyperexpansion lungs consistent with mild emphysema better appreciated on prior CT. No acute cardiopulmonary disease. Labs Labs: Laboratory Results - last 24 hr 07/21/25 07/21/25 07/22/25 16:59 21:23 06:38 WBC 7.1 RBC 2.53 L Hgb 8.1 L Hct 26.3 L MCV 104.0 H MCH 32.0 MCHC 30.8 L RDW 21.2 H Plt Count 185 MPV 10.4 Immature Gran % (Auto) 1.7 H Neut % (Auto) 59.4 Lymph % (Auto) 24.9 [place] % (Auto) 9.2 H Eos % (Auto) 3.5 Baso % (Auto) 1.3 H Lymph # (Auto) 1.78 [place] # (Auto) 0.7 H Eos # (Auto) 0.3 Baso # (Auto) 0.1 Abs Immat Gran (auto) 0.12 H Absolute Neuts (auto) 4.2 Absolute Nucleated RBC 0.000 Nucleated RBC % 0.0 Sodium 140 Potassium 3.6 Chloride 115 H Carbon Dioxide 20 L Anion Gap 5 BUN 11 D Creatinine 1.34 H Estim Creat Clear Calc 61 Estimated GFR 53 L Glucose 80 POC Capillary Glucose 94 84 Calcium 8.3 L Total Bilirubin 0.4 AST 19 ALT 13 Alkaline Phosphatase 46 Total Protein 5.6 L Albumin 3.1 L 07/22/25 07/22/25 07:33 11:31 WBC RBC Hgb Hct MCV MCH MCHC RDW Plt Count MPV Immature Gran % (Auto) Neut % (Auto) Lymph % (Auto) [place] % (Auto) Eos % (Auto) Baso % (Auto) Lymph # (Auto) [place] # (Auto) Eos # (Auto) Baso # (Auto) Abs Immat Gran (auto) Absolute Neuts (auto) Absolute Nucleated RBC Nucleated RBC % Sodium Potassium Chloride Carbon Dioxide Anion Gap BUN Creatinine Estim Creat Clear Calc Estimated GFR Glucose POC Capillary Glucose 86 100 Calcium Total Bilirubin AST ALT Alkaline Phosphatase Total Protein Albumin
[2025-07-23] VITALS (12 sets, daily range): BP systolic 97–126; BP diastolic 41–71; PULSE 55–63; RESP 14–22; TEMP 35.7–36.3; O2SAT 96–100
[2025-07-23] MEDS: GABAPENTIN 300 MG CAPSULE 600 MG PO ×2 (05:50→13:00)
[2025-07-23] MEDS: SODIUM CHLORIDE 0.9% IV 1,000 ML 75 ML IV CONT (05:51)
[2025-07-23 06:40] LABS: Hematocrit 26.0 % (42.0-52.0); Hemoglobin 8.1 g/dL (14.0-18.0); Immature Granulocyte Percent A 1.2 % (0-0.5); Lymphocytes Absolute Auto 1.63 K/mm3 (0.9-3.2); Mean Corpuscular HGB Conc 31.2 g/dl (32-36); Mean Corpuscular Hemoglobin 32.4 pg (26-34); Mean Corpuscular Volume 104.0 fl (80-100); Nucleated Red Blood Cells Absolute Auto 0.000 K/mm3 (0.0-0.012); Nucleated Red Blood Cells Perc 0.0 % (0.0-0.2); Platelet Count Result 182 k/mm3 (150-375); Red Blood Count 2.50 M/mm3 (4.6-6.20); White Blood Count 5.8 K/mm3 (4.5-10.0)
[2025-07-23 07:00] LABS: Alanine Aminotransferase 11 U/L (6-50); Albumin Level 3.2 g/dL (3.5-5.1); Alkaline Phosphatase 49 U/L (38-126); Anion Gap 5 mmol/L (4-12); Aspartate Amino Transferase 17 U/L (17-59); Bilirubin,Total 0.4 mg/dL (0.2-1.3); Blood Urea Nitrogen 9 mg/dL (9-20); Calcium 8.1 mg/dL (8.4-10.2); Carbon Dioxide 20 mmol/L (22-30); Chloride 114 mmol/L (98-107); Estimated CRCL calculation 60 ml/min; Estimated Glomerular Filt Rate 52; Glucose 76 mg/dL (65-110); Potassium 3.7 mmol/L (3.4-5.0); Sodium 139 mmol/L (137-145); Total Protein 5.6 g/dL (6.3-8.2)
--- NOTE | 2025-07-23 08:06 | PC.NURSE ---
To GI Lab per [ ], IV [ ]. Report given to [ LENKA].
--- NOTE | 2025-07-23 08:26 | P.PNIM_ITS ---
Progress Note: A&P Assessment and Plan (1) GI bleed: Code(s): K92.2 - Gastrointestinal hemorrhage, unspecified Status: Acute Assessment and Plan: * History of GI hemorrhage in the past * On eliquis for DVT * Bleeding started with anticoagulation * On admission H/H 6.0/20.4, current H/H 8.1/26.0 * S/P 2 units of PRBC * Francisco H/H * GI on board * Hematology consulted thank you for your help * EGD 778 mm ulcer nonbleeding at this time * Protonix twice a day * Follow-up with GI for repeat EGD in 4 months * Transfuse if Hgb <7.0 * Trend labs (2) Anemia: Code(s): D64.9 - Anemia, unspecified Status: Acute Assessment and Plan: * Current H/H 8.1/26.0 * continue iron supplement * plan for EGD tomorrow * Hematology consult pending * Transfuse if hgb <7.0 * Stable (3) Essential hypertension: Code(s): I10 - Essential (primary) hypertension Status: Acute Assessment and Plan: * Blood pressure currently soft due to blood loss * Current BP is 125/61 * antihypertensives on hold * trend BP * restart BP medications as indicated (4) CHF (congestive heart failure): Qualifiers: Heart failure chronicity: chronic Heart failure type: unspecified Qualified Code(s): I50.9 - Heart failure, unspecified Code(s): I50.9 - Heart failure, unspecified Status: Acute Assessment and Plan: * Continue home GDMT with entresto 24-26, metoprolol 25 mg PO daily * Lasix 40 mg PO daily * Last echo with EF of 65-70% * trend urine output * daily weights * trend BP * adjust therapy as indicated (5) CKD (chronic kidney disease) stage 3, GFR 30-59 ml/min: Code(s): N18.30 - Chronic kidney disease, stage 3 unspecified Status: Acute Assessment and Plan: * Creatinine 1.9 on admission, improving to 1.56 --> 1.34 * creatinine today 1.36 * baseline creatinine is 1.5 * Avoid nephrotoxic agents * Monitor renal function daily * Labs in the am (6) Coronary artery disease: Code(s): I25.10 - Atherosclerotic heart disease of [place] coronary artery without angina pectoris Status: Acute Assessment and Plan: * As above history of CAD currently on apixaban * Apixaban on hold due to active GI bleeding * no complaints of chest pain * stable (7) Type 2 diabetes mellitus without complications: Code(s): E11.9 - Type 2 diabetes mellitus without complications Status: Acute Assessment and Plan: * Accu-Cheks a.c. HS * SSI * current glucose stable at 85 * trend glucose * adjust therapy as indicated Time Spent With Patient Time: 52 minutes Time with patient: Greater than 35 minutes Subjective Date/time seen: 07/23/25 1200 Review of Systems Review of Systems: 12 systems were reviewed and are negativ e except for as per HPI. Exam Narrative: General: well appearing, appears stated age. HEENT: normocephalic, atraumatic. Mucous membranes moist. EOMI, PERRLA, bilateral sclera anicteric, no conjunctival injection. Neck supple without JVD, lymphadenopathy, or bruit. Respiratory: clear bilaterally. No rales/rhonic/wheezes. Cardiovascular: Regular rate and rhythm, normal S1-S2. No murmurs, rubs, or clicks. PMI is nondisplaced, capillary refill less than 3 second. Abdomen: Soft, round, no pulsatile masses, nondistended and nontender. No rebound, no guarding. Bowel sounds present to all four quadrants. No high pitch or tinkling sounds, resonant to percussion. Extremities: No cyanosis, clubbing, or edema present. Pulses are palpable 2/2. Active ROM to all four extremities. Neuro: Alert and orientated x 4. PERRLA. Cranial nerves 2-12 intact without focal deficit. Skin: Warm, dry, and intact, without rash, erythema, or lesion. Pallor. Psych: pleasant, cooperative, normal speech, normal affect, no hallucinations, no dysarthia Objective Data Vital Signs Vital Signs: Vital Signs - 24 hr 07/22/25 08:31 07/22/25 08:32 07/22/25 12:00 Temperature Pulse Rate 59 L 59 L 70 Respiratory Rate Blood Pressure Pulse Oximetry Oxygen Delivery 07/22/25 14:00 07/22/25 16:00 07/22/25 20:00 Temperature 96.8 F L Pulse Rate 56 L 54 L Respiratory Rate 16 Blood Pressure 102/52 L Pulse Oximetry 100 Oxygen Delivery Room Air 07/22/25 20:00 07/22/25 21:01 07/23/25 00:00 Temperature 97.5 F L Pulse Rate 55 L 54 L 56 L Respiratory Rate 18 Blood Pressure 130/49 L Pulse Oximetry 100 Oxygen Delivery 07/23/25 04:00 07/23/25 04:43 Temperature 97.3 F L Pulse Rate 55 L 55 L Respiratory Rate 16 Blood Pressure 108/42 L Pulse Oximetry 100 Oxygen Delivery Intake/Output Intake/Output: Intake & Output 07/20/25 07/21/25 07/22/25 07/23/25 23:59 23:59 23:59 23:59 Intake Total 1140 2240 3620 1550 Balance 1140 2240 3620 1550 Meds/Results Medications: Active Medications Generic Name Dose Route Start Last Admin Trade Name Freq PRN Reason Stop Dose Admin Acetaminophen 650 mg 07/20/25 14:03 Acetaminophen 325 Mg Tablet PO Q4H PRN Mild Pain (1-3) or Fever Amiodarone HCl 400 mg 07/21/25 08:00 07/22/25 08:31 Amiodarone Hcl 200 Mg Tablet PO 400 mg DAILY@0800 JOE Administration Aspirin 81 mg 07/21/25 09:00 07/22/25 08:31 Aspirin 81 Mg Enteric Tablet PO 81 mg QAM JOE Administration Atorvastatin Calcium 80 mg 07/21/25 09:00 07/22/25 08:33 Atorvastatin 40 Mg Tablet PO 80 mg DAILY JOE Administration Dextrose 12.5 gm 07/20/25 15:48 Dextrose 50% 25 Gm/50 Ml Syringe IV PUSH PRN PRN Hypoglycemia Protocol Ezetimibe 10 mg 07/21/25 09:00 07/22/25 08:33 Ezetimibe 10 Mg Tablet BY MOUTH 10 mg DAILY JOE Administration Ferrous Sulfate 325 mg 07/21/25 09:00 07/22/25 16:52 Ferrous Sulfate 325 Mg Tablet PO 325 mg TID JOE Administration Furosemide 40 mg 07/21/25 09:00 07/22/25 08:33 Furosemide 40 Mg Tablet PO 40 mg DAILY JOE Administration Gabapentin 600 mg 07/21/25 06:00 07/23/25 05:50 Gabapentin 300 Mg Capsule PO 600 mg Q8HR JOE Administration Glucagon 1 mg 07/20/25 15:48 Glucagon For Inj 1 Mg Vial IM PRN PRN Hypoglycemia Protocol Glucose 15 gm 07/20/25 15:48 Glucose Oral Gel 15 Gm Of Glucse In 37.5 Gm Tube PO PRN PRN Hypoglycemia Protocol Sodium Chloride 1,000 mls @ 75 mls/hr 07/20/25 14:05 07/23/25 05:51 Normal Saline Iv IV CONT 75 mls/hr .[id number] JOE Administration Dextrose 1,000 mls @ 100 mls/hr 07/20/25 15:48 Dextrose 5% 1,000 Ml IVPB PRN PRN Hypoglycemia Protocol Lactated Ringer's 1,000 mls @ 150 mls/hr 07/23/25 08:15 Lr - Lactated Ringers Iv IV CONT .[id number] [facility] Insulin Aspart 2 - 5 units 07/20/25 17:00 07/23/25 07:42 Insulin Aspart (*Bkc) 100 Units/Ml SUB-Q Not Given TIDWM JOE Protocol Meclizine HCl 25 mg 07/20/25 22:46 Meclizine Hcl 25 Mg Tablet PO TID PRN Dizziness Metoprolol Succinate 25 mg 07/21/25 09:00 07/22/25 08:32 Metoprolol Succinate Ext Rel 25 Mg Tabcr PO 25 mg DAILY JOE Administration Ondansetron HCl 4 mg 07/20/25 14:03 Ondansetron Inj 4 Mg/2 Ml Vial IV PUSH Q4H PRN Nausea Pantoprazole Sodium 40 mg 07/22/25 09:00 07/22/25 08:33 Pantoprazole 40 Mg Tablet PO 40 mg QAM JOE Administration Sacubitril/Valsartan 1 tab 07/21/25 09:00 07/22/25 21:24 Sacubitril/Valsartan 24-26 Mg Tablet PO 1 tab Q12HR JOE Administration Spironolactone 25 mg 07/21/25 09:00 07/22/25 08:32 Spironolactone 25 Mg Tablet PO 25 mg DAILY JOE Administration Topiramate 50 mg 07/21/25 09:00 07/22/25 21:24 Topiramate 25 Mg Tablet PO 50 mg Q12HR JOE Administration Radiology Results: ITS Impressions Chest X-Ray 07/20/25 13:23 IMPRESSION: 1. Mild hyperexpansion lungs consistent with mild emphysema better appreciated on prior CT. No acute cardiopulmonary disease. Labs Labs: Laboratory Results - last 24 hr 07/22/25 07/22/25 07/22/25 11:31 16:30 21:03 WBC RBC Hgb Hct MCV MCH MCHC RDW Plt Count MPV Immature Gran % (Auto) Neut % (Auto) Lymph % (Auto) [place] % (Auto) Eos % (Auto) Baso % (Auto) Lymph # (Auto) [place] # (Auto) Eos # (Auto) Baso # (Auto) Abs Immat Gran (auto) Absolute Neuts (auto) Absolute Nucleated RBC Nucleated RBC % Sodium Potassium Chloride Carbon Dioxide Anion Gap BUN Creatinine Estim Creat Clear Calc Estimated GFR Glucose POC Capillary Glucose 100 87 130 H Calcium Total Bilirubin AST ALT Alkaline Phosphatase Total Protein Albumin 07/23/25 07/23/25 06:06 07:24 WBC 5.8 RBC 2.50 L Hgb 8.1 L Hct 26.0 L MCV 104.0 H MCH 32.4 MCHC 31.2 L RDW 19.7 H Plt Count 182 MPV 11.0 H Immature Gran % (Auto) 1.2 H Neut % (Auto) 55.3 Lymph % (Auto) 27.9 [place] % (Auto) 10.8 H Eos % (Auto) 3.8 Baso % (Auto) 1.0 Lymph # (Auto) 1.63 [place] # (Auto) 0.6 Eos # (Auto) 0.2 Baso # (Auto) 0.1 Abs Immat Gran (auto) 0.07 H Absolute Neuts (auto) 3.2 Absolute Nucleated RBC 0.000 Nucleated RBC % 0.0 Sodium 139 Potassium 3.7 Chloride 114 H Carbon Dioxide 20 L Anion Gap 5 BUN 9 Creatinine 1.36 H Estim Creat Clear Calc 60 Estimated GFR 52 L Glucose 76 POC Capillary Glucose 77 Calcium 8.1 L Total Bilirubin 0.4 AST 17 ALT 11 Alkaline Phosphatase 49 Total Protein 5.6 L Albumin 3.2 L Quality VTE Prophylaxis VTE prophylaxis: mechanical ordered
[2025-07-23] MEDS: LACTATED RINGERS 1,000 ML 150 ML IV CONT (08:29)
--- NOTE | 2025-07-23 08:38 | WPDANESEPPF ---
Anes - Initial Pre Proc Eval Procedure: Operation Date: 07/23/25 09:45 Proposed Procedures p Esophagogastroduodenoscopy - Tyler Guzman MD Date/Time: 07/23/25 08:38 Surgeon: Zander glaser Oca, MD Pre Op Diagnosis: Anemia Patient Data Age: 65 Gender: M Height: 1.83 m Weight: 104.2 kg Last Vital Signs Temp 35.7 C L 07/23/25 08:25 Pulse 59 L 07/23/25 08:25 Resp 20 07/23/25 08:25 BP 125/61 07/23/25 08:25 Pulse Ox 96 07/23/25 08:25 O2 Del Method Room Air 07/23/25 08:25 Allergies Allergy/AdvReac Type Severity Reaction Status Date / Time No Known Allergies Allergy Verified 07/23/25 08:23 Home Medications ?Medication ?Instructions ?Recorded ?Confirmed ?Type spironolactone 25 mg tablet 25 mg PO DAILY 12/25/22 07/20/25 History amiodarone 200 mg tablet (Pacerone) 400 mg (2 x 200 mg) PO DAILY@0800 02/02/23 07/20/25 Rx 30 days #30 tabs aspirin 81 mg tablet,delayed 81 mg PO QAM #30 tabs 02/02/23 07/20/25 Rx release furosemide 40 mg tablet 40 mg PO DAILY 30 days #30 tabs 02/02/23 07/20/25 Rx sacubitril 24 mg-valsartan 26 mg 1 tablet PO Q12HR #60 tabs 02/02/23 07/20/25 Rx tablet (Entresto) rivaroxaban 20 mg tablet (Xarelto) 20 mg PO DAILY #30 tabs 04/01/23 07/20/25 Rx metoprolol succinate 25 mg 25 mg PO DAILY 01/26/24 07/20/25 History tablet,extended release 24 hr gabapentin 300 mg capsule 600 mg (2 x 300 mg) PO TID #180 11/15/24 07/20/25 Rx caps topiramate 50 mg tablet (Topamax) 50 mg PO BID 11/15/24 07/20/25 History cholecalciferol (vitamin D3) 125 125 mcg PO DAILY #90 caps 05/07/25 07/20/25 Rx mcg (5,000 unit) capsule ezetimibe 10 mg tablet See Rx Instructions .Route 05/07/25 07/20/25 Rx .COMPLEX #90 tabs atorvastatin 80 mg tablet 80 mg PO DAILY #90 tabs 06/03/25 07/20/25 Rx meclizine 25 mg tablet 25 mg PO TID PRN dizziness 10 days 07/13/25 07/20/25 Rx #30 tabs dulaglutide 1.5 mg/0.5 mL 1.5 mg subcut WEEKLY 07/20/25 07/20/25 History subcutaneous pen injector ferrous sulfate 325 mg (65 mg 325 mg PO TID 07/20/25 07/20/25 History iron) tablet (iron) Laboratory Tests 07/22/25 07/22/25 07/22/25 11:31 16:30 21:03 WBC RBC Hgb Hct MCV MCH MCHC RDW Plt Count MPV Immature Gran % (Auto) Neut % (Auto) Lymph % (Auto) [place] % (Auto) Eos % (Auto) Baso % (Auto) Lymph # (Auto) [place] # (Auto) Eos # (Auto) Baso # (Auto) Abs Immat Gran (auto) Absolute Neuts (auto) Absolute Nucleated RBC Nucleated RBC % Sodium Potassium Chloride Carbon Dioxide Anion Gap BUN Creatinine Estim Creat Clear Calc Estimated GFR Glucose POC Capillary Glucose 100 mg/dl 87 mg/dl 130 H mg/dl (65-105) (65-105) (65-105) Calcium Total Bilirubin AST ALT Alkaline Phosphatase Total Protein Albumin 07/23/25 07/23/25 07/23/25 06:06 07:24 08:30 WBC 5.8 K/mm3 (4.5-10.0) RBC 2.50 L M/mm3 (4.6-6.20) Hgb 8.1 L g/dL (14.0-18.0) Hct 26.0 L % (42.0-52.0) MCV 104.0 H fl (80-100) MCH 32.4 pg (26-34) MCHC 31.2 L g/dl (32-36) RDW 19.7 H % (11.5-14.5) Plt Count 182 k/mm3 (150-375) MPV 11.0 H fl (7.4-10.4) Immature Gran % (Auto) 1.2 H % (0-0.5) Neut % (Auto) 55.3 % (45.5-73.1) Lymph % (Auto) 27.9 % (18.3-44.2) Caroline % (Auto) 10.8 H % (2.6-8.5) Eos % (Auto) 3.8 % (0-4.4) Baso % (Auto) 1.0 % (0.2-1.2) Lymph # (Auto) 1.63 K/mm3 (0.9-3.2) [place] # (Auto) 0.6 K/mm3 (0.1-0.6) Eos # (Auto) 0.2 K/mm3 (0-0.3) Baso # (Auto) 0.1 K/mm3 (0.0-0.1) Abs Immat Gran (auto) 0.07 H K/mm3 (0.00-0.031) Absolute Neuts (auto) 3.2 K/mm3 (1.3-6.7) Absolute Nucleated RBC 0.000 K/mm3 (0.0-0.012) Nucleated RBC % 0.0 % (0.0-0.2) Sodium 139 mmol/L (137-145) Potassium 3.7 mmol/L (3.4-5.0) Chloride 114 H mmol/L (98-107) Carbon Dioxide 20 L mmol/L (22-30) Anion Gap 5 mmol/L (4-12) BUN 9 mg/dL (9-20) Creatinine 1.36 H mg/dL (0.7-1.3) Estim Creat Clear Calc 60 ml/min Estimated GFR 52 L (59 - ) Glucose 76 mg/dL (65-110) POC Capillary Glucose 77 mg/dl 85 mg/dl (65-105) (65-105) Calcium 8.1 L mg/dL (8.4-10.2) Total Bilirubin 0.4 mg/dL (0.2-1.3) AST 17 U/L (17-59) ALT 11 U/L (6-50) Alkaline Phosphatase 49 U/L (38-126) Total Protein 5.6 L g/dL (6.3-8.2) Albumin 3.2 L g/dL (3.5-5.1) Patient hx anesthesia problems: none Family hx anesthesia problems: none Results Review: All pre-operative results and documents have been reviewed as part of the pre-operative evaluation. [facility] Past Medical History Medical History (Updated 07/21/25 @ 14:53 by Tyler Guzman MD) Blood thinned due to long-term anticoagulant use Macrocytic anemia Acute on chronic renal failure Acute on chronic anemia Cerumen impaction JUANA (acute kidney injury) CKD (chronic kidney disease) stage 3, GFR 30-59 ml/min Elevated serum creatinine Elevated WBC count Screening for malignant neoplasm of prostate Enlarged thyroid Preoperative clearance Abnormal EKG Renal mass, right Hypotension Current smoker Constipation Diabetic foot Uncontrolled diabetes mellitus Microalbuminuria Vitamin B12 deficiency Lumbar spondylosis Screening for thyroid disorder H/O blood clots Blood clot associated with vein wall inflammation Peripheral artery disease Abnormal MRI, lumbar spine Surgical History Surgical History History of partial nephrectomy H/O cardiac catheterization Family History Family History Grandparent Diabetes mellitus Father Acute myocardial infarction Heart disease Mother No problems noted. Sibling Diabetes mellitus Other Family history of cardiovascular disease Hypertension Social History Social History Smoking packs per day: 1 Smoking cigarettes per day: 20.0 Years smoked: 49 Smoking pack-years: 49.00 Smoking status: Current every day smoker Tobacco type: cigarettes Second hand tobacco smoke exposure: No Alcohol intake: current Drinks per week: 0 Alcohol use details: BEERS Substance use: never Substance use type: does not use Other substance usage details: nyquil Lack of Transportation: No Lack of Food: Never True Current Housing: I Have Housing Concerned About Future Housing: No Difficulty Paying Gas/Electric Bills: No Difficulty Paying for Meds: No Currently Unemployed: No Education: High School Diploma/GED Difficulty w/ Childcare or Family Care: No Living arrangements: with family Occupation/Education: retired 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 Gender identity (if verbalized by the patient): Male Spiritual care concerns: No Anes - Eval Final PreProcedure Day of Procedure 07/23/25 08:38 Patient weight: obese Heart: regular rate and rhythm Lungs: clear to auscultation Airway: Mallampati scale class II Neurological: alert and oriented Last oral intake: >/= 8 hours ASA classification: IV Emergent: no Anesthetic plan: proceed Anesthesia type and monitoring: general GIVS and standard monitoring Results Review: All pre-operative results and documents have been reviewed as part of the pre-operative evaluation. Informed Consent: The patient's anesthetic plan and its attendant risks and benefits were discussed with the patient/family/POA. Questions were solicited and answers provided to the satisfaction of the patient/family/POA.
--- NOTE | 2025-07-23 09:05 | S_PTH ---
PATIENT: Bravo Perez LOC: [id number] U#:[id number] AGE/SX: 65/M ROOM: 324 RE07/21/[address]: Xiomy Fang MD : 1960 BED: 01 DIS: 07/23/2025 SPEC #: [id number] RECD: 07/23/25 09:42 STATUS: KIMMY REJaquelin #: [id number] BENEDICTO: 07/23/25 09:[address]: Tyler Guzman DEPT: [facility] Surgical RECD BY: Katya Amezcua ENTERED: 07/23/25 09:43 SP TYPE: Surgical OTHR DR: MD Zander Montano Oca, MD Calderon Sade Nick MD Tissues: A - Small Bowel Bx B - Gastric Biopsy C - Gastric Biopsy Procedures: Davis Keratin Hematoxylin and Eosin Stain Gross and Microscopic Level 4 H.Pylori Iron Stain
--- NOTE | 2025-07-23 09:26 | PC.NURSE ---
Returned from GI Lab. Report received from [GAGE ].
[2025-07-23] MEDS: ASPIRIN 81 MG ENTERIC TABLET PO (09:54)
[2025-07-23] MEDS: SPIRONOLACTONE 25 MG TABLET PO (09:54)
[2025-07-23] MEDS: FUROSEMIDE 40 MG TABLET PO (09:56)
[2025-07-23] MEDS: EZETIMIBE 10 MG TABLET BY MOUTH (09:57)
[2025-07-23] MEDS: TOPIRAMATE 25 MG TABLET 50 MG PO (09:57)
[2025-07-23] MEDS: METOPROLOL SUCCINATE EXT REL 25 MG TABCR PO (09:58)
[2025-07-23] MEDS: SACUBITRIL/VALSARTAN 24-26 MG TABLET 1 TAB PO (09:58)
[2025-07-23] MEDS: AMIODARONE HCL 200 MG TABLET 400 MG PO (09:59)
[2025-07-23] MEDS: FERROUS SULFATE 325 MG TABLET PO ×2 (09:59→12:10)
[2025-07-23] MEDS: ATORVASTATIN 40 MG TABLET 80 MG PO (10:13)
--- NOTE | 2025-07-23 12:34 | PC.NURSE ---
RN spoke with [facility] Kelly NP at nurses station. He is requesting patient follow up with hematology/oncology outpatient as hospitalist and GI cleared him for discharge here. Hematology/oncology consult is placed however that specialist will not be at the hospital until later this evening. Patient is clear for discharge via hospitalist Robin MACEDO and GI specialist Mike. [facility] Kelly NP is requesting Dr. Nick put in a referral for patient to see hematology/oncology outpatient when he see's him for his follow up appointment in the office. RN called Dr Nick's office and spoke with Deanne. RN relayed all of this information to Deanne and Deanne stated she put in for the referrals for patient.
--- NOTE | 2025-07-23 12:40 | P.DS_ITS ---
DS: Admitting Diagnosis Discharge Date 07/23/2025 1230 Admitting Diagnosis Acute GI bleed DS: Discharge Diagnosis Discharge Diagnosis (1) GI bleed: Code(s): K92.2 - Gastrointestinal hemorrhage, unspecified Status: Acute Assessment and Plan: * History of GI hemorrhage in the past * On eliquis for DVT * Bleeding started with anticoagulation * On admission H/H 6.0/20.4, current H/H 8.1/26.0 * S/P 2 units of PRBC * Francisco H/H * GI on board * Hematology consulted thank you for your help * EGD 7-8 mm ulcer nonbleeding at this time * Protonix twice a day * Follow-up with GI for repeat EGD in 4 months * Transfuse if Hgb <7.0 * Trend labs (2) Anemia: Code(s): D64.9 - Anemia, unspecified Status: Acute Assessment and Plan: * Current H/H 8.1/26.0 * continue iron supplement * plan for EGD tomorrow * Hematology consult pending * Transfuse if hgb <7.0 * Stable (3) Essential hypertension: Code(s): I10 - Essential (primary) hypertension Status: Acute Assessment and Plan: * Blood pressure currently soft due to blood loss * Current BP is 125/61 * antihypertensives on hold * trend BP * restart BP medications as indicated (4) CHF (congestive heart failure): Qualifiers: Heart failure chronicity: chronic Heart failure type: unspecified Qualified Code(s): I50.9 - Heart failure, unspecified Code(s): I50.9 - Heart failure, unspecified Status: Acute Assessment and Plan: * Continue home GDMT with entresto 24-26, metoprolol 25 mg PO daily * Lasix 40 mg PO daily * Last echo with EF of 65-70% * trend urine output * daily weights * trend BP * adjust therapy as indicated (5) CKD (chronic kidney disease) stage 3, GFR 30-59 ml/min: Code(s): N18.30 - Chronic kidney disease, stage 3 unspecified Status: Acute Assessment and Plan: * Creatinine 1.9 on admission, improving to 1.56 --> 1.34 * creatinine today 1.36 * baseline creatinine is 1.5 * Avoid nephrotoxic agents * Monitor renal function daily * Labs in the am (6) Coronary artery disease: Code(s): I25.10 - Atherosclerotic heart disease of [place] coronary artery without angina pectoris Status: Acute Assessment and Plan: * As above history of CAD currently on apixaban * Apixaban on hold due to active GI bleeding * no complaints of chest pain * stable (7) Type 2 diabetes mellitus without complications: Code(s): E11.9 - Type 2 diabetes mellitus without complications Status: Acute Assessment and Plan: * Accu-Cheks a.c. HS * SSI * current glucose stable at 85 * trend glucose * adjust therapy as indicated DS: Summary Hospital Course Hospital Course: Patient is a 5-year-old male with a past medical history of hypertension, diabetes, neuropathy, GI bleed who presented to the ED with complaints of dizziness and weakness. On arrival to the ED patient was noted to have a hemoglobin of 6.0/20.4 with crit hemoglobin hematocrit being 8.1/26.0. Patient did receive 2 units of packed red blood cells and also underwent EGD. EGD did show a 7-8 mm ulcer that is nonbleeding at this time. Biopsies were obtained. Patient did need to follow up with GI for repeat EGD in 4 months. Xarelto has been placed on hold due to the anemia at this time. Hematology oncology was consulted however GIST patient see outpatient. Currently patient is doing well and stable for discharge for labs and vital signs. Current on admission was 1.9 on admission and is currently 1.36. Baseline is 1.5. Patient is doing well and labs and vital signs are stable at this time. Patient is stable for discharge for labs and vital signs. Patient will be following up with his primary care provider who did send a referral out to Hematology Oncology. Status at Discharge Functional status at discharge: independent ambulation Overall status at discharge: patient is progressing back to baseline Time Spent with Patient Time attestation: Total time spent providing and/or coordinating discharge services: 49 minutes Time spent: Greater than 30 minutes Specific discharge activities: Diagnostic testing, chart review, developing a treatment plan, education, care coordination documentation, physical exam, result review Exam Narrative: General: well appearing, appears stated age. HEENT: normocephalic, atraumatic. Mucous membranes moist. EOMI, PERRLA, bilateral sclera anicteric, no conjunctival injection. Neck supple without JVD, lymphadenopathy, or bruit. Respiratory: clear bilaterally. No rales/rhonic/wheezes. Cardiovascular: Regular rate and rhythm, normal S1-S2. No murmurs, rubs, or clicks. PMI is nondisplaced, capillary refill less than 3 second. Abdomen: Soft, round, no pulsatile masses, nondistended and nontender. No rebound, no guarding. Bowel sounds present to all four quadrants. No high pitch or tinkling sounds, resonant to percussion. Extremities: No cyanosis, clubbing, or edema present. Pulses are palpable 2/2. Active ROM to all four extremities. Neuro: Alert and orientated x 4. PERRLA. Cranial nerves 2-12 intact without focal deficit. Skin: Warm, dry, and intact, without rash, erythema, or lesion. Pallor. Psych: pleasant, cooperative, normal speech, normal affect, no hallucinations, no dysarthia DS: Data Data Completed and Pending Pending studies at discharge: Pending at discharge 07/23/25 09:05 Surgical [PTH] Routine Surgical [PTH] Routine Labs on day of discharge: Labs from last 24 hours 07/23/25 07/23/25 07/23/25 11:44 09:17 08:30 WBC RBC Hgb Hct MCV MCH MCHC RDW Plt Count MPV Immature Gran % (Auto) Neut % (Auto) Lymph % (Auto) [place] % (Auto) Eos % (Auto) Baso % (Auto) Lymph # (Auto) [place] # (Auto) Eos # (Auto) Baso # (Auto) Abs Immat Gran (auto) Absolute Neuts (auto) Absolute Nucleated RBC Nucleated RBC % Sodium Potassium Chloride Carbon Dioxide Anion Gap BUN Creatinine Estim Creat Clear Calc Estimated GFR Glucose POC Capillary Glucose 178 H 84 85 Calcium Total Bilirubin AST ALT Alkaline Phosphatase Total Protein Albumin 07/23/25 07/23/25 07/22/25 07:24 06:06 21:03 WBC 5.8 RBC 2.50 L Hgb 8.1 L Hct 26.0 L MCV 104.0 H MCH 32.4 MCHC 31.2 L RDW 19.7 H Plt Count 182 MPV 11.0 H Immature Gran % (Auto) 1.2 H Neut % (Auto) 55.3 Lymph % (Auto) 27.9 [place] % (Auto) 10.8 H Eos % (Auto) 3.8 Baso % (Auto) 1.0 Lymph # (Auto) 1.63 [place] # (Auto) 0.6 Eos # (Auto) 0.2 Baso # (Auto) 0.1 Abs Immat Gran (auto) 0.07 H Absolute Neuts (auto) 3.2 Absolute Nucleated RBC 0.000 Nucleated RBC % 0.0 Sodium 139 Potassium 3.7 Chloride 114 H Carbon Dioxide 20 L Anion Gap 5 BUN 9 Creatinine 1.36 H Estim Creat Clear Calc 60 Estimated GFR 52 L Glucose 76 POC Capillary Glucose 77 130 H Calcium 8.1 L Total Bilirubin 0.4 AST 17 ALT 11 Alkaline Phosphatase 49 Total Protein 5.6 L Albumin 3.2 L 07/22/25 16:30 WBC RBC Hgb Hct MCV MCH MCHC RDW Plt Count MPV Immature Gran % (Auto) Neut % (Auto) Lymph % (Auto) [place] % (Auto) Eos % (Auto) Baso % (Auto) Lymph # (Auto) [place] # (Auto) Eos # (Auto) Baso # (Auto) Abs Immat Gran (auto) Absolute Neuts (auto) Absolute Nucleated RBC Nucleated RBC % Sodium Potassium Chloride Carbon Dioxide Anion Gap BUN Creatinine Estim Creat Clear Calc Estimated GFR Glucose POC Capillary Glucose 87 Calcium Total Bilirubin AST ALT Alkaline Phosphatase Total Protein Albumin Discharge Plan Discharge Attending physician on discharge: Xiomy Fang Consulting providers: Tyler Guzman; Obi Herbert Discharging Clinician: Marcos Keita Patient Disposition: Home Activity: may shower, unlimited and as tolerated Diet: heart healthy Discharge Instructions: * Take all medications as prescribed even if feeling better * Eat well balanced meals and do not over hydrate * Keep active * Keep an eye on your stool, should your stool be black or dark purple, you should come back to the hospital * Change positions slowly, take a break between each position change * Hold Xarelto until 07/31/2025, or for 7 days * If you should experience any chest pain, shortness of breath, temps >100.4 or any other worrisome symptoms please follow up with your PCP come back to the hospital * Follow up with your primary in 1 weeks * please follow up with referral that was sent to primary for hematology consult * It has been a pleasure taking care of you thank you for using our services Patient Instructions: Antibiotic Form, Cigarette Smoking and Your Health (GEN) Patient Language: Belarusian Stand Alone Forms: General Discharge Information Follow-up/Referrals: Obi Herbert MD [Physician, Hematology] - Call for Appointment Tyler Guzman MD [Physician, Gastroenterology] - Call for Appointment Calderon Nick MD [Primary Care Provider, [facility]] - Keep Reg. Scheduled Appt. Discharge Medications: New pantoprazole 40 mg Tablet,Delayed Release (Dr/Ec) 40 mg PO Q12HR Qty: 60 0RF Continued spironolactone 25 mg tablet 25 mg PO DAILY metoprolol succinate 25 mg tablet extended release 24 hr 25 mg PO DAILY topiramate [Topamax] 50 mg tablet 50 mg PO BID gabapentin 300 mg capsule 600 mg PO TID Qty: 180 6RF amiodarone [Pacerone] 200 mg Tablet 400 mg PO DAILY@0800 30 Days Qty: 30 0RF aspirin 81 mg Tablet,Delayed Release (Dr/Ec) 81 mg PO QAM Qty: 30 0RF furosemide 40 mg Tablet 40 mg PO DAILY 30 Days Qty: 30 0RF sacubitril-valsartan [Entresto] 24-26 mg Tablet 1 tablet PO Q12HR Qty: 60 0RF ferrous sulfate [iron] 325 mg (65 mg iron) tablet 325 mg PO TID dulaglutide 1.5 mg/0.5 mL pen injector 1.5 mg subcut WEEKLY Rx Instructions: 1.5 mg; cholecalciferol (vitamin D3) 125 mcg (5,000 unit) capsule 125 mcg PO DAILY Qty: 90 3RF ezetimibe 10 mg tablet See Rx Instructions .ROUTE .COMPLEX Qty: 90 2RF Dose Instruction: TAKE 1 TABLET BY MOUTH ONCE DAILY Rx Instructions: TAKE 1 TABLET BY MOUTH ONCE DAILY atorvastatin 80 mg tablet 80 mg PO DAILY Qty: 90 1RF meclizine 25 mg tablet 25 mg PO TID PRN (Reason: dizziness) 10 Days Qty: 30 0RF Held Xarelto 20 mg tablet 20 mg PO DAILY Qty: 30 0RF Hold Instructions: Resume on 07/31/25. hold for 7 days Rx Instructions: must administer with evening meal Date of admission: 07/21/25 15:45 Primary Care Provider: Calderon Nick Admitting Provider: Zander Francisco Oca Attending physician on admission: Zander Francisco Oca Condition: Stable Quality VTE Prophylaxis VTE prophylaxis: mechanical ordered
== END 2025-07-23 13:26 | disposition home or self-care (01) | DRG 812 ==
LOC: ANHED 14:00 → ANH3MEDSUR 14:48
PROVIDERS: Internal Medicine Gastroenterology; Nurse Practitioner Adult Health; Nurse Practitioner Gerontology; Student in an Organized Health Care Education/Training Program; Admitting Provider Student in an Organized Health Care Education/Training Program; Emergency Provider Family Medicine; PCP Family Medicine; Visit Provider General Practice
PROC: 0DJ08ZZ Inspection of Upper Intestinal Tract, Via Natural or Artificial Opening Endoscopic (ICD-10-PCS; principal; 2025-07-23 09:45)
DX: D50.8 Other iron deficiency anemias (principal); I13.0 Hypertensive heart and chronic kidney disease with heart failure and stage 1 through stage 4 chronic kidney disease, or unspecified chronic kidney disease; N17.9 Acute kidney failure, unspecified; K25.9 Gastric ulcer, unspecified as acute or chronic, without hemorrhage or perforation; N18.30 Chronic kidney disease, stage 3 unspecified; I50.9 Heart failure, unspecified; I25.10 Atherosclerotic heart disease of native coronary artery without angina pectoris; D53.9 Nutritional anemia, unspecified; E11.22 Type 2 diabetes mellitus with diabetic chronic kidney disease; E11.40 Type 2 diabetes mellitus with diabetic neuropathy, unspecified; E11.51 Type 2 diabetes mellitus with diabetic peripheral angiopathy without gangrene; E04.9 Nontoxic goiter, unspecified; E53.8 Deficiency of other specified B group vitamins; M47.816 Spondylosis without myelopathy or radiculopathy, lumbar region; F17.210 Nicotine dependence, cigarettes, uncomplicated; Z79.82 Long term (current) use of aspirin; Z79.01 Long term (current) use of anticoagulants
CPT/HCPCS: 36415; 36430; 71045; 80048; 80053; 82948; 85014; 85018; 85025; 86850; 86900; 86901; 86923; 88305; 88313; 88342; 93005; 96374; 96376; 99285; A9270; G0378; J2470; J2704; J7030; J7050; J7120; P9016

== ENCOUNTER 2025-08-14 05:39 | Outpatient (CLI) | payer MEDICARE, OTHER, SELFPAY ==
--- NOTE | 2025-07-30 13:58 | PC.NURSE ---
Spoke with patient in regards to givens capsule endoscopy. Prep instructions being sent by email but reviewed with him over the phone. Patient to call if he has any questions.
--- OUTSIDE RECORDS SUMMARY | 2025-08-14 05:42 | XMS_ITS | Clinical Summary ---
Author Organization [facility] [place]mar[place] Address [address] [place] [address] Care Team Providers Care Dipper Machine Operator Name Role Phone Unavailable Primary [...] Date Smoking Tobacco: Every Day Cigarettes 1 55.9 Started: 09/13/1969 Smokeless Tobacco: Never Tobacco Cessation:Ready [...] Care Team (Late st Contact Info) Description 08/27/2025 3:30 PM CAR ICER Office Visit [facility] - [place] [address] [place] [phone] Obi Herbert MD [address] [facility] [address] [place] [phone] Health Maintenance Due Date Last Done Comments DIABETES ANNUAL FOOT EXAM 1977 DIABETES ANNUAL RETINAL EXAM 1977 DIABETES MICROALBUMIN ANNUAL SCREEN 1977 LDL CHOLESTEROL ANNUAL 1977 DTAP/TDAP/TD VACCINES (1 - Tdap) 1978 PNEUMOCOCCAL VACCINE 50+ YEA RS (1 of 2 - PCV) 1978 FIT-DNA Q 3 years 2004 FIT/FOBT Q 1 year 2004 Flex Sig/CT Colonography Q 5 years 2004 Lung Cancer Screening 2009 RSV VACCINE (60+ or ) (1 - Risk 50-74 years 1-dose series) 2009 ZOSTER VACCINE (1 of 2) 2009 Abdominal Aortic Aneurysm (A AA) Screening 2024 INFLUENZA VACCINE (#1) 2025 COVID-19 Vaccine (3 - 2024-2 6 season) 2025 12/22/2020, 11/28/2020 DIABETES HBA1C Q 6 MONTHS 08/23/20252024, 11/15/2024, 08/02/2024, Additional history exists COLORECTAL SCREENING 02/23/2034 02/24/2024, 02/24/20 Colorectal Cancer Screening 02/23/[address] [place], [place] [id number] MEDICARE PART A AND B PHYSICIANS [facility]
--- OUTSIDE RECORDS SUMMARY | 2025-08-14 05:42 | XMS_ITS | Encounter Summary ---
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 Gender Identity Not on file Sexual Orientation Not on file 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
--- OUTSIDE RECORDS SUMMARY | 2025-08-14 05:42 | XMS_ITS | Clinical Summary ---
Author Organization [facility] Address [address] [place] [address] Care Team Providers Care Commercial Energy Auditor Name Role Phone Calderon Nick MD Primary Care Provider [phone] Bravo Barrera MD Unavailable [phone] Allergies No known active allergies Medications atorvastatin [...] mg total) by mouth daily. 4 Active ACCU-CHEK GUIDE TEST test strip USE [...] total) by mouth daily with breakfast. Active gabapentin (NEURONTIN) 300 MG capsuleIndicat ions:Essential tremor TAKE 1 CAPSULE BY MOUTH THREE TIMES A DAY 270 capsule 3 5 Active topiramate (TOPAMAX) 50 MG TabIndications :Essential tremor TAKE 1 TABLET BY MOUTH TWICE A DAY 180 tablet 5 Active Active Problems Problem Noted Date Diagnosed Date Coronary artery disease invo lving [place] coronary artery of [place] heart without angina pectoris 09/28/2024 Left ventricular [...] pain, right 05/19/2022 Type 2 diabetes mellitus without complications 0 05/19/2022 Vitamin D deficiency 05/19/2022 Spinal stenosis [...] Sex Assigned at Male 10/18/2024 12:55 PM WEEKEND RECEPTIONIST Legal Sex Male 8:02 PM CDT Gender Identity Not on file Sexual Orientation Not on file Last Filed Vital Signs Vital Sign Reading Time Taken Comments Blood Pressure 130/72 10/26/2024 11:53 AM WEEKEND RECEPTIONIST Pulse 71 10/26/2024 11:53 AM WEEKEND RECEPTIONIST Temperature 36.1 C (97 F) 03/15/2024 1:38 PM CDT Respiratory Rate 18 07/25/2022 8:13 AM WEEKEND RECEPTIONIST Oxygen Saturation 98% 09/07/2024 1:47 PM WEEKEND RECEPTIONIST Inhaled Oxygen Concentration - - Weight 109.9 kg (242 lb 3.2 oz) 025 11:53 AM WEEKEND RECEPTIONIST Height 182.9 cm (6') 10/26/2024 11:53 AM WEEKEND RECEPTIONIST Body Mass Index 32.85 10/26/2024 11:53 AM WEEKEND RECEPTIONIST Plan of Treatment Upcoming Encounters Date Type Department Care Team (Late st Contact Info) Description 10/16/2025 10:00 AM WEEKEND RECEPTIONIST Appointment [facility] [address] [place], [place] [phone] Goldy Thurman MD Three [facility] [id number] [place], [place] [phone] Health Maintenance Due Date Last Done Comments ASCVD LDL 1959 ASCVD Statin 1959 Colorectal Cancer Screening Colonoscopy (10 Years) 1959 Kidney Health Evaluation 1959 Hemoglobin A1C 1959 Diabetes: Retinopathy Eye Exam 1977 Hepatitis C 1977 DTaP, Tdap and Td Vaccines ( 1 - Tdap) 1978 Hepatitis A Vaccines (1 of 2 - Risk 2-dose series) 1978 Pneumococcal Vaccine: 50+ Years (1 of 2 - PCV) 1978 Zoster Vaccines (1 of 2) 2009 RSV Immunization or 60+ Years (1 - Risk 60-74 years 1-dose series) 2019 AAA SCREENING 2024 Annual Medicare Wellness Visit 2024 PHQ-2 (Physician [place]) 09/13/2024 11/17/2023 Lipid Panel 12/22/2024 12/23/2023, 02/26/2022 COVID-19 Vaccine (3 - 2024-2 6 season) 2025 12/22/2020, 11/28/2020 Influenza Adult (#1) 2025 Meningococcal B Vaccine Aged Out No l onger eligible based on patient's age to complete this topic Meningococcal Vaccine Aged Out No john steven eligible based on patient's age to complete this topic RSV Immunizations Under 20 Months Aged Out No longer eligible b ased on patient's age to complete this topic Medical Devices Implanted Type Area Llama Farmer Device Identifier Shelf Expiration Date Model / Serial / Lot Patch Desiree. Vasc. Vascu-Guard 0.8cm X 8cm - [id number] Implanted:Qty : 1 on 07/24/2022 by Goldy Thurman MD at [facility] Mesh Right: Groin [employer] [id number] 03/04/2027 [id number] / / [id number] Description:RIGHT FEMORAL AR [place] Insurance MEDICARE [employer] Advance Directives * Full Code (Latest Code Status on File) Date Activated Date Inactivated Comments 02/06/2022 12:53 PM 02/06/2022 11:04 PM Care Teams Commercial Energy Auditor Relationship Specialty Start Date End Date Calderon Nick MD [address] [address] PCP - General FAMILY PRACTICE 02/06/22 Bravo Barrera MD [address] [facility] [address] [place] [phone] CARDIOVASCULAR DISEASE 07/17/22
--- OUTSIDE RECORDS SUMMARY | 2025-08-14 05:42 | XMS_ITS | Clinical Summary ---
Author Organization [facility] [address] Address [address] [place] [address] Care Team Providers Care Jtac Name Role Phone Calderon Nick MD Primary Care Provider + [phone] Carlos Flores MD Unavailable [phone] Allergies No known active allergies Medications empagliflozin-m etformin 12.5-1,000 mg tablet Take 1 tablet by mouth 2 (two) times a day Active cholecalciferol (VITAMIN D-3) 5,000 unit capsule Take 1 capsule (5,000 Units total) by mouth daily after lunch 07/13/20 21 Active Trulicity 0.75 mg/0.5 mL pen injector Inject 1 mL (1.5 mg total) under the skin once a week Takes on Wednesday Indication: DM 09/29/19 22 Active gabapentin (NEURONTIN) 100 mg capsule Take 3 capsules (300 mg total) by mouth 3 (three) times a day 12/03/19 23 Active albuterol HFA (PROVENTIL HFA,VENTOLIN HFA,PROAIR HFA) 90 mcg/actuation inhaler Inhale 2 puffs every 4 (four) hours as needed 12/04/19 23 Active ferrous sulfate 325 mg (65 mg of elemental iron) tablet Take 1 tablet (325 mg total) by mouth 3 (three) times a day with meals 02/03/20 23 Active Entresto 24-26 mg tablet TAKE 1 TABLET BY MOUTH EVERY 12 HOURS 60 tablet 11 02/22/20 25 Active aspirin 81 mg enteric coated tablet [...] mg total) by mouth every morning Active bran/gum/fib/ce l/psyl/kelp/pec (FIBER 6 ORAL) Take 1 tablet by [...] daily after lunch Active acetaminophen 500 mg capsuleIndicati ons:Pain Take 2 capsules (1,000 mg total) by mouth every 6 (six) hours 04/24/20 25 Active Xarelto 20 mg tablet TAKE 1 TABLET BY MOUTH EVERY DAY WITH BREAKFAST 30 tablet 3 05/03/20 25 Active metoprolol XL (TOPROL-XL) 25 mg extended release tablet TAKE 1 TABLET BY MOUTH EVERY DAY IN THE MORNING FOR 30 DAYS 90 tablet 3 05/28/20 25 Active amiodarone (PACERONE) 200 mg tablet TAKE 2 TABLETS BY MOUTH EVERY DAY AT 8AM 180 tablet 1 08/03/20 25 Active amiodarone (PACERONE) 200 mg tablet Take 2 tablets (400 mg total) by mouth every morning 025 Discontinued Active Problems Problem Noted Date Diagnosed Date Renal mass 04/03/2025 Coronary artery disease invo lving [place] coronary artery of [place] heart without angina pectoris 09/28/2024 Left ventricular [...] Description 05/24/2025 2:15 PM CDT Office Visit [facility] Cardiology at [address] [place] [address] Bravo Barrera MD Coronary artery disease involving [place] coronary artery of [place] heart without angina pectoris (Primary Dx); Left ventricular dysfunction with reduced left ventricular function from Last 3 Months Immunizations Immunization Administration Dates Next Due Pfizer SARS-CoV-2 Monovalent Vaccination (12+ Yrs) PURPLE 12/22/2020,11/28/2020 Surgical History Surgery Date Site/Laterality Comments BACK SURGERY 04/13/2021 - 05/13/2021 Fusion L5-S1 Medical History Medical History Date Comments Diabetes mellitus Diabetes melli tus; Comments: [facility] 02/18/2015 - Hypertension Hypertension Hx Other Medical hyperlipidemia; Comments: [facility] 02/18/2015 - Hx Other Medical tobacco use; Co mments: [facility] 02/18/2015 - Hx Other Medical deviated septum repair; Comments: [facility] 02/18/2015 - Hx Other Medical right carpal tu nnel release; Comments: [facility] 02/18/2015 - Sleep apnea Low back [...] often do you attend chur ch or catholic services? Never 04/25/2025 Do you belong to any clubs o r organizations such as protestant groups, unions, fraternal or athletic groups, or [...] any time in the past 12 m [facility], were you homeless or living in a retirement (including now)? 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 on file Not on file [...] 04/26/2026 04/26/2025 Medical Devices Implanted Type Area Rig Supervisor Device Identifier Shelf Expiration Date Model / Serial / Lot [employer]ier Stent Ureteral Set Double Pigtail Tapered Tip Contour [id number] Hydroplus Coated [id number] - [id number] Implanted:Qty: 1 on 04/23/2025 by Carlos Flores MD at [facility] Stent Right: Ureter [employer] Olivier 01/02/2028 [id number] / / [id number] Insurance MEDICARE [facility] Advance Directives For more information, please contact: [phone] * Full Code (Latest Code Status on File) Date Activated Date Inactivated Comments 04/23/2025 6:08 PM 04/26/2025 3:30 PM Care Teams Jtac Relationship Specialty Start Date End Date Calderon Nick MD PCP - General 02/18/15 [place] [address] [place] [address] Consulting Physician Urology 04/24/25
--- NOTE | 2025-08-14 06:38 | SUR.OPER ---
Patient brought to GI Lab. Instructions for patient undergoing Capsule Endoscopy reviewed with patient. Consent form signed. Sensor array applied to patient's abdomen and connected to recorded. Patient swallowed capsule with 12 ozs of water infused with Simethicone. Patient instructed they may have clear liquids at 0815 this AM and eat or drink at 1015 this AM. Patient instructed to return to GI Lab at 1500 this afternoon for removal of recording device and to call [phone] or to return to the hospital if any nausea and vomiting or abdominal pain is experienced. pt stated understood these instructions
== END 2025-08-14 05:40 | disposition home or self-care (01) ==
PROVIDERS: PCP Family Medicine; Referring Provider Internal Medicine Gastroenterology; Visit Provider Internal Medicine Gastroenterology
PROC: (CPT 91110; principal; 2025-08-14 07:00)
DX: D64.9 Anemia, unspecified (principal); Z01.818 Encounter for other preprocedural examination
CPT/HCPCS: 91110

== ENCOUNTER 2025-08-24 01:54 | Day surgery (SDC) | payer MEDICARE, OTHER, SELFPAY ==
[2025-08-22 14:11] VITALS: BMI 31.8
[2025-08-24 11:02] VITALS: BP 122/54; PULSE 65; RESP 20; TEMP 36.1; O2SAT 100; BMI 31.8
[2025-08-24] MEDS: LACTATED RINGERS 1,000 ML 150 ML IV CONT (11:05)
--- NOTE | 2025-08-24 11:25 | WPDANESEPPF ---
Anes - Initial Pre Proc Eval Procedure: Operation Date: 08/24/25 11:45 Proposed Procedures p Push Endoscopy - Tyler Guzman MD Date/Time: 08/24/25 11:25 Surgeon: Tyler Guzman MD Pre Op Diagnosis: Iron deficiency anemia, unspecified Patient Data Age: 65 Gender: M Height: 1.83 m Weight: 106.4 kg Last Vital Signs Temp 36.1 C L 08/24/25 11:02 Pulse 65 08/24/25 11:02 Resp 20 08/24/25 11:02 BP 122/54 L 08/24/25 11:02 Pulse Ox 100 08/24/25 11:02 O2 Del Method Room Air 08/24/25 11:02 Allergies Allergy/AdvReac Type Severity Reaction Status Date / Time No Known Allergies Allergy Verified 08/24/25 10:57 Home Medications ?Medication ?Instructions ?Recorded ?Confirmed ?Type spironolactone 25 mg tablet 25 mg PO DAILY 12/25/22 08/24/25 History amiodarone 200 mg tablet (Pacerone) 400 mg (2 x 200 mg) PO DAILY@0800 02/02/23 08/24/25 Rx 30 days #30 tabs aspirin 81 mg tablet,delayed 81 mg PO QAM #30 tabs 02/02/23 08/24/25 Rx release furosemide 40 mg tablet 40 mg PO DAILY 30 days #30 tabs 02/02/23 08/24/25 Rx sacubitril 24 mg-valsartan 26 mg 1 tablet PO Q12HR #60 tabs 02/02/23 08/24/25 Rx tablet (Entresto) rivaroxaban 20 mg tablet (Xarelto) 20 mg PO DAILY #30 tabs 04/01/23 08/24/25 Rx metoprolol succinate 25 mg 25 mg PO QPM 01/26/24 08/24/25 History tablet,extended release 24 hr gabapentin 300 mg capsule 600 mg (2 x 300 mg) PO TID #180 11/15/24 08/24/25 Rx caps topiramate 50 mg tablet (Topamax) 50 mg PO BID 11/15/24 08/24/25 History cholecalciferol (vitamin D3) 125 125 mcg PO DAILY #90 caps 05/07/25 08/24/25 Rx mcg (5,000 unit) capsule ezetimibe 10 mg tablet See Rx Instructions .Route 05/07/25 08/24/25 Rx .COMPLEX #90 tabs atorvastatin 80 mg tablet 80 mg PO DAILY #90 tabs 06/03/25 08/24/25 Rx meclizine 25 mg tablet 25 mg PO TID PRN dizziness 10 days 07/13/25 08/24/25 Rx #30 tabs ferrous sulfate 325 mg (65 mg 325 mg PO TID 07/20/25 08/24/25 History iron) tablet (iron) pantoprazole 40 mg tablet,delayed 40 mg PO Q12HR #60 tabs 07/23/25 08/24/25 Rx release dulaglutide 1.5 mg/0.5 mL See Rx Instructions .Route 08/16/25 08/22/25 Rx subcutaneous pen injector .COMPLEX #2 mL (Trulicity) Patient hx anesthesia problems: none Family hx anesthesia problems: none Results Review: All pre-operative results and documents have been reviewed as part of the pre-operative evaluation. [facility] Past Medical History Medical History Blood thinned due to long-term anticoagulant use Macrocytic anemia Acute on chronic renal failure Acute on chronic anemia Cerumen impaction JUANA (acute kidney injury) CKD (chronic kidney disease) stage 3, GFR 30-59 ml/min Elevated serum creatinine Elevated WBC count Screening for malignant neoplasm of prostate Enlarged thyroid Preoperative clearance Abnormal EKG Renal mass, right Hypotension Current smoker Constipation Diabetic foot Uncontrolled diabetes mellitus Microalbuminuria Vitamin B12 deficiency Lumbar spondylosis Screening for thyroid disorder H/O blood clots Blood clot associated with vein wall inflammation Peripheral artery disease Abnormal MRI, lumbar spine Surgical History Surgical History History of partial nephrectomy H/O cardiac catheterization Family History Family History Grandparent Diabetes mellitus Father Acute myocardial infarction Heart disease Mother No problems noted. Sibling Diabetes mellitus Other Family history of cardiovascular disease Hypertension Social History Social History Smoking packs per day: 1 Smoking cigarettes per day: 20.0 Years smoked: 49 Smoking pack-years: 49.00 Smoking status: Current every day smoker Tobacco type: cigarettes Second hand tobacco smoke exposure: No Alcohol intake: current Drinks per week: 0 Alcohol use details: BEERS Substance use: never Substance use type: does not use Other substance usage details: nyquil Lack of Transportation: No Lack of Food: Never True Current Housing: I Have Housing Concerned About Future Housing: No Difficulty Paying Gas/Electric Bills: No Difficulty Paying for Meds: No Currently Unemployed: No Education: High School Diploma/GED Difficulty w/ Childcare or Family Care: No Living arrangements: with family Occupation/Education: retired 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 Gender identity (if verbalized by the patient): Male Spiritual care concerns: No Anes - Eval Final PreProcedure Day of Procedure 08/24/25 11:25 Patient weight: obese Heart: regular rate and rhythm Lungs: clear to auscultation Airway: Mallampati scale class II Neurological: alert and oriented Last oral intake: >/= 8 hours ASA classification: III Emergent: no Anesthetic plan: proceed Anesthesia type and monitoring: general GIVS and standard monitoring Results Review: All pre-operative results and documents have been reviewed as part of the pre-operative evaluation. Informed Consent: The patient's anesthetic plan and its attendant risks and benefits were discussed with the patient/family/POA. Questions were solicited and answers provided to the satisfaction of the patient/family/POA.
[2025-08-24 11:42] LABS: Hematocrit 35.3 % (42.0-52.0); Hemoglobin 11.0 g/dL (14.0-18.0)
--- NOTE | 2025-08-24 12:43 | PM.HPGS ---
History of Present Illness History of Present Illness Consent: Risks, benefits, and alternatives have been discussed and questions answered. Patient agrees to proceed with procedure. Chief complaint: Iron deficiency anemia, unspecified Narrative: Bravo Perez is a 65 year old male with recurrent anemia and recent hospitalization showed gastric ulcer but also completed SBCE that showed brb in proximal jejunum, repeat hgb today is stable at 11 and denies recent melena. Here for push enteroscopy Review of Systems Review of Systems: All systems reviewed & are unremarkable except as noted in HPI and below PMFSH Past Medical History Medical History Blood thinned due to long-term anticoagulant use Macrocytic anemia Acute on chronic renal failure Acute on chronic anemia Cerumen impaction JUANA (acute kidney injury) CKD (chronic kidney disease) stage 3, GFR 30-59 ml/min Elevated serum creatinine Elevated WBC count Screening for malignant neoplasm of prostate Enlarged thyroid Preoperative clearance Abnormal EKG Renal mass, right Hypotension Current smoker Constipation Diabetic foot Uncontrolled diabetes mellitus Microalbuminuria Vitamin B12 deficiency Lumbar spondylosis Screening for thyroid disorder H/O blood clots Blood clot associated with vein wall inflammation Peripheral artery disease Abnormal MRI, lumbar spine Surgical History Surgical History History of partial nephrectomy H/O cardiac catheterization Family History Family History Grandparent Diabetes mellitus Father Acute myocardial infarction Heart disease Mother No problems noted. Sibling Diabetes mellitus Other Family history of cardiovascular disease Hypertension Social History Social History Smoking packs per day: 1 Smoking cigarettes per day: 20.0 Years smoked: 49 Smoking pack-years: 49.00 Smoking status: Current every day smoker Tobacco type: cigarettes Second hand tobacco smoke exposure: No Alcohol intake: current Drinks per week: 0 Alcohol use details: BEERS Substance use: never Substance use type: does not use Other substance usage details: nyquil Lack of Transportation: No Lack of Food: Never True Current Housing: I Have Housing Concerned About Future Housing: No Difficulty Paying Gas/Electric Bills: No Difficulty Paying for Meds: No Currently Unemployed: No Education: High School Diploma/GED Difficulty w/ Childcare or Family Care: No Living arrangements: with family Occupation/Education: retired 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 Gender identity (if verbalized by the patient): Male Spiritual care concerns: No Meds Home Medications and Allergies Home Medications ?Medication ?Instructions ?Recorded ?Confirmed ?Type spironolactone 25 mg tablet 25 mg PO DAILY 12/25/22 08/24/25 History amiodarone 200 mg tablet (Pacerone) 400 mg (2 x 200 mg) PO DAILY@0800 02/02/23 08/24/25 Rx 30 days #30 tabs aspirin 81 mg tablet,delayed 81 mg PO QAM #30 tabs 02/02/23 08/24/25 Rx release furosemide 40 mg tablet 40 mg PO DAILY 30 days #30 tabs 02/02/23 08/24/25 Rx sacubitril 24 mg-valsartan 26 mg 1 tablet PO Q12HR #60 tabs 02/02/23 08/24/25 Rx tablet (Entresto) rivaroxaban 20 mg tablet (Xarelto) 20 mg PO DAILY #30 tabs 04/01/23 08/24/25 Rx metoprolol succinate 25 mg 25 mg PO QPM 01/26/24 08/24/25 History tablet,extended release 24 hr gabapentin 300 mg capsule 600 mg (2 x 300 mg) PO TID #180 11/15/24 08/24/25 Rx caps topiramate 50 mg tablet (Topamax) 50 mg PO BID 11/15/24 08/24/25 History cholecalciferol (vitamin D3) 125 125 mcg PO DAILY #90 caps 05/07/25 08/24/25 Rx mcg (5,000 unit) capsule ezetimibe 10 mg tablet See Rx Instructions .Route 05/07/25 08/24/25 Rx .COMPLEX #90 tabs atorvastatin 80 mg tablet 80 mg PO DAILY #90 tabs 06/03/25 08/24/25 Rx meclizine 25 mg tablet 25 mg PO TID PRN dizziness 10 days 07/13/25 08/24/25 Rx #30 tabs ferrous sulfate 325 mg (65 mg 325 mg PO TID 07/20/25 08/24/25 History iron) tablet (iron) pantoprazole 40 mg tablet,delayed 40 mg PO Q12HR #60 tabs 07/23/25 08/24/25 Rx release dulaglutide 1.5 mg/0.5 mL See Rx Instructions .Route 08/16/25 08/22/25 Rx subcutaneous pen injector .COMPLEX #2 mL (Trulicity) Allergies Allergy/AdvReac Type Severity Reaction Status Date / Time No Known Allergies Allergy Verified 08/24/25 10:57 Vital Signs Vital Signs - 24 hr 08/24/25 11:02 Temperature 97 F L Pulse Rate 65 Respiratory Rate 20 Blood Pressure 122/54 L Pulse Oximetry 100 Oxygen Delivery Room Air Exam Const: General: comfortable and no acute distress HENMT: Face/Nose/Sinus: Normal nares present Eyes: General: appearance normal, both eyes and all related structures Neck: Neck: no JVD Resp: Auscultation: clear to auscultation bilaterally Cardio: Rate: regular rate Rhythm: regular rhythm GI: Inspection: non-distended GI Palp: Yes Soft to palpation Skin: General skin exam: normal color Extrem: General: normal to inspection Psych: Mental Status: mental status grossly normal Assessment and Plan Assessment and plan (1) GI bleed: Code(s): K92.2 - Gastrointestinal hemorrhage, unspecified Status: Acute Assessment and Plan: egd with push enteroscopy
[2025-08-24 13:01] VITALS: BP 132/55; PULSE 64; RESP 19; O2SAT 100
[2025-08-24 13:11] VITALS: BP 121/51; PULSE 63; RESP 25; O2SAT 100
[2025-08-24 13:21] VITALS: BP 138/57; PULSE 63; RESP 19; O2SAT 100
== END 2025-08-24 13:30 | disposition home or self-care (01) ==
PROVIDERS: Absent Provider Internal Medicine Gastroenterology; PCP Family Medicine; Visit Provider Internal Medicine Gastroenterology
PROC: 0DJ08ZZ Inspection of Upper Intestinal Tract, Via Natural or Artificial Opening Endoscopic (ICD-10-PCS; CPT 43235; principal; 2025-08-24 11:45)
DX: D50.9 Iron deficiency anemia, unspecified (principal); K92.2 Gastrointestinal hemorrhage, unspecified; D53.9 Nutritional anemia, unspecified; E11.22 Type 2 diabetes mellitus with diabetic chronic kidney disease; N18.30 Chronic kidney disease, stage 3 unspecified; I95.9 Hypotension, unspecified; E53.8 Deficiency of other specified B group vitamins; M43.06 Spondylolysis, lumbar region; I73.9 Peripheral vascular disease, unspecified; F17.210 Nicotine dependence, cigarettes, uncomplicated; E66.9 Obesity, unspecified; Z68.31 Body mass index [BMI] 31.0-31.9, adult; Z79.82 Long term (current) use of aspirin; Z79.01 Long term (current) use of anticoagulants; Z79.85 Long-term (current) use of injectable non-insulin antidiabetic drugs; Z90.5 Acquired absence of kidney; Z98.61 Coronary angioplasty status; Z82.49 Family history of ischemic heart disease and other diseases of the circulatory system
CPT/HCPCS: 43235; 36415; 82948; 85014; 85018; J2003; J2704; J7120

== ENCOUNTER 2025-08-27 16:31 | Outpatient (CLI) | payer MEDICARE, OTHER, SELFPAY ==
--- OUTSIDE RECORDS SUMMARY | 2025-08-27 15:30 | XMS_ITS | Encounter Summary ---
Author Organization [facility] [employer] Address [address] [place] [address] Care Team Providers Care Adhesive Sprayer Name Role Phone Unavailable Primary Care Provider Unavailabl e Reason for Visit * Reason Comments Cancer Encounter Details Date Type Department Care Team (Late st Contact Info) Description 08/27/2025 3:30 PM [facility] [employer] [facility] Office Visit [facility] On[facility] and H[facility]ology - [place] [address] [facility] [address] [place] [address] Obi Herbert MD [address] [facility] [address] [place] [address] Chronic anemia (Primary Dx) Social History Tobacco Use Types Packs/Day Years Used Date Smoking Tobacco: Every Day Cigarettes 1 56 Started: 09/13/1969 Smokeless Tobacco: Never Tobacco Cessation:Ready [...] on file documented as of this encounter Last Filed Vital Signs Vital Sign Reading Time Taken Comments Blood Pressure 120/53 08/27/2025 3:31 PM [employer] [facility] Pulse 64 08/27/2025 3:31 PM [employer] Temperature 36.2 C (97.1 F) 08/27/2025 3:31 PM [employer] Respiratory Rate 16 08/27/2025 3:31 PM [employer] Oxygen Saturation 97% 08/27/2025 3:31 PM [employer] Inhaled Oxygen Concentration - - Weight 108 kg (238 lb) 08/27/2025 3:31 PM [employer] Height - - Body Mass Index 32.28 03/08/2025 2:25 PM CDT documented in this encounter Progress Notes * Obi Herbert MD - 08/27/2025 4:32 PM CST HEMATOLOGY / ONCOLOGY PROGRESS NOTE Patient Identification: Name: Bravo Perez Age: 65 y.o. Sex: male : 1960 DIAGNOSIS T1b N0 M0 clear-cell renal cell carcinoma grade two 4.3 cm in size confined to the kidney without lymphovascular invasion and margins negative status post partial nephrectomy done on April 23, 2025. Iron deficiency anemia. CURRENT TREATMENT Iron 3 times a day TREATMENT HISTORY Capsule enteroscopy done on August 17, 2025 showed bright red blood in the proximal jejunum with erosions in the ileum. EGD done August 24, 2025 came back normal. EGD from July 2025 showed unspecified gastric ulcer. Colonoscopy from February 2024 showed internal hemorrhoid, colon ulcer, diverticulosis and colon polyps. SUBJECTIVE Patient came back to the office for new diagnosis of iron deficiency anemia. He has mild tiredness and fatigue but denies any bleeding including melena and hematochezia. Review of system Constitutional: Patient did not mention fevers, sweats, fatigue, malaise, weight loss HEENT: Patient did not mention sinus congestion, hearing or vision problems Respiratory: Patient did not mention cough, dyspnea, wheeze Cardiovascular: Patient did not mention chest pain, exertional chest pressure/discomfort, nausea, syncope, shortness of breath GI: Patient did not mention constipation, diarrhea, dsyphagia, reflux symptoms, vomiting, melena : Patient did not mention dysuria, frequency, incontinence, urgency Integumentary system: no lymphadenopathy, sweats, flushing Musculoskeletal: Patient not mention: myalgia, arthralgia Neurological: Patient did not mention blurry or disturbed vision, numbness/weakness, dizziness Skin: No lumps, bumps or rashes. Objective: Vital signs in last 24 hours: As per nursing note Exam: General appearance: alert, cooperative, no distress, appears stated age Head: normocephalic, without obvious abnormality, atraumatic Eyes: conjunctivae/corneas clear, EOM's intact Ears: normal external ear canals AU Nose: Nares normal. Septum midline. Mucosa normal. No drainage or sinus tenderness Throat: Lips, mucosa, and tongue normal. Teeth and gums normal Neck: supple, symmetrical, trachea midline. Lungs: clear to auscultation bilaterally Heart: regular rate and rhythm, S1, S2 normal, no murmur, click, rub or gallop Abdomen: soft, non-tender. Bowel sounds normal. No masses, No organomegaly Extremities: extremities normal, atraumatic, no cyanosis or edema Skin: Skin color, texture, turgor normal. No rashes or lesions Lymph nodes: No lymphadenopathy Neuro: No obvious focal deficit PATH LABS @IMAGEIMP@ Assessment: Plan: There are no active problems to display for this patient. T1b N0 M0 clear-cell renal cell carcinoma grade two 4.3 cm in size confined to the kidney without lymphovascular invasion and margins negative status post partial nephrectomy done on April 23, 2025. No adjuvant treatment needed. Patient will follow-up with Dr. Flores. Iron deficiency anemia.Capsule enteroscopy done on August 17, 2025 showed bright red blood in the proximal jejunum with erosions in the ileum. EGD done August 24, 2025 came back normal. EGD from July 2025 showed unspecified gastric ulcer. Colonoscopy from February 2024 showed internal hemorrhoid, colon ulcer, diverticulosis and colon polyps. Patient received 2 units of packed red blood cells in July. I will repeat iron studies, [id number] level, soluble transferrin receptor, methylmalonic acid, erythropoietin level and serum proteinelectrophoresis. Follow-up in 2 weeks. He will continue iron 3 times a day with vitamin C 500 mg daily. Based on the lab we will decide about iron infusion. ? TOBACCO COUNSELING He is not a tobacco/nicotine user. 08/27/2025 Obi Herbert MD [employer] [employer] [facility] * Obi Herbert MD - 08/27/2025 3:34 PM CST Depression Screen Positive: PHQ-2 score >= 3 or PHQ-9 score >= 9 PHQ-2 Total: 0 (08/27/2025 3:33 PM) DEPRESSION PLAN OF CARE His depression screen was negative. (PHQ2 <3, PHQ9 <10, [place] <11) [employer] [employer] [facility] documented in this encounter Plan of Treatment Upcoming Encounters Date Type Department Care Team (Late st Contact Info) Description 09/10/2025 4:00 PM [employer] Telephone Check Up [facility] On[facility] and H[facility]ology - [place] [address] [place] [address] Madison Larios MD [address] [address] Scheduled Orders Name Type Priority Associated Diagnoses Orde r Schedule CBC WITH DIFFERENTIAL Lab Stat Chronic anemia Expected: 08/27/2025, Expires: 08/27/2026 COMPREHENSIVE METABOLIC PANEL Lab Stat Chronic anemia Expected: 08/27/2025, Expires: 08/27/2026 ERYTHROPOIETIN LEVEL Lab Routine Chronic anemia Expected: 08/27/2025, Expires: 08/27/2026 FERRITIN Lab Routine Chronic anemia Expected: 08/27/2025, Expires: 08/27/2026 IRON, TIBC, AND PERCENT SATURATION Lab Routine Chronic anemia Expected: 08/27/2025, Expires: 08/27/2026 METHYLMALONIC ACID Lab Routine Chronic anemia Expected: 08/27/2025, Expires: 08/27/2026 TRANSFERRIN RECEPTOR TFR SOLUBLE Lab Routine Chronic anemia Expected: 08/27/2025, Expires: 08/27/2026 VITAMIN B12 AND FOLATE Lab Routine Chronic anemia Expected: 08/27/2025, Expires: 08/27/2026 PROTEIN ELECTROPHORESIS W/REFLEX,SERUM Lab Routine Chronic anemia Expected: 08/27/2025, Expires: 08/27/2026 documented as of this encounter Visit Diagnoses Diagnosis Chronic anemia- Primary Anemia, unspecified documented in this encounter
[2025-08-27 17:13] LABS: Hematocrit 37.4 % (42.0-52.0); Hemoglobin 12.0 g/dL (14.0-18.0); Immature Granulocyte Percent A 0.8 % (0-0.5); Lymphocytes Absolute Auto 2.70 K/mm3 (0.9-3.2); Mean Corpuscular HGB Conc 32.1 g/dl (32-36); Mean Corpuscular Hemoglobin 32.4 pg (26-34); Mean Corpuscular Volume 101.1 fl (80-100); Nucleated Red Blood Cells Absolute Auto 0.000 K/mm3 (0.0-0.012); Nucleated Red Blood Cells Perc 0.0 % (0.0-0.2); Platelet Count Result 226 k/mm3 (150-375); Red Blood Count 3.70 M/mm3 (4.6-6.20); White Blood Count 8.8 K/mm3 (4.5-10.0)
[2025-08-27 17:33] LABS: Iron 60 ug/dL (49-181)
[2025-08-27 17:34] LABS: Alanine Aminotransferase 15 U/L (6-50); Albumin Level 4.1 g/dL (3.5-5.1); Alkaline Phosphatase 70 U/L (38-126); Anion Gap 8 mmol/L (4-12); Aspartate Amino Transferase 21 U/L (17-59); Bilirubin,Total 0.3 mg/dL (0.2-1.3); Blood Urea Nitrogen 14 mg/dL (9-20); Calcium 9.1 mg/dL (8.4-10.2); Carbon Dioxide 23 mmol/L (22-30); Chloride 111 mmol/L (98-107); Estimated Glomerular Filt Rate 45; Glucose 91 mg/dL (65-110); Potassium 4.4 mmol/L (3.4-5.0); Sodium 142 mmol/L (137-145); Total Protein 7.1 g/dL (6.3-8.2)
[2025-08-27 17:41] LABS: Transferrin 245 mg/dL (206-381)
[2025-08-27 17:42] LABS: Percent Iron Saturation 19 % (20-50)
[2025-08-27 18:14] LABS: Ferritin 43.20 ng/mL (11.1-264)
--- OUTSIDE RECORDS SUMMARY | 2025-08-27 18:18 | XMS_ITS | Encounter Summary ---
Author Organization [facility] Address [address] [place] [address] Care Team Providers Care Power Shovel Operator Helper Name Role Phone Calderon Nick MD Primary Care Provider [phone] Bravo Barrera MD Unavailable [phone] Reason for Referral * Surgical (Routine) - Closed Specialty Diagnoses / Procedures Referred By Contac t Referred To Contact Diagnoses PVD (peripheral vascular disease) Procedures Case request operating room: ENDARTERECTOMY COMMON FEMORAL ARTERY SUPERFICIAL FEMORAL ARTERY, BYPASS GRAFT FEMORAL POPLITEAL Goldy Thurman MD [facility]. [facility] [address] [place] [address] Phone: tel: fax: [facility] [place] [address] Phone: tel: Referral ID Status Reason Start Date Expiration Date Visits Re quested Visits Authorized [id number] Closed 07/24/2022 05/29/2023 1 1 Encounter Details Date Type Department Care Team (Late st Contact Info) Description 05/29/2022 Prep for Procedure [facility] [address] [place], [place] [id number] Goldy Thurman MD [facility]. 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 [facility] [address] [place], [place] [address] Scheduled Orders Name Type Priority Associated Diagnoses Order Schedule Case request operating room: ENDARTERECTOMY COMMON FEMORAL ARTERY SUPERFICIAL FEMORAL ARTERY, BYPASS GRAFT FEMORAL POPLITEAL Case Request Routine Once for 1 Occurrences starting 05/29/2022 until 05/29/2022 documented as of this encounter Results * MRSA SCREENING (07/17/2022 12:01 PM CDT) SPEC DESCRIPTION NASAL 07/17/2022 12:02 PM CDT [facility] SPECIAL REQUESTS NO SPECIAL REQUEST 07/17/2022 12:02 PM CDT [facility] CULTURE RESULT NO METHICILLIN RESISTANT STAPHYLOCOCCUS AUREUS ISOLATED 07/18/2022 12:35 PM CDT [facility] SPECIMEN FROM INTERNAL NOSE / Unknown 07/17/2022 12:01 PM CDT 07/17/2022 12:18 PM CDT us Goldy Thurman MD MICROBIOLOGY - GENERAL ORDERABLE S Final Result [facility] [address] [place] [address], [place] [phone] * (ABNORMAL) COMPREHENSIVE METABOLIC PANEL (07/17/2022 12:01 PM CDT) [facility] GLUCOSE 262(H) 70 - 99 MG/DL 07/17/2022 12:50 PM CDT [facility] BUN 7 7 - 18 MG/DL 07/17/2022 12:50 PM CDT [facility] CREATININE S/P/B 1.01 0.7 - 1.3 MG/DL 07/17/2022 12:50 PM CDT [facility] SODIUM S/P/B 132(L) 136 - 145 MMOL/L 07/17/2022 12:50 PM CDT [facility] POTASSIUM S/P/B 3.8 3.5 - 5.1 MMOL/L 07/17/2022 12:50 PM CDT [facility] CHLORIDE S/P/B 100 100 - 108 MMOL/L 07/17/2022 12:50 PM CDT [facility] CO2 23.2 21 - 32 MMOL/L 07/17/2022 12:50 PM CDT [facility] CALCIUM S/P/B 8.9 8.5 - 10.1 MG/DL 07/17/2022 12:50 PM CDT [facility] BILIRUBIN TOTAL S/P/B 0.3 0.2 - 1.2 MG/DL 07/17/2022 12:50 PM CDT [facility] Comment: THIS ASSAY IS NOT RECOMMENDED FOR PATIENTS UNDERGOING TREATMENT WITH ELTROMBOPAG DUE TO THE POTENTIAL FOR FALSELY ELEVATED RESULTS. TOTAL PROTEIN S/P/B 7.5 6.4 - 8.2 G/DL 07/17/2022 12:50 PM CDT [facility] ALBUMIN S/P/B 3.5 3.4 - 5.0 G/DL 07/17/2022 12:50 PM CDT [facility] AST 36 15 - 37 U/L 07/17/2022 12:50 PM CDT [facility] ALT 54 16 - 60 U/L 07/17/2022 12:50 PM CDT [facility] ALKALINE PHOSPHATASE S/P/B 102 50 - 136 U/L 07/17/2022 12:50 PM CDT [facility] ANION GAP 8.8 5 - 15 MMOL/L 07/17/2022 12:50 PM CDT [facility] BUN CREATININE RATIO 6.9 6 - 26 07/17/2022 12:50 PM CDT [facility] A/G RATIO 0.9(L) 1.0 - 2.0 RATIO 07/17/2022 12:50 PM CDT [facility] GFR ESTIMATE 84(L) >90 ML/MIN/1.7 3 M2 07/17/2022 12:50 PM CDT [facility] Comment: NOTE: eGFR is not calculated for patients <18 years of age. This is an estimated GFR calculation using the new CKD EPI creatinine equation without race and so does not require a correction factor for race. This estimated GFR should not be used for calculating drug doses. 07/17/2022 12:0 1 PM CDT us Goldy Thurman MD LABORATORY Final Result [facility] [address] [place] [address], [place] [phone] * (ABNORMAL) CBC W/DIFF AUTOMATED (07/17/2022 12:01 PM CDT) WBC 6.2 4.5 - 11.0 x10'3/uL 07/17/2022 12:23 PM CDT [facility] RBC 4.80 4.70 - 6.10 x10'6/uL 07/17/2022 12:23 PM CDT [facility] HGB 12.6(L) 14.0 - 18.0 G/DL 07/17/2022 12:23 PM CDT [facility] HCT 38.8(L) 43.0 - 54.0 % 07/17/2022 12:23 PM CDT [facility] MCV 80.8 80.0 - 94.0 FL 07/17/2022 12:23 PM CDT [facility] MCH 26.3(L) 27.0 - 31.0 PG 07/17/2022 12:23 PM CDT [facility] MCHC 32.5 32.0 - 36.0 G/DL 07/17/2022 12:23 PM CDT [facility] RDW 15.6(H) 11.5 - 14.5 % 07/17/2022 12:23 PM CDT [facility] PLT 242 130 - 400 x10'3/uL 07/17/2022 12:23 PM CDT [facility] MPV 9.2(L) 9.3 - 12.2 FL 07/17/2022 12:23 PM CDT [facility] DIFFERENTIAL TYPE AUTOMATED DIFFERENTIAL 07/17/2022 12:23 PM CDT [facility] NEUTROPHILS % 53.2 % 07/17/2022 12:23 PM CDT [facility] LYMPHOCYTES % 32.4 % 07/17/2022 12:23 PM CDT [facility] MONOCYTES % 8.9 % 07/17/2022 12:23 PM CDT [facility] EOSINOPHILS 3.7 % 07/17/2022 12:23 PM CDT [facility] BASOPHILS 1.3 % 07/17/2022 12:23 PM CDT [facility] IMMATURE GRANS % 0.5 % 07/17/20 12:23 PM CDT [facility] ABS. NEUTROPHILS TOTAL 3.30 1.80 - 7.70 x10'3/uL 07/17/2022 12:23 PM CDT [facility] ABS. LYMPHOCYTES 2.01 1.00 - 4.80 x10'3/uL 07/17/2022 12:23 PM CDT [facility] ABS. MONOCYTES 0.55 0.30 - 0.82 x10'3/uL 07/17/2022 12:23 PM CDT [facility] ABS. EOSINOPHILS 0.23 0.04 - 0.54 x10'3/uL 07/17/2022 12:23 PM CDT [facility] ABS. BASOPHILS 0.08 0.01 - 0.08 x10'3/uL 07/17/2022 12:23 PM CDT [facility] ABS. IMMATURE GRANULOCYTES 0.03 0.00 - 0.49 x10'3/uL 07/17/2022 12:23 PM CDT [facility] 07/17/2022 12:0 1 PM CDT Goldy Thurman MD LABORATORY Final Result [facility] [address] [place] [address], documented in this encounter Visit Diagnoses Diagnosis PVD (peripheral vascular disease)- Primary Peripheral vascular disease, unspecified documented in this encounter Care Teams Power Shovel Operator Helper Relationship Specialty Start Date End Date Calderon Nick MD [address] [place] [address] PCP - General FAMILY PRACTICE 02/06/22 Bravo Barrera MD [address] [facility] [address], [place] [address] CARDIOVASCULAR DISEASE 07/17/22 documented as of this encounter
--- OUTSIDE RECORDS SUMMARY | 2025-08-27 18:18 | XMS_ITS | Clinical Summary ---
Author Organization [facility] [address] Address [address] [place] [address] Care Team Providers Care Surgery Attendant Name Role Phone Calderon Nick MD Primary Care Provider [phone] Carlos Flores MD Unavailable [phone] Allergies No known active allergies Medications [...] mass 04/03/2025 Coronary artery disease invo lving soboba coronary artery of soboba heart without angina pectoris 09/28/2024 Left ventricular [...] Comments Diabetes mellitus Diabetes melli tus; Comments: [facility] 02/18/2015 - Hypertension Hypertension Hx Other Medical hyperlipidemia; Comments: [facility] 02/18/2015 - Hx Other Medical tobacco use; Co mments: [facility] 02/18/2015 - Hx Other Medical deviated septum repair; Comments: [facility] 02/18/2015 - Hx Other Medical right carpal tu nnel release; Comments: [facility] 02/18/2015 - Sleep apnea Low back pain [...] often do you attend chur ch or roman catholic services? Never 04/25/2025 Do you belong to any clubs o r organizations such as lutheran groups, unions, fraternal or athletic groups, or [...] any time in the past 12 [facility], were you homeless or living in a skilled nursing (including now)? 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 on file Not on file Not [...] 04/26/2026 04/26/2025 Medical Devices Implanted Type Area Demolition Specialist Device Identifier Shelf Expiration Date Model / Serial / Lot [employer] Olivier Stent Ureteral Set Double Pigtail Tapered Tip Contour [id number] Hydroplus Coated [id number] - [id number] Implanted:Qty: 1 on 04/23/2025 by Carlos Flores MD at [facility] Stent Right: Ureter [employer] 01/02/2028 [id number] / / [id number] [place] [address] MEDICARE [facility]YSICIANS [facility] Member Subscriber Plan / Payer (Ef fective 2024-Present) Name:Chris Bravo Jordan Relation to Subscriber:Self Name:Bravo Perez Jordan Payer ID:[id number] Group ID:Not on file Type:[employer] Address: [address] [place] [address] [place] [address] Advance Directives For more information, please contact: [phone] * Full Code (Latest Code Status on File) Date Activated Date Inactivated Comments 04/23/2025 6:08 PM 04/26/2025 3:30 PM Care Teams Surgery Attendant Relationship Specialty Start Date End Date Calderon Nick MD PCP - General 02/18/15 [place] [address] [place] [address] Consulting Physician Urology 04/24/25
--- OUTSIDE RECORDS SUMMARY | 2025-08-27 18:18 | XMS_ITS | Clinical Summary ---
Author Organization [facility] Address [address] [place] [address] Care Team Providers Care Hand Picker Name Role Phone Calderon Nick MD Primary Care Provider [phone] Bravo Barrera MD Unavailable [phone] Allergies No known active allergies Medications atorvastatin [...] Diagnosed Date Coronary artery disease invo lving [place] coronary artery of [place] heart without angina pectoris 09/28/2024 Left ventricular [...] Sex Assigned at Male 10/18/2024 12:55 PM TILER'S ASSISTANT Legal Sex Male 8:02 PM CDT Gender Identity Not on file Sexual Orientation Not on file Last Filed Vital Signs Vital Sign Reading Time Taken Comments Blood Pressure 130/72 10/26/2024 11:53 AM TILER'S ASSISTANT Pulse 71 10/26/2024 11:53 AM TILER'S ASSISTANT Temperature 36.1 C (97 F) 03/15/2024 1:38 PM CDT Respiratory Rate 18 07/25/2022 8:13 AM TILER'S ASSISTANT Oxygen Saturation 98% 09/07/2024 1:47 PM TILER'S ASSISTANT Inhaled Oxygen Concentration - - Weight 109.9 kg (242 lb 3.2 oz) 025 11:53 AM TILER'S ASSISTANT Height 182.9 cm (6') 10/26/2024 11:53 AM TILER'S ASSISTANT Body Mass Index 32.85 10/26/2024 11:53 AM TILER'S ASSISTANT Plan of Treatment Upcoming Encounters Date Type Department Care Team (Late st Contact Info) Description 10/16/2025 10:00 AM TILER'S ASSISTANT Appointment [facility] [place] [place] [phone] Goldy Thurman MD [facility]. [address] [place], [place] [id number] Health Maintenance Due Date Last Done Comments [...] Annual Medicare Wellness Visit 2024 PHQ-2 (Physician [place]) 09/13/2024 11/17/2023 Lipid Panel 12/22/2024 12/23/2023, 02/26/2022 [...] this topic Medical Devices Implanted Type Area Hand Box Folder Device Identifier Shelf Expiration Date Model / Serial / Lot Patch Desiree. Vasc. Vascu-Guard 0.8cm X 8cm - [id number] Implanted:Qty : 1 on 07/24/2022 by Goldy Thurman MD at [facility] Mesh Right: Groin [employer] [id number] 03/04/2027 [id number] / / [id number] Description:RIGHT FEMORAL AR [place] Insurance MEDICARE [employer]ICI[employer] Advance Directives * Full Code (Latest Code Status on File) Date Activated Date Inactivated Comments 02/06/2022 12:53 PM 02/06/2022 11:04 PM Care Teams Hand Picker Relationship Specialty Start Date End Date Calderon Nick MD [address] [address] PCP - General FAMILY PRACTICE 02/06/22 Bravo Barrera MD [address] [facility] [address] [place] [phone] CARDIOVASCULAR DISEASE 07/17/22
--- OUTSIDE RECORDS SUMMARY | 2025-08-27 18:18 | XMS_ITS | Clinical Summary ---
Author Organization [facility] Address [address] [place] [address] Care Team Providers Care Caddy Name Role Phone Unavailable Primary Care Provider [...] INJECT 1.5 MG SUBCUTANEOUSLY ONCE WEEKLY Active cholecalcifero l, Vitamin D3, 125 mcg [...] Encounters Date Type Department Care Team Description 08/27/2025 3:30 PM GRAB JACK MAN Office Visit [facility] Oncology and Hematology - [place] [address] [place] [address] Obi Herbert MD Chronic anemia (Primary Dx) 05/29/2025 External Device Data STL ABSTRACTION Provider, [...] Comments Blood Pressure 120/53 08/27/2025 3:31 PM GRAB JACK MAN Pulse 64 08/27/2025 3:31 PM GRAB JACK MAN Temperature 36.2 C (97.1 F) 08/27/2025 3:31 PM GRAB JACK MAN Respiratory Rate 16 08/27/2025 3:31 PM GRAB JACK MAN Oxygen Saturation 97% 08/27/2025 3:31 PM GRAB JACK MAN Inhaled Oxygen Concentration - - Weight 108 kg (238 lb) 08/27/2025 3:31 PM GRAB JACK MAN Height 182.9 cm (6') 03/08/2025 2:25 PM CDT Body Mass Index 32.28 03/08/2025 2:25 PM CDT Plan of Treatment Upcoming Encounters Date Type Department Care Team (Late st Contact Info) Description 09/10/2025 4:00 PM GRAB JACK MAN Telephone Check Up [facility] Oncology [facility] Hematology - [place] [address] [place] [phone] Madison Larios MD [address] [address] Health Maintenance Due Date Last Done Comments DIABETES ANNUAL FOOT EXAM 1977 DIABETES ANNUAL RETINAL EXAM 1977 DIABETES MICROALBUMIN ANNUAL SCREEN 1977 LDL CHOLESTEROL ANNUAL 1977 DTAP/TDAP/TD VACCINES (1 - Tdap) 1978 PNEUMOCOCCAL VACCINE 50+ YEA RS (1 of 2 - PCV) 1978 Traditional Medicare (ACO) A nnual Wellness Visit 1978 FIT-DNA Q 3 years 2004 FIT/FOBT [...] 11/28/2020 DIABETES HBA1C Q 6 MONTHS 08/23/20252024, 02/21/2025, 11/15/2024, Additional history exists COLORECTAL SCREENING 02/23/2034 02/24/2024, 02/24/20 24 Colorectal Cancer Screening 02/23/2034 Insurance MEDICARE PART A AND B [employer]YSICI[employer] SUPP
--- OUTSIDE RECORDS SUMMARY | 2025-08-27 18:18 | XMS_ITS | Encounter Summary ---
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 Gender Identity Not on file Sexual Orientation Not on file 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
[2025-08-27 18:45] LABS: Vitamin B12 381.0 pg/mL (239-931)
[2025-08-28 14:08] LABS: Albumin 3.6 g/dL (2.9-4.4); Alpha-1-Globulin 0.2 g/dL (0.0-0.4); Alpha-2-Globulin 1.0 g/dL (0.4-1.0); Gamma Globulin 0.8 g/dL (0.4-1.8)
== END 2025-08-27 16:32 | disposition home or self-care (01) ==
PROVIDERS: PCP Family Medicine; Visit Provider Internal Medicine Hematology & Oncology
DX: D64.9 Anemia, unspecified (principal); I10 Essential (primary) hypertension
CPT/HCPCS: 36415; 80053; 82607; 82668; 82728; 82746; 83540; 83550; 83921; 84155; 84165; 84466; 85025

== ENCOUNTER 2025-08-28 12:29 | Outpatient (CLI) | payer MEDICARE, OTHER, SELFPAY ==
--- NOTE | ~2025-08-28 | MR_ITS ---
EXAM/PROCEDURE: MR abdomen wo/w con HISTORY: mal nikita of rt kidney COMPARISON: None available. TECHNIQUE: Pre and postcontrast enhanced abdominal MRI performed. FINDINGS: No evidence of recurrent disease identified. Surgical changes in the inferior pole of the right kidney with some portions of the renal parenchyma hypoenhancing. The mid and upper pole appear normal. The left kidney appears normal other than tiny benign-appearing cystic lesions in the midpole region. The remainder the exam appears normal. IMPRESSION: Postsurgical changes consistent with partial right nephrectomy; there are portions of the lower pole region which are hypoenhancing suggesting reduced vascularity. Correlate clinically and if there is any clinical presentation suggesting ischemia or necrosis, correlation with duplex interrogation of the renal vascular structures and/or contrast enhanced renal arteriography is recommended. Follow-up surveillance MRI in 6 months or sooner if clinically appropriate is recommended as well. Reviewed, dictated and finalized at location A. OR NET DEVELOPER IMPRESSION: Postsurgical changes consistent with partial right nephrectomy; there are porti ons of the lower pole region which are hypoenhancing suggesting reduced vascula rity. Correlate clinically and if there is any clinical presentation suggesting ischemia or necrosis, correlation with duplex interrogation of the renal vascu lar structures and/or contrast enhanced renal arteriography is recommended. Fol low-up surveillance MRI in 6 months or sooner if clinically appropriate is jenaro mmended as well.
== END 2025-08-28 12:30 | disposition home or self-care (01) ==
LOC: MICIMG 12:30
PROVIDERS: PCP Family Medicine; Visit Provider Urology
DX: C64.1 Malignant neoplasm of right kidney, except renal pelvis (principal)
CPT/HCPCS: 74183; A9577